=== PATIENT | male | born 1945 | race Caucasian/White ===

== ENCOUNTER 2022-04-06 17:18 | Inpatient (IN) ==
[~2022-04-06 17:18] MED LIST: NOREPINEPHRINE/D5W 4 MG/250 ML IV ONE; RAPID SEQUENCE INDUCTION BAG ONE
[2022-04-06 17:43] LABS: Basophils # (auto) 0.09 K/uL (0-0.2); Basophils % (auto) 0.6 %; Eosinophils # (auto) 0.29 K/uL (0-0.50); Eosinophils % (auto) 2.1 %; Hematocrit (blood only) 46.9 % (40.1-51.0); Hemoglobin 15.2 g/dl (14.0-18.0); Immature Granulocytes # (auto) 0.32 K/uL (0.00-0.02); Immature Granulocytes % (auto) 2.3 %; Lymphocytes # (auto) 4.54 K/uL (1.2-3.4); Lymphocytes % (auto) 32.4 %; Mean Corpuscular Hemoglobin 31.1 pg (25.0-34.0); Mean Corpuscular Hgb Conc 32.4 g/dL (32.0-36.0); Mean Corpuscular Volume 95.9 fL (80.0-100.0); Mean Platelet Volume 10.1 fL (9.4-12.4); Monocytes % (auto) 4.3 %; Neutrophils # (auto) 8.19 K/uL (1.4-6.5); Neutrophils % (auto) 58.3 %; Platelet Count 181 K/uL (130-400); RDW Coefficient of Variation 12.7 % (11.5-14.5); RDW Standard Deviation 44.8 fL (36.4-46.3); Red Blood Count 4.89 M/uL (4.63-6.08); White Blood Count 14.03 K/ul (4.8-10.8)
[2022-04-06] MEDS ORDERED: PIPERACILLIN/TAZOBACTAM 4.5 GM/120 ML BAG IV ONE (17:43)
[2022-04-06] MEDS ORDERED: SODIUM CHLORIDE 0.9% 1000ML 1,000 ML IV SCH (17:45)
[2022-04-06 17:58] LABS: INR 1.1 (0.9-1.1); Prothrombin Time 11.4 Seconds (9.0-12.0)
[2022-04-06] MEDS ORDERED: fentaNYL citrate 100 MCG/2 ML VIAL IV STA (17:58)
[2022-04-06] MEDS ORDERED: niCARdipine HCL INJ 2.5 MG/ML 10 ML AMP ONE (18:00)
[2022-04-06] MEDS ORDERED: MIDAZOLAM HCL 1 MG/ML 2ML VIAL ONE (18:00)
[2022-04-06] MEDS ORDERED: HEPARIN (PORCINE) 1000 UNIT/ML 10 ML (CATH LAB USE ONLY) ONE (18:00)
[2022-04-06 18:01] LABS: iSTAT Arterial Blood Gas HCO3 25 meg/L (19-24); iSTAT Arterial Blood Gas pCO2 70 mmHg (35-46); iSTAT Arterial Blood Gas pH 7.16 (7.35-7.45); iSTAT Arterial Blood Gas pO2 75 mmHg (80-95); iSTAT Carbon Dioxide 27 mmol/L (24-31); iSTAT Hematocrit 45 % (42-52); iSTAT Hemoglobin 15.3 g/dl (14.0-18.0); iSTAT Potassium 3.2 mmol/L (3.3-5.0); iSTAT Sodium 141 mmol/L (135-144)
[2022-04-06] MEDS ORDERED: fentaNYL citrate 100 MCG/2 ML VIAL ONE (18:01)
[2022-04-06] MEDS ORDERED: NITROGLYCERIN/D5W 100MCG/ML 20ML SYR ONE (18:01)
--- NOTE | 2022-04-06 18:02 | XRay Report ---
XR chest 1V portable HISTORY: 77 years-old Male tube placement confirmation acute respiratory failure COMPARISON: None TECHNIQUE: Semierect AP view the chest FINDINGS: A tube overlies the midline, 3.5 cm superior to the arie suggestive of an endotracheal tube. There appears to be an additional tube projecting over the midline upper chest level of the clavicular head s. The cardiac silhouette is enlarged. Pulmonary vascular congestion with ill-defined left basilar an d right upper lung opacities. No pneumothorax or large pleural effusion. Degenerative changes of the shoulders and spine. IMPRESSION: 1. Endotracheal tube terminates 3.5 cm superior to the arie. There may be an additional catheter or tube which is partially imaged projecting over the Upper chest. 2. Cardiomegaly with pulmonary vascular congestion. 3. Ill-defined left basilar and right upper lung opacities may represent a nonspecific infectious or inflammatory pneumonitis. ACT 112: Negative or not required by law. The above report was generated using voice recognition software. It may contain grammatical, syntax o r spelling errors. Electronically signed by: Sam Swan M.D. 04/06/2022 5:59 PM
[2022-04-06 18:08] LABS: Albumin Globulin Ratio 1.6 (0.9-2); Albumin Level 3.7 gm/dl (3.4-5.0); BUN Creatinine Ratio 11.5 (10-20); Bilirubin,Total 0.8 mg/dl (0.2-1.0); Calcium 8.1 mg/dl (8.5-10.1); Creatinine Clr Calc Pharmacy 63.8 ml/min; Est GFR (African American) 61.4 ml/min; Globulin 2.3 gm/dl (2.5-4.0); Magnesium 1.9 mg/dl (1.7-2.4); Potassium 3.3 mmol/L (3.5-5.1)
[2022-04-06 18:11] LABS: Troponin I High Sensitivity 46.3 pg/ml (0-20)
--- NOTE | 2022-04-06 18:27 | Emergency Department Note ---
History of Present Illness General Chief complaint: Cardiac Arrest/CPR Stated complaint: cardiac arrest Time Seen by Provider: 04/06/22 17:22 Source: EMS Mode of arrival: EMS Limitations: altered mental status and physical limitation History of Present Illness Provider complaint: Cardiac arrest This is a 77-year-old male brought in by EMS after cardiac arrest. Per EMS patient was a witnessed cardiac arrest with bystander CPR. Upon police arrival AED was placed and did deliver 3 shocks. Sports Management Intern reported that upon their arrival patient was PEA. He was given a total of 3 epi, 1 bicarb, was intubated in the field without difficulty, and they successfully obtained ROSC. Patient then appeared tachycardic but was holding onto blood pressure at the time they called for medical command. Sports Management Intern was concerned as the tachycardia did appear to be atrial fibrillation. Per their knowledge from bystander on scene which was patient's , patient had no prior cardiac history and had no complaints prior to this event. State patient does have a small head injury from his collapse, no other evidence of trauma. Patient was hypoxic but was improving with continued bagging, and they noted improved overall color and appearance. Upon arrival patient still tachycardic and what appeared to be atrial fibrillation but was holding her blood pressure, being bagged by EMS without difficulty, oxygen saturations in the 90s. Hospitalist Program Director and interventional cardiology both made aware of patient's impending arrival and possible need of additional services. Pt seen during a time of high acuity and national emergency pandemic while wearing PPE. Home Medications Medication Instructions Recorded Confirmed Type finasteride 5 mg tablet 5 mg PO DAILY 04/06/22 04/06/22 History losartan 100 1 tab PO DAILY 04/06/22 04/06/22 History mg-hydrochlorothiazide 25 mg tablet rosuvastatin 20 mg tablet 20 mg PO DAILY 04/06/22 04/06/22 History tadalafil 5 mg tablet 5 mg PO DAILY 04/06/22 04/06/22 History Allergies Allergy/AdvReac Type Severity Reaction Status Date / Time ibuprofen Allergy Severe Anaphylaxis Verified 04/06/22 18:00 Past Med/Surg History Medical History BPH (benign prostatic hyperplasia) Hyperlipidemia Hypertension Lung cancer S/p upper lobectomy Social History Smoking Status: Never smoker Hx Alcohol Use: Yes Alcohol type: wine Hx Substance Use: No Preferred Language: Azeri Communication Ability: Effective Healthcare Administration Intern Required: No Beliefs That Will Affect Care: None Current Living Situation: Spouse Other Information That Helps Us Care for You: No Feels Safe at Home: Yes Safety Concerns: Feels Safe At This Time Assistive Devices: Glasses Review of Systems See HPI for pertinent positives & negatives. Unobtainable due to cognitive status and Unobtainable due to endotracheal tube Physical Exam Vital Signs Vital Signs - 24 hr 04/06/22 17:24 04/06/22 17:24 04/06/22 17:34 Temperature Temperature [Source #1] Temperature [Source #2] Temperature Source Temperature Source [Source #1] Temperature Source [Source #2] Pulse Rate 111 H Pulse Rate [Finger] 110 H Pulse Rhythm Pulse Strength Respiratory Rate 22 20 Respiratory Effort / Characteristics Blood Pressure 115/69 Blood Pressure [Left Arm] Blood Pressure [Right Arm] 139/62 Blood Pressure [Right Radial Artery] Blood Pressure Mean 84 Blood Pressure Mean [Left Arm] Blood Pressure Mean [Right Arm] 87 Blood Pressure Mean [Right Radial Artery] Blood Pressure Position [Left Arm] Blood Pressure Position [Right Radial Artery] Pulse Oximetry 99 96 Oxygen Delivery Method Mechanical Vent Mechanical Vent Mechanical Vent Fraction of Inspired Oxygen SaO2/FiO2 Ratio Sepsis Recent Fever Within 48 Hours No Sepsis New/Unexplained Change in Mental Status No Sepsis Action Taken by Nursing MD Previously Notified End-Tidal CO2 04/06/22 17:53 04/06/22 18:06 04/06/22 17:22 Temperature 36.0 C L Temperature [Source #1] Temperature [Source #2] Temperature Source Mcmillan Cath ( Temp Sensing) Temperature Source [Source #1] Temperature Source [Source #2] Pulse Rate 115 H Pulse Rate [Finger] 107 H 96 H Pulse Rhythm Pulse Strength Respiratory Rate 20 28 H 21 Respiratory Effort / Characteristics Blood Pressure Blood Pressure [Left Arm] Blood Pressure [Right Arm] 127/98 132/79 Blood Pressure [Right Radial Artery] Blood Pressure Mean Blood Pressure Mean [Left Arm] Blood Pressure Mean [Right Arm] 107 96 Blood Pressure Mean [Right Radial Artery] Blood Pressure Position [Left Arm] Blood Pressure Position [Right Radial Artery] Pulse Oximetry 89 L 91 99 Oxygen Delivery Method Mechanical Vent Mechanical Vent Fraction of Inspired Oxygen 2 40 SaO2/FiO2 Ratio 4550 Sepsis Recent Fever Within 48 Hours Sepsis New/Unexplained Change in Mental Status Sepsis Action Taken by Nursing End-Tidal CO2 47 04/06/22 19:43 04/06/22 20:00 04/06/22 20:00 Temperature Temperature [Source #1] 35.7 C L Temperature [Source #2] 35.8 C L Temperature Source Temperature Source [Source #1] Mcmillan Cath ( Temp Sensing) Temperature Source [Source #2] Rectal Pulse Rate 94 H 113 H Pulse Rate [Finger] Pulse Rhythm Irregular Pulse Strength Normal Respiratory Rate 28 H 27 H Respiratory Effort / Characteristics Mechanically Ventilated Blood Pressure Blood Pressure [Left Arm] 113/62 Blood Pressure [Right Arm] Blood Pressure [Right Radial Artery] 188/72 H Blood Pressure Mean Blood Pressure Mean [Left Arm] 79 Blood Pressure Mean [Right Arm] Blood Pressure Mean [Right Radial Artery] 110 Blood Pressure Position [Left Arm] Lying Blood Pressure Position [Right Radial Artery] Lying Pulse Oximetry 100 97 Oxygen Delivery Method Mechanical Vent Fraction of Inspired Oxygen 60 60 SaO2/FiO2 Ratio Sepsis Recent Fever Within 48 Hours Sepsis New/Unexplained Change in Mental Status Sepsis Action Taken by Nursing End-Tidal CO2 31 GENERAL: unwell appearing, well nourished EYE EXAM: Pulls midposition, minimally reactive, 3mm b/l OROPHARYNX: ET tube in place, patient being bagged NECK: supple, no adenopathy LUNGS: Decreased breath sounds in the left, equal chest rise and fall with bagging HEART: Tachycardic and what appeared to be atrial fibrillation on telemetry, positive S1 and S2, no overt murmurs ABDOMEN: abdomen soft, no masses, evidence of trauma BACK: Back is symmetrical on inspection and there is no deformity SKIN: no rashes and no bruising, no petechiae UPPER EXTREMITIES: upper extremities are grossly normal. nml pulses b/l. LOWER EXTREMITIES: No pitting edema. nml pulses b/l. NEURO EXAM: GCS 3 Course Course 1732: Mateo with who is in the bereavement room. She states he takes medication for prostate issues, blood pressure, and cholesterol. No recent changes. No prior heart history. She states they were downtown earlier today after arriving in town from [place]. They ate lunch and walked around. She states he had no complaints. She states when they got that a hotel, he was putting the tong card in the door to open it and collapsed forward striking his head on the door before falling to the ground. She states he had abnormal br eathing at that time and then began to turn blue at which point in time she called 911. She initiated CPR per 911 instruction and waited for police and EMS. She states no recent illness. She states he has had prior lobectomy for a small area of cancer. He never required chemo or radiation. He has not required any additional follow-up since then. History of DVT/PE. Dr. Gonzales arrived and discussed with also. 1745: Patient still maintaining blood pressure, is attempting to breathe over the vent, however no other withdrawal to painful stimuli or purposeful movement. Heart rate still appears to be atrial fibrillation but rate is slowing. 1800: Signs stable. If did give permission for patient to be taken for cardiac catheterization. A code heart alert was called overhead. 181: ABG reviewed. Other labs still pending. Chest x-ray with ET tube in good position. No obvious pneumonia. Patient was given IV antibiotics as a precaution as director technical noted vomitus in the patient's airway upon placing the ET tube. 1816: Patient taken to Guest Services Manager. Administered Medications Propofol (Diprivan) 1,000 mg in 100 mls @ 14.04 mls/hr IV .[id number] [facility]; Protocol Stop: 04/09/22 19:29 Last Titration: 04/06/22 23:18 Dose: 20 mcg/kg/min, 14 mls/hr Documented By: Titration: 04/06/22 23:00 Dose: 25 mcg/kg/min, 17.6 mls/hr Documented By: Titration: 04/06/22 22:55 Dose: 30 mcg/kg/min, 21.1 mls/hr Documented By: Titration: 04/06/22 22:50 Dose: 35 mcg/kg/min, 24.6 mls/hr Documented By: Admin: 04/06/22 22:41 Dose: 40 mcg/kg/min, 28.1 mls/hr Documented By: LG Co-signed By: ALEXIS Titration: 04/06/22 22:41 Dose: 40 mcg/kg/min, 28.1 mls/hr Documented By: LG Co-signed By: ALEXIS Titration: 04/06/22 22:00 Dose: 40 mcg/kg/min, 28.1 mls/hr Documented By: Titration: 04/06/22 21:50 Dose: 35 mcg/kg/min, 24.6 mls/hr Documented By: Titration: 04/06/22 21:45 Dose: 30 mcg/kg/min, 21.1 mls/hr Documented By: Titration: 04/06/22 21:40 Dose: 25 mcg/kg/min, 17.6 mls/hr Documented By: Admin: 04/06/22 21:32 Dose: 20 mcg/kg/min, 14 mls/hr Documented By: CP Co-signed By: BENITA Fentanyl Citrate (Fentanyl Citrate) 2,500 mcg in 250 mls @ 10 mls/hr IV .Q25H YONATHAN; Protocol Stop: 04/20/22 19:29 Last Titration: 04/06/22 23:16 Dose: 100 mcg/hr, 10 mls/hr Documented By: LG Co-signed By: BENITA Titration: 04/06/22 21:30 Dose: 75 mcg/hr, 7.5 mls/hr Documented By: CP Co-signed By: BENITA Titration: 04/06/22 20:30 Dose: 50 mcg/hr, 5 mls/hr Documented By: LG Co-signed By: BENITA Admin: 04/06/22 19:30 Dose: 25 mcg/hr, 2.5 mls/hr Documented By: CP Co-signed By: BENITA Ampicillin Sodium/Sulbactam Sodium 3,000 mg/ Sodium Chloride 108 mls @ 200 mls/hr IV Q6H YONATHAN; Protocol Stop: 04/14/22 00:00 Last Infusion: 04/07/22 00:52 Dose: 0 mls/hr Documented By: Admin: 04/07/22 00:05 Dose: 200 mls/hr Documented By: BENITA Parenteral Electrolytes (Normosol-R) 1,000 mls @ 100 mls/hr IV .Q10H YONATHAN Stop: 05/06/22 21:44 Last Admin: 04/06/22 21:54 Dose: 100 mls/hr Documented By: LG Amiodarone HCl/Dextrose (Nexterone / D5w) 360 mg in 200 mls @ 33.333 mls/hr IV ONE ONE; Protocol Stop: 04/07/22 06:01 Last Admin: 04/07/22 00:07 Dose: 1 mg/min, 33.3 mls/hr Documented By: BENITA Co-signed By: VK Discontinued Medications Amiodarone HCl/Dextrose (Amiodarone 150mg / 100ml D5w) Confirm Administered Dose 150 mg IV .STK-MED ONE Stop: 04/06/22 23:57 Last Admin: 04/07/22 00:06 Dose: Not Given Documented By: BENITA Amiodarone HCl/Dextrose (Amiodarone 360mg / 200ml D5w) Confirm Administered Dose 360 mg IV .STK-MED ONE Stop: 04/06/22 23:58 Last Admin: 04/07/22 00:06 Dose: Not Given Documented By: BENITA Fentanyl Citrate (Fentanyl Citrate 100 Mcg/2 Ml Vial) 50 mcg IV NOW STA Stop: 04/06/22 17:59 Last Admin: 04/06/22 21:24 Dose: Not Given Documented By: BENITA Fentanyl Citrate (Fentanyl Citrate 100 Mcg/2 Ml Vial) Confirm Administered Dose 100 mcg .ROUTE .STK-MED ONE Stop: 04/06/22 18:02 Last Admin: 04/06/22 21:25 Dose: Not Given Documented By: BENITA Fentanyl Citrate (Fentanyl Citrate 2,500 Mcg/250 Ml Bag) Confirm Administered Dose 2,500 mcg IV .STK-MED ONE Stop: 04/06/22 19:50 Last Admin: 04/06/22 21:31 Dose: Not Given Documented By: BENITA Furosemide (Furosemide 40 Mg/4 Ml Vial) 40 mg IV ONE ONE Stop: 04/06/22 20:34 Last Admin: 04/06/22 21:43 Dose: Not Given Documented By: LG Heparin Sodium (Porcine) (Heparin (Porcine) 1000 Unit/Ml 10 Ml (Guest Services Manager Use Only)) Confirm Administered Dose 10,000 units .ROUTE .STK-MED ONE Stop: 04/06/22 18:01 Last Admin: 04/06/22 21:24 Dose: Not Given Documented By: BENITA Heparin Sodium/Dextrose (Heparin 14676 Unit/500 Ml D5w) Confirm Administered Dose 25,000 units IV .STK-MED ONE Stop: 04/06/22 20:34 Last Admin: 04/06/22 21:31 Dose: Not Given Documented By: BENITA Heparin Sodium/Sodium Chloride (Heparin In Nss Infusion 1000 Unit/500 Ml (2 U/Ml) Bag) Confirm Administered Dose 3,000 units IV .STK-MED ONE Stop: 04/06/22 18:02 Last Admin: 04/06/22 21:25 Dose: Not Given Documented By: BENITA Sodium Chloride (Nss 1000ml) 1,000 mls @ 125 mls/hr IV .Q8H YONATHAN Stop: 05/06/22 17:44 Last Admin: 04/06/22 20:53 Dose: Not Given Documented By: LG Piperacillin Sod/Tazobactam Sod (Zosyn) 4.5 gm in 120 mls @ 240 mls/hr IV NOW ONE Stop: 04/06/22 18:12 Last Admin: 04/06/22 21:24 Dose: Not Given Documented By: BENITA Potassium Chloride (K Ky / Wtr) 20 meq in 100 mls @ 50 mls/hr IV ONE ONE Stop: 04/06/22 21:35 Last Infusion: 04/06/22 23:23 Dose: 0 mls/hr Documented By: Admin: 04/06/22 21:27 Dose: 50 mls/hr Documented By: LG Magnesium Sulfate/Dextrose (Magnesium Sulfate / D5w) 1 gm in 100 mls @ 50 mls/hr IV ONE ONE Stop: 04/06/22 21:35 Last Infusion: 04/06/22 23:23 Dose: 0 mls/hr Documented By: Admin: 04/06/22 21:27 Dose: 50 mls/hr Documented By: LG Heparin Sodium/Dextrose (Heparin Sodium/Dextrose) 25,000 units in 500 mls @ 34 mls/hr IV .[id number] [facility]; Protocol Stop: 05/06/22 20:44 Last Titration: 04/06/22 23:23 Dose: 0 units/hr, 0 mls/hr Documented By: LG Co-signed By: BENITA Admin: 04/06/22 21:27 Dose: 1,700 units/hr, 34 mls/hr Documented By: LG Co-signed By: BENITA Calcium Gluconate 2,000 mg/ (Dextrose) 70 mls @ 240 mls/hr IV NOW ONE Stop: 04/06/22 21:17 Last Infusion: 04/06/22 23:32 Dose: 0 mls/hr Documented By: Admin: 04/06/22 23:11 Dose: 240 mls/hr Documented By: BENITA Amiodarone HCl/Dextrose (Nexterone / D5w) 150 mg in 100 mls @ 600 mls/hr IV NOW STA Stop: 04/07/22 00:01 Last Admin: 04/07/22 00:06 Dose: 600 mls/hr Documented By: BENITA Co-signed By: MONALISA Metoprolol Tartrate (Metoprolol Tartrate 1 Mg/Ml Vial) 2.5 mg IV NOW STA Stop: 04/06/22 20:38 Last Admin: 04/06/22 21:43 Dose: Not Given Documented By: LG Midazolam HCl (Midazolam Hcl 1 Mg/Ml 2ml Vial) Confirm Administered Dose 2 mg . ROUTE .STK-MED ONE Stop: 04/06/22 18:01 Last Admin: 04/06/22 21:25 Dose: Not Given Documented By: BENITA Miscellaneous (Rapid Sequence Induction Bag) Confirm Administered Dose 1 each .ROUTE .STK-MED ONE Stop: 04/06/22 17:10 Last Admin: 04/06/22 21:24 Dose: Not Given Documented By: BENITA Nicardipine HCl (Nicardipine Hcl Inj 2.5 Mg/Ml 10 Ml Amp) Confirm Administered Dose 25 mg .ROUTE .STK-MED ONE Stop: 04/06/22 18:01 Last Admin: 04/06/22 21:25 Dose: Not Given Documented By: BENITA Nitroglycerin/Dextrose (Nitroglycerin/D5w 100mcg/Ml 20ml Syr) Confirm Administe red Dose 2,000 mcg .ROUTE .STK-MED ONE Stop: 04/06/22 18:02 Last Admin: 04/06/22 21:27 Dose: Not Given Documented By: BENITA Norepinephrine Bitartrate (Norepinephrine/D5w 4 Mg/250 Ml) Confirm Administered Dose 4 mg IV .STK-MED ONE Stop: 04/06/22 17:10 Last Admin: 04/06/22 21:24 Dose: Not Given Documented By: BENITA Phenylephrine HCl (Phenylephrine Hcl Inj 10 Mg/Ml Vial (Guest Services Manager Use Only)) Confirm Administered Dose 10 mg .ROUTE .STK-MED ONE Stop: 04/06/22 18:46 Last Admin: 04/06/22 21:27 Dose: Not Given Documented By: BENITA Potassium Chloride (Potassium Chloride 20 Meq/15 Ml Udc) 40 meq PO NOW STA Stop: 04/06/22 21:51 Last Admin: 04/06/22 21:57 Dose: 40 meq Documented By: BENITA Propofol (Propofol Iv Emulsion 10 Mg/Ml 100 Ml Vial) Confirm Administered Dose 1,000 mg IV .STK-MED ONE Stop: 04/06/22 19:50 Last Admin: 04/06/22 21:31 Dose: Not Given Documented By: BENITA Sodium Bicarbonate (Sodium Bicarb 8.4% Inj 50 Meq/50 Ml Syr) Confirm Administered Dose 50 meq IV .STK-MED ONE Stop: 04/06/22 23:08 Last Admin: 04/06/22 23:29 Dose: Not Given Documented By: BENITA Sodium Bicarbonate (Sodium Bicarb 8.4% Inj 50 Meq/50 Ml Syr) 50 meq IV NOW STA Stop: 04/06/22 23:24 Last Admin: 04/06/22 23:30 Dose: 50 meq Documented By: BENITA Vecuronium Conway (Vecuronium Conway 10 Mg Vial) Confirm Administered Dose 10 mg IV .STK-MED ONE Stop: 04/06/22 23:36 Last Admin: 04/07/22 00:05 Dose: Not Given Documented By: BENITA Vecuronium Conway (Vecuronium Conway 10 Mg Vial) 10 mg IV NOW STA Stop: 04/06/22 23:36 Last Admin: 04/07/22 00:05 Dose: 10 mg Documented By: BENITA Co-signed By: MONALISA Critical Care Time Critical Care Time: Yes Total Critical Care Time: 58 Critical care of 58 min performed to assess and manage high likelihood of life- threatening cardiac arrest, involving labs and imaging performed with assessment to evaluate cardiac arrest diagnosis with frequent reassessment. This time includes bedside time, treatment discussions with patient/family/consultants, documentation time and excludes procedure time. Medical Decision Making Differential Diagnosis Cardiac ischemia, aortic dissection, pulmonary embolism, electrolyte abnormality, acidosis, tension pneumothorax, hypothermia, hypovolemia, intracranial event, cardiac tamponade, as well as other pathologies. Laboratory Data Result diagrams: 04/06/22 19:23 04/06/22 19:29 Lab Results 04/06/22 04/06/22 04/06/22 Range/Units 17:07 17:07 17:07 WBC 14.03 H (4.8-10.8) K/ul RBC 4.89 (4.63-6.08) M/uL Hgb 15.2 (14.0-18.0) g/dl POC Hgb (14.0-18.0) g/dl Hct 46.9 (40.1-51.0) % POC Hct (42-52) % MCV 95.9 (80.0-100.0) fL MCH 31.1 (25.0-34.0) pg MCHC 32.4 (32.0-36.0) g/dL RDW Std Deviation 44.8 (36.4-46.3) fL RDW Coeff of Tarsha 12.7 (11.5-14.5) % Plt Count 181 (130-400) K/uL MPV 10.1 (9.4-12.4) fL Immature Gran % (Auto) 2.3 % Neut % (Auto) 58.3 % Lymph % (Auto) 32.4 % Hill % (Auto) 4.3 % Eos % (Auto) 2.1 % Baso % (Auto) 0.6 % Neut # (Auto) 8.19 H (1.4-6.5) K/uL Lymph # (Auto) 4.54 H (1.2-3.4) K/uL Hill # (Auto) 0.60 (0.24-0.82) K/uL Eos # (Auto) 0.29 (0-0.50) K/uL Baso # (Auto) 0.09 (0-0.2) K/uL Immature Gran # (Auto) 0.32 H (0.00-0.02) K/uL PT 11.4 (9.0-12.0) Seconds INR 1.1 (0.9-1.1) APTT (21.0-31.0) Seconds PTT Ratio Fibrinogen (184-400) mg/dl POC pH (7.35-7.45) POC pCO2 (35-46) mmHg POC pO2 (80-95) mmHg POC HCO3 (19-24) venu/L POC Total CO2 (24-31) mmol/L POC Base Excess (-9-1.8) venu/L POC ABG O2 Sat (90-95) % POC Sodium (135-144) mmol/L Sodium 144 (136-145) mmol/L POC Potassium (3.3-5.0) mmol/L Potassium 3.3 L (3.5-5.1) mmol/L Chloride 105 (98-107) mmol/L Carbon Dioxide 22 (21-32) mmol/L Anion Gap 17 H (3-11) BUN 15 (6-23) mg/dl Creatinine 1.30 (0.6-1.4) mg/dl Est Cr Clr Drug Dosing 63.8 ml/min Est GFR ( Amer) 61.4 ml/min Est GFR (Non-Af Amer) 53.0 ml/min BUN/Creatinine Ratio 11.5 (10-20) Glucose 225 H (70-99(Fasting)) mg/dl POC Glucose (70-99) mg/dl Lactate (0.4-2.0) mmol/L Calcium 8.1 L (8.5-10.1) mg/dl Ionized Calcium (1.12-1.32) mmol/L Phosphorus (2.5-4.9) mg/dl Magnesium 1.9 (1.7-2.4) mg/dl Total Bilirubin 0.8 (0.2-1.0) mg/dl AST 95 H (13-39) U/L ALT 109 H (7-52) U/L Alkaline Phosphatase 50 (34-104) U/L Total Creatine Kinase Troponin I High Sens 46.3 H (0-20) pg/ml Total Protein 6.0 (6.0-8.3) gm/dl Albumin 3.7 (3.4-5.0) gm/dl Globulin 2.3 L (2.5-4.0) gm/dl Albumin/Globulin Ratio 1.6 (0.9-2) Triglycerides Cholesterol LDL Cholesterol, Calc VLDL Cholesterol, Calc HDL Cholesterol Cholesterol/HDL Ratio Lipase 60 (11-82) U/L TSH (0.300-4.500) uIu/ml Random Cortisol mcg/dl Nasal Screen MRSA (PCR) (Negative) Blood Type Blood Type Recheck Antibody Screen 04/06/22 04/06/22 04/06/22 Range/Units 17:29 17:43 17:45 WBC (4.8-10.8) K/ul RBC (4.63-6.08) M/uL Hgb (14.0-18.0) g/dl POC Hgb 15.3 (14.0-18.0) g/dl Hct (40.1-51.0) % POC Hct 45 (42-52) % MCV (80.0-100.0) fL MCH (25.0-34.0) pg MCHC (32.0-36.0) g/dL RDW Std Deviation (36.4-46.3) fL RDW Coeff of Tarsha (11.5-14.5) % Plt Count (130-400) K/uL MPV (9.4-12.4) fL Immature Gran % (Auto) % Neut % (Auto) % Lymph % (Auto) % Hill % (Auto) % Eos % (Auto) % Baso % (Auto) % Neut # (Auto) (1.4-6.5) K/uL Lymph # (Auto) (1.2-3.4) K/uL Hill # (Auto) (0.24-0.82) K/uL Eos # (Auto) (0-0.50) K/uL Baso # (Auto) (0-0.2) K/uL Immature Gran # (Auto) (0.00-0.02) K/uL PT (9.0-12.0) Seconds INR (0.9-1.1) APTT (21.0-31.0) Seconds PTT Ratio Fibrinogen (184-400) mg/dl POC pH 7.16 L* (7.35-7.45) POC pCO2 70 H (35-46) mmHg POC pO2 75 L (80-95) mmHg POC HCO3 25 H (19-24) venu/L POC Total CO2 27 (24-31) mmol/L POC Base Excess -4.0 (-9-1.8) venu/L POC ABG O2 Sat 90.0 (90-95) % POC Sodium 141 (135-144) mmol/L Sodium (136-145) mmol/L POC Potassium 3.2 L (3.3-5.0) mmol/L Potassium (3.5-5.1) mmol/L Chloride (98-107) mmol/L Carbon Dioxide (21-32) mmol/L Anion Gap (3-11) BUN (6-23) mg/dl Creatinine (0.6-1.4) mg/dl Est Cr Clr Drug Dosing ml/min Est GFR ( Amer) ml/min Est GFR (Non-Af Amer) ml/min BUN/Creatinine Ratio (10-20) Glucose (70-99(Fasting)) mg/dl POC Glucose 206 H (70-99) mg/dl Lactate (0.4-2.0) mmol/L Calcium (8.5-10.1) mg/dl Ionized Calcium (1.12-1.32) mmol/L Phosphorus (2.5-4.9) mg/dl Magnesium (1.7-2.4) mg/dl Total Bilirubin (0.2-1.0) mg/dl AST (13-39) U/L ALT (7-52) U/L Alkaline Phosphatase (34-104) U/L Total Creatine Kinase Troponin I High Sens (0-20) pg/ml Total Protein (6.0-8.3) gm/dl Albumin (3.4-5.0) gm/dl Globulin (2.5-4.0) gm/dl Albumin/Globulin Ratio (0.9-2) Triglycerides Cholesterol LDL Cholesterol, Calc VLDL Cholesterol, Calc HDL Cholesterol Cholesterol/HDL Ratio Lipase (11-82) U/L TSH (0.300-4.500) uIu/ml Random Cortisol mcg/dl Nasal Screen MRSA (PCR) (Negative) Blood Type Blood Type Recheck O Positive Antibody Screen 04/06/22 04/06/22 04/06/22 Range/Units 19:23 19:29 19:29 WBC 18.11 H (4.8-10.8) K/ul RBC 4.74 (4.63-6.08) M/uL Hgb 14.9 (14.0-18.0) g/dl POC Hgb (14.0-18.0) g/dl Hct 44.8 (40.1-51.0) % POC Hct (42-52) % MCV 94.5 (80.0-100.0) fL MCH 31.4 (25.0-34.0) pg MCHC 33.3 (32.0-36.0) g/dL RDW Std Deviation 44.0 (36.4-46.3) fL RDW Coeff of Tarsha 12.7 (11.5-14.5) % Plt Count 216 (130-400) K/uL MPV 10.1 (9.4-12.4) fL Immature Gran % (Auto) 1.5 % Neut % (Auto) 74.7 % Lymph % (Auto) 19.2 % Hill % (Auto) 3.4 % Eos % (Auto) 0.6 % Baso % (Auto) 0.6 % Neut # (Auto) 13.52 H (1.4-6.5) K/uL Lymph # (Auto) 3.48 H (1.2-3.4) K/uL Hill # (Auto) 0.62 (0.24-0.82) K/uL Eos # (Auto) 0.11 (0-0.50) K/uL Baso # (Auto) 0.11 (0-0.2) K/uL Immature Gran # (Auto) 0.27 H (0.00-0.02) K/uL PT (9.0-12.0) Seconds INR (0.9-1.1) APTT (21.0-31.0) Seconds PTT Ratio Fibrinogen (184-400) mg/dl POC pH (7.35-7.45) POC pCO2 (35-46) mmHg POC pO2 (80-95) mmHg POC HCO3 (19-24) venu/L POC Total CO2 (24-31) mmol/L POC Base Excess (-9-1.8) venu/L POC ABG O2 Sat (90-95) % POC Sodium (135-144) mmol/L Sodium (136-145) mmol/L POC Potassium (3.3-5.0) mmol/L Potassium (3.5-5.1) mmol/L Chloride (98-107) mmol/L Carbon Dioxide (21-32) mmol/L Anion Gap (3-11) BUN (6-23) mg/dl Creatinine (0.6-1.4) mg/dl Est Cr Clr Drug Dosing ml/min Est GFR ( Amer) ml/min Est GFR (Non-Af Amer) ml/min BUN/Creatinine Ratio (10-20) Glucose (70-99(Fasting)) mg/dl POC Glucose (70-99) mg/dl Lactate 4.1 H* (0.4-2.0) mmol/L Calcium (8.5-10.1) mg/dl Ionized Calcium (1.12-1.32) mmol/L Phosphorus (2.5-4.9) mg/dl Magnesium (1.7-2.4) mg/dl Total Bilirubin (0.2-1.0) mg/dl AST (13-39) U/L ALT (7-52) U/L Alkaline Phosphatase (34-104) U/L Total Creatine Kinase Troponin I High Sens (0-20) pg/ml Total Protein (6.0-8.3) gm/dl Albumin (3.4-5.0) gm/dl Globulin (2.5-4.0) gm/dl Albumin/Globulin Ratio (0.9-2) Triglycerides Cholesterol LDL Cholesterol, Calc VLDL Cholesterol, Calc HDL Cholesterol Cholesterol/HDL Ratio Lipase (11-82) U/L TSH (0.300-4.500) uIu/ml Random Cortisol mcg/dl Nasal Screen MRSA (PCR) (Negative) Blood Type O Positive Blood Type Recheck Antibody Screen NEGATIVE 04/06/22 04/06/22 04/06/22 Range/Units 19:29 19:29 19:29 WBC (4.8-10.8) K/ul RBC (4.63-6.08) M/uL Hgb (14.0-18.0) g/dl POC Hgb (14.0-18.0) g/dl Hct (40.1-51.0) % POC Hct (42-52) % MCV (80.0-100.0) fL MCH (25.0-34.0) pg MCHC (32.0-36.0) g/dL RDW Std Deviation (36.4-46.3) fL RDW Coeff of Tarsha (11.5-14.5) % Plt Count (130-400) K/uL MPV (9.4-12.4) fL Immature Gran % (Auto) % Neut % (Auto) % Lymph % (Auto) % Hill % (Auto) % Eos % (Auto) % Baso % (Auto) % Neut # (Auto) (1.4-6.5) K/uL Lymph # (Auto) (1.2-3.4) K/uL Hill # (Auto) (0.24-0.82) K/uL Eos # (Auto) (0-0.50) K/uL Baso # (Auto) (0-0.2) K/uL Immature Gran # (Auto) (0.00-0.02) K/uL PT (9.0-12.0) Seconds INR (0.9-1.1) APTT (21.0-31.0) Seconds PTT Ratio Fibrinogen (184-400) mg/dl POC pH (7.35-7.45) POC pCO2 (35-46) mmHg POC pO2 (80-95) mmHg POC HCO3 (19-24) venu/L POC Total CO2 (24-31) mmol/L POC Base Excess (-9-1.8) venu/L POC ABG O2 Sat (90-95) % POC Sodium (135-144) mmol/L Sodium (136-145) mmol/L POC Potassium (3.3-5.0) mmol/L Potassium (3.5-5.1) mmol/L Chloride (98-107) mmol/L Carbon Dioxide (21-32) mmol/L Anion Gap (3-11) BUN (6-23) mg/dl Creatinine (0.6-1.4) mg/dl Est Cr Clr Drug Dosing ml/min Est GFR ( Amer) ml/min Est GFR (Non-Af Amer) ml/min BUN/Creatinine Ratio (10-20) Glucose (70-99(Fasting)) mg/dl POC Glucose (70-99) mg/dl Lactate (0.4-2.0) mmol/L Calcium (8.5-10.1) mg/dl Ionized Calcium 1.06 L (1.12-1.32) mmol/L Phosphorus (2.5-4.9) mg/dl Magnesium (1.7-2.4) mg/dl Total Bilirubin (0.2-1.0) mg/dl AST (13-39) U/L ALT (7-52) U/L Alkaline Phosphatase (34-104) U/L Total Creatine Kinase Cancelled Troponin I High Sens Cancelled (0-20) pg/ml Total Protein (6.0-8.3) gm/dl Albumin (3.4-5.0) gm/dl Globulin (2.5-4.0) gm/dl Albumin/Globulin Ratio (0.9-2) Triglycerides Cancelled Cholesterol Cancelled LDL Cholesterol, Calc Cancelled VLDL Cholesterol, Calc Cancelled HDL Cholesterol Cancelled Cholesterol/HDL Ratio Cancelled Lipase Cancelled (11-82) U/L TSH (0.300-4.500) uIu/ml Random Cortisol 33.52 mcg/dl Nasal Screen MRSA (PCR) (Negative) Blood Type Blood Type Recheck Antibody Screen 04/06/22 04/06/22 04/06/22 Range/Units 19:29 19:29 19:29 WBC (4.8-10.8) K/ul RBC (4.63-6.08) M/uL Hgb (14.0-18.0) g/dl POC Hgb (14.0-18.0) g/dl Hct (40.1-51.0) % POC Hct (42-52) % MCV (80.0-100.0) fL MCH (25.0-34.0) pg MCHC (32.0-36.0) g/dL RDW Std Deviation (36.4-46.3) fL RDW Coeff of Tarsha (11.5-14.5) % Plt Count (130-400) K/uL MPV (9.4-12.4) fL Immature Gran % (Auto) % Neut % (Auto) % Lymph % (Auto) % Hill % (Auto) % Eos % (Auto) % Baso % (Auto) % Neut # (Auto) (1.4-6.5) K/uL Lymph # (Auto) (1.2-3.4) K/uL Hill # (Auto) (0.24-0.82) K/uL Eos # (Auto) (0-0.50) K/uL Baso # (Auto) (0-0.2) K/uL Immature Gran # (Auto) (0.00-0.02) K/uL PT 12.4 H (9.0-12.0) Seconds INR 1.2 H (0.9-1.1) APTT 64.8 H* (21.0-31.0) Seconds PTT Ratio 2.4 Fibrinogen 226 (184-400) mg/dl POC pH (7.35-7.45) POC pCO2 (35-46) mmHg POC pO2 (80-95) mmHg POC HCO3 (19-24) venu/L POC Total CO2 (24-31) mmol/L POC Base Excess (-9-1.8) venu/L POC ABG O2 Sat (90-95) % POC Sodium (135-144) mmol/L Sodium 143 (136-145) mmol/L POC Potassium (3.3-5.0) mmol/L Potassium 3.5 (3.5-5.1) mmol/L Chloride 106 (98-107) mmol/L Carbon Dioxide 27 (21-32) mmol/L Anion Gap 10 (3-11) BUN 17 (6-23) mg/dl Creatinine 1.49 H (0.6-1.4) mg/dl Est Cr Clr Drug Dosing 55.7 ml/min Est GFR ( Amer) 52.1 ml/min Est GFR (Non-Af Amer) 44.9 ml/min BUN/Creatinine Ratio 11.4 (10-20) Glucose 179 H (70-99(Fasting)) mg/dl POC Glucose (70-99) mg/dl Lactate (0.4-2.0) mmol/L Calcium 7.9 L (8.5-10.1) mg/dl Ionized Calcium (1.12-1.32) mmol/L Phosphorus 6.4 H (2.5-4.9) mg/dl Magnesium 1.9 (1.7-2.4) mg/dl Total Bilirubin (0.2-1.0) mg/dl AST (13-39) U/L ALT (7-52) U/L Alkaline Phosphatase (34-104) U/L Total Creatine Kinase 398 H Troponin I High Sens 331.5 H* D (0-20) pg/ml Total Protein (6.0-8.3) gm/dl Albumin (3.4-5.0) gm/dl Globulin (2.5-4.0) gm/dl Albumin/Globulin Ratio (0.9-2) Triglycerides 137 Cholesterol 134 LDL Cholesterol, Calc 66 VLDL Cholesterol, Calc 27 HDL Cholesterol 41 Cholesterol/HDL Ratio 3.3 Lipase 79 (11-82) U/L TSH 1.470 (0.300-4.500) uIu/ml Random Cortisol mcg/dl Nasal Screen MRSA (PCR) (Negative) Blood Type Blood Type Recheck Antibody Screen 04/06/22 Range/Units 19:30 WBC (4.8-10.8) K/ul RBC (4.63-6.08) M/uL Hgb (14.0-18.0) g/dl POC Hgb (14.0-18.0) g/dl Hct (40.1-51.0) % POC Hct (42-52) % MCV (80.0-100.0) fL MCH (25.0-34.0) pg MCHC (32.0-36.0) g/dL RDW Std Deviation (36.4-46.3) fL RDW Coeff of Tarsha (11.5-14.5) % Plt Count (130-400) K/uL MPV (9.4-12.4) fL Immature Gran % (Auto) % Neut % (Auto) % Lymph % (Auto) % Hill % (Auto) % Eos % (Auto) % Baso % (Auto) % Neut # (Auto) (1.4-6.5) K/uL Lymph # (Auto) (1.2-3.4) K/uL Hill # (Auto) (0.24-0.82) K/uL Eos # (Auto) (0-0.50) K/uL Baso # (Auto) (0-0.2) K/uL Immature Gran # (Auto) (0.00-0.02) K/uL PT (9.0-12.0) Seconds INR (0.9-1.1) APTT (21.0-31.0) Seconds PTT Ratio Fibrinogen (184-400) mg/dl POC pH (7.35-7.45) POC pCO2 (35-46) mmHg POC pO2 (80-95) mmHg POC HCO3 (19-24) venu/L POC Total CO2 (24-31) mmol/L POC Base Excess (-9-1.8) venu/L POC ABG O2 Sat (90-95) % POC Sodium (135-144) mmol/L Sodium (136-145) mmol/L POC Potassium (3.3-5.0) mmol/L Potassium (3.5-5.1) mmol/L Chloride (98-107) mmol/L Carbon Dioxide (21-32) mmol/L Anion Gap (3-11) BUN (6-23) mg/dl Creatinine (0.6-1.4) mg/dl Est Cr Clr Drug Dosing ml/min Est GFR ( Amer) ml/min Est GFR (Non-Af Amer) ml/min BUN/Creatinine Ratio (10-20) Glucose (70-99(Fasting)) mg/dl POC Glucose (70-99) mg/dl Lactate (0.4-2.0) mmol/L Calcium (8.5-10.1) mg/dl Ionized Calcium (1.12-1.32) mmol/L Phosphorus (2.5-4.9) mg/dl Magnesium (1.7-2.4) mg/dl Total Bilirubin (0.2-1.0) mg/dl AST (13-39) U/L ALT (7-52) U/L Alkaline Phosphatase (34-104) U/L Total Creatine Kinase Troponin I High Sens (0-20) pg/ml Total Protein (6.0-8.3) gm/dl Albumin (3.4-5.0) gm/dl Globulin (2.5-4.0) gm/dl Albumin/Globulin Ratio (0.9-2) Triglycerides Cholesterol LDL Cholesterol, Calc VLDL Cholesterol, Calc HDL Cholesterol Cholesterol/HDL Ratio Lipase (11-82) U/L TSH (0.300-4.500) uIu/ml Random Cortisol mcg/dl Nasal Screen MRSA (PCR) Negative (Negative) Blood Type Blood Type Recheck Antibody Screen Imaging Data Radiologist's Impression: Chest X-Ray 04/06/22 17:33 XR chest 1V portable HISTORY: 77 years-old Male tube placement confirmation acute respiratory failure COMPARISON: None TECHNIQUE: Semierect AP view the chest FINDINGS: A tube overlies the midline, 3.5 cm superior to the arie suggestive of an endotracheal tube. There appears to be an additional tube projecting over the midline upper chest level of the clavicular heads. The cardiac silhouette is enlarged. Pulmonary vascular congestion with ill-defined left basilar and right upper lung opacities. No pneumothorax or large pleural effusion. Degenerative changes of the shoulders and spine. IMPRESSION: 1. Endotracheal tube terminates 3.5 cm superior to the arie. There may be an additional catheter or tube which is partially imaged projecting over the Upper chest. 2. Cardiomegaly with pulmonary vascular congestion. 3. Ill-defined left basilar and right upper lung opacities may represent a nons pecific infectious or inflammatory pneumonitis. ACT 112: Negative or not required by law. The above report was generated using voice recognition software. It may contain grammatical, syntax or spelling errors. Electronically signed by: Sam Swan M.D. 04/06/2022 5:[address] 04/06/22 18:07 CT head/brain wo con CLINICAL HISTORY: 77 years-old Male with s/p fall, hit head. Acute head injury status post fall TECHNIQUE: Multiple axial CT images of the head were obtained without contrast. A dose lowering technique was utilized adhering to the principles of ALARA. CT DOSE: 1624.35 mGycm COMPARISON: None. FINDINGS: No acute intracranial hemorrhage, midline shift, intracranial mass, hydrocephalus, territorial ischemia or abnormal extra-axial collection. Motion degraded exam. Endotracheal tube. Apparent thickening of the falx cerebri is lik jane secondary to motion artifact. Cerebral vascular calcifications. Mild white matter hypodensities are nonspecific, likely representing chronic microvascular ischemic disease. The calvarium is intact. Mastoid air cells are clear. Moderate mucosal thickening of the ethmoid air cells with polypoid mucosal thickening of the left maxillary sinus. Small right maxillary sinus air-fluid level. IMPRESSION: Motion degraded exam. No acute intracranial abnormality or calvarial fracture identified. ACT 112: Negative or not required by law. The above report was generated using voice recognition software. It may contain grammatical, syntax or spelling errors. Electronically signed by: Sam Swan M.D. 04/06/2022 6:35 PM Chest X-Ray 04/06/22 19:21 XR chest 1V portable HISTORY: 77 years-old Male resp failure acute respiratory failure COMPARISON: Chest radiograph 04/06/2022 5:37 PM TECHNIQUE: AP view the chest FINDINGS: Enteric tube courses below the diaphragm with distal tip outside the [id number]. Endotracheal tube overlies the midline, 3.6 cm superior to the arie. Cardiac silhouette is enlarged. Pulmonary vascular congestion with interstitial coarsening. Degenerative changes of the shoulders and spine. IMPRESSION: 1. Satisfactory positioning of the endotracheal and enteric tubes. 2. No pneumothorax. ACT 112: Negative or not required by law. The above report was generated using voice recognition software. It may contain grammatical, syntax or spelling errors. Electronically signed by: Sam Swan M.D. 04/06/2022 8:32 PM ECG Data Attestation: I personally reviewed and interpreted this ECG as follows: Indication: + other Rate (beats per minute): 118 Rhythm: + other ECG Intervals/blocks: + IVCD and + Prolonged QT ECG [place]: + Left axis deviation ECG ST segments: + Nonspecific ST abnormalities MDM Narrative An order was placed for continuous cardiac monitoring. The monitor shows a rate of _112__ with _atrial fibrillation_ rhythm. Impression & Plan Cardiac arrest, Acute respiratory failure with hypoxia, Atrial fibrillation with rapid ventricular response Discharge Plan Visit Data Chief Complaint: Cardiac Arrest/CPR Stated Complaint: cardiac arrest ED Provider: Luba Taveras Discharge Problem: Cardiac arrest, Acute respiratory failure with hypoxia, Atrial fibrillation with rapid ventricular response Patient Disposition: Admitted As Inpatient Discharge Instructions Interventions: ED Discharge Assessment Last Done: 04/06/22 18:15
--- NOTE | 2022-04-06 18:37 | CT Scan Report ---
CT head/brain wo con CLINICAL HISTORY: 77 years-old Male with s/p fall, hit head. Acute head injury status post fall TECHNIQUE: Multiple axial CT images of the head were obtained without contrast. A dose lowering tech nique was utilized adhering to the principles of ALARA. CT DOSE: 1624.35 mGycm COMPARISON: None. FINDINGS: No acute intracranial hemorrhage, midline shift, intracranial mass, hydrocephalus, territorial ischem ia or abnormal extra-axial collection. Motion degraded exam. Endotracheal tube. Apparent thickening o f the falx cerebri is likely secondary to motion artifact. Cerebral vascular calcifications. Mild whi te matter hypodensities are nonspecific, likely representing chronic microvascular ischemic disease. The calvarium is intact. Mastoid air cells are clear. Moderate mucosal thickening of the ethmoid air cells with polypoid mucosal thickening of the left maxillary sinus. Small right maxillary sinus air- fluid level. IMPRESSION: Motion degraded exam. No acute intracranial abnormality or calvarial fracture identified . ACT 112: Negative or not required by law. The above report was generated using voice recognition software. It may contain grammatical, syntax o r spelling errors. Electronically signed by: Sam Swan M.D. 04/06/2022 6:35 PM
[2022-04-06] MEDS ORDERED: PHENYLEPHRINE HCL INJ 10 MG/ML VIAL (CATH LAB USE ONLY) ONE (18:45)
[2022-04-06] MEDS ORDERED: busPIRone 15 MG TAB NG PRN (19:21)
[2022-04-06] MEDS ORDERED: STAT IV Infusion **Titration per Protocol STA (19:21)
[2022-04-06] MEDS ORDERED: fentaNYL BOLUS from BAG IV PRN (19:21)
[2022-04-06] MEDS ORDERED: TICAGRELOR 90 MG HOME PACK PO STA (19:22)
[2022-04-06] MEDS ORDERED: fentaNYL citrate 2,500 MCG/250 ML BAG IV SCH (19:30)
--- NOTE | 2022-04-06 19:31 | Pre Anesthesia Assessment ---
Date of Service April 06, 2022 Pre Sedation Assessment Vital Signs Temp Pulse Pulse Resp BP BP Pulse Ox 04/06/22 17:22 115 H 21 99 04/06/22 18:06 36.0 C L 96 H 28 H 132/79 91 04/06/22 17:53 107 H 20 127/98 89 L 04/06/22 17:34 110 H 20 139/62 96 04/06/22 17:24 04/06/22 17:24 111 H 22 115/69 99 O2 Del Method FiO2 04/06/22 17:22 40 04/06/22 18:06 Mechanical Vent 2 04/06/22 17:53 Mechanical Vent 04/06/22 17:34 Mechanical Vent 04/06/22 17:24 Mechanical Vent 04/06/22 17:24 Mechanical Vent Cardiovascular + irregularly irregular (afib with frequent PVCs, couplets, triplets.) + S1 normal, + S2 normal and + gallop (S4) Respiratory Additional Comments: intubated Pre-Sedation Airway Assessment Smoking Status: Unknown if ever smoked intubated ASA 4 Notes The planned sedation has been discussed with the patient. Informed Consent was obtained. I have identified the patient, determined the appropriateness of sedation and have assessed the patient immediately prior to the procedure. All medicine(s) and interventions are by my order.
[2022-04-06] MEDS ORDERED: MAGNESIUM SULFATE / D5W 1 GM/100 ML BAG IV ONE (19:36)
[2022-04-06] MEDS ORDERED: POTASSIUM CHLORIDE 20 MEQ/15 ML UDC PO STA ×2 (19:36→21:50)
[2022-04-06] MEDS ORDERED: POTASSIUM CHLORIDE / WTR 20 MEQ/100 ML PLCT IV ONE (19:36)
--- NOTE | 2022-04-06 19:38 | Cardiac Catheterization ---
[facility] Data: Director Of Laboratory Operations Cardiac Status Clinical evaluation leading to the procedure CAD Presenation: No Sxs, No angina (Cardiac arrest) Cardiac Arrest within 24 Hours: Yes Coronary Anatomy Left Main (% Stenosis): Normal (Mild diffuse) LAD (% Stenosis): Normal (Mild diffuse, up to 30% mid) D1 (% Stenosis): Normal D2 (% Stenosis): Normal Circumflex (% Stenosis): Normal (Mild diffuse) OM1 (% Stenosis): Normal OM2 (% Stenosis): Normal RCA (% Stenosis): Normal (Mild diffuse) R PDA (% Stenosis): Normal R PL1 (% Stenosis): Normal R PL2 (% Stenosis): Normal Left Ventricular Angiography EF (%): 65 to 70% Diagnostic Physicians Name: Masoud Gonzales MD, PhD Closure Device Percutaneous Entry Location: Radial for left heart cath/coronary angiography. Femoral for cooling ana Recommendations: Medical Therapy and/or Counseling (Including therapeutic hypothermia) Cardiac Cath Procedure Full Procedure Date April 06, 2022 Pre-Procedure Diagnosis Pre-Procedure Diagnosis: Arrhythmia AUC Score AUC Score: 07 Post-Procedure Diagnosis Post-Procedure Diagnosis: Mild CAD Procedure(s) Performed Procedure(s) Performed: Coronary Angiography, Left Heart Cath, LV Angiography, Ultrasound Guided Vascular Access and Procedure (therapeutic hypothermia catheter insertion) Svp Of Digital Masoud Gonzales MD, PhD Estimated Blood Loss Estimated Blood Loss: 15 ml Medication(s) Medication(s): heparin, versed, fentanyl Summary of Findings Brief description: Patient was brought to the cardiac catheterization suite where he was shaved and prepped in a sterile fashion. He was intubated. Provided 1 mg IV Versed and 25 mcg IV fentanyl for sedation. Soft tissues of the right wrist were anesthetized using 1 mL of 1% Xylocaine. The right radial artery was accessed using a modified Seldinger technique and a 6 Nigerien radial artery glide sheath was placed. Patient was provided anticoagulation with IV heparin. All catheters were advanced and exchanged over a 0.035 J-tip wire. Left coronary angiography in orthogonal views with a 5 Nigerien JL 4 diagnostic catheter. Right coronary angiography in orthogonal views with a 5 Nigerien TIGR diagnostic catheter. Left heart cath and left ventriculogram were performed with a 5 Nigerien pigtail catheter. Diagnostic catheters were removed. We next proceeded with insertion of the cool ing catheter. Under ultrasound guidance, the right femoral vein was accessed and a Quatro cooling catheter was introduced over a long J-tip wire. This was then flushed and sutured in place. The radial artery sheath was also sutured in place to be used as an arterial line for the intensive care unit during therapeutic hypothermia protocol. This ended the case. FINDINGS: Left main trunk: Large caliber and short. Bifurcates into LAD and left circumflex. There is diffuse mild disease. LAD: Large caliber and transapical. Gives a large septal branch and several smaller septal branches. There is a medium caliber first diagonal and a medium caliber second diagonal. The LAD and its branches have diffuse mild disease with up to 30% in the mid segment of the LAD. Left circumflex: Is a medium caliber nondominant vessel. Provides a medium caliber OM1, a large atrial branch, and a small to medium caliber OM 2. It terminates relatively early in the AV groove shortly after the OM 2 branch. The circumflex and its branches have no more than mild disease. RCA: This is very large caliber and dominant. It has diffuse mild disease. Distally it bifurcates into a large caliber PDA and a large caliber multi branching posterolateral which provides much of the lateral and inferolateral myocardium. The RCA and its branches have diffuse mild disease. LVEF: 65 to 70%. There are no segmental wall motion abnormalities There may be apical hypertrophy of the myocardium but this is not optimally visualized on left ventriculogram. No significant mitral regurgitation. Hemodynamics Rest Ao:: 81/62 mmHg, mean 72 mmHg Final Ao: 103/83 mmHg mean 90 mmHg LV: LV: 69/9 mmHg, LVEDP 11 mmHg Recommendations Recommendations: Medical Therapy and/or Counseling (Including therapeutic hypothermia) Radiation Exposure (mGy) 118 3 mg Contrast (mls) 115 Anesthesia 1 mg IV Versed, 25 mcg IV fentanyl, sedation time 25 minutes Procedural Complication(s) None Disposition ICU I attest to the content of the Intraoperative Record and any orders documented therein. Any exceptions are noted below. [facility] [place] Card Cath Procedure Codes Cardiac Catheterization Procedure 1: Cardiovascular Cath Procedures: 57215 Coronaries and LHC (+/-LV) Therapeutic Services & Ancillary Procedure 1: Cardiovascular Tx and Anc Procedures: 17849 Ultrasonic Guidance Vascular Access Procedure 2: Cardiovascular Tx and Anc Procedures: 04742 Insertion Central Venous Catheter (Therapeutic hypothermia cooling catheter) Moderate Sedation Procedure 1: Sedation/Anesthesia: 73944 Mod Sedation by the same physician;Init15 Min Child Age 5 & Up Procedure 2: Sedation/Anesthesia: 05804 Mod Sedation by the same physician; Ea [id number] Minutes PG Care Time/CCT Total # of Minutes Spent Total Time Spent with Patient: Total time spent is greater than 50% in coordination of care (as documented) at patient's floor/unit and/or counseling patient:
[2022-04-06] MEDS ORDERED: fentaNYL citrate 2,500 MCG/250 ML BAG IV ONE (19:49)
[2022-04-06] MEDS ORDERED: PROPOFOL IV EMULSION 10 MG/ML 100 ML VIAL IV ONE (19:49)
[2022-04-06 19:55] LABS: Basophils # (auto) 0.11 K/uL (0-0.2); Basophils % (auto) 0.6 %; Eosinophils # (auto) 0.11 K/uL (0-0.50); Eosinophils % (auto) 0.6 %; Hematocrit (blood only) 44.8 % (40.1-51.0); Hemoglobin 14.9 g/dl (14.0-18.0); Immature Granulocytes # (auto) 0.27 K/uL (0.00-0.02); Immature Granulocytes % (auto) 1.5 %; Lymphocytes # (auto) 3.48 K/uL (1.2-3.4); Lymphocytes % (auto) 19.2 %; Mean Corpuscular Hemoglobin 31.4 pg (25.0-34.0); Mean Corpuscular Hgb Conc 33.3 g/dL (32.0-36.0); Mean Corpuscular Volume 94.5 fL (80.0-100.0); Mean Platelet Volume 10.1 fL (9.4-12.4); Monocytes # (auto) 0.62 K/uL (0.24-0.82); Monocytes % (auto) 3.4 %; Neutrophils # (auto) 13.52 K/uL (1.4-6.5); Neutrophils % (auto) 74.7 %; Platelet Count 216 K/uL (130-400); RDW Coefficient of Variation 12.7 % (11.5-14.5); Red Blood Count 4.74 M/uL (4.63-6.08); White Blood Count 18.11 K/ul (4.8-10.8)
[2022-04-06 20:03] LABS: BUN Creatinine Ratio 11.4 (10-20); Calcium 7.9 mg/dl (8.5-10.1); Chol HDL Ratio 3.3 (0-5); Creatinine Clr Calc Pharmacy 55.7 ml/min; Est GFR (African American) 52.1 ml/min; Est GFR (Non-African American) 44.9 ml/min; Magnesium 1.9 mg/dl (1.7-2.4); Phosphorus 6.4 mg/dl (2.5-4.9); Potassium 3.5 mmol/L (3.5-5.1)
--- NOTE | 2022-04-06 20:07 | History & Physical Report ---
Date of Service April 06, 2022 Assessment & Plan (1) Cardiac arrest: Plan: Out of hospital cardiac arrest status post ROSC Shockable rhythm given AED prompt (probable VF/VT) followed by PEA Rule out pulmonary embolism as precipitant given travel history Hypoxemic, hypercapnic respiratory failure Multifactorial : Acute CHF secondary to cardiac arrest Aspiration pneumonia hypertension, elevated New onset A. fib lung cancer status post surgery ARF secondary to illness, unaware of previous kidney issues. Hyperglycemia rule out DM hx BPH past tobacco abuse. ICU CT angio chest PE study once patient medically stable Management of cardiac issues as per Cardiology Therapeutic hypothermia protocol as per bobbin washer. Vent management Recheck ABG Lasix 1 dose now IV Lopressor for A. fib rate control IV heparin for thromboembolic prophylaxis Unasyn for probable aspiration pneumonia Baseline UA, monitor creatinine response to IVF, renal ultrasound if without improvement Check hemoglobin A1c DVT prophylaxis with IV heparin Full code as per , . Mariza Keene. She requests updates from providers through [id number]. Text document was generated using [employer] voice recognition software. It may contain grammatical or spelling errors. Kindly contact undersigned for clarification of any documentation item in question. History of Present Illness Chief Complaint: Cardiac arrest as per records Primary Care Provider: Dr. Karen Brown from [place], [place] History obtained from patient's family, and records. Unable to obtain history from patient secondary to intubated/sedated state. Medical history significant for hypertension, lung cancer status post surgery, BPH, past tobacco abuse. Patient traveled for 5 hours with his family from their [place], [place] residence to [place] today to spend the weekend in town for the football game. He had lunch at a local restaurant before checking in at the hotel this afternoon with his . witnessed patient passing out as he was swiping his tong card to enter the hotel room. Head trauma following fall. Patient noted to be unresponsive. 911 called. Police arrived as first responders. CPR initiated. AED prompted 3 shocks with subsequent delivery. Upon mender hand arrival, patient noted to be in PEA. Patient noted to be hypoxemic and tachycardic. Epinephrine and bicarb given on the field. Patient subsequently intubated. ROSC subsequently obtained. Patient not very responsive as per . A. fib noted on the monitor as per EMS account. Patient brought to [facility] ER. Zosyn administered at the ER. Patient underwent emergent cardiac catheterization following ER provider communication with nterventional machine accountant. Hypothermia protocol initiated upon arrival at ICU. 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 Allergies Allergy/AdvReac Type Severity Reaction Status Date / Time ibuprofen Allergy Severe Anaphylaxis Verified 04/06/22 18:00 Home Medications Medication Instructions Recorded Confirmed Type finasteride 5 mg tablet 5 mg PO DAILY 04/06/22 04/06/22 History losartan 100 1 tab PO DAILY 04/06/22 04/06/22 History mg-hydrochlorothiazide 25 mg tablet rosuvastatin 20 mg tablet 20 mg PO DAILY 04/06/22 04/06/22 History tadalafil 5 mg tablet 5 mg PO DAILY 04/06/22 04/06/22 History Past Med/Surg History Medical History BPH (benign prostatic hyperplasia) Hyperlipidemia Hypertension Lung cancer S/p upper lobectomy Social History Smoking Status: Never smoker Hx Alcohol Use: Yes Alcohol type: wine Hx Substance Use: No Preferred Language: Hungarian Communication Ability: Effective County Engineer Required: No Beliefs That Will Affect Care: None Current Living Situation: Spouse Other Information That Helps Us Care for You: No Feels Safe at Home: Yes Safety Concerns: Feels Safe At This Time Assistive Devices: Glasses Review of Systems Review of Systems: Could not be reliably obtained secondary to intubated/sedated state Physical Exam Physical Exam: GENERAL: Sedated, obese, minimal respiratory distress SKIN: Normal color, cool HEENT: Abrasions over face, pink palpebral conjunctivae, no ptosis, dry buccal mucosa, ET in place NECK : Supple, no tenderness CHEST : Decreased breath sounds, occasional expiratory wheeze, no tenderness HEART : irregular, no obvious murmurs ABDOMEN: Some distention, nontender EXTREMITIES : No LE swelling, no LE tenderness, no other conspicuous deformities noted NEUROLOGIC : Sedated, no facial asymmetry, gait and stance not assessed Results & Data Results & Data ([facility]) Vital Signs (Past 12 Hours) Vital Signs Temp Pulse Pulse Resp BP BP Pulse Ox 04/06/22 19:43 94 H 28 H 100 04/06/22 17:22 115 H 21 99 04/06/22 18:06 36.0 C L 96 H 28 H 132/79 91 04/06/22 17:53 107 H 20 127/98 89 L 04/06/22 17:34 110 H 20 139/62 96 04/06/22 17:24 04/06/22 17:24 111 H 22 115/69 99 O2 Del Method FiO2 04/06/22 19:43 04/06/22 17:22 40 04/06/22 18:06 Mechanical Vent 2 04/06/22 17:53 Mechanical Vent 04/06/22 17:34 Mechanical Vent 04/06/22 17:24 Mechanical Vent 04/06/22 17:24 Mechanical Vent Laboratory Results Laboratory Results WBC 18.11 K/ul (4.8-10.8) H 04/06/22 19:23 RBC 4.74 M/uL (4.63-6.08) 04/06/22 19:23 Hgb 14.9 g/dl (14.0-18.0) 04/06/22 19:23 POC Hgb 15.3 g/dl (14.0-18.0) 04/06/22 17:45 Hct 44.8 % (40.1-51.0) 04/06/22 19:23 POC Hct 45 % (42-52) 04/06/22 17:45 MCV 94.5 fL (80.0-100.0) 04/06/22 19:23 MCH 31.4 pg (25.0-34.0) 04/06/22 19:23 MCHC 33.3 g/dL (32.0-36.0) 04/06/22 19:23 RDW Std Deviation 44.0 fL (36.4-46.3) 04/06/22 19:23 RDW Coeff of Tarsha 12.7 % (11.5-14.5) 04/06/22 19:23 Plt Count 216 K/uL (130-400) 04/06/22 19:23 MPV 10.1 fL (9.4-12.4) 04/06/22 19:23 Immature Gran % (Auto) 1.5 % 04/06/22 19:23 Neut % (Auto) 74.7 % 04/06/22 19:23 Lymph % (Auto) 19.2 % 04/06/22 19:23 Victoria % (Auto) 3.4 % 04/06/22 19:23 Eos % (Auto) 0.6 % 04/06/22 19:23 Baso % (Auto) 0.6 % 04/06/22 19:23 Neut # (Auto) 13.52 K/uL (1.4-6.5) H 04/06/22 19:23 Lymph # (Auto) 3.48 K/uL (1.2-3.4) H 04/06/22 19:23 Victoria # (Auto) 0.62 K/uL (0.24-0.82) 04/06/22 19:23 Eos # (Auto) 0.11 K/uL (0-0.50) 04/06/22 19: Baso # (Auto) 0.11 K/uL (0-0.2) 04/06/22 19: Immature Gran # (Auto) 0.27 K/uL (0.00-0.02) H 04/06/22 19:23 PT 11.4 Seconds (9.0-12.0) 04/06/22 17:07 INR 1.1 (0.9-1.1) 04/06/22 17:07 POC pH 7.16 (7.35-7.45) L* 04/06/22 17:45 POC pCO2 70 mmHg (35-46) H 04/06/22 17:45 POC pO2 75 mmHg (80-95) L 04/06/22 17:45 POC HCO3 25 venu/L (19-24) H 04/06/22 17:45 POC Total CO2 27 mmol/L (24-31) 04/06/22 17:45 POC Base Excess -4.0 venu/L (-9-1.8) 04/06/22 17:45 POC ABG O2 Sat 90.0 % (90-95) 04/06/22 17:45 POC Sodium 141 mmol/L (135-144) 04/06/22 17:45 Sodium 143 mmol/L (136-145) 04/06/22 19:29 POC Potassium 3.2 mmol/L (3.3-5.0) L 04/06/22 17:45 Potassium 3.5 mmol/L (3.5-5.1) 04/06/22 19:29 Chloride 106 mmol/L (98-107) 04/06/22 19:29 Carbon Dioxide 27 mmol/L (21-32) 04/06/22 19:29 Anion Gap 10 (3-11) 04/06/22 19:29 BUN 17 mg/dl (6-23) 04/06/22 19:29 Creatinine 1.49 mg/dl (0.6-1.4) H 04/06/22 19:29 Est Cr Clr Drug Dosing 55.7 ml/min 04/06/22 19:29 Est GFR ( Amer) 52.1 ml/min 04/06/22 19:29 Est GFR (Non-Af Amer) 44.9 ml/min 04/06/22:29 BUN/Creatinine Ratio 11.4 (10-20) 04/06/22 19:29 Glucose 179 mg/dl (70-99(Fasting)) H 04/06/22 19:29 POC Glucose 206 mg/dl (70-99) H 04/06/22 17:43 Calcium 7.9 mg/dl (8.5-10.1) L 04/06/22 19:29 Ionized Calcium 1.06 mmol/L (1.12-1.32) L 04/06/22 19:29 Phosphorus 6.4 mg/dl (2.5-4.9) H 04/06/22 19:29 Magnesium 1.9 mg/dl (1.7-2.4) 04/06/22 19:29 Total Bilirubin 0.8 mg/dl (0.2-1.0) 04/06/22 17:07 AST 95 U/L (13-39) H 04/06/22 17:07 ALT 109 U/L (7-52) H 04/06/22 17:07 Alkaline Phosphatase 50 U/L (34-104) 04/06/22 17:07 Total Creatine Kinase 398 U/L (30-223) H 04/06/22 19:29 Total Creatine Kinase Cancelled 04/06/22 19:29 Troponin I High Sens Cancelled 04/06/22 19:29 Total Protein 6.0 gm/dl (6.0-8.3) 04/06/22 17:07 Albumin 3.7 gm/dl (3.4-5.0) 04/06/22 17:07 Globulin 2.3 gm/dl (2.5-4.0) L 04/06/22 17:07 Albumin/Globulin Ratio 1.6 (0.9-2) 04/06/22 17:07 Triglycerides 137 mg/dl (0-150) 04/06/22 19:29 Triglycerides Cancelled 04/06/22 19:29 Cholesterol 134 mg/dl (0-200) 04/06/22 19:29 Cholesterol Cancelled 04/06/22 19:29 LDL Cholesterol, Calc 66 mg/dl 04/06/22 19:29 LDL Cholesterol, Calc Cancelled 04/06/22 19:29 VLDL Cholesterol, Calc 27 mg/dl (0-30) 04/06/22 19:29 VLDL Cholesterol, Calc Cancelled 04/06/22 19:29 HDL Cholesterol 41 mg/dl 04/06/22 19:29 HDL Cholesterol Cancelled 04/06/22 19:29 Cholesterol/HDL Ratio 3.3 (0-5) 04/06/22 19:29 Cholesterol/HDL Ratio Cancelled 04/06/22 19:29 Lipase 79 U/L (11-82) 04/06/22 19:29 Lipase Cancelled 04/06/22 19:29 Impressions Chest X-Ray 04/06/22 17:33 XR chest 1V portable HISTORY: 77 years-old Male tube placement confirmation acute respiratory failure COMPARISON: None TECHNIQUE: Semierect AP view the chest FINDINGS: A tube overlies the midline, 3.5 cm superior to the arie suggestive of an endotracheal tube. There appears to be an additional tube projecting over the midline upper chest level of the clavicular heads. The cardiac silhouette is enlarged. Pulmonary vascular congestion with ill-defined left basilar and right upper lung opacities. No pneumothorax or large pleural effusion. Degenerative changes of the shoulders and spine. IMPRESSION: 1. Endotracheal tube terminates 3.5 cm superior to the arie. There may be an additional catheter or tube which is partially imaged projecting over the Upper chest. 2. Cardiomegaly with pulmonary vascular congestion. 3. Ill-defined left basilar and right upper lung opacities may represent a nonspecific infectious or inflammatory pneumonitis. ACT 112: Negative or not required by law. The above report was generated using voice recognition software. It may contain grammatical, syntax or spelling errors. Electronically signed by: Sam Swan M.D. 04/06/2022 5:[address] 04/06/22 18:07 CT head/brain wo con CLINICAL HISTORY: 77 years-old Male with s/p fall, hit head. Acute head injury status post fall TECHNIQUE: Multiple axial CT images of the head were obtained without contrast. A dose lowering technique was utilized adhering to the principles of ALARA. CT DOSE: 1624.35 mGycm COMPARISON: None. FINDINGS: No acute intracranial hemorrhage, midline shift, intracranial mass, hydrocephalus, territorial ischemia or abnormal extra-axial collection. Motion degraded exam. Endotracheal tube. Apparent thickening of the falx cerebri is likely secondary to motion artifact. Cerebral vascular calcifications. Mild white matter hypodensities are nonspecific, likely representing chronic microvascular ischemic disease. The calvarium is intact. Mastoid air cells are clear. Moderate mucosal thickening of the ethmoid air cells with polypoid mucosal thickening of the left maxillary sinus. Small right maxillary sinus air-fluid level. IMPRESSION: Motion degraded exam. No acute intracranial abnormality or calvarial fracture identified. ACT 112: Negative or not required by law. The above report was generated using voice recognition software. It may contain grammatical, syntax or spelling errors. Electronically signed by: Sam Swan M.D. 04/06/2022 6:35 PM Diagnostic Findings EKG as per my interpretation : Rate 115, A. fib, LAD, LAFB, incomplete RBBB, T wave abnormalities lateral leads
[2022-04-06 20:18] LABS: Troponin I High Sensitivity 331.5 pg/ml (0-20)
--- NOTE | 2022-04-06 20:20 | Cardiology Consultation ---
Date of Consultation April 06, 2022 Assessment & Plan (1) Cardiac arrest: Unclear etiology. History suggests VT/V. fib followed by PEA. He has a normal EF and no occlusive coronary disease to suggest myocardial ischemia as the precipitant. 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 He will obviously continue in the intensive care unit to complete therapeutic hypothermia. Given his PEA arrest additional work-up to exclude pulmonary embolism (recent cancer and treatment), acidosis, dehydration, etc. He does not have hypotension, or myocardial ischemia. Additional recommendations pending results of his echocardiogram. Should he develop VT/VF while on monitor then ACLS protocol and start amiodarone. Should probably remain on heparin drip until PE excluded or if he remains in atrial fibrillation. We will follow. Present on Admission?: Yes History of Present Illness Reason for Consultation: Cardiac arrest Attending Physician: Brenton Cummings MD History of Present Illness 77-year-old male without cardiac history presented via EMS to the emergency department after sustaining cardiac arrest. Patient is accompanied by his . She reports that they drove from [place] today and when he opened the door to their hotel room he lost consciousness hitting his head on the door as he fell to the floor. She reports that he was not complaining of any symptoms prior to that. She evidently called 911 and attempted to perform CPR. Emergency services first arrival was the police and they attached him to an AED. Reportedly, they were instructed to shock him 3 separate times. Then, EMS arrived and found him to be in PEA. They started CPR and he had return of spontaneous circulation. They then transported him to the emergency department. I was contacted while he was in route. On my arrival the patient was intubated and not responsive. He had a reasonable blood pressure with systolic over 100 and his heart rate was also in the low 100s. Initial EKG demonstrated significant arrhythmia. He appeared to have atrial fibrillation with multiple PVCs, couplets, and triplets. I then spoke with the who said that he has never had any cardiac issues. 3 years ago he underwent left upper lobectomy for lung cancer. He did not require radiation therapy or chemotherapy. He has "been in remission". After extensive discussion with the regarding the fact that it was not clear why his heart had stopped the most likely scenario would be acute MA or ventricular arrhythmia. We also discussed the possibility of pulmonary embolism given his history of cancer. I suggested definitive evaluation of his coronaries by coronary angiography would help us narrow his etiology and therefore his treatment. While I did not see any ischemic ST changes on the EKG at this time, the fact that AED instructed 3 shocks suggest that he was at one point in VT or V. fib. This was therefore concerning for ACS. She agreed that definitive evaluation plus or minus PCI as indicated would be in his best interest. He was therefore taken to the cardiac catheterization suite and underwent diagnostic cardiac cath. This did not reveal occlusive coronary disease and there was no evidence of ACS. His LVEF was preserved without wall motion abnormalities in the SANDERS view. There was some suggestion of possible apical variant cardiomyopathy. Because he was not very responsive throughout the ED and Solution Strategist evaluation we suspected inadequate initial CPR and therefore decided to initiate therapeutic hypothermia protocol. A Quatro cooling catheter was placed in his right femoral vein. He has subsequently been admitted to the intensive care unit for further work-up and management. Allergies Allergy/AdvReac Type Severity Reaction Status Date / Time ibuprofen Allergy Severe Anaphylaxis Verified 04/06/22 18:00 Home Medications Medication Instructions Recorded Confirmed Type finasteride 5 mg tablet 5 mg PO DAILY 04/06/22 04/06/22 History losartan 100 1 tab PO DAILY 04/06/22 04/06/22 History mg-hydrochlorothiazide 25 mg tablet rosuvastatin 20 mg tablet 20 mg PO DAILY 04/06/22 04/06/22 History tadalafil 5 mg tablet 5 mg PO DAILY 04/06/22 04/06/22 History Most Recent Cardiac Tests: Chest X-Ray 04/06/22 Most Recent Cardiac Tests: Chest X-Ray 04/06/22 Patient History Social History Smoking Status: Unknown if ever smoked Review of Systems Review of Systems: Unable to obtain from the patient. Per his , he was not having any symptoms and had been "feeling great" since his surgery. Physical Exam Constitutional: Patient appears critically ill ENMT: Intubated. Facial abrasion. Neck: Thick. No JVD appreciated. Respiratory: Ventilator sounds. Do not appreciate any rhonchi, rales, or wheezing. Cardiovascular: Irregular rhythm with slight tachycardic rate. Do not appreciate any murmurs. Distal pulses are 2+ and symmetric. No edema. Gastrointestinal (Abdomen): Obese. Ventral hernia. Umbilical hernia. Skin: Mild cyanosis of fingers and toes Neurologic: Intubated. Minimally responsive to painful stimuli. Results & Data ([facility]) Vital Signs (Past 12 Hours) Vital Signs Temp Pulse Pulse Resp BP BP Pulse Ox 04/06/22 19:43 94 H 28 H 100 04/06/22 17:22 115 H 21 99 04/06/22 18:06 36.0 C L 96 H 28 H 132/79 91 04/06/22 17:53 107 H 20 127/98 89 L 04/06/22 17:34 110 H 20 139/62 96 04/06/22 17:24 04/06/22 17:24 111 H 22 115/69 99 O2 Del Method FiO2 04/06/22 19:43 04/06/22 17:22 40 04/06/22 18:06 Mechanical Vent 2 04/06/22 17:53 Mechanical Vent 04/06/22 17:34 Mechanical Vent 04/06/22 17:24 Mechanical Vent 04/06/22 17:24 Mechanical Vent PG Care Time/CCT Total # of Minutes Spent Total Time Spent with Patient: Total time spent is greater than 50% in coordination of care (as documented) at patient's floor/unit and/or counseling patient: Critical Care Time: Yes 45 minutes (this includes time for examination, discussion with the spouse, review of available records, formulation and implementation of a plan of care, and documentation of all of the above. This is exclusive of the time spent for his procedure). Coding Level of Care Code 24195 Inpt Consult Level 5 Diagnoses Cardiac arrest I46.9 Additional Codes Critical Care Time - Critical Care Time: Yes ([id number])
[2022-04-06] MEDS ORDERED: Heparin IV Adult Wt-Based Standard *NO* Bolus Protocol IV SCH (20:22)
[2022-04-06] MEDS ORDERED: ACETAMINOPHEN 1,000 MG/100 ML VIAL IV PRN (20:24)
[2022-04-06] MEDS ORDERED: ICU PROTOCOL FOR HYPERGLYCEMIA PRN ×2 (20:24→20:27)
[2022-04-06] MEDS ORDERED: STAT IV STA (20:26)
[2022-04-06] MEDS ORDERED: FUROSEMIDE 40 MG/4 ML VIAL IV ONE (20:33)
[2022-04-06] MEDS ORDERED: HEPARIN 25000 UNIT/500 ML D5W IV ONE (20:33)
--- NOTE | 2022-04-06 20:34 | XRay Report ---
XR chest 1V portable HISTORY: 77 years-old Male resp failure acute respiratory failure COMPARISON: Chest radiograph 04/06/2022 5:37 PM TECHNIQUE: AP view the chest FINDINGS: Enteric tube courses below the diaphragm with distal tip outside the [id number]. Endotracheal tube overlies the midline, 3.6 cm superior to the arie. Cardiac silhouette is enlarged. Pulmonary vascu lar congestion with interstitial coarsening. Degenerative changes of the shoulders and spine. IMPRESSION: 1. Satisfactory positioning of the endotracheal and enteric tubes. 2. No pneumothorax. ACT 112: Negative or not required by law. The above report was generated using voice recognition software. It may contain grammatical, syntax o r spelling errors. Electronically signed by: Sam Swan M.D. 04/06/2022 8:32 PM
[2022-04-06] MEDS ORDERED: METOPROLOL TARTRATE 1 MG/ML VIAL IV STA (20:37)
[2022-04-06 20:40] LABS: Fibrinogen 226 mg/dl (184-400); INR 1.2 (0.9-1.1); Partial Thromboplastin Ratio 2.4; Prothrombin Time 12.4 Seconds (9.0-12.0)
[2022-04-06] MEDS ORDERED: HEPARIN SODIUM/DEXTROSE 25,000 UNITS/500 ML BAG IV SCH (20:45)
[2022-04-06 20:46] LABS: Partial Thromboplastin Time 64.8 Seconds (21.0-31.0)
--- NOTE | 2022-04-06 20:57 | Critical Care Consultation ---
Date of Consultation April 06, 2022 Assessment & Plan (1) Cardiac arrest: Reason Critically Ill: 77-year-old male presents to the ICU following cardiac arrest from presumed ventricular arrhythmia as he was shocked with AED x3 prior to EMS's arrival. Patient unresponsive following ROSC and cardiac cath did not show occlusion and no intervention. He is now mechanically ventilated and undergoing 24-hour therapeutic hypothermia protocol. Neuro - Anoxic brain injurypatient unresponsive following ROSC. CT head without acute intracranial findings. On exam he appears to have decerebrate posturing and suspect significant anoxic injury. Per report approximate downtime without CPR was 5 minutes and an additional 20 minutes with CPR. Underwent shock x3 with AED. -Undergoing therapeutic hypothermia 24 hours per protocol -We will reevaluate neurological status once rewarmed. Family informed that he may have significant brain injury -Consider EEG and MRI once rewarmed Cardiac - Cardiac arrestno significant cardiac history. Underwent cardiac catheterization but no occlusion found and no intervention required. -Highly suspect ventricular arrhythmia given sudden onset. reports no chest pain or shortness of breath prior to sudden collapse. AED with recommended shock x3. He was PEA when EMS arrived. -Trend troponins for peak. Currently normal sinus rhythm on monitor. EKG every 4 hours. He does have prolonged QTC and QRS. Repleting mag, potassium, and calcium -Given QTC will hold on amiodarone drip for now, but would certainly restart in the event of continued ventricular arrhythmia -Follow-up echo in a.m., he did have normal LV function noted from [facility] -Follow-up cardiology recommendations -No indication for vasopressor support at this time as he is hemodynamically stable currently. -Continuous monitoring on telemetry HTNhold antihypertensives for now Respiratory - Acute hypoxic respiratory failurepatient significantly hypoxic following cardiac arrest. Expect this is mixed etiology secondary to CPR, cardiogenic shock, and possible aspiration. No prior history of pulmonary disease -Chest x-ray consistent with aspiration pneumonitis. No significant pulmonary edema -Mechanically ventilated. Wean ventilator as tolerated. Frequent ABGs while undergoing therapeutic hypothermia -Cannot rule out pulmonary embolism at this time. Will defer CTA due to decreased renal function. Continue with heparin drip empirically for now pending lower extremity Doppler results. -Continuous end-tidal CO2 and pulse ox monitoring GI - NPO. OG tube to intermittent low wall suction RENAL/LYTES - AKIcreatinine 1.5. No baseline to compare suspect this is prerenal/ATN in the setting of cardiogenic shock/arrest in field -Continue with IV fluid resuscitation Normosol at 100 mL/h -Maintain maps greater than 65 -Avoid nephrotoxins and renally adjust medications -Monitor creatinine with frequent BMPs - BPHindwelling Mcmillan catheter inserted. -Strict I's and O's. -Restart finasteride, tadalafil when appropriate ENDO - No history of diabetes or thyroid disease. ICU hyperglycemic protocol HEME - H&H stable, every 6 hours CBCs ID - Empiric ampicillin for possible aspiration. No evidence of active infectious process LINES/IV ACCESS - Central venous catheter DVT PROPHYLAXIS - SCDs I have personally spent 65 minutes of critical care time in the direct management of this patient. This is a life/limb threatening event. This includes time spent evaluating patient, direct bedside care, chart review, placing orders, interpretation of diagnostic studies, discussion with consultants, patient, and family members, as well as other required patient management activities. This time is exclusive of all separately billable procedures, and teaching time and separate from and in addition to any other critical care service time. Thank you for allowing us to participate in the care of this patient. Please refer to my attending physician's documentation for any further recommendations. (2) Anoxic brain injury: (3) BPH (benign prostatic hyperplasia): (4) Hypertension: (5) Hyperlipidemia: (6) Acute respiratory failure with hypoxia: (7) REYNALDO (acute kidney injury): History of Present Illness Attending Physician: Jose Chang MD History of Present Illness Patient is a 77-year-old male with past medical history of HTN, HLD, BPH, and lung cancer s/p partial lobectomy. Patient is from the [facility] and came into town earlier this evening accompanied by his . They had eaten di nner and had arrived back to the hot when he had sudden collapse followed by agonal breathing which was witnessed in the hallway of the hotel. Patient's called 911 who recommended CPR which was started a few minutes after the patient had been down. AED was placed on the patient and he received 3 shocks prior to EMS arrival. When EMS did arrive and patient was placed on monitor he was in PEA arrest. He received additional CPR and epinephrine and ROSC was achieved approximately 25 minutes after initial collapse, per report. I did speak with the patient's and obtained recent history and she denies any reports of chest pain or shortness of breath and states that he was in his usual state of health. She states that he is very active and does not have prior history of cardiac disease. On arrival to the ED the patient was intubated and went emergently to the [facility]. Per cath report no intervention was required. He is now transferred to ICU to undergo 24 hours of therapeutic hypothermia for presumed anoxic injury, as he is unresponsive and posturing following ROSC. Allergies Allergy/AdvReac Type Severity Reaction Status Date / Time ibuprofen Allergy Severe Anaphylaxis Verified 04/06/22 18:00 Home Medications Medication Instructions Recorded Confirmed Type finasteride 5 mg tablet 5 mg PO DAILY 04/06/22 04/06/22 History losartan 100 1 tab PO DAILY 04/06/22 04/06/22 History mg-hydrochlorothiazide 25 mg tablet rosuvastatin 20 mg tablet 20 mg PO DAILY 04/06/22 04/06/22 History tadalafil 5 mg tablet 5 mg PO DAILY 04/06/22 04/06/22 History Patient History Medical History (Updated 04/06/22 @ 21:53 by ANNETTE Smith) BPH (benign prostatic hyperplasia) Hyperlipidemia Hypertension Lung cancer S/p upper lobectomy Social History Smoking Status: Never smoker Hx Alcohol Use: Yes Alcohol type: wine Hx Substance Use: No Preferred Language: Kiswahili Communication Ability: Effective Lpn Cma Required: No Beliefs That Will Affect Care: None Current Living Situation: Spouse Other Information That Helps Us Care for You: No Feels Safe at Home: Yes Safety Concerns: Feels Safe At This Time Assistive Devices: Glasses Review of Systems Review of Systems: Unobtainable due to cognitive status Physical Exam Constitutional: comfortable and + mechanically ventilated; no acute distress Eyes: PERRL, conjunctivae normal, anicteric sclerae ENMT: external ear and nose normal, oropharynx normal Neck: trachea midline, no thyromegaly Respiratory: symmetric chest movement; no respiratory distress Auscultation: lungs clear to auscultation bilaterally; no crackles and no wheezes Cardiovascular: RRR, no murmur, no edema Heart Sounds: normal S1 and normal S2 Extremities: no edema Gastrointestinal (Abdomen): normal bowel sounds, soft, nontender, no hepatosplenomegaly Skin: no rashes, warm and dry Neurologic: Does not follow commands. PERRLA. Cough gag corneal intact. Decerebrate posturing Results & Data Results & Data ([facility]) Vital Signs (Past 12 Hours) Vital Signs Temp Temp Temp Pulse Pulse Resp BP 04/06/22 20:38 35.8 C L 94 H 27 H 04/06/22 20:00 35.7 C L 35.8 C L 113 H 27 H 04/06/22 19:43 94 H 28 H 04/06/22 17:22 115 H 21 04/06/22 18:06 36.0 C L 96 H 28 H 04/06/22 17:53 107 H 20 04/06/22 17:34 110 H 20 04/06/22 17:24 04/06/22 17:24 111 H 22 115/69 BP BP BP Pulse Ox O2 Del Method FiO2 04/06/22 20:38 188/72 H 97 Mechanical Vent 04/06/22 20:00 113/62 188/72 H 97 Mechanical Vent 60 04/06/22 19:43 100 04/06/22 17:22 99 40 04/06/22 18:06 132/79 91 Mechanical Vent 2 04/06/22 17:53 127/98 89 L Mechanical Vent 04/06/22 17:34 139/62 96 Mechanical Vent 04/06/22 17:24 Mechanical Vent 04/06/22 17:24 99 Mechanical Vent Coding Level of Care Code Critical Care 1st 30-74 mins Diagnoses Cardiac arrest I46.9 Anoxic brain injury G93.1 BPH (benign prostatic hyperplasia) N40.0 Hypertension I10 Hyperlipidemia E78.5 Acute respiratory failure with hypoxia J96.01 REYNALDO (acute kidney injury) N17.9
[2022-04-06] MEDS ORDERED: CALCIUM GLUCONATE 10% 2,000 MG in DEXTROSE 5% 50 ML IV ONE (21:00)
[2022-04-06 21:10] LABS: Amphetamines+Metham, Urine Neg (Neg); Barbiturates, Urine Neg (Neg); Benzodiazepine, Urine Neg (Neg); Cocaine, Urine Neg (Neg); MDMA (Ecstacy), Urine Neg (Neg); Methadone, Urine Neg (Neg); Opiate, Urine Neg (Neg); Phencyclidine, Urine Neg (Neg)
[2022-04-06] MEDS: propofoL 1,000 MG/100 ML VIAL IV SCH ×2 (21:32→22:41)
[2022-04-06 21:38] LABS: iSTAT Art Bld Gas pCO2 Correct 75 mmHg (35-46); iSTAT Art Bld Gas pH Corrected 7.182 (7.35-7.45); iSTAT Arterial Blood Gas HCO3 29 meg/L (19-24); iSTAT Arterial Blood Gas pCO2 84 mmHg (35-46); iSTAT Arterial Blood Gas pH 7.15 (7.35-7.45); iSTAT Arterial Blood Gas pO2 101 mmHg (80-95); iSTAT Arterial Blood Gas pO2 C 86; iSTAT Carbon Dioxide 32 mmol/L (24-31); iSTAT FiO2 60 %; iSTAT Hematocrit 45 % (42-52); iSTAT Hemoglobin 15.3 g/dl (14.0-18.0); iSTAT Potassium 3.4 mmol/L (3.3-5.0); iSTAT Site Art Line; iSTAT Sodium 143 mmol/L (135-144)
--- NOTE | 2022-04-06 21:43 | Ultrasound Report ---
BILATERAL LOWER EXTREMITY VENOUS DOPPLER HISTORY: Acute pain and swelling of the right lower extremity DVT? COMPARISON STUDY: None. FINDINGS: There is normal compressibility, flow, and augmentation within the bilateral lower extremit y deep venous systems. Left-sided Whitney's cyst, 3.9 x 2.5 x 1.3 cm. IMPRESSION: No DVT within the right or left lower extremity. ACT 112: Negative or not required by law. Electronically signed by: Sam Swan M.D. 04/06/2022 9:41 PM
[2022-04-06] MEDS: NORMOSOL-R 1,000 ML IV SCH (21:54)
[2022-04-06] MEDS ORDERED: SODIUM BICARB 8.4% INJ 50 MEQ/50 ML SYR IV ONE (23:07)
[2022-04-06 23:14] LABS: iSTAT Art Bld Gas pCO2 Correct 65 mmHg (35-46); iSTAT Art Bld Gas pH Corrected 7.184 (7.35-7.45); iSTAT Arterial Blood Gas HCO3 26 meg/L (19-24); iSTAT Arterial Blood Gas pCO2 77 mmHg (35-46); iSTAT Arterial Blood Gas pH 7.13 (7.35-7.45); iSTAT Arterial Blood Gas pO2 143 mmHg (80-95); iSTAT Arterial Blood Gas pO2 C 121; iSTAT Carbon Dioxide 28 mmol/L (24-31); iSTAT FiO2 60 %; iSTAT Hematocrit 41 % (42-52); iSTAT Hemoglobin 13.9 g/dl (14.0-18.0); iSTAT Potassium 3.3 mmol/L (3.3-5.0); iSTAT Site Art Line; iSTAT Sodium 144 mmol/L (135-144)
[2022-04-06] MEDS ORDERED: SODIUM BICARB 8.4% INJ 50 MEQ/50 ML SYR IV STA (23:23)
[2022-04-06] MEDS ORDERED: VECURONIUM BROMIDE 10 MG VIAL IV ONE (23:35)
[2022-04-06] MEDS ORDERED: VECURONIUM BROMIDE 10 MG VIAL IV STA (23:35)
[2022-04-06 23:46] LABS: Appearance Urine Cloudy (Clear); Bilirubin Urine Negative (Negative); Blood Urine 3+ (Negative); Color Urine Yellow; Glucose Urine UA Trace (Negative); Ketones Urine Negative (Negative); Leukocyte Esterase Urine Negative (Negative); Nitrite Urine Negative (Negative); Protein Urine 4+ (Negative); RBC Urine Automated >30 /hpf (0-4); Specific Gravity Urine 1.026 (1.000-1.030); Urobilinogen Urine Negative (Negative); WBC Urine Automated >30 /hpf (0-5); pH Urine 6.5 (4.5-7.5)
[2022-04-06 23:46] LABS: iSTAT Art Bld Gas pCO2 Correct 65 mmHg (35-46); iSTAT Art Bld Gas pH Corrected 7.211 (7.35-7.45); iSTAT Arterial Blood Gas HCO3 28 meg/L (19-24); iSTAT Arterial Blood Gas pCO2 76 mmHg (35-46); iSTAT Arterial Blood Gas pH 7.16 (7.35-7.45); iSTAT Arterial Blood Gas pO2 86 mmHg (80-95); iSTAT Arterial Blood Gas pO2 C 68; iSTAT Carbon Dioxide 30 mmol/L (24-31); iSTAT Hematocrit 44 % (42-52); iSTAT Potassium 3.9 mmol/L (3.3-5.0); iSTAT Site Art Line; iSTAT Sodium 144 mmol/L (135-144)
[2022-04-06] MEDS ORDERED: AMIODARONE / D5W 150 MG/100 ML BAG IV STA (23:52)
[2022-04-06] MEDS ORDERED: 0.2 MICRON FILTER SET 1 EACH IV ONE (23:52)
[2022-04-06] MEDS ORDERED: AMIODARONE 150MG / 100ML D5W IV ONE (23:56)
[2022-04-06] MEDS ORDERED: AMIODARONE 360MG / 200ML D5W IV ONE (23:57)
[2022-04-07] MEDS ORDERED: AMIODARONE / D5W 360 MG/200 ML BAG IV ONE (00:02)
[2022-04-07] MEDS: AMPICILLIN/SULBACTAM SOD 3,000 MG in 0.9 % SODIUM CHLORIDE 100 ML IV SCH ×4 (00:05→18:09)
[2022-04-07 00:18] LABS: Bacteria Urine Automated 2+ (Negative)
[2022-04-07 00:20] LABS: Mucus Urine Present (None Prsent)
[2022-04-07 00:24] LABS: iSTAT Art Bld Gas pCO2 Correct 44 mmHg (35-46); iSTAT Art Bld Gas pH Corrected 7.318 (7.35-7.45); iSTAT Arterial Blood Gas HCO3 23 meg/L (19-24); iSTAT Arterial Blood Gas pCO2 51 mmHg (35-46); iSTAT Arterial Blood Gas pH 7.27 (7.35-7.45); iSTAT Arterial Blood Gas pO2 85 mmHg (80-95); iSTAT Arterial Blood Gas pO2 C 68; iSTAT Carbon Dioxide 25 mmol/L (24-31); iSTAT Hematocrit 42 % (42-52); iSTAT Hemoglobin 14.3 g/dl (14.0-18.0); iSTAT Potassium 3.1 mmol/L (3.3-5.0); iSTAT Site Art Line; iSTAT Sodium 143 mmol/L (135-144)
[2022-04-07] MEDS ORDERED: STAT IV Infusion **Titration per Protocol STA (01:05)
[2022-04-07] MEDS ORDERED: NOREPINEPHRINE/D5W 4 MG/250 ML IV ONE (01:13)
[2022-04-07] MEDS: FAMOTIDINE 20 MG in SYRINGE 3 ML IV SCH ×3 (01:36→20:12)
[2022-04-07] MEDS: NOREPINEPHRINE/D5W 4 MG/250 ML PLCT IV SCH ×5 (01:43→23:11)
[2022-04-07 02:01] LABS: Basophils # (auto) 0.04 K/uL (0-0.2); Basophils % (auto) 0.4 %; Eosinophils # (auto) 0.01 K/uL (0-0.50); Eosinophils % (auto) 0.1 %; Hematocrit (blood only) 45.4 % (40.1-51.0); Hemoglobin 15.7 g/dl (14.0-18.0); Immature Granulocytes # (auto) 0.03 K/uL (0.00-0.02); Immature Granulocytes % (auto) 0.3 %; Lymphocytes # (auto) 0.73 K/uL (1.2-3.4); Lymphocytes % (auto) 6.5 %; Mean Corpuscular Hemoglobin 31.6 pg (25.0-34.0); Mean Corpuscular Hgb Conc 34.6 g/dL (32.0-36.0); Mean Corpuscular Volume 91.3 fL (80.0-100.0); Mean Platelet Volume 10.3 fL (9.4-12.4); Monocytes # (auto) 0.53 K/uL (0.24-0.82); Monocytes % (auto) 4.7 %; Neutrophils # (auto) 9.84 K/uL (1.4-6.5); Platelet Count 155 K/uL (130-400); RDW Coefficient of Variation 12.9 % (11.5-14.5); RDW Standard Deviation 43.1 fL (36.4-46.3); Red Blood Count 4.97 M/uL (4.63-6.08); White Blood Count 11.18 K/ul (4.8-10.8)
[2022-04-07 02:13] LABS: INR 1.1 (0.9-1.1); Partial Thromboplastin Ratio 1.4; Partial Thromboplastin Time 39.2 Seconds (21.0-31.0); Prothrombin Time 11.7 Seconds (9.0-12.0)
[2022-04-07 02:36] LABS: BUN Creatinine Ratio 12.1 (10-20); Calcium 8.2 mg/dl (8.5-10.1); Creatinine Clr Calc Pharmacy 44.3 ml/min; Est GFR (African American) 43.5 ml/min; Est GFR (Non-African American) 37.5 ml/min; Magnesium 1.9 mg/dl (1.7-2.4); Potassium 3.3 mmol/L (3.5-5.1)
[2022-04-07] MEDS ORDERED: MAGNESIUM SULFATE / D5W 1 GM/100 ML BAG IV ONE (03:15)
[2022-04-07] MEDS: PROPOFOL BOLUS FROM BAG IV PRN ×2 (03:42→12:00)
[2022-04-07 03:45] LABS: Partial Thromboplastin Ratio 1.3; Partial Thromboplastin Time 35.3 Seconds (21.0-31.0)
[2022-04-07] MEDS: POTASSIUM CHLORIDE / WTR 20 MEQ/100 ML PLCT IV SCH ×2 (03:53→05:32)
[2022-04-07 03:55] LABS: Albumin Level 3.8 gm/dl (3.4-5.0); Bilirubin Direct 0.2 mg/dl (0-0.2); Bilirubin,Total 0.8 mg/dl (0.2-1.0); Total Protein 6.2 gm/dl (6.0-8.3)
[2022-04-07 04:54] LABS: iSTAT Art Bld Gas pCO2 Correct 35 mmHg (35-46); iSTAT Art Bld Gas pH Corrected 7.374 (7.35-7.45); iSTAT Arterial Blood Gas HCO3 21 meg/L (19-24); iSTAT Arterial Blood Gas pCO2 39 mmHg (35-46); iSTAT Arterial Blood Gas pH 7.33 (7.35-7.45); iSTAT Arterial Blood Gas pO2 129 mmHg (80-95); iSTAT Arterial Blood Gas pO2 C 113; iSTAT Carbon Dioxide 22 mmol/L (24-31); iSTAT Hematocrit 41 % (42-52); iSTAT Hemoglobin 13.9 g/dl (14.0-18.0); iSTAT Potassium 3.3 mmol/L (3.3-5.0); iSTAT Site Art Line; iSTAT Sodium 140 mmol/L (135-144)
[2022-04-07] MEDS: propofoL 1,000 MG/100 ML VIAL IV SCH ×6 (05:03→21:59)
[2022-04-07] MEDS: AMIODARONE / D5W 360 MG/200 ML BAG IV SCH ×4 (05:32→19:38)
[2022-04-07] MEDS: NORMOSOL-R 1,000 ML IV SCH ×3 (07:01→23:30)
--- NOTE | 2022-04-07 07:08 | CT Scan Report ---
CT OF THE CHEST WITHOUT IV CONTRAST CLINICAL HISTORY: worsening shock COMPARISON STUDY: Chest radiograph April 06, 2022. TECHNIQUE: Axial images of the chest were obtained without IV contrast. Images were reviewed in the axial, sagittal, and coronal planes. IV contrast was not administered for this examination. Automat ed exposure control was utilized for the study. A dose lowering technique was utilized adhering to t he principles of ALARA. FINDINGS: Endotracheal and nasogastric tubes are satisfactorily positioned. Tip of the right femoral venous catheter is within the suprahepatic IVC. Cardiomegaly is noted. There is a small amount of an terior mediastinal hemorrhage. There are numerous acute bilateral rib fractures and an acute nondispl aced transverse mid sternal fracture. Several rib fractures are minimally displaced. There is no pneu mothorax. Postoperative findings within the left hemithorax are noted. There is extensive left infrah ilar consolidation. There are scattered airspace opacities within the remainder of the lungs. Lungs a re suboptimally assessed due to respiratory motion. Underlying emphysema. Cardiomegaly is noted. Ther e is slight dilatation of the ascending aorta, measuring 4 cm. Aorta is suboptimally assessed on this unenhanced exam. There is no pleural effusion. No acute thoracic spine fracture is present. There is no thoracic lymphadenopathy. Abdomen and pelvis CT will be reported separately. IMPRESSION: 1. Satisfactory positioning of the endotracheal and nasogastric tubes. 2. Postoperative findings within the left hemithorax. Extensive left infrahilar and basilar consolida tion suggestive of pneumonia. Additional airspace opacities within the lungs are also likely infectio us. Aspiration pneumonia is also within the differential. 3. Small amount of anterior mediastinal hemorrhage. 4. Multiple acute bilateral rib fractures. No pneumothorax. Acute nondisplaced sternal fracture. 5. Cardiomegaly. ACT 112: Negative or not required by law. Electronically signed by: Constantino Bowman M.D. 04/07/2022 7:07 AM
[2022-04-07] MEDS ORDERED: HEPARIN SOD (PORCINE) 1000 UNIT/ML IV ONE (07:19)
--- NOTE | 2022-04-07 07:19 | CT Scan Report ---
CT OF THE ABDOMEN AND PELVIS WITHOUT CONTRAST CLINICAL HISTORY: elevated LA, worsening shock COMPARISON STUDY: No previous studies for comparison. TECHNIQUE: Axial images of the abdomen and pelvis were obtained without IV contrast. Images were revi ewed in the axial, sagittal, and coronal planes. Automated exposure control was utilized for the nicki dy. A dose lowering technique was utilized adhering to the principles of ALARA. FINDINGS: Please note that the chest CT will be reported separately. Postoperative findings within th e left hemithorax are noted. There is extensive left infrahilar and left basilar consolidation. Small amount of anterior mediastinal hemorrhage is present. There is cardiomegaly. Multiple acute bilatera l rib fractures are noted. No pneumatosis, free air or portal venous gas is present. Evaluation of th e abdomen and pelvis is suboptimal on this unenhanced examination. Tip of right femoral venous cathet er is within the suprahepatic IVC. There is vicarious excretion of contrast by the gallbladder. Enhan cement of the kidneys with contrast excretion is from recent catheterization. There are several indet erminate left renal lesions which measure up to 2.5 cm. Decreased sensitivity for detection of urinar y calculi given excreted contrast. There are possible nonobstructing bilateral renal calculi. There i s no hydronephrosis. The prostate is enlarged. A Mcmillan balloon within the bladder is present. Bladder wall thickening is probably chronic. There is no evidence for a bowel obstruction. Colonic diverticu losis is noted without evidence for acute diverticulitis. The appendix is normal. There is no lymphad enopathy. No hemoperitoneum is present. There is no retroperitoneal hematoma. Rectal probe is in plac e. IMPRESSION: 1. No bowel obstruction. No bowel wall thickening. Colonic diverticulosis without evidence for acute diverticulitis. 2. No pneumatosis, free air or portal venous gas. 3. Multiple findings within the chest, including suspected left lung pneumonia, small amount of anter ior mediastinal hemorrhage and acute bilateral rib fractures. These findings are better depicted on t he chest CT which will be reported separately. 4. Several indeterminate left renal lesions. These could reflect hyperdense cysts or solid renal lesi ons. ACT 112: Negative or not required by law. Electronically signed by: Constantino Bowman M.D. 04/07/2022 7:18 AM
[2022-04-07] MEDS: METOPROLOL TARTRATE 1 MG/ML VIAL IV SCH ×3 (07:24→18:09)
[2022-04-07 07:39] LABS: Estimated Average Glucose 117 mg/dl; Hemoglobin A1C 5.7 % (4.5-5.6)
[2022-04-07 07:46] LABS: Estimated Average Glucose 117 mg/dl; Hemoglobin A1C 5.7 % (4.5-5.6)
[2022-04-07 08:06] LABS: iSTAT Art Bld Gas pCO2 Correct 26 mmHg (35-46); iSTAT Art Bld Gas pH Corrected 7.432 (7.35-7.45); iSTAT Arterial Blood Gas HCO3 18 meg/L (19-24); iSTAT Arterial Blood Gas pCO2 30 mmHg (35-46); iSTAT Arterial Blood Gas pH 7.39 (7.35-7.45); iSTAT Arterial Blood Gas pO2 88 mmHg (80-95); iSTAT Arterial Blood Gas pO2 C 73; iSTAT Carbon Dioxide 19 mmol/L (24-31); iSTAT Hematocrit 40 % (42-52); iSTAT Hemoglobin 13.6 g/dl (14.0-18.0); iSTAT Potassium 3.1 mmol/L (3.3-5.0); iSTAT Site Art Line; iSTAT Sodium 143 mmol/L (135-144)
[2022-04-07] MEDS ORDERED: Heparin IV Adult Wt-Based Standard WITH Bolus Protocol IV SCH (08:09)
[2022-04-07] MEDS: HEPARIN SODIUM/DEXTROSE 25,000 UNITS/500 ML BAG IV SCH (08:26)
[2022-04-07] MEDS: ROSUVASTATIN CALCIUM 20 MG TAB PO SCH (08:29)
[2022-04-07 08:38] LABS: Partial Thromboplastin Time 26.6 Seconds (21.0-31.0)
[2022-04-07 08:50] LABS: BUN Creatinine Ratio 11.5 (10-20); Calcium 8.3 mg/dl (8.5-10.1); Creatinine Clr Calc Pharmacy 40.8 ml/min; Est GFR (African American) 38.3 ml/min; Est GFR (Non-African American) 33.1 ml/min; Magnesium 2.1 mg/dl (1.7-2.4); Phosphorus 2.1 mg/dl (2.5-4.9); Potassium 3.8 mmol/L (3.5-5.1)
[2022-04-07] MEDS ORDERED: cefTRIAXone SODIUM 2,000 MG in DEXTROSE 5% 50 ML IV SCH (09:00)
[2022-04-07 09:07] LABS: Hematocrit (blood only) 46.4 % (40.1-51.0); Hemoglobin 15.9 g/dl (14.0-18.0); Mean Corpuscular Hemoglobin 31.1 pg (25.0-34.0); Mean Corpuscular Hgb Conc 34.3 g/dL (32.0-36.0); Mean Corpuscular Volume 90.6 fL (80.0-100.0); Mean Platelet Volume 9.9 fL (9.4-12.4); Platelet Count 183 K/uL (130-400); RDW Coefficient of Variation 12.9 % (11.5-14.5); RDW Standard Deviation 42.8 fL (36.4-46.3); Red Blood Count 5.12 M/uL (4.63-6.08); White Blood Count 14.07 K/ul (4.8-10.8)
[2022-04-07 09:09] LABS: Echinocytes 2+; Poikilocytosis Present
--- NOTE | 2022-04-07 10:41 | Electrocardiogram Report ---
Test Reason : Blood Pressure : / mmHG Vent. Rate : 118 BPM Atrial Rate : 050 BPM P-R Int : 288 ms QRS Dur : 164 ms QT Int : 422 ms P-R-T Axes : 000 -80 098 degrees QTc Int : 591 ms Poor data quality, interpretation may be adversely affected Undetermined rhythm Possibly Afib with aberrancy with runs of ventricular ectopy Abnormal ECG No previous ECGs available Confirmed by Jaquan Riley ([id number]) on 04/07/2022 10:41:02 AM Referred By: REFERRED SELF Confirmed By:Jaquan Riley
--- NOTE | 2022-04-07 10:45 | Electrocardiogram Report ---
Test Reason : Blood Pressure : / mmHG Vent. Rate : 098 BPM Atrial Rate : 098 BPM P-R Int : 168 ms QRS Dur : 124 ms QT Int : 390 ms P-R-T Axes : 074 036 014 degrees QTc Int : 497 ms Sinus rhythm with PVC's Non-specific intra-ventricular conduction delay When compared with ECG of 06-APR-2022 17:30, (unconfirmed) Significant changes have occurred No evidence of preexcitation in nSR Confirmed by Jaquan Riley ([id number]) on 04/07/2022 10:44:57 AM Referred By: REFERRED SELF Confirmed By:Jaquan Riley
--- NOTE | 2022-04-07 10:51 | Electrocardiogram Report ---
Test Reason : Blood Pressure : / mmHG Vent. Rate : 091 BPM Atrial Rate : 091 BPM P-R Int : 188 ms QRS Dur : 122 ms QT Int : 410 ms P-R-T Axes : 090 021 001 degrees QTc Int : 504 ms Sinus rhythm with occasional Premature ventricular complexes Non-specific intra-ventricular conduction delay Nonspecific ST abnormality Abnormal ECG When compared with ECG of 06-APR-2022 18:04, (unconfirmed) No significant change was found Confirmed by Jaquan Riley ([id number]) on 04/07/2022 10:51:18 AM Referred By: REFERRED SELF Confirmed By:Jaquan Rilye
--- NOTE | 2022-04-07 10:56 | Electrocardiogram Report ---
Test Reason : Blood Pressure : / mmHG Vent. Rate : 061 BPM Atrial Rate : 061 BPM P-R Int : 196 ms QRS Dur : 130 ms QT Int : 442 ms P-R-T Axes : 101 033 -10 degrees QTc Int : 444 ms Normal sinus rhythm Right bundle branch block Nonspecific T wave abnormality Abnormal ECG When compared with ECG of 06-APR-2022 21:03, (unconfirmed) Premature ventricular complexes are no longer Present Vent. rate has decreased BY 30 BPM Nonspecific T wave abnormality now evident in Lateral leads QT has shortened Confirmed by Jaquan Riley ([id number]) on 04/07/2022 10:56:10 AM Referred By: REFERRED SELF Confirmed By:Jaquan Riley
--- NOTE | 2022-04-07 10:58 | Electrocardiogram Report ---
Test Reason : Blood Pressure : / mmHG Vent. Rate : 060 BPM Atrial Rate : 060 BPM P-R Int : 200 ms QRS Dur : 126 ms QT Int : 482 ms P-R-T Axes : 102 018 044 degrees QTc Int : 482 ms Sinus rhythm with occasional Premature ventricular complexes Right bundle branch block Abnormal ECG When compared with ECG of 07-APR-2022 00:27, (unconfirmed) Premature ventricular complexes are now Present T wave inversion no longer evident in Inferior leads Confirmed by Jaquan Riley ([id number]) on 04/07/2022 10:57:48 AM Referred By: REFERRED SELF Confirmed By:Jaquan Riley
--- NOTE | 2022-04-07 11:05 | Cardiology Consultation ---
Date of Consultation April 07, 2022 Assessment & Plan (1) Cardiac arrest: (2) Atrial fibrillation with rapid ventricular response: (3) REYNALDO (acute kidney injury): (4) Anoxic brain injury: 77-year-old male (1) Cardiac arrest: As noted, no coronary culprit on emergent cardiac catheterization performed last evening. Presenting EKG evidence of frequent ventricular ectopy, ventricular tachycardia, possibly atrial fibrillation, however in sinus overnight and again this morning. Profound sinus bradycardia likely explained on the basis of therapeutic hypothermia and amiodarone infusion. As noted by other providers, pulmonary embolism certainly a consideration. Transthoracic echocardiogram was performed this morning and on some views the right ventricle appears to be dilated to a mild to moderate degree, with a least moderate tricuspid regurgitation. Is difficult to ascertain if this is a chronic situation given his underlying lung disease, or acute. He is on empiric heparin. CT angiogram due to kidney injury. (2) Atrial fibrillation with rapid ventricular response: -Continue heparin for now (3) REYNALDO (acute kidney injury): -Creatinine up to 1.92, likely due to hypotension related ATN, contrast exposure. -Continue supportive care (4) Anoxic brain injury: -Concern for underlying anoxic brain injury. We will continue to follow this progress as sedation is decreased. History of Present Illness Attending Physician: Jose Chang MD History of Present Illness Mr Keene is a 77 year old male seen in general cardiology consultation per the request of Dr Chang for evaluation and treatment of cardiac arrest. History obtained by review of chart. Patient resides in [facility] and [place]. He was apparently in his normal state of health until last evening when he was entering his hotel room and had a witnessed sudden collapse. Bystander CPR was initiated, please ultimately arrived patient received 3 shocks administered by an AED. Reportedly upon arrival of paramedics, patient was felt to be in a pulses electrical activity and received epinephrine and sodium bicarb and, intubated in the field, and return of circulation occurred. Upon arrival to the emergency department, EKG revealed wide-complex tachycardia suggestive of possible atrial fibrillation with ventricular tachycardia. He was seen in consultation by Dr. Gonzales of interventional cardiology and underwent emergent cardiac catheterization without coronary artery culprit. Patient without past history of heart disease. Does have a history of lung cancer with left upper lobectomy performed 3 years ago. Did not require chemotherapy or radiation therapy. Had been doing well to this regard as of late. Currently patient is in ICU room room 104. He is receiving therapeutic hypothermia, and is sedated with propofol and fentanyl. He is currently on norepinephrine for blood pressure support, amiodarone infusion, heparin infusion. Allergies Allergy/AdvReac Type Severity Reaction Status Date / Time ibuprofen Allergy Severe Anaphylaxis Verified 04/06/22 18:00 Home Medications Medication Instructions Recorded Confirmed Type finasteride 5 mg tablet 5 mg PO DAILY 04/06/22 04/06/22 History losartan 100 1 tab PO DAILY 04/06/22 04/06/22 History mg-hydrochlorothiazide 25 mg tablet rosuvastatin 20 mg tablet 20 mg PO DAILY 04/06/22 04/06/22 History tadalafil 5 mg tablet 5 mg PO DAILY 04/06/22 04/06/22 History Patient History Medical History BPH (benign prostatic hyperplasia) Hyperlipidemia Hypertension Lung cancer S/p upper lobectomy Social History Smoking Status: Never smoker Hx Alcohol Use: Yes Alcohol type: wine Hx Substance Use: No Preferred Language: Cymraes Communication Ability: Effective Ophthalmic Asst Required: No Beliefs That Will Affect Care: None Current Living Situation: Spouse Other Information That Helps Us Care for You: No Feels Safe at Home: Yes Safety Concerns: Feels Safe At This Time Assistive Devices: Glasses Review of Systems Review of Systems: Unobtainable due to endotracheal tube and Unobtainable due to reduced consciousness Physical Exam Physical Exam: Temp Pulse Resp BP Pulse Ox O2 Del Method FiO2 34.0 C L 52 L 30 H 117/79 98 40 04/07/22 10:00 04/07/22 10:00 04/07/22 10:00 04/07/22 10:00 04/07/22 10:00 04/07/22 10:31 04/07/22 10:31 Constitutional: Stated, therapeutic with hernia, unresponsive Respiratory: Receiving mechanical ventilation, lungs clear Cardiovascular: RRR, no murmur, no edema Gastrointestinal (Abdomen): normal bowel sounds, soft, nontender, no hepatosplenomegaly Neurologic: PERRL, EOMI, accommodation nl, no face palsy, no dysarthria Results & Data ([facility]) Laboratory Results Cardiac Enzymes 04/06/22 04/06/22 04/06/22 Range/Units 17:07 19:29 19:29 AST 95 H (13-39) U/L Troponin I High Sens 46.3 H Cancelled 331.5 H* D (0-20) pg/ml 04/07/22 04/07/22 04/07/22 Range/Units 03:21 05:53 08:11 AST 115 H (13-39) U/L Troponin I High Sens 4153.9 H* D 3968.3 H* (0-20) pg/ml Coagulation 04/06/22 04/06/22 04/07/22 Range/Units 17:07 19:29 01:35 PT 11.4 12.4 H 11.7 (9.0-12.0) Seconds APTT 64.8 H* 39.2 H (21.0-31.0) Seconds 04/07/22 04/07/22 Range/Units 03:21 08:11 PT 11.0 (9.0-12.0) Seconds APTT 35.3 H 26.6 (21.0-31.0) Seconds Lipids 04/06/22 04/06/22 Range/Units 19:29 19:29 Triglycerides Cancelled 137 Cholesterol Cancelled 134 HDL Cholesterol Cancelled 41 Cholesterol/HDL Ratio Cancelled 3.3 CBC 04/06/22 04/06/22 04/07/22 Range/Units 17:07 19:23 01:35 WBC 14.03 H 18.11 H 11.18 H (4.8-10.8) K/ul RBC 4.89 4.74 4.97 (4.63-6.08) M/uL Hgb 15.2 14.9 15.7 (14.0-18.0) g/dl Hct 46.9 44.8 45.4 (40.1-51.0) % Plt Count 181 216 155 (130-400) K/uL Neut # (Auto) 8.19 H 13.52 H 9.84 H (1.4-6.5) K/uL Lymph # (Auto) 4.54 H 3.48 H 0.73 L (1.2-3.4) K/uL [place] # (Auto) 0.60 0.62 0.53 (0.24-0.82) K/uL Eos # (Auto) 0.29 0.11 0.01 (0-0.50) K/uL Baso # (Auto) 0.09 0.11 0.04 (0-0.2) K/uL 04/07/22 Range/Units 08:11 WBC 14.07 H (4.8-10.8) K/ul RBC 5.12 (4.63-6.08) M/uL Hgb 15.9 (14.0-18.0) g/dl Hct 46.4 (40.1-51.0) % Plt Count 183 (130-400) K/uL Neut # (Auto) 9.61 H (1.4-6.5) K/uL Lymph # (Auto) 0.80 L (1.2-3.4) K/uL [place] # (Auto) 0.66 (0.24-0.82) K/uL Eos # (Auto) 2.89 H (0-0.50) K/uL Baso # (Auto) 0.05 (0-0.2) K/uL Comprehensive Metabolic Panel 04/06/22 04/06/22 04/07/22 Range/Units 17:07 19:29 01:35 Sodium 144 143 142 (136-145) mmol/L Potassium 3.3 L 3.5 3.3 L (3.5-5.1) mmol/L Chloride 105 106 106 (98-107) mmol/L Carbon Dioxide 22 27 21 (21-32) mmol/L BUN 15 17 21 (6-23) mg/dl Creatinine 1.30 1.49 H 1.73 H (0.6-1.4) mg/dl Glucose 225 H 179 H 157 H (70-99(Fasting)) mg/dl Calcium 8.1 L 7.9 L 8.2 L (8.5-10.1) mg/dl Direct Bilirubin (0-0.2) mg/dl AST 95 H (13-39) U/L ALT 109 H (7-52) U/L Alkaline Phosphatase 50 (34-104) U/L Total Protein 6.0 (6.0-8.3) gm/dl Albumin 3.7 (3.4-5.0) gm/dl 04/07/22 04/07/22 Range/Units 03:21 08:11 Sodium 141 (136-145) mmol/L Potassium 3.8 (3.5-5.1) mmol/L Chloride 102 (98-107) mmol/L Carbon Dioxide 23 (21-32) mmol/L BUN 22 (6-23) mg/dl Creatinine 1.92 H (0.6-1.4) mg/dl Glucose 176 H (70-99(Fasting)) mg/dl Calcium 8.3 L (8.5-10.1) mg/dl Direct Bilirubin 0.2 (0-0.2) mg/dl AST 115 H (13-39) U/L ALT 114 H (7-52) U/L Alkaline Phosphatase 43 (34-104) U/L Total Protein 6.2 (6.0-8.3) gm/dl Albumin 3.8 (3.4-5.0) gm/dl Diagnostic Findings Summary of noncontrast CT of the chest from this morning 1. Satisfactory positioning of the endotracheal and nasogastric tubes. 2. Postoperative findings within the left hemithorax. Extensive left infrahilar and basilar consolidation suggestive of pneumonia. Additional airspace opacities within the lungs are also likely infectious. Aspiration pneumonia is also within the differential. 3. Small amount of anterior mediastinal hemorrhage. 4. Multiple acute bilateral rib fractures. No pneumothorax. Acute nondisplaced sternal fracture. 5. Cardiomegaly. Most recent EKG 04/07/2022 8:09 AM: Interpreted independently, sinus bradycardia 51 bpm with first-degree AV block, MI interval 226 ms, incomplete right bundle branch block, nonspecific T wave flattening.
[2022-04-07 11:15] LABS: iSTAT Allen Test Pass; iSTAT Art Bld Gas pCO2 Correct 41 mmHg (35-46); iSTAT Art Bld Gas pH Corrected 7.307 (7.35-7.45); iSTAT Arterial Blood Gas HCO3 21 meg/L (19-24); iSTAT Arterial Blood Gas pCO2 47 mmHg (35-46); iSTAT Arterial Blood Gas pH 7.27 (7.35-7.45); iSTAT Arterial Blood Gas pO2 65 mmHg (80-95); iSTAT Arterial Blood Gas pO2 C 54; iSTAT Carbon Dioxide 23 mmol/L (24-31); iSTAT Hematocrit 47 % (42-52); iSTAT Potassium 3.8 mmol/L (3.3-5.0); iSTAT Site L Radial; iSTAT Sodium 140 mmol/L (135-144)
[2022-04-07 13:40] LABS: INR 1.1 (0.9-1.1)
[2022-04-07 13:47] LABS: Hematocrit (blood only) 44.2 % (40.1-51.0); Hemoglobin 15.1 g/dl (14.0-18.0); Mean Corpuscular Hemoglobin 31.8 pg (25.0-34.0); Mean Corpuscular Hgb Conc 34.2 g/dL (32.0-36.0); Mean Corpuscular Volume 93.1 fL (80.0-100.0); Mean Platelet Volume 10.3 fL (9.4-12.4); Platelet Count 174 K/uL (130-400); RDW Coefficient of Variation 13.1 % (11.5-14.5); RDW Standard Deviation 44.5 fL (36.4-46.3); Red Blood Count 4.75 M/uL (4.63-6.08); White Blood Count 15.46 K/ul (4.8-10.8)
[2022-04-07 13:48] LABS: ALC (manual) 0.62 K/uL (1.2-3.4); ANC (manual) 14.22 K/uL (1.4-6.5); Lymphocytes # (manual) 0.62 K/uL (1.2-3.4); Lymphocytes % (manual) 4 %; Monocytes # (manual) 0.62 K/uL (0.24-0.82); Monocytes % (manual) 4 %; Neutrophils # (manual) 14.22 K/uL (1.4-6.5); Neutrophils % (manual) 92 %
[2022-04-07 13:49] LABS: BUN Creatinine Ratio 12.4 (10-20); Calcium 7.8 mg/dl (8.5-10.1); Creatinine Clr Calc Pharmacy 38.9 ml/min; Est GFR (African American) 36.3 ml/min; Est GFR (Non-African American) 31.3 ml/min; Magnesium 2.1 mg/dl (1.7-2.4); Phosphorus 4.3 mg/dl (2.5-4.9); Potassium 3.9 mmol/L (3.5-5.1)
[2022-04-07 13:59] LABS: ALC (manual) 1.13 K/uL (1.2-3.4); ANC (manual) 12.38 K/uL (1.4-6.5); Basophils # (auto) 0.05 K/uL (0-0.2); Basophils % (auto) 0.4 %; Eosinophils # (auto) 2.89 K/uL (0-0.50); Eosinophils % (auto) 20.5 %; Immature Granulocytes # (auto) 0.06 K/uL (0.00-0.02); Immature Granulocytes % (auto) 0.4 %; Lymphocytes # (manual) 1.13 K/uL (1.2-3.4); Lymphocytes % (auto) 5.7 %; Lymphocytes % (manual) 8 %; Monocytes # (auto) 0.66 K/uL (0.24-0.82); Monocytes # (manual) 0.56 K/uL (0.24-0.82); Monocytes % (auto) 4.7 %; Monocytes % (manual) 4 %; Neutrophils # (auto) 9.61 K/uL (1.4-6.5); Neutrophils # (manual) 12.38 K/uL (1.4-6.5); Neutrophils % (auto) 68.3 %; Neutrophils % (manual) 88 %
--- NOTE | 2022-04-07 14:04 | Hospitalist Progress Note ---
Date of Service April 07, 2022 Assessment & Plan (1) Cardiac arrest: Plan: Cardiac Arrest Atrial fibrillation RVR S/P 3 shocks administered by an AED on presentation for ? VT/VF PEA after Shock Cardiogenic Shock Can not rule ot PE Acute Hypoxemic, hypercapnic respiratory failure Elevated troponin likely due to demand Ischemia --ECHO: Sinus bradycardia in the 50s present during the echocardiogram study. The left ventricular wall motion is normal. Left ventricle systolic function is normal. EF 50 to 55%. The right ventricle is dilated to mild to moderate degree on the parasternal short axis views. Mild right ventricular hypokinesis thought to be present limited to the short axis views, and appears normal from the apical imaging perspective. There is moderate tricuspid regurgitation. Doppler findings do not suggest pulmonary hypertension. --S/P Cardiac Cath Reviewed --Venous Doppler:No DVT within the right or left lower extremity. -- On amiodarone, heparin drip Appreciate Ramp Service Agent/Cardiology Input on Hypothermia Protocol Vent management per ICU team Could not obtain CTA for PE due to REYNALDO Acute Metabolic Encephalopathy Possible Anoxic brain injury --CT Head:Motion degraded exam. No acute intracranial abnormality or calvarial fracture identified. EEG pending Consider Neurology evaluation if needed Aspiration pneumonia --CT:Satisfactory positioning of the endotracheal and nasogastric tubes. Postoperative findings within the left hemithorax. Extensive left infrahilar and basilar consolidation suggestive of pneumonia. Additional airspace opacities within the lungs are also likely infectious. Aspiration pneumonia is also within the differential. Small amount of anterior mediastinal hemorrhage. Multiple acute bilateral rib fractures. No pneumothorax. Acute nondisplaced sternal fracture. Cardiomegaly. Aspiration precautions Currently on Unasyn Acute nondisplaced sternal fracture Small Anterior mediastinal hemorrhage Multiple acute bilateral rib fractures Likely traumatic due to Cardiac Arrest CT as above Fall precautions Abnormal Urine analysis Rule out UTI On antibiotics as above Acute Kidney Injury Unknown baseline creatinine Likely multifactorial Creatinine 2.0 today Continue IV fluids Avoid nephrotoxic agents as able H/O lung cancer S/P surgery Prediabetes HbA1C: 5.7 H/O BPH Past tobacco abuse. HTN HLP As per records DVT Px: IV Heparin Code Status Full code Admission and Anticipated Discharge Date Admission Date: April 06, 2022 Subjective Patient is seen and examined at bedside Currently sedated, Intubated and on Hypothermia Protocol Discussed with Cardiology today Also discussed with patient's family at bedside On IV heparin and amiodarone drip on pressor Review of Systems Review of Systems: Unobtainable due to endotracheal tube and Unobtainable due to reduced consciousness Physical Exam Physical Exam: Physical Exam: Vitals signs as noted above General Appearance:Moderately built and nourished, sedated and Intubated Head: normocephalic, Atraumatic Eyes: normal inspection, EOMI Neck: supple, Trachea midline Respiratory/Chest: Normal breath sounds, CTA, No accessory muscle use Cardiovascular: S1, S2, No murmur Abdomen/GI:Soft, Non tender, Bowel sounds present Extremities/Musculoskeletal:normal inspection, no edema Neurologic/Psych:Sedated and Intubated Skin: normal color Results & Data Results & Data ([facility]) Vital Signs (Past 12 Hours) Vital Signs Temp Temp Pulse Resp BP BP BP 04/07/22 12:00 04/07/22 13:00 34.2 C L 34.1 C L 53 L 28 H 101/66 04/07/22 12:00 34.2 C L 34.1 C L 55 L 28 H 93/73 L 04/07/22 12:52 55 L 86/61 L 04/07/22 11:00 34.1 C L 34.1 C L 53 L 28 H 105/67 85/69 L 04/07/22 10:58 61 26 H 04/07/22 07:35 51 L 30 H 04/07/22 10:31 04/07/22 10:00 52 L 04/07/22 10:00 34.0 C L 34.1 C L 52 L 26 H 117/79 91/84 L 04/07/22 09:00 49 L 04/07/22 09:00 34.0 C L 34.1 C L 48 L 26 H 134/79 99/87 L 04/07/22 08:00 04/07/22 08:00 34.0 C L 34.1 C L 51 L 26 H 108/79 84/74 L 04/07/22 08:00 51 L 04/07/22 07:04 51 L 04/07/22 07:24 51 L 04/07/22 07:00 34.2 C L 34.3 C L 52 L 30 H 104/71 86/71 L 04/07/22 06:00 34.1 C L 34.1 C L 54 L 30 H 112/77 97/85 L 04/07/22 05:00 34.1 C L 34.1 C L 56 L 30 H 104/74 78/70 L 04/07/22 04:11 81 30 H 04/07/22 04:00 04/07/22 04:00 34.2 C L 34.2 C L 58 L 30 H 87/62 L 95/64 L 04/07/22 03:00 34.2 C L 34.2 C L 85 30 H 163/95 H 162/96 H 04/07/22 02:00 34 C L 34 C L 66 30 H 123/89 147/95 H Pulse Ox O2 Del Method FiO2 04/07/22 12:00 50 04/07/22 13:00 98 Mechanical Vent 50 04/07/22 12:00 97 Mechanical Vent 50 04/07/22 12:52 04/07/22 11:00 97 Mechanical Vent 50 04/07/22 10:58 91 40 04/07/22 07:35 99 40 04/07/22 10:31 Mechanical Vent 40 04/07/22 10:00 04/07/22 10:00 98 Mechanical Vent 40 04/07/22 09:00 04/07/22 09:00 99 Mechanical Vent 40 04/07/22 08:00 40 04/07/22 08:00 99 Mechanical Vent 40 04/07/22 08:00 04/07/22 07:04 04/07/22 07:24 04/07/22 07:00 98 Mechanical Vent 40 04/07/22 06:00 99 Mechanical Vent 40 04/07/22 05:00 99 Mechanical Vent 40 04/07/22 04:11 95 40 04/07/22 04:00 40 04/07/22 04:00 99 Mechanical Vent 40 04/07/22 03:00 94 Mechanical Vent 40 04/07/22 02:00 99 Mechanical Vent 40 Laboratory Results Short CBC 04/06/22 04/06/22 04/07/22 Range/Units 17:07 19:23 01:35 WBC 14.03 H 18.11 H 11.18 H (4.8-10.8) K/ul Hgb 15.2 14.9 15.7 (14.0-18.0) g/dl Hct 46.9 44.8 45.4 (40.1-51.0) % Plt Count 181 216 155 (130-400) K/uL 04/07/22 04/07/22 Range/Units 08:11 13:10 WBC 14.07 H 15.46 H (4.8-10.8) K/ul Hgb 15.9 15.1 (14.0-18.0) g/dl Hct 46.4 44.2 (40.1-51.0) % Plt Count 183 174 (130-400) K/uL BMP 04/06/22 04/06/22 04/07/22 17:07 19:29 01:35 Sodium 144 143 142 Potassium 3.3 L 3.5 3.3 L Chloride 105 106 106 Carbon Dioxide 22 27 21 BUN 15 17 21 Creatinine 1.30 1.49 H 1.73 H Glucose 225 H 179 H 157 H Calcium 8.1 L 7.9 L 8.2 L 04/07/22 04/07/22 08:11 13:10 Sodium 141 139 Potassium 3.8 3.9 Chloride 102 102 Carbon Dioxide 23 26 BUN 22 25 H Creatinine 1.92 H 2.01 H Glucose 176 H 157 H Calcium 8.3 L 7.8 L Cardiac Enzymes 04/06/22 04/06/22 04/07/22 Range/Units 19:29 19:29 03:21 Total Creatine Kinase Cancelled 398 H 964 H Liver Function 04/06/22 04/07/22 Range/Units 17:07 03:21 Total Bilirubin 0.8 0.8 (0.2-1.0) mg/dl Direct Bilirubin 0.2 (0-0.2) mg/dl AST 95 H 115 H (13-39) U/L ALT 109 H 114 H (7-52) U/L Alkaline Phosphatase 50 43 (34-104) U/L Albumin 3.7 3.8 (3.4-5.0) gm/dl Urine 04/06/22 Range/Units Unknown Urine Color Yellow Urine Appearance Cloudy A (Clear) Urine pH 6.5 (4.5-7.5) Ur Specific [place] 1.026 (1.000-1.030) Urine Protein 4+ H (Negative) Urine Glucose (UA) Trace H (Negative)
--- NOTE | 2022-04-07 14:44 | Electroencephalogram ---
EEG Procedure Note Date of Service April 07, 2022 Start / End Times Start Time: 2:08 PM End Time: 2:[address] Huang History Cardiac arrest Home Medication List Medication Instructions Recorded Confirmed Type finasteride 5 mg tablet 5 mg PO DAILY 04/06/22 04/06/22 History losartan 100 1 tab PO DAILY 04/06/22 04/06/22 History mg-hydrochlorothiazide 25 mg tablet rosuvastatin 20 mg tablet 20 mg PO DAILY 04/06/22 04/06/22 History tadalafil 5 mg tablet 5 mg PO DAILY 04/06/22 04/06/22 History Inpatient Medication List Buspirone HCl (Buspirone 15 Mg Tab) 60 mg NG ONCE PRN PRN Reason: For Shivering x 1 dose Stop: 05/06/22 19:20 Last Admin: 04/07/22 03:03 Dose: 60 mg Documented By: BENITA Fentanyl Citrate (Fentanyl Bolus From Bag) 50 mcg IV Q60M PRN PRN Reason: Pain or Agitation Stop: 04/20/22 19:20 Last Admin: 04/07/22 03:43 Dose: 50 mcg Documented By: BENITA Propofol (Diprivan) 1,000 mg in 100 mls @ 35.1 mls/hr IV .Q2H51M [facility]; Protocol Stop: 04/09/22 19:29 Last Admin: 04/07/22 12:52 Dose: 50 mcg/kg/min, 35.1 mls/hr Documented By: MARIA M Co-signed By: PAULS Titration: 04/07/22 12:46 Dose: 50 mcg/kg/min, 35.1 mls/hr Documented By: MARIA M Co-signed By: PAULS Titration: 04/07/22 11:59 Dose: 50 mcg/kg/min, 35.1 mls/hr Documented By: MARIA M Titration: 04/07/22 11:21 Dose: 40 mcg/kg/min, 28.1 mls/hr Documented By: MARIA M Titration: 04/07/22 10:28 Dose: 30 mcg/kg/min, 21.1 mls/hr Documented By: MARIA M Admin: 04/07/22 09:10 Dose: 40 mcg/kg/min, 28.1 mls/hr Documented By: MARIA M Co-signed By: CAM Titration: 04/07/22 08:37 Dose: 40 mcg/kg/min, 28.1 mls/hr Documented By: SARAHL Co-signed By: CAM Titration: 04/07/22 07:03 Dose: 40 mcg/kg/min, 28.1 mls/hr Documented By: KJL Co-signed By: CP Admin: 04/07/22 05:03 Dose: 40 mcg/kg/min, 28.1 mls/hr Documented By: CP Co-signed By: ELS Titration: 04/07/22 04:16 Dose: 40 mcg/kg/min, 28.1 mls/hr Documented By: CP Co-signed By: ELS Titration: 04/07/22 03:42 Dose: 40 mcg/kg/min, 28.1 mls/hr Documented By: Titration: 04/07/22 03:18 Dose: 35 mcg/kg/min, 24.6 mls/hr Documented By: Titration: 04/07/22 03:12 Dose: 30 mcg/kg/min, 21.1 mls/hr Documented By: Titration: 04/07/22 02:00 Dose: 25 mcg/kg/min, 17.6 mls/hr Documented By: Titration: 04/06/22 23:18 Dose: 20 mcg/kg/min, 14 mls/hr Documented By: Titration: 04/06/22 23:00 Dose: 25 mcg/kg/min, 17.6 mls/hr Documented By: Titration: 04/06/22 22:55 Dose: 30 mcg/kg/min, 21.1 mls/hr Documented By: Titration: 04/06/22 22:50 Dose: 35 mcg/kg/min, 24.6 mls/hr Documented By: Admin: 04/06/22 22:41 Dose: 40 mcg/kg/min, 28.1 mls/hr Documented By: CP Co-signed By: MEJ Titration: 04/06/22 22:41 Dose: 40 mcg/kg/min, 28.1 mls/hr Documented By: CP Co-signed By: MEJ Titration: 04/06/22 22:00 Dose: 40 mcg/kg/min, 28.1 mls/hr Documented By: Titration: 04/06/22 21:50 Dose: 35 mcg/kg/min, 24.6 mls/hr Documented By: Titration: 04/06/22 21:45 Dose: 30 mcg/kg/min, 21.1 mls/hr Documented By: Titration: 04/06/22 21:40 Dose: 25 mcg/kg/min, 17.6 mls/hr Documented By: Admin: 04/06/22 21:32 Dose: 20 mcg/kg/min, 14 mls/hr Documented By: LG Co-signed By: BENITA Fentanyl Citrate (Fentanyl Citrate) 2,500 mcg in 250 mls @ 12.5 mls/hr IV .Q20H [facility]; Protocol Stop: 04/20/22 19:29 Last Titration: 04/07/22 09:34 Dose: 0 mcg/hr, 0 mls/hr Documented By: MARIA M Co-signed By: CAM Titration: 04/07/22 07:03 Dose: 125 mcg/hr, 12.5 mls/hr Documented By: MARIA M Co-signed By: CP Titration: 04/07/22 03:42 Dose: 125 mcg/hr, 12.5 mls/hr Documented By: BENITA Co-signed By: LG Titration: 04/06/22 23:16 Dose: 100 mcg/hr, 10 mls/hr Documented By: LG Co-signed By: BENITA Titration: 04/06/22 21:30 Dose: 75 mcg/hr, 7.5 mls/hr Documented By: LG Co-signed By: BENITA Titration: 04/06/22 20:30 Dose: 50 mcg/hr, 5 mls/hr Documented By: LG Co-signed By: BENITA Admin: 04/06/22 19:30 Dose: 25 mcg/hr, 2.5 mls/hr Documented By: LG Co-signed By: BENITA Famotidine 20 mg/ Syringe 5 mls @ 2.5 mls/min IV BID [facility]ONATHAN Stop: 05/06/22 20:59 Last Admin: 04/07/22 08:33 Dose: 2.5 mls/min Documented By: MARIA M Admin: 04/07/22 01:36 Dose: 2.5 mls/min Documented By: LG Ampicillin Sodium/Sulbactam Sodium 3,000 mg/ Sodium Chloride 108 mls @ 200 mls/hr IV Q6H [facility]; Protocol Stop: 04/14/22 00:00 Last Infusion: 04/07/22 12:39 Dose: 0 mls/hr Documented By: MARIA M Admin: 04/07/22 12:06 Dose: 200 mls/hr Documented By: MARIA M Infusion: 04/07/22 06:02 Dose: 0 mls/hr Documented By: Admin: 04/07/22 05:28 Dose: 200 mls/hr Documented By: Infusion: 04/07/22 00:52 Dose: 0 mls/hr Documented By: Admin: 04/07/22 00:05 Dose: 200 mls/hr Documented By: BENITA Parenteral Electrolytes (Normosol-R) 1,000 mls @ 150 mls/hr IV .Q6H40M [facility] Stop: 05/06/22 21:44 Last Admin: 04/07/22 12:51 Dose: 150 mls/hr Documented By: MARIA M Infusion: 04/07/22 12:51 Dose: 150 mls/hr Documented By: MARIA M Admin: 04/07/22 07:01 Dose: 150 mls/hr Documented By: Infusion: 04/07/22 07:01 Dose: 150 mls/hr Documented By: Infusion: 04/07/22 05:29 Dose: 150 mls/hr Documented By: Admin: 04/06/22 21:54 Dose: 100 mls/hr Documented By: LG Amiodarone HCl/Dextrose (Nexterone / D5w) 360 mg in 200 mls @ 16.667 mls/hr IV .Q12H [facility] Stop: 05/08/22 05:59 Last Admin: 04/07/22 05:32 Dose: 0.5 mg/min, 16.7 mls/hr Documented By: LG Co-signed By: BENITA Norepinephrine Bitartrate (Levophed/D5w) 4 mg in 250 mls @ 19.275 mls/hr IV .[id number] [facility]; Protocol Stop: 05/07/22 01:14 Last Titration: 04/07/22 12:53 Dose: 0.15 mcg/kg/min, 57.8 mls/hr Documented By: MARIA M Admin: 04/07/22 12:05 Dose: 0.13 mcg/kg/min, 50.1 mls/hr Documented By: MARIA M Co-signed By: WRS Titration: 04/07/22 11:36 Dose: 0.13 mcg/kg/min, 50.1 mls/hr Documented By: MARIA M Co-signed By: WRS Titration: 04/07/22 09:34 Dose: 0.13 mcg/kg/min, 50.1 mls/hr Documented By: Titration: 04/07/22 07:03 Dose: 0.15 mcg/kg/min, 57.8 mls/hr Documented By: MARIA M Co-signed By: CP Admin: 04/07/22 07:00 Dose: 0.15 mcg/kg/min, 57.8 mls/hr Documented By: MONALISA Co-signed By: NICOLE Titration: 04/07/22 07:00 Dose: 0.15 mcg/kg/min, 57.8 mls/hr Documented By: MONALISA Co-signed By: ALN Titration: 04/07/22 04:10 Dose: 0.15 mcg/kg/min, 57.8 mls/hr Documented By: Titration: 04/07/22 04:00 Dose: 0.13 mcg/kg/min, 50.1 mls/hr Documented By: Titration: 04/07/22 03:40 Dose: 0.11 mcg/kg/min, 42.4 mls/hr Documented By: Titration: 04/07/22 03:35 Dose: 0.09 mcg/kg/min, 34.7 mls/hr Documented By: Titration: 04/07/22 03:30 Dose: 0.07 mcg/kg/min, 27 mls/hr Documented By: Admin: 04/07/22 01:43 Dose: 0.05 mcg/kg/min, 19.3 mls/hr Documented By: BENITA Co-signed By: LG Heparin Sodium/Dextrose (Heparin Sodium/Dextrose) 25,000 units in 500 mls @ 32 mls/hr IV .[id number] [facility]; Protocol Stop: 05/07/22 07:29 Last Admin: 04/07/22 08:26 Dose: 1,600 units/hr, 32 mls/hr Documented By: MARIA M Co-signed By: DONELL Metoprolol Tartrate (Metoprolol Tartrate 1 Mg/Ml Vial) 2.5 mg IV Q6 [facility] Stop: 05/07/22 05:59 Last Admin: 04/07/22 12:52 Dose: Not Given Documented By: MARIA M Admin: 04/07/22 07:24 Dose: Not Given Documented By: MARIA M Propofol (Propofol Bolus From Bag) 20 mg IV Q5M PRN PRN Reason: Sedation Stop: 04/09/22 19:20 Last Admin: 04/07/22 12:00 Dose: 20 mg Documented By: MARIA M Co-signed By: MICHAEL Admin: 04/07/22 03:42 Dose: 20 mg Documented By: BENITA Co-signed By: LG Rosuvastatin Calcium (Rosuvastatin Calcium 20 Mg Tab) 20 mg PO DAILY YONATHAN Stop: 05/07/22 08:59 Last Admin: 04/07/22 08:29 Dose: 20 mg Documented By: MARIA M Discontinued Medications Amiodarone HCl/Dextrose (Amiodarone 150mg / 100ml D5w) Confirm Administered Dose 150 mg IV .STK-MED ONE Stop: 04/06/22 23:57 Last Admin: 04/07/22 00:06 Dose: Not Given Documented By: BENITA Amiodarone HCl/Dextrose (Amiodarone 360mg / 200ml D5w) Confirm Administered Dose 360 mg IV .STK-MED ONE Stop: 04/06/22 23:58 Last Admin: 04/07/22 00:06 Dose: Not Given Documented By: BENITA Fentanyl Citrate (Fentanyl Citrate 100 Mcg/2 Ml Vial) 50 mcg IV NOW STA Stop: 04/06/22 17:59 Last Admin: 04/06/22 21:24 Dose: Not Given Documented By: BENITA Fentanyl Citrate (Fentanyl Citrate 100 Mcg/2 Ml Vial) Confirm Administered Dose 100 mcg .ROUTE .STK-MED ONE Stop: 04/06/22 18:02 Last Admin: 04/06/22 21:25 Dose: Not Given Documented By: BENITA Fentanyl Citrate (Fentanyl Citrate 2,500 Mcg/250 Ml Bag) Confirm Administered Dose 2,500 mcg IV .STK-MED ONE Stop: 04/06/22 19:50 Last Admin: 04/06/22 21:31 Dose: Not Given Documented By: BENITA Furosemide (Furosemide 40 Mg/4 Ml Vial) 40 mg IV ONE ONE Stop: 04/06/22 20:34 Last Admin: 04/06/22 21:43 Dose: Not Given Documented By: LG Heparin Sodium (Porcine) (Heparin (Porcine) 1000 Unit/Ml 10 Ml ([facility] Use Only)) Confirm Administered Dose 10,000 units .ROUTE .STK-MED ONE Stop: 04/06/22 18:01 Last Admin: 04/06/22 21:24 Dose: Not Given Documented By: BENITA Heparin Sodium (Porcine) (Heparin Sod (Porcine) 1000 Unit/Ml) 7,000 units IV ONE ONE Stop: 04/07/22 07:20 Last Admin: 04/07/22 08:25 Dose: 7,000 units Documented By: MARIA M Co-signed By: DONELL Heparin Sodium/Dextrose (Heparin 83813 Unit/500 Ml D5w) Confirm Administered Dose 25,000 units IV .STK-MED ONE Stop: 04/06/22 20:34 Last Admin: 04/06/22 21:31 Dose: Not Given Documented By: BENITA Heparin Sodium/Sodium Chloride (Heparin In Nss Infusion 1000 Unit/500 Ml (2 U/Ml) Bag) Confirm Administered Dose 3,000 units IV .STK-MED ONE Stop: 04/06/22 18:02 Last Admin: 04/06/22 21:25 Dose: Not Given Documented By: BENITA Sodium Chloride (Nss 1000ml) 1,000 mls @ 125 mls/hr IV .Q8H [facility]ATHAN Stop: 05/06/22 17:44 Last Admin: 04/06/22 20:53 Dose: Not Given Documented By: LG Piperacillin Sod/Tazobactam Sod (Zosyn) 4.5 gm in 120 mls @ 240 mls/hr IV NOW ONE Stop: 04/06/22 18:12 Last Admin: 04/06/22 21:24 Dose: Not Given Documented By: BENITA Potassium Chloride (K [place] / Wtr) 20 meq in 100 mls @ 50 mls/hr IV ONE ONE Stop: 04/06/22 21:35 Last Infusion: 04/06/22 23:23 Dose: 0 mls/hr Documented By: Admin: 04/06/22 21:27 Dose: 50 mls/hr Documented By: LG Magnesium Sulfate/Dextrose (Magnesium Sulfate / D5w) 1 gm in 100 mls @ 50 mls/hr IV ONE ONE Stop: 04/06/22 21:35 Last Infusion: 04/06/22 23:23 Dose: 0 mls/hr Documented By: Admin: 04/06/22 21:27 Dose: 50 mls/hr Documented By: LG Heparin Sodium/Dextrose (Heparin Sodium/Dextrose) 25,000 units in 500 mls @ 34 mls/hr IV .[id number] [facility]ATH[facility]; Protocol Stop: 05/06/22 20:44 Last Titration: 04/06/22 23:23 Dose: 0 units/hr, 0 mls/hr Documented By: LG Co-signed By: BENITA Admin: 04/06/22 21:27 Dose: 1,700 units/hr, 34 mls/hr Documented By: LG Co-signed By: BENITA Calcium Gluconate 2,000 mg/ (Dextrose) 70 mls @ 240 mls/hr IV NOW ONE Stop: 04/06/22 21:17 Last Infusion: 04/06/22 23:32 Dose: 0 mls/hr Documented By: Admin: 04/06/22 23:11 Dose: 240 mls/hr Documented By: BENITA Amiodarone HCl/Dextrose (Nexterone / D5w) 360 mg in 200 mls @ 33.333 mls/hr IV ONE ONE; Protocol Stop: 04/07/22 06:01 Last Infusion: 04/07/22 06:08 Dose: 0 mg/min, 0 mls/hr Documented By: MARIA M Co-signed By: DONELL Admin: 04/07/22 00:07 Dose: 1 mg/min, 33.3 mls/hr Documented By: BENITA Co-signed By: MONALISA Amiodarone HCl/Dextrose (Nexterone / D5w) 150 mg in 100 mls @ 600 mls/hr IV NOW STA Stop: 04/07/22 00:01 Last Infusion: 04/07/22 01:00 Dose: 0 mls/hr Documented By: LG Co-signed By: BENITA Admin: 04/07/22 00:06 Dose: 600 mls/hr Documented By: BENITA Co-signed By: MONALISA Potassium Chloride (K [place] / Wtr) 20 meq in 100 mls @ 50 mls/hr IV Q2H YONATHAN Stop: 04/07/22 07:14 Last Infusion: 04/07/22 07:43 Dose: 0 mls/hr Documented By: MARIA M Admin: 04/07/22 05:32 Dose: 50 mls/hr Documented By: Infusion: 04/07/22 05:32 Dose: 50 mls/hr Documented By: Admin: 04/07/22 03:53 Dose: 50 mls/hr Documented By: LG Magnesium Sulfate/Dextrose (Magnesium Sulfate / D5w) 1 gm in 100 mls @ 50 mls/hr IV ONE ONE Stop: 04/07/22 05:14 Last Infusion: 04/07/22 05:33 Dose: 0 mls/hr Documented By: Admin: 04/07/22 03:33 Dose: 50 mls/hr Documented By: LG Metoprolol Tartrate (Metoprolol Tartrate 1 Mg/Ml Vial) 2.5 mg IV NOW STA Stop: 04/06/22 20:38 Last Admin: 04/06/22 21:43 Dose: Not Given Documented By: LG Midazolam HCl (Midazolam Hcl 1 Mg/Ml 2ml Vial) Confirm Administered Dose 2 mg .ROUTE .STK-MED ONE Stop: 04/06/22 18:01 Last Admin: 04/06/22 21:25 Dose: Not Given Documented By: BENITA Miscellaneous (Rapid Sequence Induction Bag) Confirm Administered Dose 1 each .ROUTE .STK-MED ONE Stop: 04/06/22 17:10 Last Admin: 04/06/22 21:24 Dose: Not Given Documented By: BENITA Nicardipine HCl (Nicardipine Hcl Inj 2.5 Mg/Ml 10 Ml Amp) Confirm Administered Dose 25 mg .ROUTE .STK-MED ONE Stop: 04/06/22 18:01 Last Admin: 04/06/22 21:25 Dose: Not Given Documented By: BENITA Nitroglycerin/Dextrose (Nitroglycerin/D5w 100mcg/Ml 20ml Syr) Confirm Administered Dose 2,000 mcg .ROUTE .STK-MED ONE Stop: 04/06/22 18:02 Last Admin: 04/06/22 21:27 Dose: Not Given Documented By: BNEITA Norepinephrine Bitartrate (Norepinephrine/D5w 4 Mg/250 Ml) Confirm Administered Dose 4 mg IV .STK-MED ONE Stop: 04/06/22 17:10 Last Admin: 04/06/22 21:24 Dose: Not Given Documented By: BENITA Norepinephrine Bitartrate (Norepinephrine/D5w 4 Mg/250 Ml) Confirm Administered Dose 4 mg IV .STK-MED ONE Stop: 04/07/22 01:14 Last Admin: 04/07/22 01:43 Dose: Not Given Documented By: BENITA Phenylephrine HCl (Phenylephrine Hcl Inj 10 Mg/Ml Vial ([facility] Use Only)) Confirm Administered Dose 10 mg .ROUTE .STK-MED ONE Stop: 04/06/22 18:46 Last Admin: 04/06/22 21:27 Dose: Not Given Documented By: BENITA Potassium Chloride (Potassium Chloride 20 Meq/15 Ml Udc) 40 meq PO NOW STA Stop: 04/06/22 21:51 Last Admin: 04/06/22 21:57 Dose: 40 meq Documented By: BENITA Propofol (Propofol Iv Emulsion 10 Mg/Ml 100 Ml Vial) Confirm Administered Dose 1,000 mg IV .STK-MED ONE Stop: 04/06/22 19:50 Last Admin: 04/06/22 21:31 Dose: Not Given Documented By: BENITA Sodium Bicarbonate (Sodium Bicarb 8.4% Inj 50 Meq/50 Ml Syr) Confirm Administered Dose 50 meq IV .STK-MED ONE Stop: 04/06/22 23:08 Last Admin: 04/06/22 23:29 Dose: Not Given Documented By: BENITA Sodium Bicarbonate (Sodium Bicarb 8.4% Inj 50 Meq/50 Ml Syr) 50 meq IV NOW STA Stop: 04/06/22 23:24 Last Admin: 04/06/22 23:30 Dose: 50 meq Documented By: BENITA Vecuronium [place] (Vecuronium [place] 10 Mg Vial) Confirm Administered Dose 10 mg IV .[facility]-MED ONE Stop: 04/06/22 23:36 Last Admin: 04/07/22 00:05 Dose: Not Given Documented By: BENITA Vecuronium [place] (Vecuronium [place] 10 Mg Vial) 10 mg IV NOW STA Stop: 04/06/22 23:36 Last Admin: 04/07/22 00:05 Dose: 10 mg Documented By: BENITA Co-signed By: MONALISA Description This is a 21 electrode EEG with a single channel dedicated to limited EKG. The electrodes were placed in accordance with the International 10-20 system. This EEG is performed in the intensive care unit, patient on life support, on ventilator, code [place]. The background rhythm consists of a mix of low amplitude alpha and beta frequencies. There is an intermittent generalized spike-wave discharge seen throughout the study. There is no focal or lateralized slowing. A normal background alpha rhythm is not observed. Photic stimulation is unremarkable. Interpretation Abnormal awake/drowsy EEG revealing evidence of a burst suppression pattern suggestive of anoxic encephalopathy. [facility] EEG Procedure Codes Indication for Procedure (1) Cardiac arrest: (2) Anoxic brain injury: Neurology Neurology: 55129 EEG include record awake & drowsy
[2022-04-07] MEDS ORDERED: fentaNYL citrate 100 MCG/2 ML VIAL IV PRN (15:06)
--- NOTE | 2022-04-07 15:08 | Critical Care Progress Note ---
Date of Service April 07, 2022 Assessment & Plan (1) Cardiac arrest: Plan: Reason Critically Ill: 77-year-old male presents to the ICU following cardiac arrest from presumed ventricular arrhythmia as he was shocked with AED x3 prior to EMS's arrival. Patient unresponsive following ROSC and cardiac cath did not show occlusion and no intervention. He is now mechanically ventilated and undergoing 24-hour therapeutic hypothermia protocol. Neuro - Anoxic brain injurypatient unresponsive following ROSC. CT head without acute intracranial findings. On exam he appears to have decerebrate posturing and suspect significant anoxic injury. Per report approximate downtime without CPR was 5 minutes and an additional 20 minutes with CPR. Underwent shock x3 with AED. -Undergoing therapeutic hypothermia 24 hours per protocol -Routine neurology consult -EEG pending today Cardiac - Cardiac arrestno significant cardiac history. Underwent cardiac catheterization but no occlusion found and no intervention required. -Highly suspect ventricular arrhythmia given sudden onset. -Continuous monitoring on telemetry -Amiodarone 4 atrial fibrillation with rapid ventricular response HTNhold antihypertensives for now Respiratory - Acute hypoxic respiratory failurepatient significantly hypoxic following cardiac arrest. Expect this is mixed etiology secondary to CPR, cardiogenic shock, and possible aspiration. No prior history of pulmonary disease -Chest x-ray consistent with aspiration pneumonitis. No significant pulmonary edema -Mechanically ventilated. -No PE noted on CT chest -Continuous end-tidal CO2 and pulse ox monitoring GI - NPO. OG tube to intermittent low wall suction RENAL/LYTES - AKIcreatinine worsening. No baseline to compare suspect this is prerenal/ATN in the setting of cardiogenic shock/arrest in field -decrease IV fluid resuscitation Normosol 75 mL/h -Maintain maps greater than 65 -Avoid nephrotoxins and renally adjust medications - BPHindwelling Mcmillan catheter inserted. -Strict I's and O's. -Restart finasteride, tadalafil when appropriate ENDO - No history of diabetes or thyroid disease. ICU hyperglycemic protocol HEME - H&H stable, every 6 hours CBCs ID - Empiric ampicillin for possible aspiration. No evidence of active infectious process LINES/IV ACCESS - Central venous catheter DVT PROPHYLAXIS - SCDs I have personally spent 55 minutes of critical care time in the direct management of this patient. This is a life/limb threatening event. This includes time spent evaluating patient, direct bedside care, chart review, placing orders, interpretation of diagnostic studies, discussion with consultants, patient, and family members, as well as other required patient management activities. This time is exclusive of all separately billable procedures, and teaching time and separate from and in addition to any other critical care service time. (2) Anoxic brain injury: (3) BPH (benign prostatic hyperplasia): (4) Hypertension: (5) Hyperlipidemia: (6) Acute respiratory failure with hypoxia: (7) REYNALDO (acute kidney injury): Admission and Anticipated Discharge Date Admission Date: April 06, 2022 Subjective Dense encephalopathy, decreasing sedatives at this time. Discussed CODE STATUS at bedside with family. Family reports patient was very independent and would not want position where he needs extended intensive care. Previously filled living well. Physical Exam Physical Exam: General: Sedated. Not breathing over ventilator. Skin: Warm, dry, Head: Abrasion to bridge of nose Ears, nose, mouth and throat: airway obscured by endotracheal tube Cardiovascular: Normal peripheral perfusion Respiratory: Ventilator settings reviewed Gastrointestinal: Non distended Musculoskeletal: No deformity Results & Data Results & Data ([facility]) Vital Signs (Past 12 Hours) Vital Signs Temp Temp Pulse Resp BP BP BP 04/07/22 12:00 04/07/22 13:00 34.2 C L 34.1 C L 53 L 28 H 101/66 04/07/22 12:00 34.2 C L 34.1 C L 55 L 28 H 93/73 L 04/07/22 12:52 55 L 86/61 L 04/07/22 11:00 34.1 C L 34.1 C L 53 L 28 H 105/67 85/69 L 04/07/22 10:58 61 26 H 04/07/22 07:35 51 L 30 H 04/07/22 10:31 04/07/22 10:00 52 L 04/07/22 10:00 34.0 C L 34.1 C L 52 L 26 H 117/79 91/84 L 04/07/22 09:00 49 L 04/07/22 09:00 34.0 C L 34.1 C L 48 L 26 H 134/79 99/87 L 04/07/22 08:00 04/07/22 08:00 34.0 C L 34.1 C L 51 L 26 H 108/79 84/74 L 04/07/22 08:00 51 L 04/07/22 07:04 51 L 04/07/22 07:24 51 L 04/07/22 07:00 34.2 C L 34.3 C L 52 L 30 H 104/71 86/71 L 04/07/22 06:00 34.1 C L 34.1 C L 54 L 30 H 112/77 97/85 L 04/07/22 05:00 34.1 C L 34.1 C L 56 L 30 H 104/74 78/70 L 04/07/22 04:11 81 30 H 04/07/22 04:00 04/07/22 04:00 34.2 C L 34.2 C L 58 L 30 H 87/62 L 95/64 L 04/07/22 03:00 34.2 C L 34.2 C L 85 30 H 163/95 H 162/96 H Pulse Ox O2 Del Method FiO2 04/07/22 12:00 50 04/07/22 13:00 98 Mechanical Vent 50 04/07/22 12:00 97 Mechanical Vent 50 04/07/22 12:52 04/07/22 11:00 97 Mechanical Vent 50 04/07/22 10:58 91 40 04/07/22 07:35 99 40 04/07/22 10:31 Mechanical Vent 40 04/07/22 10:00 04/07/22 10:00 98 Mechanical Vent 40 04/07/22 09:00 04/07/22 09:00 99 Mechanical Vent 40 04/07/22 08:00 40 04/07/22 08:00 99 Mechanical Vent 40 04/07/22 08:00 04/07/22 07:04 04/07/22 07:24 04/07/22 07:00 98 Mechanical Vent 40 04/07/22 06:00 99 Mechanical Vent 40 04/07/22 05:00 99 Mechanical Vent 40 04/07/22 04:11 95 40 04/07/22 04:00 40 04/07/22 04:00 99 Mechanical Vent 40 04/07/22 03:00 94 Mechanical Vent 40 Critical Care Results & Data Vital Signs (Past 12 Hours) Vital Signs Temp Temp Pulse Resp BP BP BP 04/07/22 12:00 04/07/22 13:00 34.2 C L 34.1 C L 53 L 28 H 101/66 04/07/22 12:00 34.2 C L 34.1 C L 55 L 28 H 93/73 L 04/07/22 12:52 55 L 86/61 L 04/07/22 11:00 34.1 C L 34.1 C L 53 L 28 H 105/67 85/69 L 04/07/22 10:58 61 26 H 04/07/22 07:35 51 L 30 H 04/07/22 10:31 04/07/22 10:00 52 L 04/07/22 10:00 34.0 C L 34.1 C L 52 L 26 H 117/79 91/84 L 04/07/22 09:00 49 L 04/07/22 09:00 34.0 C L 34.1 C L 48 L 26 H 134/79 99/87 L 04/07/22 08:00 04/07/22 08:00 34.0 C L 34.1 C L 51 L 26 H 108/79 84/74 L 04/07/22 08:00 51 L 04/07/22 07:04 51 L 04/07/22 07:24 51 L 04/07/22 07:00 34.2 C L 34.3 C L 52 L 30 H 104/71 86/71 L 04/07/22 06:00 34.1 C L 34.1 C L 54 L 30 H 112/77 97/85 L 04/07/22 05:00 34.1 C L 34.1 C L 56 L 30 H 104/74 78/70 L 04/07/22 04:11 81 30 H 04/07/22 04:00 04/07/22 04:00 34.2 C L 34.2 C L 58 L 30 H 87/62 L 95/64 L Pulse Ox O2 Del Method FiO2 04/07/22 12:00 50 04/07/22 13:00 98 Mechanical Vent 50 04/07/22 12:00 97 Mechanical Vent 50 04/07/22 12:52 04/07/22 11:00 97 Mechanical Vent 50 04/07/22 10:58 91 40 04/07/22 07:35 99 40 04/07/22 10:31 Mechanical Vent 40 04/07/22 10:00 04/07/22 10:00 98 Mechanical Vent 40 04/07/22 09:00 04/07/22 09:00 99 Mechanical Vent 40 04/07/22 08:00 40 04/07/22 08:00 99 Mechanical Vent 40 04/07/22 08:00 04/07/22 07:04 04/07/22 07:24 04/07/22 07:00 98 Mechanical Vent 40 04/07/22 06:00 99 Mechanical Vent 40 04/07/22 05:00 99 Mechanical Vent 40 04/07/22 04:11 95 40 04/07/22 04:00 40 04/07/22 04:00 99 Mechanical Vent 40 Lab & Micro Results (Past 24 Hours) RBC 4.75 M/uL (4.63-6.08) 04/07/22 WBC 15.46 K/ul (4.8-10.8) H 04/07/22 Hgb 15.1 g/dl (14.0-18.0) 04/07/22 Hct 44.2 % (40.1-51.0) 04/07/22 MCV 93.1 fL (80.0-100.0) 04/07/22 MCH 31.8 pg (25.0-34.0) 04/07/22 MCHC 34.2 g/dL (32.0-36.0) 04/07/22 RDW Standard Deviation 44.5 fL (36.4-46.3) 04/07/22 RDW Coefficient of Variation 13.1 % (11.5-14.5) 04/07/22 Plt Count 174 K/uL (130-400) 04/07/22 MPV 10.3 fL (9.4-12.4) 04/07/22 Neutrophils (%) (Auto) 68.3 % 04/07/22 Lymphocytes (%) (Auto) 5.7 % 04/07/22 Monocytes # (Auto) 0.66 K/uL (0.24-0.82) 04/07/22 Eosinophils # (Auto) 2.89 K/uL (0-0.50) H 04/07/22 Immature Granulocyte % (Auto) 0.4 % 04/07/22 Neutrophils # (Auto) 9.61 K/uL (1.4-6.5) H 04/07/22 Lymphocytes # (Auto) 0.80 K/uL (1.2-3.4) L 04/07/22 Monocytes # (Auto) 0.66 K/uL (0.24-0.82) 04/07/22 Eosinophils # (Auto) 2.89 K/uL (0-0.50) H 04/07/22 Basophils # (Auto) 0.05 K/uL (0-0.2) 04/07/22 Immature Granulocyte # (Auto) 0.06 K/uL (0.00-0.02) H 04/07 ANC 14.22 K/uL (1.4-6.5) H 04/07/22 ALC 0.62 K/uL (1.2-3.4) L 04/07/22 Neutrophils % (Manual) 92 % 04/07/22 Lymphocytes % (Manual) 4 % 04/07/22 Monocytes % (Manual) 4 % 04/07/22 Neutrophils # (Manual) 14.22 K/uL (1.4-6.5) H 04/07/22 Lymphocytes # (Manual) 0.62 K/uL (1.2-3.4) L 04/07/22 Monocytes # (Manual) 0.62 K/uL (0.24-0.82) 04/07/22 Poikilocytosis Present 04/07/22 Echinocytes 2+ 04/07/22 Na 139 mmol/L (136-145) 04/07/22 K 3.9 mmol/L (3.5-5.1) 04/07/22 Cl 102 mmol/L (98-107) 04/07/22 CO2 26 mmol/L (21-32) 04/07/22 Anion Gap 11 (3-11) 04/07/22 BUN 25 mg/dl (6-23) H 04/07/22 Creatinine 2.01 mg/dl (0.6-1.4) H 04/07/22 Estimated GFR ( Amer) 36.3 ml/min 04/07/22 Estimated GFR (Non-Af Amer) 31.3 ml/min 04/07/22 BUN/Creatinine Ratio 12.4 (10-20) 04/07/22 Glu 157 mg/dl (70-99(Fasting)) H 04/07/22 Ca 7.8 mg/dl (8.5-10.1) L 04/07/22 Phosphorus Level 4.3 mg/dl (2.5-4.9) 04/07/22 Total Bilirubin 0.8 mg/dl (0.2-1.0) 04/07/22 Direct Bilirubin 0.2 mg/dl (0-0.2) 04/07/22 AST 115 U/L (13-39) H 04/07/22 ALT 114 U/L (7-52) H 04/07/22 Alkaline Phosphatase 43 U/L (34-104) 04/07/22 TP 6.2 gm/dl (6.0-8.3) 04/07/22 Albumin 3.8 gm/dl (3.4-5.0) 04/07/22 Globulin 2.3 gm/dl (2.5-4.0) L 04/06/22 Albumin/Globulin Ratio 1.6 (0.9-2) 04/06/22 Mg 2.1 mg/dl (1.7-2.4) 04/07/22 13:10 Calcium Level 7.8 mg/dl (8.5-10.1) L 04/07/22 13:10 Ionized Calcium 1.06 mmol/L (1.12-1.32) L 04/06/22 19:29 Prothromb Time International Ratio 1.1 (0.9-1.1) 04/07/22 13:1 0 Edd Test Pass 04/07/22 10:52 Diagnostic Findings (Past 24 Hours) Chest X-Ray 04/06/22 17:33 XR chest 1V portable HISTORY: 77 years-old Male tube placement confirmation acute respiratory failure COMPARISON: None TECHNIQUE: Semierect AP view the chest FINDINGS: A tube overlies the midline, 3.5 cm superior to the arie suggestive of an endotracheal tube. There appears to be an additional tube projecting over the midline upper chest level of the clavicular heads. The cardiac silhouette is enlarged. Pulmonary vascular congestion with ill-defined left basilar and right upper lung opacities. No pneumothorax or large pleural effusion. Degenerative changes of the shoulders and spine. IMPRESSION: 1. Endotracheal tube terminates 3.5 cm superior to the arie. There may be an additional catheter or tube which is partially imaged projecting over the Upper chest. 2. Cardiomegaly with pulmonary vascular congestion. 3. Ill-defined left basilar and right upper lung opacities may represent a nonspecific infectious or inflammatory pneumonitis. ACT 112: Negative or not required by law. The above report was generated using voice recognition software. It may contain grammatical, syntax or spelling errors. Electronically signed by: Sam Swan M.D. 04/06/2022 5:[address] 04/06/22 18:07 CT head/brain wo con CLINICAL HISTORY: 77 years-old Male with s/p fall, hit head. Acute head injury status post fall TECHNIQUE: Multiple axial CT images of the head were obtained without contrast. A dose lowering technique was utilized adhering to the principles of ALARA. CT DOSE: 1624.35 mGycm COMPARISON: None. FINDINGS: No acute intracranial hemorrhage, midline shift, intracranial mass, hydrocephalus, territorial ischemia or abnormal extra-axial collection. Motion degraded exam. Endotracheal tube. Apparent thickening of the falx cerebri is likely secondary to motion artifact. Cerebral vascular calcifications. Mild white matter hypodensities are nonspecific, likely representing chronic microvascular ischemic disease. The calvarium is intact. Mastoid air cells are clear. Moderate mucosal thickening of the ethmoid air cells with polypoid mucosal thickening of the left maxillary sinus. Small right maxillary sinus air-fluid level. IMPRESSION: Motion degraded exam. No acute intracranial abnormality or calvarial fracture identified. ACT 112: Negative or not required by law. The above report was generated using voice recognition software. It may contain grammatical, syntax or spelling errors. Electronically signed by: Sam Swan M.D. 04/06/2022 6:35 PM Chest X-Ray 04/06/22 19:21 XR chest 1V portable HISTORY: 77 years-old Male resp failure acute respiratory failure COMPARISON: Chest radiograph 04/06/2022 5:37 PM TECHNIQUE: AP view the chest FINDINGS: Enteric tube courses below the diaphragm with distal tip outside the [id number]. Endotracheal tube overlies the midline, 3.6 cm superior to the arie. Cardiac silhouette is enlarged. Pulmonary vascular congestion with interstitial coarsening. Degenerative changes of the shoulders and spine. IMPRESSION: 1. Satisfactory positioning of the endotracheal and enteric tubes. 2. No pneumothorax. ACT 112: Negative or not required by law. The above report was generated using voice recognition software. It may contain grammatical, syntax or spelling errors. Electronically signed by: Sam Swan M.D. 04/06/2022 8:32 PM Venous Doppler Study 04/06/22 20:22 BILATERAL LOWER EXTREMITY VENOUS DOPPLER HISTORY: Acute pain and swelling of the right lower extremity DVT? COMPARISON STUDY: None. FINDINGS: There is normal compressibility, flow, and augmentation within the bilateral lower extremity deep venous systems. Left-sided Whitney's cyst, 3.9 x 2.5 x 1.3 cm. IMPRESSION: No DVT within the right or left lower extremity. ACT 112: Negative or not required by law. Electronically signed by: Sam Swan M.D. 04/06/2022 9:41 PM Abdomen/Pelvis CT 04/07/22 05:40 CT OF THE ABDOMEN AND PELVIS WITHOUT CONTRAST CLINICAL HISTORY: elevated LA, worsening shock COMPARISON STUDY: No previous studies for comparison. TECHNIQUE: Axial images of the abdomen and pelvis were obtained without IV contrast. Images were reviewed in the axial, sagittal, and coronal planes. Automated exposure control was utilized for the study. A dose lowering technique was utilized adhering to the principles of ALARA. FINDINGS: Please note that the chest CT will be reported separately. Postoperative findings within the left hemithorax are noted. There is extensive left infrahilar and left basilar consolidation. Small amount of anterior mediastinal hemorrhage is present. There is cardiomegaly. Multiple acute bilateral rib fractures are noted. No pneumatosis, free air or portal venous gas is present. Evaluation of the abdomen and pelvis is suboptimal on this unenhanced examination. Tip of right femoral venous catheter is within the suprahepatic IVC. There is vicarious excretion of contrast by the gallbladder. Enhancement of the kidneys with contrast excretion is from recent catheterization. There are several indeterminate left renal lesions which measure up to 2.5 cm. Decreased sensitivity for detection of urinary calculi given excreted contrast. There are possible nonobstructing bilateral renal calculi. There is no hydronephrosis. The prostate is enlarged. A Mcmillan balloon within the bladder is present. Bladder wall thickening is probably chronic. There is no evidence for a bowel obstruction. Colonic diverticulosis is noted without evidence for acute diverticulitis. The appendix is normal. There is no lymphadenopathy. No hemoperitoneum is present. There is no retroperitoneal hematoma. Rectal probe is in place. IMPRESSION: 1. No bowel obstruction. No bowel wall thickening. Colonic diverticulosis without evidence for acute diverticulitis. 2. No pneumatosis, free air or portal venous gas. 3. Multiple findings within the chest, including suspected left lung pneumonia, small amount of anterior mediastinal hemorrhage and acute bilateral rib fractures. These findings are better depicted on the chest CT which will be reported separately. 4. Several indeterminate left renal lesions. These could reflect hyperdense cysts or solid renal lesions. ACT 112: Negative or not required by law. Electronically signed by: Constantino Bowman M.D. 04/07/2022 7:[address] 04/07/22 05:41 CT OF THE CHEST WITHOUT IV CONTRAST CLINICAL HISTORY: worsening shock COMPARISON STUDY: Chest radiograph April 06, 2022. TECHNIQUE: Axial images of the chest were obtained without IV contrast. Images were reviewed in the axial, sagittal, and coronal planes. IV contrast was not administered for this examination. Automated exposure control was utilized for the study. A dose lowering technique was utilized adhering to the principles of ALARA. FINDINGS: Endotracheal and nasogastric tubes are satisfactorily positioned. Tip of the right femoral venous catheter is within the suprahepatic IVC. Cardiomegaly is noted. There is a small amount of anterior mediastinal hemorrhage. There are numerous acute bilateral rib fractures and an acute nondisplaced transverse mid sternal fracture. Several rib fractures are minimally displaced. There is no pneumothorax. Postoperative findings within the left hemithorax are noted. There is extensive left infrahilar consolidation. There are scattered airspace opacities within the remainder of the lungs. Lungs are suboptimally assessed due to respiratory motion. Underlying emphysema. Cardiomegaly is noted. There is slight dilatation of the ascending aorta, measuring 4 cm. Aorta is suboptimally assessed on this unenhanced exam. There is no pleural effusion. No acute thoracic spine fracture is present. There is no thoracic lymphadenopathy. Abdomen and pelvis CT will be reported separately. IMPRESSION: 1. Satisfactory positioning of the endotracheal and nasogastric tubes. 2. Postoperative findings within the left hemithorax. Extensive left infrahilar and basilar consolidation suggestive of pneumonia. Additional airspace opacities within the lungs are also likely infectious. Aspiration pneumonia is also within the differential. 3. Small amount of anterior mediastinal hemorrhage. 4. Multiple acute bilateral rib fractures. No pneumothorax. Acute nondisplaced sternal fracture. 5. Cardiomegaly. ACT 112: Negative or not required by law. Electronically signed by: Constantino Bowman M.D. 04/07/2022 7:07 AM I & O Totals 24 Hours 04/06/22 04/07/22 04/08/22 06:59 06:59 06:59 Intake Total 2482.353 / 2646.120 2040.180 / 2040.180 Output Total 600 / 600 185 / 185 Balance 1882.353 / 2046.120 1855.180 / 1855.180 Cumulative 04/06/22 17:00 thru 04/07/22 13:00 Intake Total 4522.533 Output Total 785 Balance 3737.533 RT Ventilator Mngmt (Last Documented) Ventilator Ordered Settings Ventilator Support Mode SIMV 04/07/22 12:00 Respiratory Rate 28 04/07/22 13:00 Ventilator Tidal Volume 580 04/07/22 12 :00 Setting Minute Ventilation 15 04/07/22 10:58 Ventilator Positive Pressure 10 04/07/22 12:00 Support Setting Positive End Expiratory 5 04/07/22 12:00 Pressure Fraction of Inspired Oxygen 50 04/07/22 13:00 Inspiratory Pressure 12 04/06/22 19:43 Machine Comment Increased Fio2 to 50%, Increased 04/07/22 10:58 RR to 28 PER ABG result Ventilator - PT Measurements Respiratory Rate 28 Exhaled Tidal Volume 584 Minute Ventilation 15 Peak Inspiratory Airway 39 Pressure Plateau Pressure 25.6 Respiratory Cycle Inspiratory: 1:2.3 Expiratory Ratio Inspiratory Phase Time 0.7 End-Tidal CO2 30 Static Lung Compliance 28.06 Dynamic Lung Compliance 17.18 Normal Static Lung Compliance 45.00 Patient Measurements Comment SUBHA BRYANT made aware of all changes Coding Level of Care Code Critical Care 1st 30-74 mins Diagnoses Cardiac arrest I46.9 Anoxic brain injury G93.1 BPH (benign prostatic hyperplasia) N40.0 Hypertension I10 Hyperlipidemia E78.5 Acute respiratory failure with hypoxia J96.01 REYNALDO (acute kidney injury) N17.9
[2022-04-07 16:03] LABS: iSTAT Allen Test Pass; iSTAT Art Bld Gas pCO2 Correct 30 mmHg (35-46); iSTAT Art Bld Gas pH Corrected 7.431 (7.35-7.45); iSTAT Arterial Blood Gas HCO3 21 meg/L (19-24); iSTAT Arterial Blood Gas pCO2 34 mmHg (35-46); iSTAT Arterial Blood Gas pH 7.39 (7.35-7.45); iSTAT Arterial Blood Gas pO2 114 mmHg (80-95); iSTAT Arterial Blood Gas pO2 C 97; iSTAT Carbon Dioxide 22 mmol/L (24-31); iSTAT Hematocrit 44 % (42-52); iSTAT Potassium 3.6 mmol/L (3.3-5.0); iSTAT Site L Radial; iSTAT Sodium 137 mmol/L (135-144)
[2022-04-07 16:37] LABS: Partial Thromboplastin Ratio > 5.1
[2022-04-07 16:45] LABS: Partial Thromboplastin Time > 139.0 Seconds (21.0-31.0)
[2022-04-07] MEDS ORDERED: GLUCOSE 40% GEL 15 GM TUBE PO PRN (19:05)
[2022-04-07] MEDS ORDERED: GLUCOSE 10 TAB/TUBE PO PRN (19:05)
[2022-04-07] MEDS ORDERED: GLUCAGON FOR INJ 1 MG VIAL SQ PRN (19:05)
[2022-04-07] MEDS ORDERED: DEXTROSE 50% 50 ML SYRINGE IV PRN (19:05)
[2022-04-07] MEDS ORDERED: CARBOHYDRATES FOR HYPOGLYCEMIA PO PRN (19:05)
[2022-04-07 20:07] LABS: Basophils # (auto) 0.06 K/uL (0-0.2); Basophils % (auto) 0.4 %; Hematocrit (blood only) 43.4 % (40.1-51.0); Immature Granulocytes # (auto) 0.06 K/uL (0.00-0.02); Immature Granulocytes % (auto) 0.4 %; Lymphocytes # (auto) 1.26 K/uL (1.2-3.4); Lymphocytes % (auto) 7.6 %; Mean Corpuscular Hemoglobin 31.1 pg (25.0-34.0); Mean Corpuscular Hgb Conc 34.6 g/dL (32.0-36.0); Mean Platelet Volume 10.3 fL (9.4-12.4); Monocytes # (auto) 0.47 K/uL (0.24-0.82); Monocytes % (auto) 2.8 %; Neutrophils # (auto) 14.66 K/uL (1.4-6.5); Neutrophils % (auto) 88.8 %; Platelet Count 155 K/uL (130-400); RDW Standard Deviation 42.7 fL (36.4-46.3); Red Blood Count 4.82 M/uL (4.63-6.08); White Blood Count 16.51 K/ul (4.8-10.8)
[2022-04-07 20:12] LABS: iSTAT Art Bld Gas pCO2 Correct 36 mmHg (35-46); iSTAT Art Bld Gas pH Corrected 7.387 (7.35-7.45); iSTAT Arterial Blood Gas HCO3 22 meg/L (19-24); iSTAT Arterial Blood Gas pCO2 41 mmHg (35-46); iSTAT Arterial Blood Gas pH 7.35 (7.35-7.45); iSTAT Arterial Blood Gas pO2 91 mmHg (80-95); iSTAT Arterial Blood Gas pO2 C 76; iSTAT Carbon Dioxide 23 mmol/L (24-31); iSTAT Hematocrit 42 % (42-52); iSTAT Hemoglobin 14.3 g/dl (14.0-18.0); iSTAT Potassium 3.8 mmol/L (3.3-5.0); iSTAT Site L Brachial; iSTAT Sodium 137 mmol/L (135-144)
[2022-04-07 20:17] LABS: INR 1.2 (0.9-1.1); Prothrombin Time 12.4 Seconds (9.0-12.0)
[2022-04-07] MEDS ORDERED: MEPERIDINE HCL 25 MG/ML CARP/VIAL IV ONE (20:32)
[2022-04-07 20:52] LABS: Calcium 7.8 mg/dl (8.5-10.1); Creatinine Clr Calc Pharmacy 37.6 ml/min; Est GFR (African American) 34.8 ml/min; Potassium 3.8 mmol/L (3.5-5.1)
[2022-04-07] MEDS: MEPERIDINE HCL 25 MG/ML CARP/VIAL IV PRN (20:52)
[2022-04-07] MEDS ORDERED: INSULIN ASPART PER UNIT SC SCH (21:00)
--- NOTE | 2022-04-07 23:13 | Communication Note ---
Date of Service: April 07, 2022 I spoke with the patient's family members including the , daughter, and son. Patient's family are aware of his guarded prognosis and at this time would like to change his CODE STATUS to DNR in the event of further cardiac arrest. Patient is currently being rewarmed and plan to reassess neurological status and EEG in the morning once at normal temperature. Coding Level of Care Code None
[2022-04-07 23:21] LABS: iSTAT Art Bld Gas pCO2 Correct 61 mmHg (35-46); iSTAT Art Bld Gas pH Corrected 7.263 (7.35-7.45); iSTAT Arterial Blood Gas HCO3 28 meg/L (19-24); iSTAT Arterial Blood Gas pCO2 69 mmHg (35-46); iSTAT Arterial Blood Gas pH 7.23 (7.35-7.45); iSTAT Arterial Blood Gas pO2 < 32 mmHg (80-95); iSTAT Arterial Blood Gas pO2 C 17; iSTAT Carbon Dioxide 30 mmol/L (24-31); iSTAT Hematocrit 42 % (42-52); iSTAT Hemoglobin 14.3 g/dl (14.0-18.0); iSTAT Potassium 4.1 mmol/L (3.3-5.0); iSTAT Site L Brachial; iSTAT Sodium 138 mmol/L (135-144)
[2022-04-08] MEDS: AMPICILLIN/SULBACTAM SOD 3,000 MG in 0.9 % SODIUM CHLORIDE 100 ML IV SCH ×5 (00:02→23:23)
[2022-04-08] MEDS: INSULIN ASPART PER UNIT SC SCH ×4 (00:17→18:18)
[2022-04-08] MEDS: propofoL 1,000 MG/100 ML VIAL IV SCH ×8 (00:55→22:47)
[2022-04-08 02:09] LABS: Hematocrit (blood only) 42.2 % (40.1-51.0); Hemoglobin 14.3 g/dl (14.0-18.0); Mean Corpuscular Hemoglobin 31.4 pg (25.0-34.0); Mean Corpuscular Hgb Conc 33.9 g/dL (32.0-36.0); Mean Corpuscular Volume 92.7 fL (80.0-100.0); Mean Platelet Volume 10.2 fL (9.4-12.4); Platelet Count 143 K/uL (130-400); RDW Coefficient of Variation 13.3 % (11.5-14.5); RDW Standard Deviation 44.9 fL (36.4-46.3); Red Blood Count 4.55 M/uL (4.63-6.08); White Blood Count 18.04 K/ul (4.8-10.8)
[2022-04-08 02:28] LABS: Basophils # (auto) 0.06 K/uL (0-0.2); Basophils % (auto) 0.3 %; Echinocytes 1+; Eosinophils # (auto) 0.01 K/uL (0-0.50); Eosinophils % (auto) 0.1 %; Immature Granulocytes # (auto) 0.06 K/uL (0.00-0.02); Immature Granulocytes % (auto) 0.3 %; Lymphocytes # (auto) 1.28 K/uL (1.2-3.4); Lymphocytes % (auto) 7.1 %; Monocytes # (auto) 0.78 K/uL (0.24-0.82); Monocytes % (auto) 4.3 %; Neutrophils # (auto) 15.85 K/uL (1.4-6.5); Neutrophils % (auto) 87.9 %
[2022-04-08 02:35] LABS: INR 1.1 (0.9-1.1); Partial Thromboplastin Ratio > 5.1
[2022-04-08] MEDS: MEPERIDINE HCL 25 MG/ML CARP/VIAL IV PRN (02:37)
[2022-04-08 02:40] LABS: Partial Thromboplastin Time > 139.0 Seconds (21.0-31.0)
[2022-04-08 03:07] LABS: BUN Creatinine Ratio 13.2 (10-20); Calcium 7.8 mg/dl (8.5-10.1); Creatinine Clr Calc Pharmacy 34.3 ml/min; Est GFR (African American) 31.1 ml/min; Est GFR (Non-African American) 26.9 ml/min; Phosphorus 4.3 mg/dl (2.5-4.9); Potassium 4.5 mmol/L (3.5-5.1)
[2022-04-08] MEDS: AMIODARONE / D5W 360 MG/200 ML BAG IV SCH ×2 (04:59→17:33)
[2022-04-08] MEDS: NOREPINEPHRINE/D5W 4 MG/250 ML PLCT IV SCH ×3 (05:00→17:07)
[2022-04-08 05:04] LABS: iSTAT Art Bld Gas pCO2 Correct 50 mmHg (35-46); iSTAT Art Bld Gas pH Corrected 7.307 (7.35-7.45); iSTAT Arterial Blood Gas HCO3 25 meg/L (19-24); iSTAT Arterial Blood Gas pCO2 53 mmHg (35-46); iSTAT Arterial Blood Gas pH 7.29 (7.35-7.45); iSTAT Arterial Blood Gas pO2 98 mmHg (80-95); iSTAT Arterial Blood Gas pO2 C 91; iSTAT Carbon Dioxide 27 mmol/L (24-31); iSTAT Hematocrit 41 % (42-52); iSTAT Hemoglobin 13.9 g/dl (14.0-18.0); iSTAT Potassium 4.1 mmol/L (3.3-5.0); iSTAT Site L Brachial; iSTAT Sodium 136 mmol/L (135-144)
[2022-04-08] MEDS: PROPOFOL BOLUS FROM BAG IV PRN (05:13)
--- NOTE | 2022-04-08 06:58 | Critical Care Progress Note ---
Date of Service April 08, 2022 Assessment & Plan (1) Cardiac arrest: Plan: Reason Critically Ill: 77-year-old male presents to the ICU following cardiac arrest from presumed ventricular arrhythmia as he was shocked with AED x3 prior to EMS's arrival. Patient unresponsive following ROSC and cardiac cath did not show occlusion and no intervention. He is now mechanically ventilated and underwent 24-hour therapeutic hypothermia, currently rewarming. Neuro - Anoxic brain injurypatient unresponsive following ROSC. CT head without acute intracranial findings. On exam he appears to have decerebrate posturing and suspect significant anoxic injury. Per report approximate downtime without CPR was 5 minutes and an additional 20 minutes with CPR. Underwent shock x3 with AED. -24-hour therapeutic hypothermia completed,, really good undergoing rewarming -Routine neurology consult -EEG 04/07 with evidence of burst suppression pattern suggestive of anoxic encephalopathy -Patient should be rewarmed midday and plan to repeat EEG with sedation paused Cardiac - Cardiac arrestno significant cardiac history. Underwent cardiac catheterization but no occlusion found and no intervention required. -Highly suspect ventricular arrhythmia given sudden onset. -Continuous monitoring on telemetry -Amiodarone 4 atrial fibrillation with rapid ventricular response HTNhold antihypertensives for now Respiratory - Acute hypoxic respiratory failurepatient significantly hypoxic following cardiac arrest. Expect this is mixed etiology secondary to CPR, cardiogenic shock, and possible aspiration. No prior history of pulmonary disease -Chest x-ray consistent with aspiration pneumonitis. No significant pulmonary edema -Mechanically ventilated. -No PE noted on CT chest -Continuous end-tidal CO2 and pulse ox monitoring GI - NPO. OG tube to intermittent low wall suction RENAL/LYTES - AKIcreatinine worsening. No baseline to compare suspect this is prerenal/ATN in the setting of cardiogenic shock/arrest in field - IV fluid resuscitation Normosol 75 mL/h -Maintain maps greater than 65 -Avoid nephrotoxins and renally adjust medications - BPHindwelling Mcmillan catheter inserted. -Strict I's and O's. -Restart finasteride, tadalafil when appropriate ENDO - No history of diabetes or thyroid disease. ICU hyperglycemic protocol HEME - H&H stable, every 6 hours CBCs ID - Empiric ampicillin for possible aspiration. No evidence of active infectious process LINES/IV ACCESS - Central venous catheter DVT PROPHYLAXIS - SCDs I have personally spent 45 minutes of critical care time in the direct management of this patient. This is a life/limb threatening event. This includes time spent evaluating patient, direct bedside care, chart review, placing orders, interpretation of diagnostic studies, discussion with consultants, patient, and family members, as well as other required patient management activities. This time is exclusive of all separately billable procedures, and teaching time and separate from and in addition to any other critical care service time. (2) Anoxic brain injury: (3) BPH (benign prostatic hyperplasia): (4) Hypertension: (5) Hyperlipidemia: (6) Acute respiratory failure with hypoxia: (7) REYNALDO (acute kidney injury): Admission and Anticipated Discharge Date Admission Date: April 06, 2022 Supervising Physician Co-Signing Physician Notes I have personally evaluated and examined this patient. I agree with assessment and plan of Pati BRYANT. Rewarming complete. Poor neurologic exam. Will need further discussion with family regarding goals of care. Patient remains critically ill Subjective Patient currently in the process of rewarming post 24-hour therapeutic hypothermia. He should be rewarmed around 11 AM, and plan to pull sedation at that point and obtain EEG to further evaluate neurological status. CODE STATUS further discussed last evening with family and he is now DNR in the event of cardiac arrest. No acute events overnight. Review of Systems Review of Systems: Unobtainable due to endotracheal tube and Unobtainable due to reduced consciousness Physical Exam Constitutional: + mechanically ventilated; no acute distress Eyes: PERRL ENMT: external ear and nose normal, oropharynx normal Neck: trachea midline, no thyromegaly Respiratory: symmetric chest movement; no labored breathing Auscultation: lungs clear to auscultation bilaterally Cardiovascular: RRR, no murmur, no edema Heart Sounds: normal S1 and normal S2 Vessels: no JVD Gastrointestinal (Abdomen): normal bowel sounds, soft, nontender, no hepato splenomegaly Musculoskeletal: no cyanosis or clubbing, extremities motor strength 5/5 Skin: no rashes, warm and dry Neurologic: Unable to obtain due to sedation Psychiatric: Unable to obtain due to sedation Genitourinary: Indwelling Mcmillan catheter present Results & Data Results & Data ([facility]) Vital Signs (Past 12 Hours) Vital Signs Temp Temp Pulse Resp BP Pulse Ox O2 Del Method 04/08/22 06:00 36.2 C L 36.1 C L 85 31 H 89/57 L 96 Mechanical Vent 04/08/22 04:30 61 30 H 99 04/08/22 05:00 35.9 C L 35.9 C L 61 28 H 98/65 L 99 Mechanical Vent 04/08/22 04:00 35.5 C L 35.5 C L 61 28 H 98/65 L 99 Mechanical Vent 04/08/22 04:00 04/08/22 03:00 35.3 C L 35.3 C L 61 28 H 108/70 100 Mechanical Vent 04/08/22 02:00 35 C L 34.9 C L 61 28 H 100/67 99 Mechanical Vent 04/08/22 01:00 34.7 C L 34.7 C L 60 28 H 97/61 L 99 Mechanical Vent 04/08/22 00:00 04/08/22 00:00 56 L 04/08/22 00:00 34.6 C L 34.7 C L 64 28 H 96/66 L 98 Mechanical Vent 04/07/22 23:38 62 30 H 99 04/07/22 23:00 34.3 C L 34.2 C L 68 28 H 110/59 L 100 Mechanical Vent 04/07/22 21:00 Mechanical Vent 04/07/22 22:00 34.3 C L 34.3 C L 64 28 H 107/69 97 Mechanical Vent 04/07/22 21:00 34.3 C L 34.2 C L 54 L 28 H 139/71 99 Mechanical Vent 04/07/22 20:00 34.2 C L 34.1 C L 56 L 28 H 95/66 L 98 Mechanical Vent 04/07/22 20:00 04/07/22 20:00 60 28 H 98 04/07/22 19:00 34 C L 34 C L 52 L 28 H 91/68 L 98 Mechanical Vent FiO2 04/08/22 06:00 50 04/08/22 04:30 50 04/08/22 05:00 50 04/08/22 04:00 50 04/08/22 04:00 50 04/08/22 03:00 50 04/08/22 02:00 50 04/08/22 01:00 50 04/08/22 00:00 50 04/08/22 00:00 04/08/22 00:00 50 04/07/22 23:38 50 09/10/22 23:00 50 04/07/22 21:00 50 04/07/22 22:00 50 04/07/22 21:00 50 04/07/22 20:00 50 04/07/22 20:00 50 04/07/22 20:00 50 04/07/22 19:00 50 Coding Level of Care Code Critical Care 1st 30-74 mins Diagnoses Cardiac arrest I46.9 Anoxic brain injury G93.1 BPH (benign prostatic hyperplasia) N40.0 Hypertension I10 Hyperlipidemia E78.5 Acute respiratory failure with hypoxia J96.01 REYNALDO (acute kidney injury) N17.9
[2022-04-08 07:14] LABS: Partial Thromboplastin Ratio > 5.1
--- NOTE | 2022-04-08 07:14 | XRay Report ---
XR chest 1V portable CLINICAL HISTORY: Respiratory failure. COMPARISON STUDY: Chest radiograph April 06, 2022 at 8:[address] April 07, 2022. FINDINGS: Tip of endotracheal tube is approximately 4 cm above the arie. Tip of nasogastric tube is at least within the body of the stomach. There is no pneumothorax. Blunting of the left costophrenic angle may reflect a small left pleural effusion. Left basilar consolidation persists with volume los s. There is mild interstitial thickening. Acute rib fractures shown on CT are not well-visualized by radiography. IMPRESSION: 1. Satisfactory positioning of the endotracheal and nasogastric tubes. 2. Persistent dense left basilar opacity with volume loss. This favors pneumonia. Possible small left pleural effusion. 3. No pneumothorax. 4. Interstitial thickening. When correlating with prior CT, this probably reflects an infectious proc ess. Moderate pulmonary edema would be difficult to exclude. ACT 112: Negative or not required by law. Electronically signed by: Constantino Bowman M.D. 04/08/2022 7:12 AM
[2022-04-08 07:15] LABS: Partial Thromboplastin Time > 139.0 Seconds (21.0-31.0)
[2022-04-08] MEDS ORDERED: ALBUT/IPRATROP 3MG/0.5MG NEB 3 ML VIAL NEB PRN (07:24)
[2022-04-08] MEDS: LEVALBUTEROL HCL 1.25 MG/3 ML NEB NEB PRN ×2 (07:36→10:45)
[2022-04-08 08:19] LABS: INR 1.1 (0.9-1.1); Prothrombin Time 11.3 Seconds (9.0-12.0)
[2022-04-08 08:22] LABS: Hemoglobin 14.3 g/dl (14.0-18.0); Mean Corpuscular Hemoglobin 31.8 pg (25.0-34.0); Mean Corpuscular Hgb Conc 34.9 g/dL (32.0-36.0); Mean Corpuscular Volume 91.3 fL (80.0-100.0); Mean Platelet Volume 10.4 fL (9.4-12.4); Platelet Count 143 K/uL (130-400); RDW Coefficient of Variation 13.6 % (11.5-14.5); RDW Standard Deviation 45.2 fL (36.4-46.3); Red Blood Count 4.49 M/uL (4.63-6.08); White Blood Count 18.37 K/ul (4.8-10.8)
[2022-04-08 08:32] LABS: Basophils # (auto) 0.06 K/uL (0-0.2); Basophils % (auto) 0.3 %; Eosinophils # (auto) 0.01 K/uL (0-0.50); Eosinophils % (auto) 0.1 %; Immature Granulocytes # (auto) 0.17 K/uL (0.00-0.02); Immature Granulocytes % (auto) 0.9 %; Lymphocytes # (auto) 1.06 K/uL (1.2-3.4); Lymphocytes % (auto) 5.8 %; Monocytes # (auto) 0.86 K/uL (0.24-0.82); Monocytes % (auto) 4.7 %; Neutrophils # (auto) 16.21 K/uL (1.4-6.5); Neutrophils % (auto) 88.2 %
[2022-04-08 08:40] LABS: BUN Creatinine Ratio 14.1 (10-20); Calcium 7.5 mg/dl (8.5-10.1); Creatinine Clr Calc Pharmacy 35.5 ml/min; Est GFR (African American) 31.3 ml/min; Magnesium 1.9 mg/dl (1.7-2.4); Phosphorus 5.6 mg/dl (2.5-4.9); Potassium 4.1 mmol/L (3.5-5.1)
[2022-04-08] MEDS: FAMOTIDINE 20 MG in SYRINGE 3 ML IV SCH ×2 (09:30→21:18)
[2022-04-08] MEDS: ROSUVASTATIN CALCIUM 20 MG TAB PO SCH (09:30)
[2022-04-08 10:01] LABS: Partial Thromboplastin Ratio 1.3; Partial Thromboplastin Time 35.1 Seconds (21.0-31.0)
[2022-04-08] MEDS: NORMOSOL-R 1,000 ML IV SCH (11:49)
--- NOTE | 2022-04-08 12:00 | Electroencephalogram ---
EEG Procedure Note Date of Service April 08, 2022 Start / End Times Start Time: 1057 End Time: 1117 Referring Physician ANNETTE Moyer History 77-year-old with cardiac arrest April 06. Home Medication List Medication Instructions Recorded Confirmed Type finasteride 5 mg tablet 5 mg PO DAILY 04/06/22 04/06/22 History losartan 100 1 tab PO DAILY 04/06/22 04/06/22 History mg-hydrochlorothiazide 25 mg tablet rosuvastatin 20 mg tablet 20 mg PO DAILY 04/06/22 04/06/22 History tadalafil 5 mg tablet 5 mg PO DAILY 04/06/22 04/06/22 History Inpatient Medication List Propofol (Diprivan) 1,000 mg in 100 mls @ 35.1 mls/hr IV .[id number] [facility]; Protocol Stop: 04/09/22 19:29 Last Admin: 04/08/22 10:29 Dose: 50 mcg/kg/min, 35.1 mls/hr Documented By: MARIA M Co-signed By: MICHAEL Titration: 04/08/22 10:29 Dose: 50 mcg/kg/min, 35.1 mls/hr Documented By: MARIA M Co-signed By: PAULS Admin: 04/08/22 07:43 Dose: 50 mcg/kg/min, 35.1 mls/hr Documented By: MARIA M Co-signed By: PAULS Titration: 04/08/22 06:52 Dose: 50 mcg/kg/min, 35.1 mls/hr Documented By: CP Co-signed By: MARIA M Admin: 04/08/22 03:51 Dose: 50 mcg/kg/min, 35.1 mls/hr Documented By: CP Co-signed By: BENITA Titration: 04/08/22 03:46 Dose: 50 mcg/kg/min, 35.1 mls/hr Documented By: CP Co-signed By: BENITA Admin: 04/08/22 00:55 Dose: 50 mcg/kg/min, 35.1 mls/hr Documented By: CP Co-signed By: BENITA Titration: 04/08/22 00:50 Dose: 50 mcg/kg/min, 35.1 mls/hr Documented By: CP Co-signed By: ELS Admin: 04/07/22 21:59 Dose: 50 mcg/kg/min, 35.1 mls/hr Documented By: CP Co-signed By: ELS Titration: 04/07/22 21:59 Dose: 50 mcg/kg/min, 35.1 mls/hr Documented By: CP Co-signed By: ELS Admin: 04/07/22 19:35 Dose: 50 mcg/kg/min, 35.1 mls/hr Documented By: ELS Co-signed By: CP Titration: 04/07/22 19:35 Dose: 50 mcg/kg/min, 35.1 mls/hr Documented By: ELS Co-signed By: CP Titration: 04/07/22 18:44 Dose: 50 mcg/kg/min, 35.1 mls/hr Documented By: KJL Co-signed By: CP Admin: 04/07/22 16:46 Dose: 50 mcg/kg/min, 35.1 mls/hr Documented By: KJL Co-signed By: CAM Titration: 04/07/22 15:43 Dose: 50 mcg/kg/min, 35.1 mls/hr Documented By: KJL Co-signed By: CAM Admin: 04/07/22 12:52 Dose: 50 mcg/kg/min, 35.1 mls/hr Documented By: KJL Co-signed By: WRS Titration: 04/07/22 12:46 Dose: 50 mcg/kg/min, 35.1 mls/hr Documented By: KJL Co-signed By: WRS Titration: 04/07/22 11:59 Dose: 50 mcg/kg/min, 35.1 mls/hr Documented By: Titration: 04/07/22 11:21 Dose: 40 mcg/kg/min, 28.1 mls/hr Documented By: Titration: 04/07/22 10:28 Dose: 30 mcg/kg/min, 21.1 mls/hr Documented By: Admin: 04/07/22 09:10 Dose: 40 mcg/kg/min, 28.1 mls/hr Documented By: SARAHL Co-signed By: CAM Titration: 04/07/22 08:37 Dose: 40 mcg/kg/min, 28.1 mls/hr Documented By: SARAHL Co-signed By: CAM Titration: 04/07/22 07:03 Dose: 40 mcg/kg/min, 28.1 mls/hr Documented By: KJL Co-signed By: CP Admin: 04/07/22 05:03 Dose: 40 mcg/kg/min, 28.1 mls/hr Documented By: CP Co-signed By: ELS Titration: 04/07/22 04:16 Dose: 40 mcg/kg/min, 28.1 mls/hr Documented By: CP Co-signed By: ELS Titration: 04/07/22 03:42 Dose: 40 mcg/kg/min, 28.1 mls/hr Documented By: Titration: 04/07/22 03:18 Dose: 35 mcg/kg/min, 24.6 mls/hr Documented By: Titration: 04/07/22 03:12 Dose: 30 mcg/kg/min, 21.1 mls/hr Documented By: Titration: 04/07/22 02:00 Dose: 25 mcg/kg/min, 17.6 mls/hr Documented By: Titration: 04/06/22 23:18 Dose: 20 mcg/kg/min, 14 mls/hr Documented By: Titration: 04/06/22 23:00 Dose: 25 mcg/kg/min, 17.6 mls/hr Documented By: Titration: 04/06/22 22:55 Dose: 30 mcg/kg/min, 21.1 mls/hr Documented By: Titration: 04/06/22 22:50 Dose: 35 mcg/kg/min, 24.6 mls/hr Documented By: Admin: 04/06/22 22:41 Dose: 40 mcg/kg/min, 28.1 mls/hr Documented By: CP Co-signed By: MEJ Titration: 04/06/22 22:41 Dose: 40 mcg/kg/min, 28.1 mls/hr Documented By: CP Co-signed By: MEJ Titration: 04/06/22 22:00 Dose: 40 mcg/kg/min, 28.1 mls/hr Documented By: Titration: 04/06/22 21:50 Dose: 35 mcg/kg/min, 24.6 mls/hr Documented By: Titration: 04/06/22 21:45 Dose: 30 mcg/kg/min, 21.1 mls/hr Documented By: Titration: 04/06/22 21:40 Dose: 25 mcg/kg/min, 17.6 mls/hr Documented By: Admin: 04/06/22 21:32 Dose: 20 mcg/kg/min, 14 mls/hr Documented By: LG Co-signed By: BENITA Famotidine 20 mg/ Syringe 5 mls @ 2.5 mls/min IV BID YONATHAN Stop: 05/06/22 20:59 Last Admin: 04/08/22 09:30 Dose: 2.5 mls/min Documented By: MARIA M Admin: 04/07/22 20:12 Dose: 2.5 mls/min Documented By: Admin: 04/07/22 08:33 Dose: 2.5 mls/min Documented By: MARIA M Admin: 04/07/22 01:36 Dose: 2.5 mls/min Documented By: LG Ampicillin Sodium/Sulbactam Sodium 3,000 mg/ Sodium Chloride 108 mls @ 200 mls/hr IV Q6H [facility]; Protocol Stop: 04/14/22 00:00 Last Infusion: 04/08/22 05:35 Dose: 0 mls/hr Documented By: Admin: 04/08/22 04:59 Dose: 200 mls/hr Documented By: Infusion: 04/08/22 00:47 Dose: 0 mls/hr Documented By: Admin: 04/08/22 00:02 Dose: 200 mls/hr Documented By: Infusion: 04/07/22 18:42 Dose: 0 mls/hr Documented By: MARIA M Admin: 04/07/22 18:09 Dose: 200 mls/hr Documented By: MARIA M Infusion: 04/07/22 12:39 Dose: 0 mls/hr Documented By: MARIA M Admin: 04/07/22 12:06 Dose: 200 mls/hr Documented By: MARIA M Infusion: 04/07/22 06:02 Dose: 0 mls/hr Documented By: Admin: 04/07/22 05:28 Dose: 200 mls/hr Documented By: Infusion: 04/07/22 00:52 Dose: 0 mls/hr Documented By: Admin: 04/07/22 00:05 Dose: 200 mls/hr Documented By: BENITA Parenteral Electrolytes (Normosol-R) 1,000 mls @ 75 mls/hr IV .[id number] [facility]ONATHAN Stop: 05/06/22 21:44 Last Admin: 04/07/22 23:30 Dose: 75 mls/hr Documented By: Infusion: 04/07/22 23:28 Dose: 75 mls/hr Documented By: Infusion: 04/07/22 15:34 Dose: 75 mls/hr Documented By: MARIA M Admin: 04/07/22 12:51 Dose: 150 mls/hr Documented By: Infusion: 04/07/22 12:51 Dose: 150 mls/hr Documented By: Admin: 04/07/22 07:01 Dose: 150 mls/hr Documented By: Infusion: 04/07/22 07:01 Dose: 150 mls/hr Documented By: Infusion: 04/07/22 05:29 Dose: 150 mls/hr Documented By: Admin: 04/06/22 21:54 Dose: 100 mls/hr Documented By: LG Norepinephrine Bitartrate (Levophed/D5w) 4 mg in 250 mls @ 19.275 mls/hr IV .[id number] [facility]; Protocol Stop: 05/07/22 01:14 Last Titration: 04/08/22 09:09 Dose: 0.09 mcg/kg/min, 34.7 mls/hr Documented By: MARIA M Titration: 04/08/22 06:53 Dose: 0.11 mcg/kg/min, 42.4 mls/hr Documented By: CP Co-signed By: MARIA M Admin: 04/08/22 05:00 Dose: 0.11 mcg/kg/min, 42.4 mls/hr Documented By: CP Co-signed By: BENITA Titration: 04/08/22 05:00 Dose: 0.11 mcg/kg/min, 42.4 mls/hr Documented By: CP Co-signed By: ELS Admin: 04/07/22 23:11 Dose: 0.11 mcg/kg/min, 42.4 mls/hr Documented By: ELS Co-signed By: CP Titration: 04/07/22 23:11 Dose: 0.11 mcg/kg/min, 42.4 mls/hr Documented By: ELS Co-signed By: CP Titration: 04/07/22 22:30 Dose: 0.11 mcg/kg/min, 42.4 mls/hr Documented By: Titration: 04/07/22 21:15 Dose: 0.09 mcg/kg/min, 34.7 mls/hr Documented By: Titration: 04/07/22 18:43 Dose: 0.07 mcg/kg/min, 27 mls/hr Documented By: KJL Co-signed By: CP Titration: 04/07/22 18:26 Dose: 0.07 mcg/kg/min, 27 mls/hr Documented By: Admin: 04/07/22 18:03 Dose: 0.09 mcg/kg/min, 34.7 mls/hr Documented By: KJL Co-signed By: TMG Titration: 04/07/22 17:10 Dose: 0.09 mcg/kg/min, 34.7 mls/hr Documented By: KJL Co-signed By: TMG Titration: 04/07/22 16:11 Dose: 0.09 mcg/kg/min, 34.7 mls/hr Documented By: Titration: 04/07/22 15:30 Dose: 0.11 mcg/kg/min, 42.4 mls/hr Documented By: Titration: 04/07/22 15:00 Dose: 0.13 mcg/kg/min, 50.1 mls/hr Documented By: Titration: 04/07/22 12:53 Dose: 0.15 mcg/kg/min, 57.8 mls/hr Documented By: Admin: 04/07/22 12:05 Dose: 0.13 mcg/kg/min, 50.1 mls/hr Documented By: KJL Co-signed By: WRS Titration: 04/07/22 11:36 Dose: 0.13 mcg/kg/min, 50.1 mls/hr Documented By: KJL Co-signed By: WRS Titration: 04/07/22 09:34 Dose: 0.13 mcg/kg/min, 50.1 mls/hr Documented By: Titration: 04/07/22 07:03 Dose: 0.15 mcg/kg/min, 57.8 mls/hr Documented By: KJL Co-signed By: CP Admin: 04/07/22 07:00 Dose: 0.15 mcg/kg/min, 57.8 mls/hr Documented By: VK Co-signed By: ALN Titration: 04/07/22 07:00 Dose: 0.15 mcg/kg/min, 57.8 mls/hr Documented By: MONALISA Co-signed By: ALN Titration: 04/07/22 04:10 Dose: 0.15 mcg/kg/min, 57.8 mls/hr Documented By: Titration: 04/07/22 04:00 Dose: 0.13 mcg/kg/min, 50.1 mls/hr Documented By: Titration: 04/07/22 03:40 Dose: 0.11 mcg/kg/min, 42.4 mls/hr Documented By: Titration: 04/07/22 03:35 Dose: 0.09 mcg/kg/min, 34.7 mls/hr Documented By: Titration: 04/07/22 03:30 Dose: 0.07 mcg/kg/min, 27 mls/hr Documented By: Admin: 04/07/22 01:43 Dose: 0.05 mcg/kg/min, 19.3 mls/hr Documented By: BENITA Co-signed By: LG Heparin Sodium/Dextrose (Heparin Sodium/Dextrose) 25,000 units in 500 mls @ 16 mls/hr IV .Q24H [facility]; Protocol Stop: 05/07/22 07:29 Last Titration: 04/08/22 10:29 Dose: 800 units/hr, 16 mls/hr Documented By: MARIA M Co-signed By: WRS Titration: 04/08/22 00:45 Dose: 0 units/hr, 0 mls/hr Documented By: LG Co-signed By: ELS Titration: 04/07/22 18:43 Dose: 1,250 units/hr, 25 mls/hr Documented By: MARIA M Co-signed By: CP Titration: 04/07/22 16:46 Dose: 0 units/hr, 0 mls/hr Documented By: MARIA M Co-signed By: DONELL Admin: 04/07/22 08:26 Dose: 1,600 units/hr, 32 mls/hr Documented By: MARIA M Co-signed By: DONELL Amiodarone HCl/Dextrose (Nexterone / D5w) 360 mg in 200 mls @ 16.667 mls/hr IV .Q12H [facility]ATH[facility] Stop: 05/07/22 18:14 Last Admin: 04/08/22 04:59 Dose: 0.5 mg/min, 16.7 mls/hr Documented By: LG Co-signed By: BENITA Infusion: 04/08/22 04:59 Dose: 0.5 mg/min, 16.7 mls/hr Documented By: LG Co-signed By: BENITA Admin: 04/07/22 19:38 Dose: 0.5 mg/min, 16.7 mls/hr Documented By: LG Co-signed By: BENITA Admin: 04/07/22 18:43 Dose: Not Given Documented By: MARIA M Insulin Aspart (Insulin Aspart Per Unit) 0 units SC Q6 YONATHAN Stop: 05/08/22 00:00 Last Admin: 04/08/22 06:01 Dose: Not Given Documented By: Admin: 04/08/22 00:17 Dose: Not Given Documented By: LG Co-signed By: BENITA Levalbuterol HCl (Levalbuterol Hcl 1.25 Mg/3 Ml Neb) 1.25 mg NEB Q4 PRN; Protocol PRN Reason: Shortness Of Breath Or Wheezing Stop: 05/08/22 07:25 Last Admin: 04/08/22 10:45 Dose: 1.25 mg Documented By: Admin: 04/08/22 07:36 Dose: 1.25 mg Documented By: MELO Propofol (Propofol Bolus From Bag) 20 mg IV Q5M PRN PRN Reason: Sedation Stop: 04/09/22 19:20 Last Admin: 04/08/22 05:13 Dose: 20 mg Documented By: BENITA Co-signed By: LG Admin: 04/07/22 12:00 Dose: 20 mg Documented By: MARIA M Co-signed By: MICHAEL Admin: 04/07/22 03:42 Dose: 20 mg Documented By: BENITA Co-signed By: LG Rosuvastatin Calcium (Rosuvastatin Calcium 20 Mg Tab) 20 mg PO DAILY [facility] Stop: 05/07/22 08:59 Last Admin: 04/08/22 09:30 Dose: 20 mg Documented By: MARIA M Admin: 04/07/22 08:29 Dose: 20 mg Documented By: MARIA M Discontinued Medications Amiodarone HCl/Dextrose (Amiodarone 150mg / 100ml D5w) Confirm Administered Dose 150 mg IV .STK-MED ONE Stop: 04/06/22 23:57 Last Admin: 04/07/22 00:06 Dose: Not Given Documented By: BENITA Amiodarone HCl/Dextrose (Amiodarone 360mg / 200ml D5w) Confirm Administered Dose 360 mg IV .STK-MED ONE Stop: 04/06/22 23:58 Last Admin: 04/07/22 00:06 Dose: Not Given Documented By: BENITA Buspirone HCl (Buspirone 15 Mg Tab) 60 mg NG ONCE PRN PRN Reason: For Shivering x 1 dose Stop: 05/06/22 19:20 Last Admin: 04/07/22 03:03 Dose: 60 mg Documented By: BENITA Fentanyl Citrate (Fentanyl Citrate 100 Mcg/2 Ml Vial) 50 mcg IV NOW STA Stop: 04/06/22 17:59 Last Admin: 04/06/22 21:24 Dose: Not Given Documented By: BENITA Fentanyl Citrate (Fentanyl Citrate 100 Mcg/2 Ml Vial) Confirm Administered Dose 100 mcg .ROUTE .STK-MED ONE Stop: 04/06/22 18:02 Last Admin: 04/06/22 21:25 Dose: Not Given Documented By: BENITA Fentanyl Citrate (Fentanyl Bolus From Bag) 50 mcg IV Q60M PRN PRN Reason: Pain or Agitation Stop: 04/20/22 19:20 Last Admin: 04/07/22 03:43 Dose: 50 mcg Documented By: BENITA Fentanyl Citrate (Fentanyl Citrate 2,500 Mcg/250 Ml Bag) Confirm Administered Dose 2,500 mcg IV .STK-MED ONE Stop: 04/06/22 19:50 Last Admin: 04/06/22 21:31 Dose: Not Given Documented By: BENITA Furosemide (Furosemide 40 Mg/4 Ml Vial) 40 mg IV ONE ONE Stop: 04/06/22 20:34 Last Admin: 04/06/22 21:43 Dose: Not Given Documented By: LG Heparin Sodium (Porcine) (Heparin (Porcine) 1000 Unit/Ml 10 Ml (Supervisor Welding Equipment Repairer Use Only)) Confirm Administered Dose 10,000 units .ROUTE .STK-MED ONE Stop: 04/06/22 18:01 Last Admin: 04/06/22 21:24 Dose: Not Given Documented By: BENITA Heparin Sodium (Porcine) (Heparin Sod (Porcine) 1000 Unit/Ml) 7,000 units IV ONE ONE Stop: 04/07/22 07:20 Last Admin: 04/07/22 08:25 Dose: 7,000 units Documented By: MARIA M Co-signed By: DONELL Heparin Sodium/Dextrose (Heparin 07785 Unit/500 Ml D5w) Confirm Administered Dose 25,000 units IV .STK-MED ONE Stop: 04/06/22 20:34 Last Admin: 04/06/22 21:31 Dose: Not Given Documented By: BENITA Heparin Sodium/Sodium Chloride (Heparin In Nss Infusion 1000 Unit/500 Ml (2 U/Ml) Bag) Confirm Administered Dose 3,000 units IV .STK-MED ONE Stop: 04/06/22 18:02 Last Admin: 04/06/22 21:25 Dose: Not Given Documented By: BENITA Sodium Chloride (Nss 1000ml) 1,000 mls @ 125 mls/hr IV .Q8H [facility] Stop: 05/06/22 17:44 Last Admin: 04/06/22 20:53 Dose: Not Given Documented By: LG Piperacillin Sod/Tazobactam Sod (Zosyn) 4.5 gm in 120 mls @ 240 mls/hr IV NOW ONE Stop: 04/06/22 18:12 Last Admin: 04/06/22 21:24 Dose: Not Given Documented By: BENITA Fentanyl Citrate (Fentanyl Citrate) 2,500 mcg in 250 mls @ 12.5 mls/hr IV .Q20H [facility]; Protocol Stop: 04/20/22 19:29 Last Titration: 04/07/22 09:34 Dose: 0 mcg/hr, 0 mls/hr Documented By: MARIA M Co-signed By: DONELL Titration: 04/07/22 07:03 Dose: 125 mcg/hr, 12.5 mls/hr Documented By: MARIA M Co-signed By: LG Titration: 04/07/22 03:42 Dose: 125 mcg/hr, 12.5 mls/hr Documented By: BENITA Co-signed By: LG Titration: 04/06/22 23:16 Dose: 100 mcg/hr, 10 mls/hr Documented By: LG Co-signed By: BENITA Titration: 04/06/22 21:30 Dose: 75 mcg/hr, 7.5 mls/hr Documented By: LG Co-signed By: BENITA Titration: 04/06/22 20:30 Dose: 50 mcg/hr, 5 mls/hr Documented By: LG Co-signed By: BENITA Admin: 04/06/22 19:30 Dose: 25 mcg/hr, 2.5 mls/hr Documented By: LG Co-signed By: BENITA Potassium Chloride (K Ky / Wtr) 20 meq in 100 mls @ 50 mls/hr IV ONE ONE Stop: 04/06/22 21:35 Last Infusion: 04/06/22 23:23 Dose: 0 mls/hr Documented By: Admin: 04/06/22 21:27 Dose: 50 mls/hr Documented By: LG Magnesium Sulfate/Dextrose (Magnesium Sulfate / D5w) 1 gm in 100 mls @ 50 mls/hr IV ONE ONE Stop: 04/06/22 21:35 Last Infusion: 04/06/22 23:23 Dose: 0 mls/hr Documented By: Admin: 04/06/22 21:27 Dose: 50 mls/hr Documented By: LG Heparin Sodium/Dextrose (Heparin Sodium/Dextrose) 25,000 units in 500 mls @ 34 mls/hr IV .[id number] [facility]; Protocol Stop: 05/06/22 20:44 Last Titration: 04/06/22 23:23 Dose: 0 units/hr, 0 mls/hr Documented By: LG Co-signed By: BENITA Admin: 04/06/22 21:27 Dose: 1,700 units/hr, 34 mls/hr Documented By: LG Co-signed By: BENITA Calcium Gluconate 2,000 mg/ (Dextrose) 70 mls @ 240 mls/hr IV NOW ONE Stop: 04/06/22 21:17 Last Infusion: 04/06/22 23:32 Dose: 0 mls/hr Documented By: Admin: 04/06/22 23:11 Dose: 240 mls/hr Documented By: BENITA Amiodarone HCl/Dextrose (Nexterone / D5w) 360 mg in 200 mls @ 33.333 mls/hr IV ONE ONE; Protocol Stop: 04/07/22 06:01 Last Infusion: 04/07/22 06:08 Dose: 0 mg/min, 0 mls/hr Documented By: MARIA M Co-signed By: DONELL Admin: 04/07/22 00:07 Dose: 1 mg/min, 33.3 mls/hr Documented By: BENITA Co-signed By: MONALISA Amiodarone HCl/Dextrose (Nexterone / D5w) 150 mg in 100 mls @ 600 mls/hr IV NOW STA Stop: 04/07/22 00:01 Last Infusion: 04/07/22 01:00 Dose: 0 mls/hr Documented By: LG Co-signed By: BENITA Admin: 04/07/22 00:06 Dose: 600 mls/hr Documented By: BENITA Co-signed By: MONALISA Amiodarone HCl/Dextrose (Nexterone / D5w) 360 mg in 200 mls @ 16.667 mls/hr IV .Q12H [facility] Stop: 05/08/22 05:59 Last Infusion: 04/07/22 19:37 Dose: 0 mg/min, 0 mls/hr Documented By: LG Co-signed By: BENITA Admin: 04/07/22 18:07 Dose: 0.5 mg/min, 16.7 mls/hr Documented By: MARIA M Co-signed By: TMG Infusion: 04/07/22 17:31 Dose: 0.5 mg/min, 16.7 mls/hr Documented By: MARIA M Co-signed By: TMG Admin: 04/07/22 05:32 Dose: 0.5 mg/min, 16.7 mls/hr Documented By: LG Co-signed By: BENITA Potassium Chloride (K Ky / Wtr) 20 meq in 100 mls @ 50 mls/hr IV Q2H [facility] Stop: 04/07/22 07:14 Last Infusion: 04/07/22 07:43 Dose: 0 mls/hr Documented By: MARIA M Admin: 04/07/22 05:32 Dose: 50 mls/hr Documented By: Infusion: 04/07/22 05:32 Dose: 50 mls/hr Documented By: Admin: 04/07/22 03:53 Dose: 50 mls/hr Documented By: LG Magnesium Sulfate/Dextrose (Magnesium Sulfate / D5w) 1 gm in 100 mls @ 50 mls/hr IV ONE ONE Stop: 04/07/22 05:14 Last Infusion: 04/07/22 05:33 Dose: 0 mls/hr Documented By: Admin: 04/07/22 03:33 Dose: 50 mls/hr Documented By: LG Insulin Aspart (Insulin Aspart Per Unit) 0 units SC ACHS YONATHAN Stop: 04/07/22 21:15 Last Admin: 04/07/22 20:12 Dose: Not Given Documented By: LG Meperidine HCl (Meperidine Hcl 25 Mg/Ml Carp/Vial) 25 mg IV ONCE ONE Stop: 04/07/22 20:33 Last Admin: 04/07/22 21:19 Dose: Not Given Documented By: LG Meperidine HCl (Meperidine Hcl 25 Mg/Ml Carp/Vial) 25 mg IV Q2H PRN PRN Reason: Shivering Stop: 04/21/22 20:33 Last Admin: 04/08/22 02:37 Dose: 25 mg Documented By: Admin: 04/07/22 20:52 Dose: 25 mg Documented By: LG Metoprolol Tartrate (Metoprolol Tartrate 1 Mg/Ml Vial) 2.5 mg IV Q6 [facility] Stop: 05/07/22 05:59 Last Admin: 04/07/22 18:09 Dose: Not Given Documented By: MARIA M Admin: 04/07/22 12:52 Dose: Not Given Documented By: MARIA M Admin: 04/07/22 07:24 Dose: Not Given Documented By: MARIA M Metoprolol Tartrate (Metoprolol Tartrate 1 Mg/Ml Vial) 2.5 mg IV NOW STA Stop: 04/06/22 20:38 Last Admin: 04/06/22 21:43 Dose: Not Given Documented By: LG Midazolam HCl (Midazolam Hcl 1 Mg/Ml 2ml Vial) Confirm Administered Dose 2 mg .ROUTE .STK-MED ONE Stop: 04/06/22 18:01 Last Admin: 04/06/22 21:25 Dose: Not Given Documented By: BENITA Miscellaneous (Rapid Sequence Induction Bag) Confirm Administered Dose 1 each .ROUTE .STK-MED ONE Stop: 04/06/22 17:10 Last Admin: 04/06/22 21:24 Dose: Not Given Documented By: BENITA Nicardipine HCl (Nicardipine Hcl Inj 2.5 Mg/Ml 10 Ml Amp) Confirm Administered Dose 25 mg .ROUTE .STK-MED ONE Stop: 04/06/22 18:01 Last Admin: 04/06/22 21:25 Dose: Not Given Documented By: BENITA Nitroglycerin/Dextrose (Nitroglycerin/D5w 100mcg/Ml 20ml Syr) Confirm Administered Dose 2,000 mcg .ROUTE .STK-MED ONE Stop: 04/06/22 18:02 Last Admin: 04/06/22 21:27 Dose: Not Given Documented By: BENITA Norepinephrine Bitartrate (Norepinephrine/D5w 4 Mg/250 Ml) Confirm Administered Dose 4 mg IV .STK-MED ONE Stop: 04/06/22 17:10 Last Admin: 04/06/22 21:24 Dose: Not Given Documented By: BENITA Norepinephrine Bitartrate (Norepinephrine/D5w 4 Mg/250 Ml) Confirm Administered Dose 4 mg IV .STK-MED ONE Stop: 04/07/22 01:14 Last Admin: 04/07/22 01:43 Dose: Not Given Documented By: BENITA Phenylephrine HCl (Phenylephrine Hcl Inj 10 Mg/Ml Vial (Supervisor Welding Equipment Repairer Use Only)) Confirm Administered Dose 10 mg .ROUTE .STK-MED ONE Stop: 04/06/22 18:46 Last Admin: 04/06/22 21:27 Dose: Not Given Documented By: BENITA Potassium Chloride (Potassium Chloride 20 Meq/15 Ml Udc) 40 meq PO NOW STA Stop: 04/06/22 21:51 Last Admin: 04/06/22 21:57 Dose: 40 meq Documented By: BENITA Propofol (Propofol Iv Emulsion 10 Mg/Ml 100 Ml Vial) Confirm Administered Dose 1,000 mg IV .[email or web address] ONE Stop: 04/06/22 19:50 Last Admin: 04/06/22 21:31 Dose: Not Given Documented By: BENITA Sodium Bicarbonate (Sodium Bicarb 8.4% Inj 50 Meq/50 Ml Syr) Confirm Administered Dose 50 meq IV .STK-MED ONE Stop: 04/06/22 23:08 Last Admin: 04/06/22 23:29 Dose: Not Given Documented By: BENITA Sodium Bicarbonate (Sodium Bicarb 8.4% Inj 50 Meq/50 Ml Syr) 50 meq IV NOW STA Stop: 04/06/22 23:24 Last Admin: 04/06/22 23:30 Dose: 50 meq Documented By: BENITA Vecuronium Pimento (Vecuronium Pimento 10 Mg Vial) Confirm Administered Dose 10 mg IV .STK-MED ONE Stop: 04/06/22 23:36 Last Admin: 04/07/22 00:05 Dose: Not Given Documented By: BENITA Vecuronium Pimento (Vecuronium Pimento 10 Mg Vial) 10 mg IV NOW STA Stop: 04/06/22 23:36 Last Admin: 04/07/22 00:05 Dose: 10 mg Documented By: BENITA Co-signed By: MONALISA Description This is a 21 electrode EEG with a single channel dedicated to limited EKG. The electrodes were placed in accordance with the International 10-20 system. Interpretation The predominant background activity consists of In irregular 3-4 hertz activity of up to 20 microvolts in amplitude seen over all head regions. Superimposed were sharp waves seen in all head regions occurring irregularly at 1-3 second intervals throughout the entire recording. When all IV pumps were turned off the sharp waves had no change. When the ventilator was turned off and the patient was breathing on his own the sharp waves dampened. They seem to correlate with his respirations and he tended to rock his head and move his chest with each respiration. there was, however, almost a "burst -suppression" nature to these generalized higher amplitude sharp waves followed by the lower amplitude irregular activity. Photic stimulation was performed and elicited no change in the background activity and no abnormal responses were seen. Hyperventilation was not pe rformed. Loud clap /shout did not change the background activity. Deep pain stimulation of each limb produce some increased bifrontal fast activity consistent with muscle tension, but there was no other change in the background activity. At no time, did I see any focal abnormalities. I was not convinced of any potentially epileptogenic activity. In summary, this EEG was Abnormal and showed generalized cerebral dysfunction as noted by severe slowing of the background activity of relatively low amplitude and a burst suppression type phenomenon throughout. There were no focal abnormalities or potentially epileptogenic discharges otherwise. Clinical Correlation I suspect a significant generalized hypoxic ischemic event creating this EEG. [facility] EEG Procedure Codes Indication for Procedure (1) Anoxic brain injury: (2) Unresponsive state: Neurology Neurology: 13399 EEG Cerebral Eval only
--- NOTE | 2022-04-08 12:11 | Cardiology Progress Note ---
Date of Service April 08, 2022 Assessment & Plan (1) Cardiac arrest: (2) Atrial fibrillation with rapid ventricular response: (3) REYNALDO (acute kidney injury): (4) Anoxic brain injury: Plan: 77-year-old male (1) Cardiac arrest: As noted, no coronary culprit on emergent cardiac catheterization performed on presentation 04/06/2022. Presenting EKG with evidence of frequent ventricular ectopy, ventricular tachycardia, possibly atrial fibrillation, however remains in sinus on amiodarone infusion. As noted by other providers, pulmonary embolism certainly a consideration. Transthoracic echocardiogram 04/07/2022 and on some views the right ventricle appears to be dilated to a mild to moderate degree, with a least moderate tricuspid regurgitation. Is difficult to ascertain if this is a chronic situation given his underlying lung disease, or acute. He is on empiric heparin. CT angiogram not performed due to acute kidney injury. (2) Atrial fibrillation with rapid ventricular response: -Continue heparin for now, no recurrence. (3) REYNALDO (acute kidney injury): -Creatinine up to 2.27, likely due to hypotension related ATN, contrast exposure. -Continue supportive care (4) Anoxic brain injury: -Concern for underlying anoxic brain injury. Neurology consulted Will continue to follow this progress as sedation is decreased. Code status changed to DNR overnight. Case discussed with Dr Huang of critical care medicine. Updates provided to available family. Admission and Anticipated Discharge Date Admission Date: April 06, 2022 Subjective Patient seen in cardiology follow up. Son at bedside. Patient remains on ventilator support. He has been rewarmed, with temperature this morning 37.3 degrees. Per review of telemetry, as the rewarming process took place, his heart rate slowly drifted up from 50 bpm to its current level of sinus rhythm in the 90s as which would be expected. Is no longer on fentanyl. Remains on low-dose propofol which is being titrated down. Remains on low-dose norepinephrine. Amiodarone infusion ongoing. Heparin infusion has been paused due to a high PTT this morning, but now resumed. Review of Systems Review of Systems: Unobtainable due to reduced consciousness Physical Exam Physical Exam: Temp Pulse Resp BP Pulse Ox O2 Del Method FiO2 37.2 C 93 H 30 H 134/78 96 50 04/08/22 10:00 04/08/22 10:47 04/08/22 10:47 04/08/22 10:00 04/08/22 10:47 04/08/22 06:00 04/08/22 10:47 Constitutional: Unresponsive Respiratory: Clear to auscultation bilaterally Cardiovascular: RRR, no murmur, no edema Gastrointestinal (Abdomen): normal bowel sounds, soft, nontender, no hepatosplenomegaly Neurologic: PERRL, EOMI, accommodation nl, no face palsy, no dysarthria Genitourinary: Mcmillan catheter in place draining clear yellow urine
--- NOTE | 2022-04-08 12:18 | Neurology Consultation ---
Date of Consultation April 08, 2022 Assessment & Plan (1) Unresponsive state: (2) Anoxic brain injury: (3) Cardiac arrest: Plan The patient is in an unresponsive state post cardiac arrest with generalized anoxic brain injury. He has evidence on EEG of generalized cerebral dysfunction of a significant nature although his background activity is a little better than it was yesterday. The higher amplitude sharp wave seen generalized are likely part of a burst suppression pattern although they seem to correlate with respiratory artifact. I do not believe they are potentially epileptogenic. Overall, his prognosis is poor neurologically Recommendations: 1. A CT scan of the head and MRI of the brain are being obtained today. 2. I would like to repeat an examination tomorrow morning off of propofol. I will make additional recommendations after this. Overall, I spent a total of 90 minutes with this case including review of records, direct evaluation the patient at bedside, and discussion of the case with the patient's and children at bedside. I have also discussed this case with Dr. Glez, including differential diagnosis and treatment options.. History of Present Illness Reason for Consultation: patient is a 77-year-old, who I was asked to see at the request of Dr. Chang and Sal, for neurologic consultation regarding unresponsive state following cardiac arrest. Requesting Physician: Dr. Chang Attending Physician: Jose Chang MD History of Present Illness The patient can give no history but is gathered from the chart and the patient's family who is present at bedside this morning. The patient and his came up to come to the game April 06. As there were going into their hotel witnessed that the patient slumped into the doorway and then slumped down to the ground. His face turned blue. Police arrived and gave 3 shocks via an AED. EMS arrived and found the patient in PEA and he was given 3 epi and 1 bicarb and was intubated in the field. Heart was started and he was tachycardic. He arrived to the emergency room and his blood pressure was 115/69. He was a glass cocoa most Devika 3 with minimal reactive 3 mm pupils. Initial laboratory studies were largely unremarkable and his glucose was 225. chest x-ray was remarkable for some cardiomegaly. CT scan of the head showed no obvious intracranial abnormality. Patient has been Re warmed per protocol but is still on propofol. EEG yesterday showed very slow and low background activity , with some intermittent generalized spikes. I reviewed this and feel that there was no potentially epileptogenic activity. This morning a repeat EEG showed some sharply contoured waveforms at an irregular nature consistent with respiratory pattern artifact although there was a burst suppression nature and irregular slow amplitude background activity showing a generalized brain injury. The activity was a little higher amplitude than yesterday. Allergies Allergy/AdvReac Type Severity Reaction Status Date / Time ibuprofen Allergy Severe Anaphylaxis Verified 04/06/22 18:00 Home Medications Medication Instructions Recorded Confirmed Type finasteride 5 mg tablet 5 mg PO DAILY 04/06/22 04/06/22 History losartan 100 1 tab PO DAILY 04/06/22 04/06/22 History mg-hydrochlorothiazide 25 mg tablet rosuvastatin 20 mg tablet 20 mg PO DAILY 04/06/22 04/06/22 History tadalafil 5 mg tablet 5 mg PO DAILY 04/06/22 04/06/22 History Patient History Medical History BPH (benign prostatic hyperplasia) Hyperlipidemia Hypertension Lung cancer S/p upper lobectomy Social History Smoking Status: Never smoker Hx Alcohol Use: Yes Alcohol type: wine Hx Substance Use: No Preferred Language: Montserratian Communication Ability: Effective Acid Cutter Required: No Beliefs That Will Affect Care: None Current Living Situation: Spouse Other Information That Helps Us Care for You: No Feels Safe at Home: Yes Safety Concerns: Feels Safe At This Time Assistive Devices: Glasses Review of Systems Review of Systems: Unobtainable due to endotracheal tube and Unobtainable due to reduced consciousness Exam (Neuro) Physical Exam: Patient is on a significant dose of propofol The patient has no response to shout or clap. Eyes open passively in pupils are 3 mm bilaterally and sluggishly reactive to light. Eyes are fixed when head is moved in any direction. He breathes over the ventilator and respiratory rate in the high 20s. The blood pressure is 134/78 pulse is 93. He is afebrile at 37.3 and O2 saturation is 96% on the mechanical ventilation. He has no withdrawal to deep pain in all 4 limbs and the limbs have decreased tone. He did have some muscle artifact on the forehead with deep pain seen on EEG. He does rock his head and shoulders with each respiration. Results & Data ([facility]) Vital Signs (Past 12 Hours) Vital Signs Temp Temp Pulse Resp BP Pulse Ox O2 Del Method 04/08/22 10:47 93 H 30 H 96 04/08/22 10:00 37.2 C 37.3 C 94 H 30 H 134/78 95 04/08/22 09:21 90 04/08/22 09:00 36.8 C 37 C 90 30 H 130/56 L 95 04/08/22 07:00 84 04/08/22 08:00 89 04/08/22 08:00 04/08/22 08:00 36.7 C 36.5 C 89 30 H 101/67 96 04/08/22 07:00 36.5 C 36.5 C 84 30 H 139/78 97 04/08/22 07:39 80 31 H 97 04/08/22 06:00 36.2 C L 36.1 C L 85 31 H 89/57 L 96 Mechanical Vent 04/08/22 04:30 61 30 H 99 04/08/22 05:00 35.9 C L 35.9 C L 61 28 H 98/65 L 99 Mechanical Vent 04/08/22 04:00 35.5 C L 35.5 C L 61 28 H 98/65 L 99 Mechanical Vent 04/08/22 04:00 04/08/22 03:00 35.3 C L 35.3 C L 61 28 H 108/70 100 Mechanical Vent 04/08/22 02:00 35 C L 34.9 C L 61 28 H 100/67 99 Mechanical Vent 04/08/22 01:00 34.7 C L 34.7 C L 60 28 H 97/61 L 99 Mechanical Vent FiO2 04/08/22 10:47 50 04/08/22 10:00 50 04/08/22 09:21 04/08/22 09:00 50 04/08/22 07:00 04/08/22 08:00 04/08/22 08:00 50 04/08/22 08:00 50 04/08/22 07:00 50 04/08/22 07:39 50 04/08/22 06:00 50 04/08/22 04:30 50 04/08/22 05:00 50 04/08/22 04:00 50 04/08/22 04:00 50 04/08/22 03:00 50 04/08/22 02:00 50 04/08/22 01:00 50 PG Care Time/CCT Total # of Minutes Spent Total Time Spent with Patient: Total time spent is greater than 50% in coordination of care (as documented) at patient's floor/unit and/or counseling patient: Coding Level of Care Code 98305 Initial Inpt Care Lvl 3 Diagnoses Unresponsive state R41.89 Anoxic brain injury G93.1 Cardiac arrest I46.9 Time Spent (min) 90
[2022-04-08] MEDS ORDERED: MIDAZOLAM HCL 1 MG/ML 2ML VIAL IV PRN (12:19)
--- NOTE | 2022-04-08 13:24 | Hospitalist Progress Note ---
Date of Service April 08, 2022 Assessment & Plan (1) Cardiac arrest: Plan: Cardiac Arrest Atrial fibrillation RVR S/P 3 shocks administered by an AED on presentation for ? VT/VF PEA after Shock Cardiogenic Shock Can not rule ot PE Acute Hypoxemic, hypercapnic respiratory failure Elevated troponin likely due to demand Ischemia --ECHO: Sinus bradycardia in the 50s present during the echocardiogram study. The left ventricular wall motion is normal. Left ventricle systolic function is normal. EF 50 to 55%. The right ventricle is dilated to mild to moderate degree on the parasternal short axis views. Mild right ventricular hypokinesis thought to be present limited to the short axis views, and appears normal from the apical imaging perspective. There is moderate tricuspid regurgitation. Doppler findings do not suggest pulmonary hypertension. --S/P Cardiac Cath Reviewed --Venous Doppler:No DVT within the right or left lower extremity. 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 No acute intracranial abnormality or calvarial fracture identified. EEG: EEG was Abnormal and showed generalized cerebral dysfunction as noted by severe slowing of the background activity of relatively low amplitude and a burst suppression type phenomenon throughout. There were no focal abnormalities or potentially epileptogenic discharges otherwise. --Appreciate Neurology Input --Repeat CT/MRI Brain pending Aspiration pneumonia --CT:Satisfactory positioning of the endotracheal and nasogastric tubes. Postoperative findings within the left hemithorax. Extensive left infrahilar and basilar consolidation suggestive of pneumonia. Additional airspace opacities within the lungs are also likely infectious. Aspiration pneumonia is also within the differential. Small amount of anterior mediastinal hemorrhage. Multiple acute bilateral rib fractures. No pneumothorax. Acute nondisplaced sternal fracture. Cardiomegaly. Aspiration precautions Currently on Unasyn Acute nondisplaced sternal fracture Small Anterior mediastinal hemorrhage Multiple acute bilateral rib fractures Likely traumatic due to Cardiac Arrest CT as above Fall precautions Abnormal Urine analysis Rule out UTI On antibiotics as above Acute Kidney Injury Unknown baseline creatinine Likely multifactorial Creatinine 2.2 today Continue IV fluids Avoid nephrotoxic agents as able H/O lung cancer S/P surgery Prediabetes HbA1C: 5.7 H/O BPH Past tobacco abuse. HTN HLP As per records DVT Px: IV Heparin Code Status Full code Admission and Anticipated Discharge Date Admission Date: April 06, 2022 Subjective Patient is seen and examined at bedside Hypothermia protocol completed Had EEG earlier today In sinus rhythm On IV amiodarone, heparin drip Remains on pressors Family at bedside Poor prognosis Mechanically ventilated Review of Systems Review of Systems: Unobtainable due to endotracheal tube and Unobtainable due to reduced consciousness Physical Exam Physical Exam: Physical Exam: Vitals signs as noted above General Appearance:Moderately built and nourished, Intubated Head: normocephalic, Atraumatic Eyes: normal inspection, EOMI Neck: supple, Trachea midline Respiratory/Chest: Normal breath sounds, CTA, No accessory muscle use Cardiovascular: S1, S2, No murmur Abdomen/GI:Soft, Non tender, Bowel sounds present Extremities/Musculoskeletal:normal inspection, no edema Neurologic/Psych:Intubated,Sedated Skin: normal color Results & Data Results & Data ([facility]) Vital Signs (Past 12 Hours) Vital Signs Temp Temp Pulse Resp BP Pulse Ox O2 Del Method 04/08/22 12:37 93 H 04/08/22 12:00 04/08/22 10:47 93 H 30 H 96 04/08/22 10:00 37.2 C 37.3 C 94 H 30 H 134/78 95 04/08/22 09:21 90 04/08/22 09:00 36.8 C 37 C 90 30 H 130/56 L 95 04/08/22 07:00 84 04/08/22 08:00 89 04/08/22 08:00 04/08/22 08:00 36.7 C 36.5 C 89 30 H 101/67 96 04/08/22 07:00 36.5 C 36.5 C 84 30 H 139/78 97 04/08/22 07:39 80 31 H 97 04/08/22 06:00 36.2 C L 36.1 C L 85 31 H 89/57 L 96 Mechanical Vent 04/08/22 04:30 61 30 H 99 04/08/22 05:00 35.9 C L 35.9 C L 61 28 H 98/65 L 99 Mechanical Vent 04/08/22 04:00 35.5 C L 35.5 C L 61 28 H 98/65 L 99 Mechanical Vent 04/08/22 04:00 04/08/22 03:00 35.3 C L 35.3 C L 61 28 H 108/70 100 Mechanical Vent 04/08/22 02:00 35 C L 34.9 C L 61 28 H 100/67 99 Mechanical Vent FiO2 04/08/22 12:37 04/08/22 12:00 50 04/08/22 10:47 50 04/08/22 10:00 50 04/08/22 09:21 04/08/22 09:00 50 04/08/22 07:00 04/08/22 08:00 04/08/22 08:00 50 04/08/22 08:00 50 04/08/22 07:00 50 04/08/22 07:39 50 04/08/22 06:00 50 04/08/22 04:30 50 04/08/22 05:00 50 04/08/22 04:00 50 04/08/22 04:00 50 04/08/22 03:00 50 04/08/22 02:00 50 Laboratory Results Short CBC 04/07/22 04/07/22 04/08/22 Range/Units 13:10 19:45 01:54 WBC 15.46 H 16.51 H 18.04 H (4.8-10.8) K/ul Hgb 15.1 15.0 14.3 (14.0-18.0) g/dl Hct 44.2 43.4 42.2 (40.1-51.0) % Plt Count 174 155 143 (130-400) K/uL 04/08/22 Range/Units 07:49 WBC 18.37 H (4.8-10.8) K/ul Hgb 14.3 (14.0-18.0) g/dl Hct 41.0 (40.1-51.0) % Plt Count 143 (130-400) K/uL BMP 04/07/22 04/07/22 04/08/22 13:10 19:45 01:54 Sodium 139 138 138 Potassium 3.9 3.8 4.5 Chloride 102 102 99 Carbon Dioxide 26 23 27 BUN 25 H 27 H 30 H Creatinine 2.01 H 2.08 H 2.28 H Glucose 157 H 171 H 114 H Calcium 7.8 L 7.8 L 7.8 L 04/08/22 07:49 Sodium 137 Potassium 4.1 Chloride 99 Carbon Dioxide 26 BUN 32 H Creatinine 2.27 H Glucose 92 Calcium 7.5 L
[2022-04-08] MEDS ORDERED: ROCURONIUM BROMIDE 10 MG/ML 5 ML VIAL IV ONE (13:30)
[2022-04-08 13:50] LABS: Hematocrit (blood only) 36.2 % (40.1-51.0); Hemoglobin 12.6 g/dl (14.0-18.0); Mean Corpuscular Hemoglobin 31.9 pg (25.0-34.0); Mean Corpuscular Hgb Conc 34.8 g/dL (32.0-36.0); Mean Corpuscular Volume 91.6 fL (80.0-100.0); Mean Platelet Volume 10.6 fL (9.4-12.4); Platelet Count 128 K/uL (130-400); RDW Coefficient of Variation 13.5 % (11.5-14.5); RDW Standard Deviation 45.8 fL (36.4-46.3); Red Blood Count 3.95 M/uL (4.63-6.08); White Blood Count 16.27 K/ul (4.8-10.8)
[2022-04-08 13:56] LABS: Basophils # (auto) 0.04 K/uL (0-0.2); Basophils % (auto) 0.2 %; Immature Granulocytes % (auto) 1.2 %; Lymphocytes # (auto) 0.72 K/uL (1.2-3.4); Lymphocytes % (auto) 4.4 %; Monocytes % (auto) 4.3 %; Neutrophils # (auto) 14.61 K/uL (1.4-6.5); Neutrophils % (auto) 89.9 %; Polychromasia 1+; Target Cells 1+
[2022-04-08 14:08] LABS: INR 1.1 (0.9-1.1); Prothrombin Time 11.4 Seconds (9.0-12.0)
[2022-04-08 14:13] LABS: Creatinine Clr Calc Pharmacy 30.5 ml/min; Est GFR (African American) 26.1 ml/min; Est GFR (Non-African American) 22.5 ml/min; Phosphorus 3.8 mg/dl (2.5-4.9); Potassium 3.4 mmol/L (3.5-5.1)
--- NOTE | 2022-04-08 14:40 | Electrocardiogram Report ---
Test Reason : Blood Pressure : / mmHG Vent. Rate : 054 BPM Atrial Rate : 054 BPM P-R Int : 212 ms QRS Dur : 118 ms QT Int : 510 ms P-R-T Axes : 000 016 045 degrees QTc Int : 483 ms Sinus bradycardia with 1st degree A-V block Right bundle branch block Nonspecific ST and T wave abnormality Prolonged QT Abnormal ECG When compared with ECG of 07-APR-2022 04:06, Premature ventricular complexes are no longer Present Confirmed by Jaquan Riley ([id number]) on 04/08/2022 2:39:49 PM Referred By: REFERRED SELF Confirmed By:Jaquan Riley
--- NOTE | 2022-04-08 14:41 | Electrocardiogram Report ---
Test Reason : Blood Pressure : / mmHG Vent. Rate : 051 BPM Atrial Rate : 051 BPM P-R Int : 226 ms QRS Dur : 118 ms QT Int : 504 ms P-R-T Axes : -24 005 144 degrees QTc Int : 464 ms Sinus bradycardia with 1st degree A-V block with Premature ventricular complexes Low voltage QRS Incomplete right bundle branch block Nonspecific ST and T wave abnormality Prolonged QT Abnormal ECG When compared with ECG of 07-APR-2022 06:53, (unconfirmed) Premature ventricular complexes are now Present Confirmed by Jaquan Riley ([id number]) on 04/08/2022 2:41:03 PM Referred By: REFERRED SELF Confirmed By:Jaquan Riley
[2022-04-08 14:49] LABS: Magnesium 1.8 mg/dl (1.7-2.4)
--- NOTE | 2022-04-08 14:54 | Electrocardiogram Report ---
Test Reason : Blood Pressure : / mmHG Vent. Rate : 063 BPM Atrial Rate : 063 BPM P-R Int : 190 ms QRS Dur : 112 ms QT Int : 504 ms P-R-T Axes : 106 038 038 degrees QTc Int : 515 ms Sinus rhythm with occasional Premature ventricular complexes Nonspecific ST abnormality Prolonged QT Abnormal ECG When compared with ECG of 07-APR-2022 08:09, (unconfirmed) LA interval has decreased Nonspecific T wave abnormality, improved in Anterolateral leads QT has lengthened Confirmed by Jaquan Riley ([id number]) on 04/08/2022 2:54:52 PM Referred By: REFERRED SELF Confirmed By:Jaquan Riley
--- NOTE | 2022-04-08 15:02 | Electrocardiogram Report ---
Test Reason : Blood Pressure : / mmHG Vent. Rate : 052 BPM Atrial Rate : 052 BPM P-R Int : 220 ms QRS Dur : 118 ms QT Int : 500 ms P-R-T Axes : 000 024 067 degrees QTc Int : 465 ms Sinus bradycardia with 1st degree A-V block Incomplete right bundle branch block Nonspecific ST and T wave abnormality Prolonged QTc Abnormal ECG When compared with ECG of 07-APR-2022 12:41, (unconfirmed) Premature ventricular complexes are no longer Present MI interval has increased Nonspecific T wave abnormality now evident in Lateral leads Confirmed by Jaquan Riley ([id number]) on 04/08/2022 3:01:23 PM Referred By: REFERRED SELF Confirmed By:Jaquan Riley
--- NOTE | 2022-04-08 15:06 | Electrocardiogram Report ---
Test Reason : Blood Pressure : / mmHG Vent. Rate : 061 BPM Atrial Rate : 061 BPM P-R Int : 198 ms QRS Dur : 110 ms QT Int : 408 ms P-R-T Axes : 000 031 063 degrees QTc Int : 410 ms Normal sinus rhythm Nonspecific ST and T wave abnormality Abnormal ECG When compared with ECG of 07-APR-2022 16:03, (unconfirmed) Nonspecific T wave abnormality, worse in Lateral leads Confirmed by Jaquan Riley ([id number]) on 04/08/2022 3:05:39 PM Referred By: REFERRED SELF Confirmed By:Jaquan Riley
--- NOTE | 2022-04-08 15:11 | Electrocardiogram Report ---
Test Reason : Blood Pressure : / mmHG Vent. Rate : 062 BPM Atrial Rate : 062 BPM P-R Int : 198 ms QRS Dur : 112 ms QT Int : 516 ms P-R-T Axes : 052 058 043 degrees QTc Int : 523 ms Normal sinus rhythm Nonspecific ST abnormality Prolonged QT Abnormal ECG When compared with ECG of 07-APR-2022 20:07, (unconfirmed) Nonspecific T wave abnormality no longer evident in Inferior leads Nonspecific T wave abnormality, improved in Anterolateral leads QT has lengthened Confirmed by Jaquan Riley ([id number]) on 04/08/2022 3:11:32 PM Referred By: REFERRED SELF Confirmed By:Jaquan Riley
--- NOTE | 2022-04-08 15:14 | Electrocardiogram Report ---
Test Reason : Blood Pressure : / mmHG Vent. Rate : 073 BPM Atrial Rate : 073 BPM P-R Int : 166 ms QRS Dur : 108 ms QT Int : 458 ms P-R-T Axes : 000 055 035 degrees QTc Int : 504 ms Poor data quality, interpretation may be adversely affected Normal sinus rhythm Non-specific intra-ventricular conduction delay Nonspecific ST abnormality Prolonged QTc Abnormal ECG When compared with ECG of 08-APR-2022 00:04, (unconfirmed) No significant change was found Confirmed by Jaquan Riley ([id number]) on 04/08/2022 3:13:43 PM Referred By: REFERRED SELF Confirmed By:Jaquan Riley
--- NOTE | 2022-04-08 15:16 | Electrocardiogram Report ---
Test Reason : Blood Pressure : / mmHG Vent. Rate : 090 BPM Atrial Rate : 090 BPM P-R Int : 170 ms QRS Dur : 108 ms QT Int : 372 ms P-R-T Axes : 056 067 014 degrees QTc Int : 455 ms Poor data quality, interpretation may be adversely affected Normal sinus rhythm Non-specific intra-ventricular conduction delay Borderline ECG When compared with ECG of 08-APR-2022 04:03, (unconfirmed) QT has shortened Confirmed by Jaquan Riley ([id number]) on 04/08/2022 3:16:30 PM Referred By: REFERRED SELF Confirmed By:Jaquan Riley
--- NOTE | 2022-04-08 15:42 | CT Scan Report ---
CT head/brain wo con CLINICAL HISTORY: 77 years-old Male with s/p arrest. Acutely altered mental status with recent cardi ac arrest TECHNIQUE: Multiple axial CT images of the head were obtained without contrast. A dose lowering tech nique was utilized adhering to the principles of ALARA. CT DOSE: 884.08 mGy.cm COMPARISON: Brain MRI of same day, head CT 04/06/2022 FINDINGS: No acute intracranial hemorrhage, midline shift, intracranial mass, hydrocephalus, territorial ischem ia or abnormal extra-axial collection. Mild white matter hypodensities suggestive of chronic microvas cular ischemic disease. The calvarium is intact. Mastoid air cells are clear. Mucosal thickening of the paranasal sinuses is moderate to severe within the ethmoid and sphenoid sinuses. IMPRESSION: No acute intracranial abnormality. ACT 112: Negative or not required by law. The above report was generated using voice recognition software. It may contain grammatical, syntax o r spelling errors. Electronically signed by: Sam Swan M.D. 04/08/2022 3:41 PM
--- NOTE | 2022-04-08 16:01 | Magnetic Resonance Report ---
MR brain wo con HISTORY: 77 years-old Male s/p arrest acute cardiac arrest COMPARISON: Head CT of same day TECHNIQUE: Multiplanar multisequence MRI of the brain was obtained without the use of IV contrast FINDINGS: No restricted diffusion to suggest acute or subacute infarct. Midline structures appear unremarkable with partially empty sella. Degenerative changes of the imaged cervical spine. No acute intracranial hemorrhage, midline shift, abnormal extra-axial collection, hydrocephalus or intracranial mass. Mild to moderate scattered T2/FLAIR hyperintense foci noted throughout the white matter. Mild involutional changes. Cerebral venous sinuses and major arterial flow voids appear patent. Moderate to severe mucosal thick ening of the paranasal sinuses with secretions in the nasopharyngeal airway. Partially imaged endotra cheal tube. Small mastoid effusions. Skull, orbits and soft tissues are unremarkable. IMPRESSION: 1. No acute intracranial abnormality. No acute or subacute infarct. 2. Mild to moderate chronic microvascular ischemic disease. ACT 112: Negative or not required by law. The above report was generated using voice recognition software. It may contain grammatical, syntax o r spelling errors. Electronically signed by: Sam Swan M.D. 04/08/2022 3:59 PM
[2022-04-08] MEDS ORDERED: POTASSIUM CHLORIDE / WTR 20 MEQ/100 ML PLCT IV STA (16:38)
[2022-04-08] MEDS: POTASSIUM CHLORIDE / WTR 20 MEQ/100 ML PLCT IV SCH ×3 (17:04→21:13)
[2022-04-08 17:06] LABS: Partial Thromboplastin Ratio 1.3; Partial Thromboplastin Time 35.3 Seconds (21.0-31.0)
[2022-04-08] MEDS: HEPARIN SODIUM/DEXTROSE 25,000 UNITS/500 ML BAG IV SCH (17:07)
[2022-04-08] MEDS ORDERED: HEPARIN SOD (PORCINE) 1000 UNIT/ML IV ONE (18:46)
[2022-04-08 19:37] LABS: Hematocrit (blood only) 35.2 % (40.1-51.0); Hemoglobin 12.4 g/dl (14.0-18.0); Mean Corpuscular Hemoglobin 32.1 pg (25.0-34.0); Mean Corpuscular Hgb Conc 35.2 g/dL (32.0-36.0); Mean Corpuscular Volume 91.2 fL (80.0-100.0); Mean Platelet Volume 10.1 fL (9.4-12.4); Platelet Count 119 K/uL (130-400); RDW Coefficient of Variation 13.6 % (11.5-14.5); RDW Standard Deviation 45.5 fL (36.4-46.3); Red Blood Count 3.86 M/uL (4.63-6.08); White Blood Count 16.91 K/ul (4.8-10.8)
[2022-04-08 19:57] LABS: Basophils # (auto) 0.05 K/uL (0-0.2); Basophils % (auto) 0.3 %; Eosinophils # (auto) 0.01 K/uL (0-0.50); Eosinophils % (auto) 0.1 %; Immature Granulocytes # (auto) 0.13 K/uL (0.00-0.02); Immature Granulocytes % (auto) 0.8 %; Lymphocytes # (auto) 0.73 K/uL (1.2-3.4); Lymphocytes % (auto) 4.3 %; Monocytes # (auto) 0.76 K/uL (0.24-0.82); Monocytes % (auto) 4.5 %; Neutrophils # (auto) 15.23 K/uL (1.4-6.5)
[2022-04-08 20:03] LABS: INR 1.1 (0.9-1.1); Prothrombin Time 11.4 Seconds (9.0-12.0)
[2022-04-08 20:07] LABS: BUN Creatinine Ratio 13.8 (10-20); Calcium 7.2 mg/dl (8.5-10.1); Est GFR (African American) 22.5 ml/min; Est GFR (Non-African American) 19.4 ml/min; Magnesium 1.8 mg/dl (1.7-2.4); Phosphorus 2.8 mg/dl (2.5-4.9); Potassium 3.9 mmol/L (3.5-5.1)
[2022-04-08] MEDS ORDERED: POLYETHYLENE (MIRALAX) 17 GM PACK PO PRN (23:40)
[2022-04-09] MEDS: HEPARIN SODIUM/DEXTROSE 25,000 UNITS/500 ML BAG IV SCH ×2 (00:13→06:10)
[2022-04-09] MEDS: propofoL 1,000 MG/100 ML VIAL IV SCH ×8 (00:14→23:42)
[2022-04-09] MEDS: INSULIN ASPART PER UNIT SC SCH ×5 (00:14→23:50)
[2022-04-09 02:57] LABS: Anion Gap 11 (3-11); BUN Creatinine Ratio 13.9 (10-20); Blood Urea Nitrogen 44 mg/dl (6-23); Calcium 6.9 mg/dl (8.5-10.1); Carbon Dioxide 26 mmol/L (21-32); Chloride 97 mmol/L (98-107); Creatinine Clr Calc Pharmacy 25.4 ml/min; Est GFR (African American) 20.9 ml/min; Glucose 74 mg/dl (70-99(Fasting)); Magnesium 1.9 mg/dl (1.7-2.4); Phosphorus 5.6 mg/dl (2.5-4.9); Sodium 134 mmol/L (136-145)
[2022-04-09] MEDS: PROPOFOL BOLUS FROM BAG IV PRN ×4 (03:01→22:32)
[2022-04-09 03:10] LABS: Basophils # (auto) 0.05 K/uL (0-0.2); Basophils % (auto) 0.3 %; Echinocytes 2+; Eosinophils # (auto) 0.04 K/uL (0-0.50); Eosinophils % (auto) 0.3 %; Hematocrit (blood only) 35.1 % (40.1-51.0); Immature Granulocytes # (auto) 0.24 K/uL (0.00-0.02); Immature Granulocytes % (auto) 1.6 %; Lymphocytes # (auto) 0.95 K/uL (1.2-3.4); Lymphocytes % (auto) 6.3 %; Mean Corpuscular Hemoglobin 31.4 pg (25.0-34.0); Mean Corpuscular Hgb Conc 34.2 g/dL (32.0-36.0); Mean Corpuscular Volume 91.9 fL (80.0-100.0); Mean Platelet Volume 10.8 fL (9.4-12.4); Monocytes # (auto) 0.72 K/uL (0.24-0.82); Monocytes % (auto) 4.8 %; Neutrophils # (auto) 13.08 K/uL (1.4-6.5); Neutrophils % (auto) 86.7 %; Platelet Count 103 K/uL (130-400); Platelet Estimate Normal (Normal); RDW Coefficient of Variation 13.9 % (11.5-14.5); RDW Standard Deviation 47.2 fL (36.4-46.3); Red Blood Count 3.82 M/uL (4.63-6.08); White Blood Count 15.08 K/ul (4.8-10.8)
[2022-04-09 03:17] LABS: INR 1.1 (0.9-1.1); Partial Thromboplastin Ratio 4.5; Prothrombin Time 11.7 Seconds (9.0-12.0)
[2022-04-09 03:30] LABS: Partial Thromboplastin Time 123.8 Seconds (21.0-31.0)
[2022-04-09 04:21] LABS: iSTAT Allen Test Pass; iSTAT Art Bld Gas pCO2 Correct 39 mmHg (35-46); iSTAT Art Bld Gas pH Corrected 7.411 (7.35-7.45); iSTAT Arterial Blood Gas HCO3 25 meg/L (19-24); iSTAT Arterial Blood Gas pCO2 40 mmHg (35-46); iSTAT Arterial Blood Gas pH 7.41 (7.35-7.45); iSTAT Arterial Blood Gas pO2 113 mmHg (80-95); iSTAT Arterial Blood Gas pO2 C 112; iSTAT Carbon Dioxide 26 mmol/L (24-31); iSTAT Hematocrit 32 % (42-52); iSTAT Hemoglobin 10.9 g/dl (14.0-18.0); iSTAT Potassium 3.9 mmol/L (3.3-5.0); iSTAT Site L Radial; iSTAT Sodium 132 mmol/L (135-144)
[2022-04-09] MEDS: NORMOSOL-R 1,000 ML IV SCH ×2 (04:30→17:32)
[2022-04-09] MEDS: AMIODARONE / D5W 360 MG/200 ML BAG IV SCH ×2 (05:35→18:16)
[2022-04-09] MEDS: AMPICILLIN/SULBACTAM SOD 3,000 MG in 0.9 % SODIUM CHLORIDE 100 ML IV SCH ×2 (06:13→17:32)
[2022-04-09] MEDS: ROSUVASTATIN CALCIUM 20 MG TAB PO SCH (07:56)
[2022-04-09] MEDS: FAMOTIDINE 20 MG in SYRINGE 3 ML IV SCH (07:57)
[2022-04-09] MEDS: DOCUSATE SODIUM SYRUP 100 MG/10 ML UDC PO SCH ×2 (07:59→20:25)
[2022-04-09 08:07] LABS: BUN Creatinine Ratio 14.7 (10-20); Creatinine Clr Calc Pharmacy 23.7 ml/min; Est GFR (African American) 19.7 ml/min; Potassium 3.9 mmol/L (3.5-5.1)
[2022-04-09] MEDS ORDERED: STAT IV STA (08:57)
[2022-04-09] MEDS ORDERED: MAGNESIUM SULFATE / D5W 1 GM/100 ML BAG IV ONE (08:57)
--- NOTE | 2022-04-09 08:57 | Critical Care Progress Note ---
Date of Service April 09, 2022 Assessment & Plan (1) Cardiac arrest: Plan: Reason Critically Ill: 77-year-old male with a past medical history of lung cancer status post resection (left upper lobe resection 3 years ago) presents to the ICU following cardiac arrest from presumed ventricular arrhythmia as he was shocked with AED x3 prior to EMS's arrival. Patient unresponsive following ROSC and cardiac cath did not show occlusion and no intervention. He is now mechanically ventilated and underwent 24-hour therapeutic hypothermia, currently rewarming. Neuro - Anoxic brain injurypatient unresponsive following ROSC. CT head without acute intracranial findings. On exam he appears to have decerebrate posturing and suspect significant anoxic injury. Per report approximate downtime without CPR was 5 minutes and an additional 20 minutes with CPR. Underwent shock x3 with AED. - Repeat EEG ordered for today. -Neurology following. -Holding all sedation at this time. Cardiac - Cardiac arrestno significant cardiac history. Underwent cardiac cathete rization but no occlusion found and no intervention required. -Highly suspect ventricular arrhythmia given sudden onset. -Continuous monitoring on telemetry -Patient currently on amiodarone and heparin infusion for atrial fibrillation. HTNhold antihypertensives for now Respiratory - -CT chest with nodular infiltrates consistent with possible aspiration pneumonitis/pneumonia. Continue empiric Unasyn. Anterior mediastinal hemorrhage noted. History of lung cancer. GI - We will likely start tube feeds. Low-dose famotidine renally. RENAL/LYTES - AKIworsening renal function likely due to ischemic ATN. Possible contrast nephropathy given cardiac catheterization earlier in the hospital stay. We will consult nephrology given his worsening REYNALDO. Urine output decreased, but remains adequate. Replacing electrolytes as indicated. We will obtain lactic acid to make sure it is clearing. We will check a CK as well as he was going up on the test. Possible rhabdomyolysis. Continue gentle hydration with Normosol at 75 cc/h. - BPHindwelling Mcmillan catheter inserted. -Strict I's and O's ENDO - No history of diabetes or thyroid disease. ICU hyperglycemic protocol HEME - H&H stable ID - Empiric ampicillin for possible aspiration. No evidence of active infectious process LINES/IV ACCESS - Central venous catheter DVT PROPHYLAXIS - SCDs I have personally spent 48 minutes of critical care time in the direct management of this patient. This is a life/limb threatening event. This includes time spent evaluating patient, direct bedside care, chart review, placing orders, interpretation of diagnostic studies, discussion with consultants, patient, and family members, as well as other required patient management activities. This time is exclusive of all separately billable procedures, and teaching time and separate from and in addition to any other critical care service time. (2) Anoxic brain injury: (3) BPH (benign prostatic hyperplasia): (4) Hypertension: (5) Hyperlipidemia: (6) Acute respiratory failure with hypoxia: (7) REYNALDO (acute kidney injury): Admission and Anticipated Discharge Date Admission Date: April 06, 2022 Subjective Patient seen and examined. Family is at bedside. Propofol was discontinued. Patient has a gag response upon suctioning. Patient was transitioned from SIMV off of propofol to his spontaneous breathing trial with pressure support at 10/5. He maintained respirations in the mid 20s and tidal volumes of 450 or so. He is nonresponsive to commands or painful stimuli. Review of Systems Review of Systems: Unobtainable due to cognitive status and Unobtainable due to endotracheal tube Physical Exam Physical Exam: Constitutional: Patient is intubated and unresponsive to commands. Eyes: Pupils are equal round and reactive to light. Conjunctivae are normal. Anicteric sclera. Ears nose, mouth and throat: Endotracheal tube in place. Neck: Trachea is midline. Visual inspection is normal. Respiratory: Clear to auscultation bilaterally. No use of accessory muscles. No significant clubbing noted. Cardiovascular: Regular rate and rhythm. No murmurs. No edema. Gastrointestinal: Normal bowel sounds, soft, nontender and nondistended. No hepatosplenomegaly noted. Musculoskeletal: Extremities intact. Skin: No rashes, warm dry and intact. Neurologic: Decerebrate posturing. No response to painful stimuli. Gag intact. Breathing over the ventilator. Downward going Babinski signs. Psychiatric: Unable to assess. Results & Data Results & Data ([facility]) Vital Signs (Past 12 Hours) Vital Signs Temp Pulse Resp BP Pulse Ox O2 Del Method FiO2 04/09/22 08:00 Mechanical Vent 0.5 04/09/22 08:00 50 04/09/22 08:02 82 23 94 50 04/09/22 07:36 105 H 30 H 94 50 04/09/22 06:01 91/59 L 04/09/22 06:01 36.5 C 83 30 H 98 04/09/22 06:00 36.6 C 83 30 H 99 04/09/22 05:01 98/76 L 04/09/22 05:01 37.0 C 84 30 H 98 04/09/22 05:00 37.0 C 84 30 H 98 04/09/22 04:00 36.8 C 84 30 H 97 04/09/22 04:00 87/53 L 04/09/22 03:00 36.9 C 92 H 27 H 96 04/09/22 03:00 100/60 04/09/22 02:00 37.0 C 97 H 25 H 94 04/09/22 02:00 96/74 L 04/09/22 01:01 106/85 04/09/22 01:01 37.1 C 90 23 94 04/09/22 01:00 37.1 C 90 24 94 04/09/22 04:00 50 04/09/22 04:15 84 30 H 97 50 04/09/22 00:02 37.1 C 94 H 24 93 04/09/22 00:02 115/68 04/09/22 00:00 37.1 C 95 H 24 92 04/08/22 23:01 116/90 04/08/22 23:01 37.1 C 98 H 26 H 93 04/08/22 23:00 37.1 C 99 H 25 H 93 04/09/22 00:00 Mechanical Vent 50 04/09/22 00:00 50 04/09/22 00:00 97 H 04/08/22 22:01 37.1 C 100 H 28 H 129/93 93 04/08/22 21:00 37.4 C 102 H 26 H 132/60 94 04/08/22 22:30 97 H 31 H 95 50 Coding Level of Care Code Critical Care 1st 30-74 mins Diagnoses Cardiac arrest I46.9 Anoxic brain injury G93.1 BPH (benign prostatic hyperplasia) N40.0 Hypertension I10 Hyperlipidemia E78.5 Acute respiratory failure with hypoxia J96.01 REYNALDO (acute kidney injury) N17.9 Time Spent (min) 49
--- NOTE | 2022-04-09 09:12 | Electroencephalogram ---
EEG Procedure Note Date of Service April 09, 2022 Start / End Times Start Time: 825 End Time: [address] Huang History 77-year-old with cardiac arrest and prolonged generalized cerebral anoxia with unresponsive state Home Medication List Medication Instructions Recorded Confirmed Type finasteride 5 mg tablet 5 mg PO DAILY 04/06/22 04/06/22 History losartan 100 1 tab PO DAILY 04/06/22 04/06/22 History mg-hydrochlorothiazide 25 mg tablet rosuvastatin 20 mg tablet 20 mg PO DAILY 04/06/22 04/06/22 History tadalafil 5 mg tablet 5 mg PO DAILY 04/06/22 04/06/22 History Inpatient Medication List Docusate Sodium (Docusate Sodium Syrup 100 Mg/10 Ml Udc) 100 mg PO BID [facility] Stop: 05/09/22 08:59 Last Admin: 04/09/22 07:59 Dose: 100 mg Documented By: DONELL Propofol (Diprivan) 1,000 mg in 100 mls @ 35.1 mls/hr IV .[id number] [facility]ATH[facility]; Protocol Stop: 04/09/22 19:29 Last Admin: 04/09/22 07:50 Dose: 50 mcg/kg/min, 35.1 mls/hr Documented By: DONELL Co-signed By: MICHAEL Titration: 04/09/22 07:21 Dose: 50 mcg/kg/min, 35.1 mls/hr Documented By: DONELL Co-signed By: MICHAEL Admin: 04/09/22 04:30 Dose: 50 mcg/kg/min, 35.1 mls/hr Documented By: BENITA Co-signed By: MONALISA Titration: 04/09/22 04:00 Dose: 50 mcg/kg/min, 35.1 mls/hr Documented By: BENITA Co-signed By: MONALISA Admin: 04/09/22 01:09 Dose: 50 mcg/kg/min, 35.1 mls/hr Documented By: BENITA Co-signed By: MONALISA Titration: 04/09/22 01:09 Dose: 50 mcg/kg/min, 35.1 mls/hr Documented By: BENITA Co-signed By: MONALISA Admin: 04/09/22 00:16 Dose: Not Given Documented By: Admin: 04/09/22 00:16 Dose: Not Given Documented By: Admin: 04/09/22 00:14 Dose: Not Given Documented By: Titration: 04/08/22 23:11 Dose: 50 mcg/kg/min, 35.1 mls/hr Documented By: MARIA M Co-signed By: BENITA Admin: 04/08/22 22:47 Dose: 50 mcg/kg/min, 35.1 mls/hr Documented By: MARIA M Co-signed By: VK Titration: 04/08/22 22:36 Dose: 50 mcg/kg/min, 35.1 mls/hr Documented By: MARIA M Co-signed By: VK Admin: 04/08/22 19:45 Dose: 50 mcg/kg/min, 35.1 mls/hr Documented By: MARIA M Co-signed By: ELS Titration: 04/08/22 19:45 Dose: 50 mcg/kg/min, 35.1 mls/hr Documented By: MARIA M Co-signed By: BENITA Admin: 04/08/22 17:08 Dose: 50 mcg/kg/min, 35.1 mls/hr Documented By: MARIA M Co-signed By: DAA Titration: 04/08/22 14:40 Dose: 50 mcg/kg/min, 35.1 mls/hr Documented By: MARIA M Co-signed By: DAA Admin: 04/08/22 11:49 Dose: 50 mcg/kg/min, 35.1 mls/hr Documented By: MARIA M Co-signed By: WRS Titration: 04/08/22 11:49 Dose: 50 mcg/kg/min, 35.1 mls/hr Documented By: MARIA M Co-signed By: WRS Admin: 04/08/22 10:29 Dose: 50 mcg/kg/min, 35.1 mls/hr Documented By: MARIA M Co-signed By: WRS Titration: 04/08/22 10:29 Dose: 50 mcg/kg/min, 35.1 mls/hr Documented By: MARIA M Co-signed By: WRS Admin: 04/08/22 07:43 Dose: 50 mcg/kg/min, 35.1 mls/hr Documented By: MARIA M Co-signed By: WRS Titration: 04/08/22 06:52 Dose: 50 mcg/kg/min, 35.1 mls/hr Documented By: CP Co-signed By: MARIA M Admin: 04/08/22 03:51 Dose: 50 mcg/kg/min, 35.1 mls/hr Documented By: CP Co-signed By: ELS Titration: 04/08/22 03:46 Dose: 50 mcg/kg/min, 35.1 mls/hr Documented By: CP Co-signed By: ELS Admin: 04/08/22 00:55 Dose: 50 mcg/kg/min, 35.1 mls/hr Documented By: CP Co-signed By: ELS Titration: 04/08/22 00:50 Dose: 50 mcg/kg/min, 35.1 mls/hr Documented By: CP Co-signed By: ELS Admin: 04/07/22 21:59 Dose: 50 mcg/kg/min, 35.1 mls/hr Documented By: CP Co-signed By: ELS Titration: 04/07/22 21:59 Dose: 50 mcg/kg/min, 35.1 mls/hr Documented By: CP Co-signed By: ELS Admin: 04/07/22 19:35 Dose: 50 mcg/kg/min, 35.1 mls/hr Documented By: ELS Co-signed By: CP Titration: 04/07/22 19:35 Dose: 50 mcg/kg/min, 35.1 mls/hr Documented By: ELS Co-signed By: CP Titration: 04/07/22 18:44 Dose: 50 mcg/kg/min, 35.1 mls/hr Documented By: MARIA M Co-signed By: CP Admin: 04/07/22 16:46 Dose: 50 mcg/kg/min, 35.1 mls/hr Documented By: MARIA M Co-signed By: CAM Titration: 04/07/22 15:43 Dose: 50 mcg/kg/min, 35.1 mls/hr Documented By: SARAHL Co-signed By: CAM Admin: 04/07/22 12:52 Dose: 50 mcg/kg/min, 35.1 mls/hr Documented By: MARIA M Co-signed By: WRS Titration: 04/07/22 12:46 Dose: 50 mcg/kg/min, 35.1 mls/hr Documented By: MARIA M Co-signed By: WRS Titration: 04/07/22 11:59 Dose: 50 mcg/kg/min, 35.1 mls/hr Documented By: MARIA M Titration: 04/07/22 11:21 Dose: 40 mcg/kg/min, 28.1 mls/hr Documented By: Titration: 04/07/22 10:28 Dose: 30 mcg/kg/min, 21.1 mls/hr Documented By: Admin: 04/07/22 09:10 Dose: 40 mcg/kg/min, 28.1 mls/hr Documented By: KJL Co-signed By: CAM Titration: 04/07/22 08:37 Dose: 40 mcg/kg/min, 28.1 mls/hr Documented By: KJL Co-signed By: CAM Titration: 04/07/22 07:03 Dose: 40 mcg/kg/min, 28.1 mls/hr Documented By: MARIA M Co-signed By: CP Admin: 04/07/22 05:03 Dose: 40 mcg/kg/min, 28.1 mls/hr Documented By: CP Co-signed By: ELS Titration: 04/07/22 04:16 Dose: 40 mcg/kg/min, 28.1 mls/hr Documented By: CP Co-signed By: ELS Titration: 04/07/22 03:42 Dose: 40 mcg/kg/min, 28.1 mls/hr Documented By: Titration: 04/07/22 03:18 Dose: 35 mcg/kg/min, 24.6 mls/hr Documented By: Titration: 04/07/22 03:12 Dose: 30 mcg/kg/min, 21.1 mls/hr Documented By: Titration: 04/07/22 02:00 Dose: 25 mcg/kg/min, 17.6 mls/hr Documented By: Titration: 04/06/22 23:18 Dose: 20 mcg/kg/min, 14 mls/hr Documented By: Titration: 04/06/22 23:00 Dose: 25 mcg/kg/min, 17.6 mls/hr Documented By: Titration: 04/06/22 22:55 Dose: 30 mcg/kg/min, 21.1 mls/hr Documented By: Titration: 04/06/22 22:50 Dose: 35 mcg/kg/min, 24.6 mls/hr Documented By: Admin: 04/06/22 22:41 Dose: 40 mcg/kg/min, 28.1 mls/hr Documented By: CP Co-signed By: ALEXIS Titration: 04/06/22 22:41 Dose: 40 mcg/kg/min, 28.1 mls/hr Documented By: CP Co-signed By: ALEXIS Titration: 04/06/22 22:00 Dose: 40 mcg/kg/min, 28.1 mls/hr Documented By: Titration: 04/06/22 21:50 Dose: 35 mcg/kg/min, 24.6 mls/hr Documented By: Titration: 04/06/22 21:45 Dose: 30 mcg/kg/min, 21.1 mls/hr Documented By: Titration: 04/06/22 21:40 Dose: 25 mcg/kg/min, 17.6 mls/hr Documented By: Admin: 04/06/22 21:32 Dose: 20 mcg/kg/min, 14 mls/hr Documented By: CP Co-signed By: BENITA Famotidine 20 mg/ Syringe 5 mls @ 2.5 mls/min IV BID [facility] Stop: 05/06/22 20:59 Last Admin: 04/09/22 07:57 Dose: 2.5 mls/min Documented By: Admin: 04/08/22 21:18 Dose: 2.5 mls/min Documented By: MARIA M Admin: 04/08/22 09:30 Dose: 2.5 mls/min Documented By: MARIA M Admin: 04/07/22 20:12 Dose: 2.5 mls/min Documented By: Admin: 04/07/22 08:33 Dose: 2.5 mls/min Documented By: MARIA M Admin: 04/07/22 01:36 Dose: 2.5 mls/min Documented By: LG Parenteral Electrolytes (Normosol-R) 1,000 mls @ 75 mls/hr IV .[id number] [facility] Stop: 05/06/22 21:44 Last Admin: 04/09/22 04:30 Dose: 75 mls/hr Documented By: Infusion: 04/09/22 01:09 Dose: 75 mls/hr Documented By: Admin: 04/08/22 11:49 Dose: 75 mls/hr Documented By: MARIA M Infusion: 04/08/22 11:49 Dose: 75 mls/hr Documented By: Admin: 04/07/22 23:30 Dose: 75 mls/hr Documented By: Infusion: 04/07/22 23:28 Dose: 75 mls/hr Documented By: Infusion: 04/07/22 15:34 Dose: 75 mls/hr Documented By: Admin: 04/07/22 12:51 Dose: 150 mls/hr Documented By: Infusion: 04/07/22 12:51 Dose: 150 mls/hr Documented By: Admin: 04/07/22 07:01 Dose: 150 mls/hr Documented By: Infusion: 04/07/22 07:01 Dose: 150 mls/hr Documented By: Infusion: 04/07/22 05:29 Dose: 150 mls/hr Documented By: Admin: 04/06/22 21:54 Dose: 100 mls/hr Documented By: LG Norepinephrine Bitartrate (Levophed/D5w) 4 mg in 250 mls @ 19.275 mls/hr IV .[id number] [facility]; Protocol Stop: 05/07/22 01:14 Last Titration: 04/08/22 23:11 Dose: 0 mcg/kg/min, 0 mls/hr Documented By: MARIA M Co-signed By: ELS Titration: 04/08/22 22:40 Dose: 0 mcg/kg/min, 0 mls/hr Documented By: Titration: 04/08/22 22:00 Dose: 0.03 mcg/kg/min, 11.6 mls/hr Documented By: Titration: 04/08/22 21:00 Dose: 0.05 mcg/kg/min, 19.3 mls/hr Documented By: Titration: 04/08/22 20:50 Dose: 0.07 mcg/kg/min, 27 mls/hr Documented By: Titration: 04/08/22 20:34 Dose: 0.09 mcg/kg/min, 34.7 mls/hr Documented By: Admin: 04/08/22 17:07 Dose: 0.11 mcg/kg/min, 42.4 mls/hr Documented By: MARIA M Co-signed By: DAA Titration: 04/08/22 17:07 Dose: 0.11 mcg/kg/min, 42.4 mls/hr Documented By: MARIA M Co-signed By: DAA Titration: 04/08/22 12:47 Dose: 0.11 mcg/kg/min, 42.4 mls/hr Documented By: Titration: 04/08/22 12:34 Dose: 0.09 mcg/kg/min, 34.7 mls/hr Documented By: Titration: 04/08/22 11:52 Dose: 0.07 mcg/kg/min, 27 mls/hr Documented By: Admin: 04/08/22 11:48 Dose: 0.09 mcg/kg/min, 34.7 mls/hr Documented By: MARIA M Co-signed By: WRS Titration: 04/08/22 11:18 Dose: 0.09 mcg/kg/min, 34.7 mls/hr Documented By: MARIA M Co-signed By: WRS Titration: 04/08/22 09:09 Dose: 0.09 mcg/kg/min, 34.7 mls/hr Documented By: Titration: 04/08/22 06:53 Dose: 0.11 mcg/kg/min, 42.4 mls/hr Documented By: CP Co-signed By: MARIA M Admin: 04/08/22 05:00 Dose: 0.11 mcg/kg/min, 42.4 mls/hr Documented By: CP Co-signed By: BENITA Titration: 04/08/22 05:00 Dose: 0.11 mcg/kg/min, 42.4 mls/hr Documented By: CP Co-signed By: ELS Admin: 04/07/22 23:11 Dose: 0.11 mcg/kg/min, 42.4 mls/hr Documented By: ELS Co-signed By: CP Titration: 04/07/22 23:11 Dose: 0.11 mcg/kg/min, 42.4 mls/hr Documented By: ELS Co-signed By: CP Titration: 04/07/22 22:30 Dose: 0.11 mcg/kg/min, 42.4 mls/hr Documented By: Titration: 04/07/22 21:15 Dose: 0.09 mcg/kg/min, 34.7 mls/hr Documented By: Titration: 04/07/22 18:43 Dose: 0.07 mcg/kg/min, 27 mls/hr Documented By: MARIA M Co-signed By: CP Titration: 04/07/22 18:26 Dose: 0.07 mcg/kg/min, 27 mls/hr Documented By: Admin: 04/07/22 18:03 Dose: 0.09 mcg/kg/min, 34.7 mls/hr Documented By: KJL Co-signed By: TMG Titration: 04/07/22 17:10 Dose: 0.09 mcg/kg/min, 34.7 mls/hr Documented By: SARAHL Co-signed By: TMG Titration: 04/07/22 16:11 Dose: 0.09 mcg/kg/min, 34.7 mls/hr Documented By: Titration: 04/07/22 15:30 Dose: 0.11 mcg/kg/min, 42.4 mls/hr Documented By: Titration: 04/07/22 15:00 Dose: 0.13 mcg/kg/min, 50.1 mls/hr Documented By: Titration: 04/07/22 12:53 Dose: 0.15 mcg/kg/min, 57.8 mls/hr Documented By: Admin: 04/07/22 12:05 Dose: 0.13 mcg/kg/min, 50.1 mls/hr Documented By: MARIA M Co-signed By: WRS Titration: 04/07/22 11:36 Dose: 0.13 mcg/kg/min, 50.1 mls/hr Documented By: MARIA M Co-signed By: WRS Titration: 04/07/22 09:34 Dose: 0.13 mcg/kg/min, 50.1 mls/hr Documented By: Titration: 04/07/22 07:03 Dose: 0.15 mcg/kg/min, 57.8 mls/hr Documented By: MARIA M Co-signed By: CP Admin: 04/07/22 07:00 Dose: 0.15 mcg/kg/min, 57.8 mls/hr Documented By: VK Co-signed By: ALN Titration: 04/07/22 07:00 Dose: 0.15 mcg/kg/min, 57.8 mls/hr Documented By: VK Co-signed By: ALN Titration: 04/07/22 04:10 Dose: 0.15 mcg/kg/min, 57.8 mls/hr Documented By: Titration: 04/07/22 04:00 Dose: 0.13 mcg/kg/min, 50.1 mls/hr Documented By: Titration: 04/07/22 03:40 Dose: 0.11 mcg/kg/min, 42.4 mls/hr Documented By: Titration: 04/07/22 03:35 Dose: 0.09 mcg/kg/min, 34.7 mls/hr Documented By: Titration: 04/07/22 03:30 Dose: 0.07 mcg/kg/min, 27 mls/hr Documented By: Admin: 04/07/22 01:43 Dose: 0.05 mcg/kg/min, 19.3 mls/hr Documented By: ELS Co-signed By: LG Heparin Sodium/Dextrose (Heparin Sodium/Dextrose) 25,000 units in 500 mls @ 13 mls/hr IV .Q24H [facility]; Protocol Stop: 05/07/22 07:29 Last Admin: 04/09/22 06:10 Dose: Not Given Documented By: Titration: 04/09/22 05:31 Dose: 650 units/hr, 13 mls/hr Documented By: BENITA Co-signed By: MONALISA Titration: 04/09/22 03:30 Dose: 0 units/hr, 0 mls/hr Documented By: BENITA Co-signed By: SG Admin: 04/09/22 00:13 Dose: Not Given Documented By: Titration: 04/08/22 23:11 Dose: 1,000 units/hr, 20 mls/hr Documented By: MARIA M Co-signed By: ELS Titration: 04/08/22 18:45 Dose: 1,000 units/hr, 20 mls/hr Documented By: MARIA M Co-signed By: DASabrina Admin: 04/08/22 17:07 Dose: 800 units/hr, 16 mls/hr Documented By: MARIA M Co-signed By: DAA Titration: 04/08/22 15:39 Dose: 800 units/hr, 16 mls/hr Documented By: MARIA M Co-signed By: DAA Titration: 04/08/22 10:29 Dose: 800 units/hr, 16 mls/hr Documented By: MARIA M Co-signed By: WRS Titration: 04/08/22 00:45 Dose: 0 units/hr, 0 mls/hr Documented By: LG Co-signed By: BENITA Titration: 04/07/22 18:43 Dose: 1,250 units/hr, 25 mls/hr Documented By: MARIA M Co-signed By: CP Titration: 04/07/22 16:46 Dose: 0 units/hr, 0 mls/hr Documented By: MARIA M Co-signed By: CAM Admin: 04/07/22 08:26 Dose: 1,600 units/hr, 32 mls/hr Documented By: MARIA M Co-signed By: CAM Amiodarone HCl/Dextrose (Nexterone / D5w) 360 mg in 200 mls @ 16.667 mls/hr IV .Q12H [facility] Stop: 05/07/22 18:14 Last Admin: 04/09/22 05:35 Dose: 0.5 mg/min, 16.7 mls/hr Documented By: BENITA Co-signed By: VK Infusion: 04/09/22 05:32 Dose: 0.5 mg/min, 16.7 mls/hr Documented By: BENITA Co-signed By: VK Admin: 04/08/22 17:33 Dose: 0.5 mg/min, 16.7 mls/hr Documented By: MARIA M Co-signed By: DAA Infusion: 04/08/22 16:58 Dose: 0.5 mg/min, 16.7 mls/hr Documented By: MARIA M Co-signed By: DAA Admin: 04/08/22 04:59 Dose: 0.5 mg/min, 16.7 mls/hr Documented By: LG Co-signed By: BENITA Infusion: 04/08/22 04:59 Dose: 0.5 mg/min, 16.7 mls/hr Documented By: LG Co-signed By: BENITA Admin: 04/07/22 19:38 Dose: 0.5 mg/min, 16.7 mls/hr Documented By: LG Co-signed By: BENITA Admin: 04/07/22 18:43 Dose: Not Given Documented By: MARIA M Insulin Aspart (Insulin Aspart Per Unit) 0 units SC Q6 [facility]ONATH[facility] Stop: 05/08/22 00:00 Last Admin: 04/09/22 06:45 Dose: Not Given Documented By: Admin: 04/09/22 00:14 Dose: Not Given Documented By: Admin: 04/08/22 18:18 Dose: Not Given Documented By: MARIA M Admin: 04/08/22 12:46 Dose: Not Given Documented By: MARIA M Admin: 04/08/22 06:01 Dose: Not Given Documented By: Admin: 04/08/22 00:17 Dose: Not Given Documented By: LG Co-signed By: BENITA Levalbuterol HCl (Levalbuterol Hcl 1.25 Mg/3 Ml Neb) 1.25 mg NEB Q4 PRN; Protocol PRN Reason: Shortness Of Breath Or Wheezing Stop: 05/08/22 07:25 Last Admin: 04/08/22 10:45 Dose: 1.25 mg Documented By: Admin: 04/08/22 07:36 Dose: 1.25 mg Documented By: MELO Polyethylene Glycol (Polyethylene (Miralax) 17 Gm Pack) 17 gm PO DAILY PRN PRN Reason: Constipation Stop: 05/08/22 23:39 Last Admin: 04/09/22 01:35 Dose: 17 gm Documented By: BENITA Propofol (Propofol Bolus From Bag) 20 mg IV Q5M PRN PRN Reason: Sedation Stop: 04/09/22 19:20 Last Admin: 04/09/22 03:01 Dose: 20 mg Documented By: BENITA Co-signed By: JOSE D Admin: 04/08/22 05:13 Dose: 20 mg Documented By: BENITA Co-signed By: LG Admin: 04/07/22 12:00 Dose: 20 mg Documented By: MARIA M Co-signed By: MICHAEL Admin: 04/07/22 03:42 Dose: 20 mg Documented By: BENITA Co-signed By: LG Rosuvastatin Calcium (Rosuvastatin Calcium 20 Mg Tab) 20 mg PO DAILY [facility] Stop: 05/07/22 08:59 Last Admin: 04/09/22 07:56 Dose: 20 mg Documented By: Admin: 04/08/22 09:30 Dose: 20 mg Documented By: MARIA M Admin: 04/07/22 08:29 Dose: 20 mg Documented By: MARIA M Discontinued Medications Amiodarone HCl/Dextrose (Amiodarone 150mg / 100ml D5w) Confirm Administered Dose 150 mg IV .STK-MED ONE Stop: 04/06/22 23:57 Last Admin: 04/07/22 00:06 Dose: Not Given Documented By: BENITA Amiodarone HCl/Dextrose (Amiodarone 360mg / 200ml D5w) Confirm Administered Dose 360 mg IV .STK-MED ONE Stop: 04/06/22 23:58 Last Admin: 04/07/22 00:06 Dose: Not Given Documented By: BENITA Buspirone HCl (Buspirone 15 Mg Tab) 60 mg NG ONCE PRN PRN Reason: For Shivering x 1 dose Stop: 05/06/22 19:20 Last Admin: 04/07/22 03:03 Dose: 60 mg Documented By: BENITA Fentanyl Citrate (Fentanyl Citrate 100 Mcg/2 Ml Vial) 50 mcg IV NOW STA Stop: 04/06/22 17:59 Last Admin: 04/06/22 21:24 Dose: Not Given Documented By: BENITA Fentanyl Citrate (Fentanyl Citrate 100 Mcg/2 Ml Vial) Confirm Administered Dose 100 mcg .ROUTE .STK-MED ONE Stop: 04/06/22 18:02 Last Admin: 04/06/22 21:25 Dose: Not Given Documented By: BENITA Fentanyl Citrate (Fentanyl Bolus From Bag) 50 mcg IV Q60M PRN PRN Reason: Pain or Agitation Stop: 04/20/22 19:20 Last Admin: 04/07/22 03:43 Dose: 50 mcg Documented By: BENITA Fentanyl Citrate (Fentanyl Citrate 2,500 Mcg/250 Ml Bag) Confirm Administered Dose 2,500 mcg IV .STK-MED ONE Stop: 04/06/22 19:50 Last Admin: 04/06/22 21:31 Dose: Not Given Documented By: BENITA Furosemide (Furosemide 40 Mg/4 Ml Vial) 40 mg IV ONE ONE Stop: 04/06/22 20:34 Last Admin: 04/06/22 21:43 Dose: Not Given Documented By: LG Heparin Sodium (Porcine) (Heparin (Porcine) 1000 Unit/Ml 10 Ml ([employer] Use Only)) Confirm Administered Dose 10,000 units .ROUTE .STK-MED ONE Stop: 04/06/22 18:01 Last Admin: 04/06/22 21:24 Dose: Not Given Documented By: BENITA Heparin Sodium (Porcine) (Heparin Sod (Porcine) 1000 Unit/Ml) 7,000 units IV ONE ONE Stop: 04/07/22 07:20 Last Admin: 04/07/22 08:25 Dose: 7,000 units Documented By: MARIA M Co-signed By: DONELL Heparin Sodium (Porcine) (Heparin Sod (Porcine) 1000 Unit/Ml) 4,000 units IV NOW ONE Stop: 04/08/22 18:47 Last Admin: 04/08/22 19:47 Dose: 4,000 units Documented By: MARIA M Co-signed By: BENITA Heparin Sodium/Dextrose (Heparin 11808 Unit/500 Ml D5w) Confirm Administered Dose 25,000 units IV .STK-MED ONE Stop: 04/06/22 20:34 Last Admin: 04/06/22 21:31 Dose: Not Given Documented By: BENITA Heparin Sodium/Sodium Chloride (Heparin In Nss Infusion 1000 Unit/500 Ml (2 U/Ml) Bag) Confirm Administered Dose 3,000 units IV .STK-MED ONE Stop: 04/06/22 18:02 Last Admin: 04/06/22 21:25 Dose: Not Given Documented By: BENITA Sodium Chloride (Nss 1000ml) 1,000 mls @ 125 mls/hr IV .Q8H [facility] Stop: 05/06/22 17:44 Last Admin: 04/06/22 20:53 Dose: Not Given Documented By: LG Piperacillin Sod/Tazobactam Sod (Zosyn) 4.5 gm in 120 mls @ 240 mls/hr IV NOW ONE Stop: 04/06/22 18:12 Last Admin: 04/06/22 21:24 Dose: Not Given Documented By: BENITA Fentanyl Citrate (Fentanyl Citrate) 2,500 mcg in 250 mls @ 12.5 mls/hr IV .Q20H [facility]; Protocol Stop: 04/20/22 19:29 Last Titration: 04/07/22 09:34 Dose: 0 mcg/hr, 0 mls/hr Documented By: MARIA M Co-signed By: DONELL Titration: 04/07/22 07:03 Dose: 125 mcg/hr, 12.5 mls/hr Documented By: MARIA M Co-signed By: LG Titration: 04/07/22 03:42 Dose: 125 mcg/hr, 12.5 mls/hr Documented By: BENITA Co-signed By: LG Titration: 04/06/22 23:16 Dose: 100 mcg/hr, 10 mls/hr Documented By: LG Co-signed By: BENITA Titration: 04/06/22 21:30 Dose: 75 mcg/hr, 7.5 mls/hr Documented By: LG Co-signed By: BENITA Titration: 04/06/22 20:30 Dose: 50 mcg/hr, 5 mls/hr Documented By: LG Co-signed By: BENITA Admin: 04/06/22 19:30 Dose: 25 mcg/hr, 2.5 mls/hr Documented By: LG Co-signed By: BENITA Potassium Chloride (K Ky / Wtr) 20 meq in 100 mls @ 50 mls/hr IV ONE ONE Stop: 04/06/22 21:35 Last Infusion: 04/06/22 23:23 Dose: 0 mls/hr Documented By: Admin: 04/06/22 21:27 Dose: 50 mls/hr Documented By: LG Magnesium Sulfate/Dextrose (Magnesium Sulfate / D5w) 1 gm in 100 mls @ 50 mls/hr IV ONE ONE Stop: 04/06/22 21:35 Last Infusion: 04/06/22 23:23 Dose: 0 mls/hr Documented By: Admin: 04/06/22 21:27 Dose: 50 mls/hr Documented By: LG Ampicillin Sodium/Sulbactam Sodium 3,000 mg/ Sodium Chloride 108 mls @ 200 mls/hr IV Q6H [facility]; Protocol Stop: 04/14/22 00:00 Last Infusion: 04/09/22 06:54 Dose: 0 mls/hr Documented By: Admin: 04/09/22 06:13 Dose: 200 mls/hr Documented By: Infusion: 04/09/22 00:14 Dose: 0 mls/hr Documented By: Admin: 04/08/22 23:23 Dose: 200 mls/hr Documented By: Infusion: 04/08/22 17:38 Dose: 0 mls/hr Documented By: MARIA M Admin: 04/08/22 17:05 Dose: 200 mls/hr Documented By: MARIA M Infusion: 04/08/22 12:31 Dose: 0 mls/hr Documented By: MARIA M Admin: 04/08/22 11:58 Dose: 200 mls/hr Documented By: MARIA M Infusion: 04/08/22 05:35 Dose: 0 mls/hr Documented By: Admin: 04/08/22 04:59 Dose: 200 mls/hr Documented By: Infusion: 04/08/22 00:47 Dose: 0 mls/hr Documented By: Admin: 04/08/22 00:02 Dose: 200 mls/hr Documented By: Infusion: 04/07/22 18:42 Dose: 0 mls/hr Documented By: MARIA M Admin: 04/07/22 18:09 Dose: 200 mls/hr Documented By: MARIA M Infusion: 04/07/22 12:39 Dose: 0 mls/hr Documented By: MARIA M Admin: 04/07/22 12:06 Dose: 200 mls/hr Documented By: MARIA M Infusion: 04/07/22 06:02 Dose: 0 mls/hr Documented By: Admin: 04/07/22 05:28 Dose: 200 mls/hr Documented By: Infusion: 04/07/22 00:52 Dose: 0 mls/hr Documented By: Admin: 04/07/22 00:05 Dose: 200 mls/hr Documented By: BENITA Heparin Sodium/Dextrose (Heparin Sodium/Dextrose) 25,000 units in 500 mls @ 34 mls/hr IV .[id number] YONATHAN; Protocol Stop: 05/06/22 20:44 Last Titration: 04/06/22 23:23 Dose: 0 units/hr, 0 mls/hr Documented By: LG Co-signed By: BENITA Admin: 04/06/22 21:27 Dose: 1,700 units/hr, 34 mls/hr Documented By: LG Co-signed By: BENITA Calcium Gluconate 2,000 mg/ (Dextrose) 70 mls @ 240 mls/hr IV NOW ONE Stop: 04/06/22 21:17 Last Infusion: 04/06/22 23:32 Dose: 0 mls/hr Documented By: Admin: 04/06/22 23:11 Dose: 240 mls/hr Documented By: BENITA Amiodarone HCl/Dextrose (Nexterone / D5w) 360 mg in 200 mls @ 33.333 mls/hr IV ONE ONE; Protocol Stop: 04/07/22 06:01 Last Infusion: 04/07/22 06:08 Dose: 0 mg/min, 0 mls/hr Documented By: MARIA M Co-signed By: DONELL Admin: 04/07/22 00:07 Dose: 1 mg/min, 33.3 mls/hr Documented By: BENITA Co-signed By: MONALISA Amiodarone HCl/Dextrose (Nexterone / D5w) 150 mg in 100 mls @ 600 mls/hr IV NOW STA Stop: 04/07/22 00:01 Last Infusion: 04/07/22 01:00 Dose: 0 mls/hr Documented By: LG Co-signed By: BENITA Admin: 04/07/22 00:06 Dose: 600 mls/hr Documented By: BENITA Co-signed By: MONALISA Amiodarone HCl/Dextrose (Nexterone / D5w) 360 mg in 200 mls @ 16.667 mls/hr IV .Q12H YONATHAN Stop: 05/08/22 05:59 Last Infusion: 04/07/22 19:37 Dose: 0 mg/min, 0 mls/hr Documented By: LG Co-signed By: BENITA Admin: 04/07/22 18:07 Dose: 0.5 mg/min, 16.7 mls/hr Documented By: MARIA M Co-signed By: TERESA Infusion: 04/07/22 17:31 Dose: 0.5 mg/min, 16.7 mls/hr Documented By: MARIA M Co-signed By: TERESA Admin: 04/07/22 05:32 Dose: 0.5 mg/min, 16.7 mls/hr Documented By: LG Co-signed By: BENITA Potassium Chloride (K Ky / Wtr) 20 meq in 100 mls @ 50 mls/hr IV Q2H YONATHAN Stop: 04/07/22 07:14 Last Infusion: 04/07/22 07:43 Dose: 0 mls/hr Documented By: MARIA M Admin: 04/07/22 05:32 Dose: 50 mls/hr Documented By: Infusion: 04/07/22 05:32 Dose: 50 mls/hr Documented By: Admin: 04/07/22 03:53 Dose: 50 mls/hr Documented By: LG Magnesium Sulfate/Dextrose (Magnesium Sulfate / D5w) 1 gm in 100 mls @ 50 mls/hr IV ONE ONE Stop: 04/07/22 05:14 Last Infusion: 04/07/22 05:33 Dose: 0 mls/hr Documented By: Admin: 04/07/22 03:33 Dose: 50 mls/hr Documented By: LG Potassium Chloride (K [place] / Wtr) 20 meq in 100 mls @ 50 mls/hr IV Q2H YONATHAN Stop: 04/08/22 22:59 Last Infusion: 04/09/22 00:16 Dose: 0 mls/hr Documented By: Admin: 04/08/22 21:13 Dose: 50 mls/hr Documented By: MARIA M Infusion: 04/08/22 21:13 Dose: 50 mls/hr Documented By: MARIA M Admin: 04/08/22 19:25 Dose: 50 mls/hr Documented By: MARIA M Infusion: 04/08/22 19:04 Dose: 50 mls/hr Documented By: MARIA M Admin: 04/08/22 17:04 Dose: 50 mls/hr Documented By: MARIA M Insulin Aspart (Insulin Aspart Per Unit) 0 units SC ACHS YONATHAN Stop: 04/07/22 21:15 Last Admin: 04/07/22 20:12 Dose: Not Given Documented By: LG Meperidine HCl (Meperidine Hcl 25 Mg/Ml Carp/Vial) 25 mg IV ONCE ONE Stop: 04/07/22 20:33 Last Admin: 04/07/22 21:19 Dose: Not Given Documented By: LG Meperidine HCl (Meperidine Hcl 25 Mg/Ml Carp/Vial) 25 mg IV Q2H PRN PRN Reason: Shivering Stop: 04/21/22 20:33 Last Admin: 04/08/22 02:37 Dose: 25 mg Documented By: Admin: 04/07/22 20:52 Dose: 25 mg Documented By: LG Metoprolol Tartrate (Metoprolol Tartrate 1 Mg/Ml Vial) 2.5 mg IV Q6 YONATHAN Stop: 05/07/22 05:59 Last Admin: 04/07/22 18:09 Dose: Not Given Documented By: MARIA M Admin: 04/07/22 12:52 Dose: Not Given Documented By: MARIA M Admin: 04/07/22 07:24 Dose: Not Given Documented By: MARIA M Metoprolol Tartrate (Metoprolol Tartrate 1 Mg/Ml Vial) 2.5 mg IV NOW STA Stop: 04/06/22 20:38 Last Admin: 04/06/22 21:43 Dose: Not Given Documented By: LG Midazolam HCl (Midazolam Hcl 1 Mg/Ml 2ml Vial) Confirm Administered Dose 2 mg .ROUTE .STK-MED ONE Stop: 04/06/22 18:01 Last Admin: 04/06/22 21:25 Dose: Not Given Documented By: BENITA Miscellaneous (Rapid Sequence Induction Bag) Confirm Administered Dose 1 each .ROUTE .STK-MED ONE Stop: 04/06/22 17:10 Last Admin: 04/06/22 21:24 Dose: Not Given Documented By: BENITA Nicardipine HCl (Nicardipine Hcl Inj 2.5 Mg/Ml 10 Ml Amp) Confirm Administered Dose 25 mg .ROUTE .STK-MED ONE Stop: 04/06/22 18:01 Last Admin: 04/06/22 21:25 Dose: Not Given Documented By: BENITA Nitroglycerin/Dextrose (Nitroglycerin/D5w 100mcg/Ml 20ml Syr) Confirm Administered Dose 2,000 mcg .ROUTE .STK-MED ONE Stop: 04/06/22 18:02 Last Admin: 04/06/22 21:27 Dose: Not Given Documented By: BENITA Norepinephrine Bitartrate (Norepinephrine/D5w 4 Mg/250 Ml) Confirm Administered Dose 4 mg IV .STK-MED ONE Stop: 04/06/22 17:10 Last Admin: 04/06/22 21:24 Dose: Not Given Documented By: BENITA Norepinephrine Bitartrate (Norepinephrine/D5w 4 Mg/250 Ml) Confirm Administered Dose 4 mg IV .STK-MED ONE Stop: 04/07/22 01:14 Last Admin: 04/07/22 01:43 Dose: Not Given Documented By: BENITA Phenylephrine HCl (Phenylephrine Hcl Inj 10 Mg/Ml Vial (Life Science Technical Officer Use Only)) Confirm Administered Dose 10 mg .ROUTE .STK-MED ONE Stop: 04/06/22 18:46 Last Admin: 04/06/22 21:27 Dose: Not Given Documented By: BENITA Potassium Chloride (Potassium Chloride 20 Meq/15 Ml Udc) 40 meq PO NOW STA Stop: 04/06/22 21:51 Last Admin: 04/06/22 21:57 Dose: 40 meq Documented By: BENITA Propofol (Propofol Iv Emulsion 10 Mg/Ml 100 Ml Vial) Confirm Administered Dose 1,000 mg IV .STK-MED ONE Stop: 04/06/22 19:50 Last Admin: 04/06/22 21:31 Dose: Not Given Documented By: BENITA Rocuronium Marshall (Rocuronium Marshall 10 Mg/Ml 5 Ml Vial) 10 mg IV ONE ONE Stop: 04/08/22 13:31 Last Admin: 04/08/22 17:04 Dose: 10 mg Documented By: MARIA M Co-signed By: MICHAEL Sodium Bicarbonate (Sodium Bicarb 8.4% Inj 50 Meq/50 Ml Syr) Confirm Administered Dose 50 meq IV .STK-MED ONE Stop: 04/06/22 23:08 Last Admin: 04/06/22 23:29 Dose: Not Given Documented By: BENITA Sodium Bicarbonate (Sodium Bicarb 8.4% Inj 50 Meq/50 Ml Syr) 50 meq IV NOW STA Stop: 04/06/22 23:24 Last Admin: 04/06/22 23:30 Dose: 50 meq Documented By: BENITA Vecuronium Marshall (Vecuronium Marshall 10 Mg Vial) Confirm Administered Dose 10 mg IV .STK-MED ONE Stop: 04/06/22 23:36 Last Admin: 04/07/22 00:05 Dose: Not Given Documented By: BENITA Vecuronium Marshall (Vecuronium Marshall 10 Mg Vial) 10 mg IV NOW STA Stop: 04/06/22 23:36 Last Admin: 04/07/22 00:05 Dose: 10 mg Documented By: BENITA Co-signed By: VK Description This is a 21 electrode EEG with a single channel dedicated to limited EKG. The electrodes were placed in accordance with the International 10-20 system. Interpretation The predominant background activity consists of an irregular 5 hertz activity of up to 40 microvolts in amplitude, seen in all head regions both proximally distally bilaterally symmetrically. There were occasional higher amplitude waveforms but not to any consistent degree. There were no sharp waves or potentially epileptogenic discharges. Unlike the EEG of April 08, there was no burst suppression activity noted. Photic stimulation was performed and elicited no change in the background activity and no abnormal responses were seen. Hyperventilation was not performed. A moderate amount of muscle and mild amount movement artifact activity contaminated the recording, hindering interpretation from time to time the frontal temporal head regions. The sensor technician stimulated each limb separately with the pain and then gave a loud clapping / shouting and there was no change in the background activity with any of these alerting procedures. No focal abnormalities or potentially epileptogenic discharges were seen throughout this recording. In summary, this EEG was abnormal and showed a moderate generalized neuro Osiel dysfunction of a nonspecific nature. No focal abnormalities or potentially epileptogenic discharges were seen. Clinical Correlation The abscence of potentially epileptogenic activity does not exclude a seizure disorder, since interictally, EEGs can be normal. The moderate slowing is consistent with a moderate encephalopathy which could be due to wide variety of causes including hypoxic and ischemic. [facility] EEG Procedure Codes Indication for Procedure (1) Unresponsive state: (2) Cardiac arrest: (3) Anoxic brain injury: Neurology Neurology: 27350 EEG Cerebral Eval only
[2022-04-09] MEDS ORDERED: CALCIUM GLUCONATE 10% 1,000 MG in DEXTROSE 5% 50 ML IV ONE (09:15)
--- NOTE | 2022-04-09 09:44 | Nephrology Consultation ---
Date of Consultation April 09, 2022 Assessment & Plan (1) REYNALDO (acute kidney injury): * Clinical course and POC discussed w/ Neurology and ICU team this morning * REYNALDO likely ATN due to multiple factors including ARB therapy, prolonged CPR, IV contrast administration, hypotension, low grade rhabdomyolysis. Urine sediment does reveal 5 - 10 granular casts/hpf * Patient is 9.7 L volume + but remains nonoliguric. SaO2 is 94% on 50% FiO2 * Continue gentle hydration w/ Normosol at 75 cc/hr * Keep MAP > 65 * Monitor PRP * No acute indication for DIRECTOR RETIREMENT at this time. Will monitor (2) Cardiac arrest: * 04/06/22 cardiac catheterization - no ASCVD (3) Anoxic brain injury: * Neurology reports mild improvement in EEG this am. Will reassess over next 72 hours (4) Atrial fibrillation with rapid ventricular response: * On amiodarone gtt (5) Aspiration pneumonia: * On IV Unasyn History of Present Illness Reason for Consultation: REYNALDO/CKD Attending Physician: Jose Chang MD History of Present Illness Mr. Keene is a 77 year old white male who is seen at the request of Dr. Sim for evaluation of REYNALDO. Medical records in the EMR were reviewed today and are summarized as follows: Mr. Keene has a known h/o HTN, prior tobacco use, lung CA s/p pneumonectomy, and BPH. He had been on losartan-HCTZ for BP management and has no prior h/o ASCVD. Mr. Keene resides in [facility] and traveled to [place] to attend the football game. Following the game he suffered a witnessed arrest. EMR shows that 5 min elapsed w/ no CPR. 20 min CPR were then provided. AED was applied and 3 shocks performed. EMS provided bicarbonate and epinephrine. ROSC was obtained and Mr. Keene was transported to [facility] for ongoing medical management. Baseline Cr 04/06/22 was 1.3 w/ EGFR 53 cc/min. Cardiac catheterization revealed patent coronary arteries. LE doppler was negative for DVT. Head CT and MRI were negative for acute ischemic CVA. EEG however has been concerning for significant ischemic injury. Initially Mr. Keene was admitted to the ICU and placed on sedation and hypothermia protocol. SBP has been 90 - 100 mm Hg. Cr has risen to 3.33 but patient remains nonoliguric. Sedation has been withdrawn and hypothermia reversed. Repeat EEG w/ mild improvement but patient remains unresponsive. ICU team has requested Nephrology consultation to assist w/ volume management, electrolyte management and initiation of HD if needed. Allergies Allergy/AdvReac Type Severity Reaction Status Date / Time ibuprofen Allergy Severe Anaphylaxis Verified 04/06/22 18:00 Home Medications Medication Instructions Recorded Confirmed Type finasteride 5 mg tablet 5 mg PO DAILY 04/06/22 04/06/22 History losartan 100 1 tab PO DAILY 04/06/22 04/06/22 History mg-hydrochlorothiazide 25 mg tablet rosuvastatin 20 mg tablet 20 mg PO DAILY 04/06/22 04/06/22 History tadalafil 5 mg tablet 5 mg PO DAILY 04/06/22 04/06/22 History Patient History Medical History BPH (benign prostatic hyperplasia) Hyperlipidemia Hypertension Lung cancer S/p upper lobectomy Social History Smoking Status: Never smoker Hx Alcohol Use: Yes Alcohol type: wine Hx Substance Use: No Preferred Language: Maltese Communication Ability: Effective Solutions Architect Consultant Required: No Beliefs That Will Affect Care: None Current Living Situation: Spouse Other Information That Helps Us Care for You: No Feels Safe at Home: Yes Safety Concerns: Feels Safe At This Time Assistive Devices: Glasses Review of Systems Review of Systems: Unobtainable due to cognitive status Physical Exam Constitutional: + ill appearing (on mechanical ventilation) ENMT: orotracheal intubation Neck: trachea midline, no thyromegaly Respiratory: coarse BS bilaterally Cardiovascular: Rate/Rhythm: regular rate and regular rhythm Extremities: no edema Gastrointestinal (Abdomen): Inspection/Auscultation: abdomen normal to inspection and + hypoactive bowel sounds Results & Data ([facility]) Vital Signs (Past 12 Hours) Vital Signs Temp Pulse Resp BP Pulse Ox O2 Del Method FiO2 04/09/22 08:00 Mechanical Vent 0.5 04/09/22 08:00 50 04/09/22 08:02 82 23 94 50 04/09/22 07:36 105 H 30 H 94 50 04/09/22 06:01 91/59 L 04/09/22 06:01 36.5 C 83 30 H 98 04/09/22 06:00 36.6 C 83 30 H 99 04/09/22 05:01 98/76 L 04/09/22 05:01 37.0 C 84 30 H 98 04/09/22 05:00 37.0 C 84 30 H 98 04/09/22 04:00 36.8 C 84 30 H 97 04/09/22 04:00 87/53 L 04/09/22 03:00 36.9 C 92 H 27 H 96 04/09/22 03:00 100/60 04/09/22 02:00 37.0 C 97 H 25 H 94 04/09/22 02:00 96/74 L 04/09/22 01:01 106/85 04/09/22 01:01 37.1 C 90 23 94 04/09/22 01:00 37.1 C 90 24 94 04/09/22 04:00 50 04/09/22 04:15 84 30 H 97 50 04/09/22 00:02 37.1 C 94 H 24 93 04/09/22 00:02 115/68 04/09/22 00:00 37.1 C 95 H 24 92 04/08/22 23:01 116/90 04/08/22 23:01 37.1 C 98 H 26 H 93 04/08/22 23:00 37.1 C 99 H 25 H 93 04/09/22 00:00 Mechanical Vent 50 04/09/22 00:00 50 04/09/22 00:00 97 H 04/08/22 22:01 37.1 C 100 H 28 H 129/93 93 04/08/22 22:30 97 H 31 H 95 50 Laboratory Results Laboratory Tests 04/06/22 04/06/22 04/09/22 17:07 Unknown 01:57 WBC 15.08 H Hgb 12.0 L Hct 35.1 L Plt Count 103 L Sodium Potassium Chloride Carbon Dioxide BUN Creatinine 1.30 Glucose Urine Color Yellow Urine Appearance Cloudy A Urine pH 6.5 Ur Specific Brady 1.026 Urine Protein 4+ H Urine Blood 3+ H Urine WBC (Auto) >30 H Urine RBC (Auto) >30 H U Hyaline Cast (Auto) 5-10 H Urine Bacteria (Auto) 2+ H Granular Casts 5-10 H Urine Yeast Present A 04/09/22 06:49 WBC Hgb Hct Plt Count Sodium 135 L Potassium 3.9 Chloride 97 L Carbon Dioxide 26 BUN 49 H Creatinine 3.33 H Glucose 70 Urine Color Urine Appearance Urine pH Ur Specific Brady Urine Protein Urine Blood Urine WBC (Auto) Urine RBC (Auto) U Hyaline Cast (Auto) Urine Bacteria (Auto) Granular Casts Urine Yeast Laboratory Tests 04/09/22 09:39 Total Creatine Kinase 2173 H Diagnostic Findings Chest CT: Postoperative findings within the left hemithorax. Extensive left infrahilar and basilar consolidation suggestive of pneumonia. Additional airspace opacities within the lungs are also likely infectious. Aspiration pneumonia is also within the differential. 04/07/[address]: 1. No bowel obstruction. No bowel wall thickening. Colonic diverticulosis without evidence for acute diverticulitis. 2. No pneumatosis, free air or portal venous gas. 3. Multiple findings within the chest, including suspected left lung pneumonia, small amount of anterior mediastinal hemorrhage and acute bilateral rib fractures. These findings are better depicted on the chest CT which will be reported separately. 4. Several indeterminate left renal lesions. These could reflect hyperdense cysts or solid renal lesions. 04/08/22 Brain MRI: 1. No acute intracranial abnormality. No acute or subacute infarct. 2. Mild to moderate chronic microvascular ischemic disease. PG Care Time/CCT Total # of Minutes Spent Total Time Spent with Patient: Total time spent is greater than 50% in coordination of care (as documented) at patient's floor/unit and/or counseling patient: Coding Level of Care Code 73276 Inpt Consult Level 5 Diagnoses REYNALDO (acute kidney injury) N17.9 Cardiac arrest I46.9 Anoxic brain injury G93.1 Atrial fibrillation with rapid ventricular response I48.91 Aspiration pneumonia J69.0
[2022-04-09 10:14] LABS: iSTAT Allen Test Pass; iSTAT Art Bld Gas pCO2 Correct 42 mmHg (35-46); iSTAT Art Bld Gas pH Corrected 7.367 (7.35-7.45); iSTAT Arterial Blood Gas HCO3 24 meg/L (19-24); iSTAT Arterial Blood Gas pCO2 42 mmHg (35-46); iSTAT Arterial Blood Gas pH 7.36 (7.35-7.45); iSTAT Arterial Blood Gas pO2 78 mmHg (80-95); iSTAT Arterial Blood Gas pO2 C 77; iSTAT Carbon Dioxide 25 mmol/L (24-31); iSTAT FiO2 50 %; iSTAT Hematocrit 33 % (42-52); iSTAT Hemoglobin 11.2 g/dl (14.0-18.0); iSTAT Potassium 3.8 mmol/L (3.3-5.0); iSTAT Site L Radial; iSTAT Sodium 134 mmol/L (135-144)
[2022-04-09 10:30] LABS: Partial Thromboplastin Ratio 1.9
[2022-04-09 10:39] LABS: Albumin Level 3.2 gm/dl (3.4-5.0); Bilirubin Direct 0.5 mg/dl (0-0.2); Bilirubin,Total 1.2 mg/dl (0.2-1.0); Total Protein 5.6 gm/dl (6.0-8.3)
--- NOTE | 2022-04-09 10:46 | Neurology Progress Note ---
Date of Service April 09, 2022 Assessment & Plan (1) Unresponsive state: (2) Cardiac arrest: (3) Anoxic brain injury: Plan The patient is in an unresponsive state post cardiac arrest with generalized anoxic brain injury on April 07. Clinically, he has some evidence of some brainstem and spinal cord reflexes and reactivity but no obvious higher cortical function at this time. His EEG today showed better cortical rhythms then yesterday but he still has moderate en cephalopathy of a generalized nature. There were no focal abnormalities or potentially Epileptogenic discharges seen. Overall, his prognosis is poor neurologically, but he is slightly improved from yesterday. MRI of the brain did not show any obvious cortical damage. He does have [id number] old small vessel ischemic disease (history of hypertension former cigarette smoker). Recommendations: 1. I will follow and do another examination neurologically tomorrow. 2.I do not believe he needs another EEG at this time Overall, I spent a total of 60 minutes with this case including review of records, review of MRI films, direct evaluation the patient at bedside, and discussion of the case with the patient's and children at bedside. I have also discussed this case with the RN at bedside, and Dr. Sim, including differential diagnosis and treatment options. Admission and Anticipated Discharge Date Admission Date: April 06, 2022 Subjective Patient had an MRI of the brain April 08 which showed some mild generalized atrophy and [id number] old small vessel ischemic disease. There was no cortical or generalized changes consistent with hypoxia or stroke. EEG today showed an irregular 5 hertz activity of higher amplitude and better rhythm than yesterday. He is off pressors his blood pressure is 91/50. He is off propofol. He is afebrile with a normal pulse. He is breathing over the ventilator. Nursing reports no seizure activity or New events. he has renal failure, likely from hypoxic kidneys. He has elevated liver enzymes and low calcium. Phosphorus is. CK is elevated 2170 Results & Data ([facility]) Vital Signs (Past 12 Hours) Vital Signs Temp Pulse Resp BP Pulse Ox O2 Del Method FiO2 04/09/22 08:00 Mechanical Vent 0.5 04/09/22 08:00 50 04/09/22 08:02 82 23 94 50 04/09/22 07:36 105 H 30 H 94 50 04/09/22 06:01 91/59 L 04/09/22 06:01 36.5 C 83 30 H 98 04/09/22 06:00 36.6 C 83 30 H 99 04/09/22 05:01 98/76 L 04/09/22 05:01 37.0 C 84 30 H 98 04/09/22 05:00 37.0 C 84 30 H 98 04/09/22 04:00 36.8 C 84 30 H 97 04/09/22 04:00 87/53 L 04/09/22 03:00 36.9 C 92 H 27 H 96 04/09/22 03:00 100/60 04/09/22 02:00 37.0 C 97 H 25 H 94 04/09/22 02:00 96/74 L 04/09/22 01:01 106/85 04/09/22 01:01 37.1 C 90 23 94 04/09/22 01:00 37.1 C 90 24 94 04/09/22 04:00 50 04/09/22 04:15 84 30 H 97 50 04/09/22 00:02 37.1 C 94 H 24 93 04/09/22 00:02 115/68 04/09/22 00:00 37.1 C 95 H 24 92 04/08/22 23:01 116/90 04/08/22 23:01 37.1 C 98 H 26 H 93 04/08/22 23:00 37.1 C 99 H 25 H 93 04/09/22 00:00 Mechanical Vent 50 04/09/22 00:00 50 04/09/22 00:00 97 H Exam (Neuro) Physical Exam: he is lying still with no spontaneous movement. Eyes are closed. He has no response to shout or clap. He is breathing on his own at a rate of approximately 25. He has deep regular breaths. Cardiac rhythm is regular. Eyes opened passively. Eyes are from. With passive head movement ( neck is supple in all directions ) he has some slight movement of his eyes bilaterally (partial oculocephalics). Pupils are 2-3 mm bilaterally and reactive to light. He has positive corneal reflex on the left but not the right. He has a positive gag on the left but not the right and he has no cough with deep suctioning. He has decreased tone in the left arm and leg to a moderate degree. He has mild decreased tone on the right arm and leg. He has some very mild decerebration posturing of the right upper extremity with deep pain. He has no significant response with deep pain in the left upper extremity. There is some mild withdrawal with deep pain in both legs. Reflexes are 1/4 in the biceps, triceps, and quadriceps tendons bilaterally. Brachioradialis and Achilles tendon reflexes are absent bilaterally. He has downgoing toes with plantar stimulation on the left and neutral with plantar stimulation on the right. PG Care Time/CCT Total # of Minutes Spent Total Time Spent with Patient: Total time spent is greater than 50% in coordination of care (as documented) at patient's floor/unit and/or counseling patient: Coding Level of Care Code 76393 Subseq Hosp Care Lvl 3 Diagnoses Unresponsive state R41.89 Cardiac arrest I46.9 Anoxic brain injury G93.1 Time Spent (min) 60
[2022-04-09] MEDS ORDERED: NOVASOURCE RENAL 2.0 CAL 1000ML BAG OG SCH (11:00)
--- NOTE | 2022-04-09 14:18 | Palliative Care Consultation ---
Date of Consultation April 09, 2022 Assessment & Plan (1) Anoxic brain injury: No seizure activity (2) Palliative care encounter: I met with Mrs. Keene, her son and daughter to discuss goals of care. They tell me that Donny retired from a career in [employer] and has been very active since [facility]. "He's always doing something" He has an advance directive. 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 They feel that he would not want to live in a alf or be a burden to his family. It would be very difficulty for him to be dependent for care and not active as he had been before. They are weighing options for artificial feeding, dialysis and withdrawing care. They have been talking with Dr. Santacruz and understand that prognosis is not good but are hopeful that he may show some improvement in the next day or two. At their request, we talked about what withdrawing care would look like and what to expect. They would prefer watchful waiting for the next day or two to see if there is some improvement. Palliative care will follow. History of Present Illness Reason for Consultation: goals of care Requesting Physician: Dr. Sim Attending Physician: Jose Chang MD History of Present Illness 77 yo gentleman who had sudden cardiac arrest related to ventricular arrhythmia on Saturday. He received CPR and was transferred to hospital. He was estimated to be down for approximately 5 minutes. On admission he had 24 hour hypothermia protocol and has been rewarmed for two days. He is being followed by Dr. Santacruz and had an initial EEG which indicated generalized brain injury but was still on propofol at the time. He is now off propofol and repeat EEG shows some improvement but still indicates moderate encephalopathy. He does have gag and corneal reflexes and pupils are reactive but he remains unresponsive. He is on ventilator support but has spontaneous respirations. He unfortunately also has progressive REYNALDO with creatinine trending up to 3.3 today. Allergies Allergy/AdvReac Type Severity Reaction Status Date / Time ibuprofen Allergy Severe Anaphylaxis Verified 04/06/22 18:00 Home Medications Medication Instructions Recorded Confirmed Type finasteride 5 mg tablet 5 mg PO DAILY 04/06/22 04/06/22 History losartan 100 1 tab PO DAILY 04/06/22 04/06/22 History mg-hydrochlorothiazide 25 mg tablet rosuvastatin 20 mg tablet 20 mg PO DAILY 04/06/22 04/06/22 History tadalafil 5 mg tablet 5 mg PO DAILY 04/06/22 04/06/22 History Patient History Medical History BPH (benign prostatic hyperplasia) Hyperlipidemia Hypertension Lung cancer S/p upper lobectomy Social History Smoking Status: Never smoker Hx Alcohol Use: Yes Alcohol type: wine Hx Substance Use: No Preferred Language: Yakut Communication Ability: Unable Motor Coach Driver Required: No Beliefs That Will Affect Care: None marital status: Current Living Situation: Spouse Other Information That Helps Us Care for You: No Feels Safe at Home: Yes Safety Concerns: Feels Safe At This Time Assistive Devices: Glasses Review of Systems Review of Systems: Unobtainable due to endotracheal tube and Unobtainable due to reduced consciousness ESAS Physical Exam Constitutional: + mechanically ventilated Cardiovascular: Rate/Rhythm: + irregularly irregular Musculoskeletal: Extremities: extremities normal to inspection Results & Data ([facility]) Vital Signs (Past 12 Hours) Vital Signs Temp Pulse Resp BP Pulse Ox O2 Del Method FiO2 04/09/22 13:00 98.6 F 90 29 H 90 04/09/22 13:00 166/105 H 04/09/22 12:00 98.8 F 82 24 92 Mechanical Vent 0.5 04/09/22 12:00 130/75 04/09/22 11:08 166/81 H 04/09/22 11:08 98.8 F 84 16 90 04/09/22 11:00 98.6 F 90 28 H 92 04/09/22 10:00 82 24 94 04/09/22 09:02 153/69 H 04/09/22 09:02 98.8 F 86 26 H 94 04/09/22 09:00 98.8 F 85 25 H 94 04/09/22 08:01 98.6 F 83 30 H 91 Mechanical Vent 0.5 04/09/22 08:01 106/70 04/09/22 08:00 98.6 F 75 29 H 90 04/09/22 07:00 98.1 F 84 30 H 97 04/09/22 07:00 101/55 L 04/09/22 12:00 50 09/12/22 11:24 90 30 H 95 50 09/12/22 08:00 Mechanical Vent 0.5 04/09/22 08:00 50 04/09/22 08:02 82 23 94 50 04/09/22 07:36 105 H 30 H 94 50 04/09/22 06:01 91/59 L 04/09/22 06:01 97.7 F 83 30 H 98 04/09/22 06:00 97.9 F 83 30 H 99 04/09/22 05:01 98/76 L 04/09/22 05:01 98.6 F 84 30 H 98 04/09/22 05:00 98.6 F 84 30 H 98 04/09/22 04:00 98.2 F 84 30 H 97 04/09/22 04:00 87/53 L 04/09/22 03:00 98.4 F 92 H 27 H 96 04/09/22 03:00 100/60 04/09/22 04:00 50 04/09/22 04:15 84 30 H 97 50 PG Care Time/CCT Total # of Minutes Spent Total Time Spent: 63 Total Time Spent with Patient: Total time spent is greater than 50% in coordination of care (as documented) at patient's floor/unit and/or counseling patient:goals of care, family education and support Coding Level of Care Code 35230 Initial Inpt Care Lvl 2 Diagnoses Anoxic brain injury G93.1 Palliative care encounter Z51.5
--- NOTE | 2022-04-09 15:05 | Cardiology Progress Note ---
Date of Service April 09, 2022 Assessment & Plan (1) Cardiac arrest: (2) Atrial fibrillation with rapid ventricular response: (3) REYNALDO (acute kidney injury): (4) Anoxic brain injury: Plan: 77-year-old male (1) Cardiac arrest: As noted, no coronary culprit on emergent cardiac catheterization performed on presentation 04/06/2022. Presenting EKG with evidence of frequent ventricular ectopy, ventricular tachycardia, possibly atrial fibrillation, however remains in sinus on amiodarone infusion. As noted by other providers, pulmonary embolism certainly a consideration. Transthoracic echocardiogram 04/07/2022 and on some views the right ventricle appears to be dilated to a mild to moderate degree, with a least moderate tricuspid regurgitation. Is difficult to ascertain if this is a chronic situation given his underlying lung disease, or acute. He is on empiric heparin. CT angiogram not performed due to acute kidney injury. (2) Atrial fibrillation with rapid ventricular response: -Whether not he had atrial fibrillation is difficult to determine due to the frequent ventricular ectopy noted at the time of presentation -Continue heparin and amiodarone for now, no recurrence. (3) REYNALDO (acute kidney injury): -creatinine up to 3.33, likely due to hypotension related ATN, contrast exposure. -Continue supportive care (4) Anoxic brain injury: -Concern for underlying anoxic brain injury. -Continue supportive care. Code Status : DNR. Admission and Anticipated Discharge Date Admission Date: April 06, 2022 Subjective Patient seen in cardiology follow-up. He remains on pressure support on the ventilator. Gag reflex maintained. IV infusions have been discontinued with the exception of ongoing unfractionated heparin and amiodarone infusion. He is no longer on norepinephrine. Blood pressure at the time of my assessment was 145/65. Telemetry reveals sinus rhythm in the 90s without arrhythmia. Review of Systems Review of Systems: Unobtainable due to reduced consciousness Physical Exam Physical Exam: Temp Pulse Resp BP Pulse Ox O2 Del Method FiO2 37.0 C 90 29 H 166/105 H 90 0.5 04/09/22 13:00 04/09/22 13:00 04/09/22 13:00 04/09/22 13:00 04/09/22 13:00 04/09/22 12:00 04/09/22 12:00 Constitutional: Unresponsive Respiratory: Lungs clear, remains on the ventilator Cardiovascular: RRR, no murmur, no edema Gastrointestinal (Abdomen): normal bowel sounds, soft, nontender, no hepatosplenomegaly Neurologic: Decerebrate posturing observed. Gag reflex intact. Does not respond to voice or pain stimuli. Genitourinary: Mcmillan catheter in place draining clear yellow urine
[2022-04-09 15:08] LABS: Partial Thromboplastin Ratio 1.5; Partial Thromboplastin Time 41.7 Seconds (21.0-31.0)
[2022-04-09] MEDS ORDERED: STAT IV Infusion **Titration per Protocol STA (16:10)
--- NOTE | 2022-04-09 17:26 | Hospitalist Progress Note ---
Date of Service April 09, 2022 Assessment & Plan (1) Cardiac arrest: Plan: Cardiac Arrest Atrial fibrillation RVR S/P 3 shocks administered by an AED on presentation for ? VT/VF PEA after Shock Cardiogenic Shock Can not rule ot PE Acute Hypoxemic, hypercapnic respiratory failure Elevated troponin likely due to demand Ischemia --ECHO: Sinus bradycardia in the 50s present during the echocardiogram study. The left ventricular wall motion is normal. Left ventricle systolic function is normal. EF 50 to 55%. The right ventricle is dilated to mild to moderate degree on the parasternal short axis views. Mild right ventricular hypokinesis thought to be present limited to the short axis views, and appears normal from the apical imaging perspective. There is moderate tricuspid regurgitation. Doppler findings do not suggest pulmonary hypertension. --S/P Cardiac Cath Reviewed --Venous Doppler:No DVT within the right or left lower extremity. 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 No acute intracranial abnormality or calvarial fracture identified. EEG: EEG was Abnormal and showed generalized cerebral dysfunction as noted by severe slowing of the background activity of relatively low amplitude and a burst suppression type phenomenon throughout. There were no focal abnormalities or potentially epileptogenic discharges otherwise. --MRI Brain:No acute intracranial abnormality. No acute or subacute infarct. Mild to moderate chronic microvascular ischemic disease. --Appreciate Neurology Input Aspiration pneumonia --CT:Satisfactory positioning of the endotracheal and nasogastric tubes. Postoperative findings within the left hemithorax. Extensive left infrahilar and basilar consolidation suggestive of pneumonia. Additional airspace opacities within the lungs are also likely infectious. Aspiration pneumonia is also within the differential. Small amount of anterior mediastinal hemorrhage. Multiple acute bilateral rib fractures. No pneumothorax. Acute nondisplaced sternal fracture. Cardiomegaly. 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 HTN HLP As per records DVT Px: IV Heparin Code Status Full code Admission and Anticipated Discharge Date Admission Date: April 06, 2022 Subjective Patient is seen and examined at bedside Remains Intubated Off Pressors On IV amiodarone, heparin drip Started on Tube feeds Review of Systems Review of Systems: Unobtainable due to endotracheal tube and Unobtainable due to reduced consciousness Physical Exam Physical Exam: Physical Exam: Vitals signs as noted above General Appearance:Moderately built and nourished, Intubated Head: normocephalic, Atraumatic Eyes: normal inspection, EOMI Neck: supple, Trachea midline Respiratory/Chest: Normal breath sounds, CTA, No accessory muscle use Cardiovascular: S1, S2, No murmur, Tachycardia Abdomen/GI:Soft, Non tender, Bowel sounds present Extremities/Musculoskeletal:normal inspection, no edema Neurologic/Psych:Intubated,Sedated Skin: normal color Results & Data Results & Data ([facility]) Vital Signs (Past 12 Hours) Vital Signs Temp Pulse Resp BP Pulse Ox O2 Del Method FiO2 04/09/22 15:41 93 H 31 H 91 50 04/09/22 13:00 37.0 C 90 29 H 90 04/09/22 13:00 166/105 H 04/09/22 12:00 37.1 C 82 24 92 Mechanical Vent 0.5 04/09/22 12:00 130/75 04/09/22 11:08 166/81 H 04/09/22 11:08 37.1 C 84 16 90 04/09/22 11:00 37.0 C 90 28 H 92 04/09/22 10:00 82 24 94 04/09/22 09:02 153/69 H 04/09/22 09:02 37.1 C 86 26 H 94 04/09/22 09:00 37.1 C 85 25 H 94 04/09/22 08:01 37.0 C 83 30 H 91 Mechanical Vent 0.5 04/09/22 08:01 106/70 04/09/22 08:00 37.0 C 75 29 H 90 04/09/22 07:00 36.7 C 84 30 H 97 04/09/22 07:00 101/55 L 04/09/22 12:00 50 04/09/22 11:24 90 30 H 95 50 04/09/22 08:00 Mechanical Vent 0.5 04/09/22 08:00 50 04/09/22 08:02 82 23 94 50 04/09/22 07:36 105 H 30 H 94 50 04/09/22 06:01 91/59 L 04/09/22 06:01 36.5 C 83 30 H 98 04/09/22 06:00 36.6 C 83 30 H 99 Laboratory Results Short CBC 04/08/22 04/09/22 Range/Units 19:28 01:57 WBC 16.91 H 15.08 H (4.8-10.8) K/ul Hgb 12.4 L 12.0 L (14.0-18.0) g/dl Hct 35.2 L 35.1 L (40.1-51.0) % Plt Count 119 L 103 L (130-400) K/uL BMP 04/08/22 04/09/22 04/09/22 19:28 01:57 04:57 Sodium 134 L 134 L Potassium 3.9 TNP 4.2 Chloride 97 L 97 L Carbon Dioxide 23 26 BUN 41 H 44 H Creatinine 2.98 H D 3.17 H Glucose 139 H 74 Calcium 7.2 L 6.9 L 04/09/22 06:49 Sodium 135 L Potassium 3.9 Chloride 97 L Carbon Dioxide 26 BUN 49 H Creatinine 3.33 H Glucose 70 Calcium 7.0 L Cardiac Enzymes 04/09/22 04/09/22 Range/Units 09:39 09:39 Total Creatine Kinase Cancelled 2173 H Liver Function 04/09/22 Range/Units 09:39 Total Bilirubin 1.2 H (0.2-1.0) mg/dl Direct Bilirubin 0.5 H (0-0.2) mg/dl AST 90 H (13-39) U/L ALT 56 H (7-52) U/L Alkaline Phosphatase 39 (34-104) U/L Albumin 3.2 L (3.4-5.0) gm/dl
[2022-04-09 21:09] LABS: Gastric Occult Blood Positive (Negative); pH Gastric Fluid 2
[2022-04-09 22:09] LABS: Partial Thromboplastin Ratio 1.4; Partial Thromboplastin Time 38.9 Seconds (21.0-31.0)
[2022-04-10] MEDS: PROPOFOL BOLUS FROM BAG IV PRN (01:38)
[2022-04-10] MEDS: propofoL 1,000 MG/100 ML VIAL IV SCH ×2 (03:40→23:42)
[2022-04-10 05:27] LABS: iSTAT Allen Test Pass; iSTAT Art Bld Gas pCO2 Correct 41 mmHg (35-46); iSTAT Art Bld Gas pH Corrected 7.354 (7.35-7.45); iSTAT Arterial Blood Gas HCO3 23 meg/L (19-24); iSTAT Arterial Blood Gas pCO2 40 mmHg (35-46); iSTAT Arterial Blood Gas pH 7.36 (7.35-7.45); iSTAT Arterial Blood Gas pO2 78 mmHg (80-95); iSTAT Arterial Blood Gas pO2 C 79; iSTAT Carbon Dioxide 24 mmol/L (24-31); iSTAT FiO2 50 %; iSTAT Hematocrit 32 % (42-52); iSTAT Hemoglobin 10.9 g/dl (14.0-18.0); iSTAT Potassium 3.3 mmol/L (3.3-5.0); iSTAT Site L Radial; iSTAT Sodium 136 mmol/L (135-144)
[2022-04-10] MEDS: AMPICILLIN/SULBACTAM SOD 3,000 MG in 0.9 % SODIUM CHLORIDE 100 ML IV SCH (05:30)
[2022-04-10] MEDS: AMIODARONE / D5W 360 MG/200 ML BAG IV SCH (05:30)
[2022-04-10 06:08] LABS: BUN Creatinine Ratio 18.4 (10-20); Calcium 7.3 mg/dl (8.5-10.1); Creatinine Clr Calc Pharmacy 23.1 ml/min; Est GFR (African American) 18.7 ml/min; Est GFR (Non-African American) 16.2 ml/min; Magnesium 2.5 mg/dl (1.7-2.4); Phosphorus 7.2 mg/dl (2.5-4.9); Potassium 3.6 mmol/L (3.5-5.1)
[2022-04-10 06:10] LABS: Partial Thromboplastin Time 28.3 Seconds (21.0-31.0)
[2022-04-10 06:23] LABS: Hematocrit (blood only) 35.4 % (40.1-51.0); Mean Corpuscular Hemoglobin 31.5 pg (25.0-34.0); Mean Corpuscular Hgb Conc 33.9 g/dL (32.0-36.0); Mean Corpuscular Volume 92.9 fL (80.0-100.0); Mean Platelet Volume 10.3 fL (9.4-12.4); Platelet Count 100 K/uL (130-400); RDW Coefficient of Variation 14.1 % (11.5-14.5); Red Blood Count 3.81 M/uL (4.63-6.08); White Blood Count 15.99 K/ul (4.8-10.8)
[2022-04-10 06:24] LABS: Basophils # (auto) 0.06 K/uL (0-0.2); Basophils % (auto) 0.4 %; Eosinophils # (auto) 0.01 K/uL (0-0.50); Eosinophils % (auto) 0.1 %; Immature Granulocytes # (auto) 0.09 K/uL (0.00-0.02); Immature Granulocytes % (auto) 0.6 %; Lymphocytes # (auto) 0.53 K/uL (1.2-3.4); Lymphocytes % (auto) 3.3 %; Monocytes # (auto) 0.77 K/uL (0.24-0.82); Monocytes % (auto) 4.8 %; Neutrophils # (auto) 14.53 K/uL (1.4-6.5); Neutrophils % (auto) 90.8 %; RBC Morphology Unremarkable
[2022-04-10] MEDS: INSULIN ASPART PER UNIT SC SCH ×2 (06:25→12:25)
[2022-04-10] MEDS ORDERED: POTASSIUM CHLORIDE 20 MEQ/15 ML UDC PO STA (06:28)
--- NOTE | 2022-04-10 07:51 | Critical Care Progress Note ---
Date of Service April 10, 2022 Assessment & Plan (1) Cardiac arrest: Plan: Reason Critically Ill: 77-year-old male with a past medical history of lung cancer status post resection (left upper lobe resection 3 years ago) presents to the ICU following cardiac arrest from presumed ventricular arrhythmia as he was shocked with AED x3 prior to EMS's arrival. Patient unresponsive following ROSC and cardiac cath did not show occlusion and no intervention. He is now mechanically ventilated and underwent 24-hour therapeutic hypothermia, currently rewarming. Neuro - Anoxic brain injurypatient unresponsive following ROSC. CT head without acute intracranial findings. On exam he appears to have decerebrate posturing and suspect significant anoxic injury. Per report approximate downtime without CPR was 5 minutes and an additional 20 minutes with CPR. Underwent shock x3 with AED. -Repeat EEG with signs of global encephalopathy. -Neurology following. -Holding all sedation at this time. -Prognosis very poor overall. -Appreciate palliative care input Cardiac - Cardiac arrestno significant cardiac history. Underwent cardiac catheterization but no occlusion found and no intervention required. -Highly suspect ventricular arrhythmia given sudden onset. -Continuous monitoring on telemetry -Patient currently on amiodarone -Heparin infusion discontinued as fecal occult blood was positive. HTNhold antihypertensives for now Respiratory - -CT chest with nodular infiltrates consistent with possible aspiration pneumonitis/pneumonia. Continue empiric Unasyn. Anterior mediastinal hemorrhage noted. History of lung cancer. GI - -Tube feeds on hold per family request at this time. Pantoprazole for possible occult bleed. RENAL/LYTES - AKIworsening. Continue IV hydration. - BPHindwelling Mcmillan catheter inserted. -Strict I's and O's ENDO - No history of diabetes or thyroid disease. ICU hyperglycemic protocol HEME - H&H stable ID - Empiric ampicillin for possible aspiration. LINES/IV ACCESS - Central venous catheter DVT PROPHYLAXIS - SCDs I have personally spent 39 minutes of critical care time in the direct management of this patient. This is a life/limb threatening event. This includes time spent evaluating patient, direct bedside care, chart review, placing orders, interpretation of diagnostic studies, discussion with consultants, patient, and family members, as well as other required patient management activities. This time is exclusive of all separately billable procedures, and teaching time and separate from and in addition to any other critical care service time. (2) Anoxic brain injury: (3) BPH (benign prostatic hyperplasia): (4) Hypertension: (5) Hyperlipidemia: (6) Acute respiratory failure with hypoxia: (7) REYNALDO (acute kidney injury): Admission and Anticipated Discharge Date Admission Date: April 06, 2022 Subjective Patient's clinical exam essentially unchanged compared to yesterday. He was on low-dose sedation when I came in the room. This was discontinued in favor of a sedation vacation. He continues to breathe over the ventilator. Minimally responsive. He does have a gag reflex. No withdrawal from painful stimuli. Hemodynamic stable. Review of Systems Review of Systems: All systems reviewed & are unremarkable except as noted in HPI & below Physical Exam Physical Exam: Constitutional: Patient is intubated and unresponsive to commands. Eyes: Pupils are equal round and reactive to light. Conjunctivae are normal. Anicteric sclera. Ears nose, mouth and throat: Endotracheal tube in place. Neck: Trachea is midline. Visual inspection is normal. Respiratory: Clear to auscultation bilaterally. No use of accessory muscles. No significant clubbing noted. Cardiovascular: Regular rate and rhythm. No murmurs. No edema. Gastrointestinal: Normal bowel sounds, soft, nontender and nondistended. No hepatosplenomegaly noted. Musculoskeletal: Extremities intact. Skin: No rashes, warm dry and intact. Neurologic: Decerebrate posturing. No response to painful stimuli. Gag intact. Breathing over the ventilator. Downward going Babinski signs. Psychiatric: Unable to assess. Results & Data Results & Data ([facility]) Vital Signs (Past 12 Hours) Vital Signs Temp Pulse Resp BP Pulse Ox O2 Del Method FiO2 04/10/22 07:20 87 28 H 96 50 04/10/22 06:30 130/62 04/10/22 06:30 37.0 C 94 H 31 H 92 04/10/22 06:15 36.8 C 105 H 31 H 91 04/10/22 06:15 146/72 H 04/10/22 06:00 37.1 C 106 H 28 H 93 04/10/22 06:00 160/98 H 04/10/22 05:45 164/79 H 04/10/22 05:45 37.0 C 95 H 31 H 91 04/10/22 05:31 36.8 C 93 H 31 H 92 04/10/22 05:31 138/70 04/10/22 05:16 37.0 C 91 H 29 H 96 04/10/22 05:16 166/76 H 04/10/22 05:00 37.1 C 76 27 H 96 04/10/22 05:00 103/52 L 04/10/22 04:45 108/63 04/10/22 04:45 37.0 C 102 H 27 H 95 04/10/22 05:51 88 29 H 94 50 04/10/22 04:30 36.8 C 103 H 28 H 95 04/10/22 04:30 146/72 H 04/10/22 04:20 36.9 C 105 H 29 H 92 04/10/22 04:17 37.0 C 90 30 H 92 04/10/22 04:17 158/77 H 04/10/22 04:10 37.1 C 78 25 H 96 04/10/22 04:00 37.1 C 84 28 H 95 04/10/22 04:00 94/57 L 04/10/22 03:50 36.9 C 104 H 30 H 95 04/10/22 03:45 36.9 C 105 H 27 H 94 04/10/22 03:45 134/65 04/10/22 03:40 36.9 C 105 H 28 H 94 04/10/22 03:30 36.9 C 107 H 30 H 92 04/10/22 03:30 133/93 04/10/22 03:20 37.0 C 108 H 34 H 92 04/10/22 03:15 123/67 04/10/22 03:15 37.1 C 85 26 H 96 04/10/22 03:10 37.1 C 89 29 H 95 04/10/22 03:00 37.0 C 92 H 30 H 93 04/10/22 03:00 142/68 H 04/10/22 02:50 36.9 C 94 H 32 H 93 04/10/22 02:46 147/76 H 04/10/22 02:46 36.9 C 96 H 30 H 92 04/10/22 02:40 36.9 C 96 H 30 H 92 04/10/22 02:31 153/89 H 04/10/22 02:31 37.0 C 95 H 30 H 92 04/10/22 02:30 37.0 C 94 H 30 H 92 04/10/22 02:20 37.1 C 89 32 H 96 04/10/22 02:15 123/70 04/10/22 02:15 37.0 C 89 28 H 96 04/10/22 02:10 37.0 C 90 29 H 95 04/10/22 02:00 36.9 C 93 H 29 H 93 04/10/22 02:00 142/72 H 04/10/22 01:50 36.9 C 95 H 25 H 93 04/10/22 01:47 36.9 C 95 H 25 H 93 04/10/22 01:47 139/77 04/10/22 01:40 37.0 C 94 H 29 H 92 04/10/22 01:30 37.1 C 89 28 H 96 04/10/22 01:30 111/53 L 04/10/22 01:20 37.0 C 89 25 H 95 04/10/22 01:15 118/58 L 04/10/22 01:15 37.0 C 91 H 29 H 95 04/10/22 01:10 36.9 C 94 H 30 H 94 04/10/22 01:00 36.9 C 98 H 31 H 91 04/10/22 01:00 161/104 H 04/10/22 00:50 37.0 C 109 H 27 H 92 04/10/22 00:45 166/100 H 04/10/22 00:45 37.1 C 111 H 32 H 92 04/10/22 00:40 37.1 C 90 29 H 94 04/10/22 00:30 37.0 C 96 H 32 H 92 04/10/22 04:00 50 04/10/22 00:00 96 H 04/10/22 00:00 50 04/09/22 23:09 101 H 32 H 95 50 04/09/22 22:31 37.1 C 101 H 32 H 96 04/09/22 22:31 184/81 H 04/09/22 22:30 37.1 C 103 H 32 H 96 04/09/22 22:20 37.1 C 101 H 28 H 91 04/09/22 22:15 171/82 H 04/09/22 22:15 37.1 C 115 H 33 H 89 L 04/09/22 22:10 37.1 C 100 H 29 H 89 L 04/09/22 22:01 37.0 C 115 H 33 H 90 04/09/22 22:01 144/84 H 04/09/22 22:00 37.0 C 116 H 34 H 90 04/09/22 21:50 36.9 C 115 H 29 H 89 L 04/09/22 21:45 129/90 04/09/22 21:45 37.0 C 114 H 32 H 89 L 04/09/22 21:40 36.9 C 111 H 32 H 90 04/09/22 21:31 37.1 C 113 H 31 H 90 04/09/22 21:31 161/115 H 04/09/22 21:30 37.1 C 113 H 32 H 90 04/09/22 21:20 37.1 C 112 H 28 H 91 04/09/22 21:15 122/77 04/09/22 21:15 37.1 C 113 H 29 H 90 04/09/22 21:10 37.0 C 113 H 31 H 91 04/09/22 21:00 36.9 C 101 H 31 H 90 04/09/22 21:00 166/83 H 04/09/22 20:50 37.0 C 99 H 26 H 90 04/09/22 20:46 37.0 C 111 H 30 H 90 04/09/22 20:46 180/83 H 04/09/22 20:40 37.1 C 110 H 31 H 90 04/09/22 20:30 37.1 C 110 H 31 H 92 04/09/22 20:30 132/76 04/09/22 20:20 36.9 C 111 H 26 H 91 04/09/22 20:16 122/84 04/09/22 20:16 36.9 C 110 H 30 H 91 04/09/22 20:10 36.9 C 107 H 29 H 91 04/09/22 20:00 37.0 C 108 H 29 H 91 04/09/22 20:00 166/82 H 04/09/22 19:50 37.1 C 108 H 24 92 04/09/22 20:00 50 04/09/22 20:16 Mechanical Vent 50 04/09/22 20:00 95 H 29 H 91 50 Coding Level of Care Code Critical Care 1st 30-74 mins Diagnoses Cardiac arrest I46.9 Anoxic brain injury G93.1 BPH (benign prostatic hyperplasia) N40.0 Hypertension I10 Hyperlipidemia E78.5 Acute respiratory failure with hypoxia J96.01 REYNALDO (acute kidney injury) N17.9 Time Spent (min) 39
[2022-04-10] MEDS: DOCUSATE SODIUM SYRUP 100 MG/10 ML UDC PO SCH (07:53)
[2022-04-10] MEDS: NORMOSOL-R 1,000 ML IV SCH (07:53)
[2022-04-10] MEDS: SUCRALFATE 1 GM/10 ML UDC PO SCH ×2 (07:53→12:25)
[2022-04-10] MEDS: ROSUVASTATIN CALCIUM 20 MG TAB PO SCH (07:54)
[2022-04-10] MEDS ORDERED: PROSOURCE NO CARB 30 ML/PKT OG SCH (08:00)
--- NOTE | 2022-04-10 08:29 | Nephrology Progress Note ---
Date of Service April 10, 2022 Assessment & Plan (1) REYNALDO (acute kidney injury): Plan: * Clinical course discussed w/ family this morning * REYNALDO likely ATN due to multiple factors including ARB therapy, prolonged CPR, IV contrast administration, hypotension, low grade rhabdomyolysis. Urine sediment does reveal 5 - 10 granular casts/hpf * Kidney function has been stable overnight. 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 Will monitor (2) Cardiac arrest: Plan: * 04/06/22 cardiac catheterization - no ASCVD (3) Anoxic brain injury: Plan: * Await further Neurology input (4) Atrial fibrillation with rapid ventricular response: Plan: * On amiodarone gtt (5) Aspiration pneumonia: Plan: * On IV Unasyn Admission and Anticipated Discharge Date Admission Date: April 06, 2022 Subjective Mr. Keene was evaluated in the ICU this morning. His family was present at bedside. Patient remains unresponsive, mechanically ventilated. Review of Systems Review of Systems: Unobtainable due to cognitive status Physical Exam Constitutional: + ill appearing (on mechanical ventilation) Neck: trachea midline, no thyromegaly Cardiovascular: Rate/Rhythm: regular rate and regular rhythm Extremities: no edema Gastrointestinal (Abdomen): Inspection/Auscultation: abdomen normal to inspection and + hypoactive bowel sounds Results & Data ([facility]) Vital Signs (Past 12 Hours) Vital Signs Temp Pulse Resp BP Pulse Ox FiO2 04/10/22 07:20 87 28 H 96 50 04/10/22 06:30 130/62 04/10/22 06:30 37.0 C 94 H 31 H 92 04/10/22 06:15 36.8 C 105 H 31 H 91 04/10/22 06:15 146/72 H 04/10/22 06:00 37.1 C 106 H 28 H 93 04/10/22 06:00 160/98 H 04/10/22 05:45 164/79 H 04/10/22 05:45 37.0 C 95 H 31 H 91 04/10/22 05:31 36.8 C 93 H 31 H 92 04/10/22 05:31 138/70 04/10/22 05:16 37.0 C 91 H 29 H 96 04/10/22 05:16 166/76 H 04/10/22 05:00 37.1 C 76 27 H 96 04/10/22 05:00 103/52 L 04/10/22 04:45 108/63 04/10/22 04:45 37.0 C 102 H 27 H 95 04/10/22 05:51 88 29 H 94 50 04/10/22 04:30 36.8 C 103 H 28 H 95 04/10/22 04:30 146/72 H 04/10/22 04:20 36.9 C 105 H 29 H 92 04/10/22 04:17 37.0 C 90 30 H 92 04/10/22 04:17 158/77 H 04/10/22 04:10 37.1 C 78 25 H 96 04/10/22 04:00 37.1 C 84 28 H 95 04/10/22 04:00 94/57 L 04/10/22 03:50 36.9 C 104 H 30 H 95 04/10/22 03:45 36.9 C 105 H 27 H 94 04/10/22 03:45 134/65 04/10/22 03:40 36.9 C 105 H 28 H 94 04/10/22 03:30 36.9 C 107 H 30 H 92 04/10/22 03:30 133/93 04/10/22 03:20 37.0 C 108 H 34 H 92 04/10/22 03:15 123/67 04/10/22 03:15 37.1 C 85 26 H 96 04/10/22 03:10 37.1 C 89 29 H 95 04/10/22 03:00 37.0 C 92 H 30 H 93 04/10/22 03:00 142/68 H 04/10/22 02:50 36.9 C 94 H 32 H 93 04/10/22 02:46 147/76 H 04/10/22 02:46 36.9 C 96 H 30 H 92 04/10/22 02:40 36.9 C 96 H 30 H 92 04/10/22 02:31 153/89 H 04/10/22 02:31 37.0 C 95 H 30 H 92 04/10/22 02:30 37.0 C 94 H 30 H 92 04/10/22 02:20 37.1 C 89 32 H 96 04/10/22 02:15 123/70 04/10/22 02:15 37.0 C 89 28 H 96 04/10/22 02:10 37.0 C 90 29 H 95 04/10/22 02:00 36.9 C 93 H 29 H 93 04/10/22 02:00 142/72 H 04/10/22 01:50 36.9 C 95 H 25 H 93 04/10/22 01:47 36.9 C 95 H 25 H 93 04/10/22 01:47 139/77 04/10/22 01:40 37.0 C 94 H 29 H 92 04/10/22 01:30 37.1 C 89 28 H 96 04/10/22 01:30 111/53 L 04/10/22 01:20 37.0 C 89 25 H 95 04/10/22 01:15 118/58 L 04/10/22 01:15 37.0 C 91 H 29 H 95 04/10/22 01:10 36.9 C 94 H 30 H 94 04/10/22 01:00 36.9 C 98 H 31 H 91 04/10/22 01:00 161/104 H 04/10/22 00:50 37.0 C 109 H 27 H 92 04/10/22 00:45 166/100 H 04/10/22 00:45 37.1 C 111 H 32 H 92 04/10/22 00:40 37.1 C 90 29 H 94 04/10/22 00:30 37.0 C 96 H 32 H 92 04/10/22 04:00 50 04/10/22 00:00 96 H 04/10/22 00:00 50 04/09/22 23:09 101 H 32 H 95 50 04/09/22 22:31 37.1 C 101 H 32 H 96 04/09/22 22:31 184/81 H 04/09/22 22:30 37.1 C 103 H 32 H 96 04/09/22 22:20 37.1 C 101 H 28 H 91 04/09/22 22:15 171/82 H 04/09/22 22:15 37.1 C 115 H 33 H 89 L 04/09/22 22:10 37.1 C 100 H 29 H 89 L 04/09/22 22:01 37.0 C 115 H 33 H 90 04/09/22 22:01 144/84 H 04/09/22 22:00 37.0 C 116 H 34 H 90 04/09/22 21:50 36.9 C 115 H 29 H 89 L 04/09/22 21:45 129/90 04/09/22 21:45 37.0 C 114 H 32 H 89 L 04/09/22 21:40 36.9 C 111 H 32 H 90 04/09/22 21:31 37.1 C 113 H 31 H 90 04/09/22 21:31 161/115 H 04/09/22 21:30 37.1 C 113 H 32 H 90 04/09/22 21:20 37.1 C 112 H 28 H 91 04/09/22 21:15 122/77 04/09/22 21:15 37.1 C 113 H 29 H 90 04/09/22 21:10 37.0 C 113 H 31 H 91 04/09/22 21:00 36.9 C 101 H 31 H 90 04/09/22 21:00 166/83 H 04/09/22 20:50 37.0 C 99 H 26 H 90 04/09/22 20:46 37.0 C 111 H 30 H 90 04/09/22 20:46 180/83 H 04/09/22 20:40 37.1 C 110 H 31 H 90 04/09/22 20:30 37.1 C 110 H 31 H 92 04/09/22 20:30 132/76 Laboratory Results Laboratory Tests 04/10/22 04/10/22 05:36 05:36 WBC 15.99 H Hgb 12.0 L Hct 35.4 L Plt Count 100 L Sodium 138 Potassium 3.6 Chloride 99 Carbon Dioxide 24 BUN 64 H Creatinine 3.47 H Glucose 74 PG Care Time/CCT Total # of Minutes Spent Total Time Spent with Patient: Total time spent is greater than 50% in coordination of care (as documented) at patient's floor/unit and/or counseling patient: Coding Level of Care Code 33540 Subseq Hosp Care Lvl 3 Diagnoses REYNALDO (acute kidney injury) N17.9 Cardiac arrest I46.9 Anoxic brain injury G93.1 Atrial fibrillation with rapid ventricular response I48.91 Aspiration pneumonia J69.0
[2022-04-10] MEDS ORDERED: FAMOTIDINE 20 MG in SYRINGE 3 ML IV SCH (09:00)
[2022-04-10] MEDS ORDERED: METOPROLOL TARTRATE 25 MG TAB PO SCH (10:00)
--- NOTE | 2022-04-10 11:42 | Cardiology Progress Note ---
Date of Service April 10, 2022 Assessment & Plan (1) Cardiac arrest: (2) Atrial fibrillation with rapid ventricular response: (3) REYNALDO (acute kidney injury): (4) Anoxic brain injury: Plan: 77-year-old male (1) Cardiac arrest: As noted, no coronary culprit on emergent cardiac catheterization performed on presentation 04/06/2022. Presenting EKG with evidence of frequent ventricular ectopy, ventricular tachycardia, possibly atrial fibrillation, however remains in sinus on amiodarone infusion. And metoprolol for further heart rate control, metoprolol tartrate 25 mg 3 times daily via orogastric tube. Neurology and palliative care input noted and appreciated. Had discussion with family personally. Patient considering timing of withdrawal of care, and how long to wait to see if he responds better from a neurologic standpoint. (2) Atrial fibrillation with rapid ventricular response: -Whether not he had atrial fibrillation is difficult to determine due to the frequent ventricular ectopy noted at the time of presentation -Continue heparin and amiodarone for now, no recurrence. -As noted Heparin on hold due to concerns of gastrointestinal bleeding. (3) REYNALDO (acute kidney injury): -creatinine up to 3.47, likely due to hypotension related ATN, contrast exposure. -Continue supportive care (4) Anoxic brain injury: -Concern for underlying anoxic brain injury. -Continue supportive care. Code Status : DNR. -Heparin on hold, if we decide not to continue, may need to transition to subcutaneous heparin for DVT prophylaxis. Admission and Anticipated Discharge Date Admission Date: April 06, 2022 Subjective Patient seen in cardiology follow-up. Patient's spouse and daughter at at the bedside. Telemetry reveals interval increase in heart rate, sinus tachycardia at 110 bpm noted this morning. No other arrhythmias. His only IV infusion at present is amiodarone. Patient with findings concerning for occult GI bleeding, heparin infusion therefore discontinued. Review of Systems Review of Systems: Unobtainable due to reduced consciousness Physical Exam Physical Exam: Temp Pulse Resp BP Pulse Ox O2 Del Method FiO2 37.0 C 87 28 H 130/62 96 0.5 04/10/22 06:30 04/10/22 07:20 04/10/22 07:20 04/10/22 06:30 04/10/22 07:20 04/09/22 20:16 04/10/22 08:00 Constitutional: Unresponsive, remains on mechanical ventilation Respiratory: Auscultation: lungs clear to auscultation bilaterally Cardiovascular: RRR, no murmur, no edema Gastrointestinal (Abdomen): normal bowel sounds, soft, nontender, no hepatosplenomegaly Neurologic: PERRL, EOMI, accommodation nl, no face palsy, no dysarthria Results & Data ([facility]) Laboratory Results Coagulation 04/09/22 04/09/22 04/10/22 Range/Units 14:37 21:38 05:36 APTT 41.7 H 38.9 H 28.3 (21.0-31.0) Seconds CBC 04/10/22 Range/Units 05:36 WBC 15.99 H (4.8-10.8) K/ul RBC 3.81 L (4.63-6.08) M/uL Hgb 12.0 L (14.0-18.0) g/dl Hct 35.4 L (40.1-51.0) % Plt Count 100 L (130-400) K/uL Neut # (Auto) 14.53 H (1.4-6.5) K/uL Lymph # (Auto) 0.53 L (1.2-3.4) K/uL Meigs # (Auto) 0.77 (0.24-0.82) K/uL Eos # (Auto) 0.01 (0-0.50) K/uL Baso # (Auto) 0.06 (0-0.2) K/uL Comprehensive Metabolic Panel 04/10/22 Range/Units 05:36 Sodium 138 (136-145) mmol/L Potassium 3.6 (3.5-5.1) mmol/L Chloride 99 (98-107) mmol/L Carbon Dioxide 24 (21-32) mmol/L BUN 64 H (6-23) mg/dl Creatinine 3.47 H (0.6-1.4) mg/dl Glucose 74 (70-99(Fasting)) mg/dl Calcium 7.3 L (8.5-10.1) mg/dl
--- NOTE | 2022-04-10 13:15 | Hospitalist Progress Note ---
Date of Service April 10, 2022 Assessment & Plan (1) Cardiac arrest: Plan: Cardiac Arrest Atrial fibrillation RVR S/P 3 shocks administered by an AED on presentation for ? VT/VF PEA after Shock Cardiogenic Shock Can not rule ot PE Acute Hypoxemic, hypercapnic respiratory failure Elevated troponin likely due to demand Ischemia --ECHO: Sinus bradycardia in the 50s present during the echocardiogram study. The left ventricular wall motion is normal. Left ventricle systolic function is normal. EF 50 to 55%. The right ventricle is dilated to mild to moderate degree on the parasternal short axis views. Mild right ventricular hypokinesis thought to be present limited to the short axis views, and appears normal from the apical imaging perspective. There is moderate tricuspid regurgitation. Doppler findings do not suggest pulmonary hypertension. --S/P Cardiac Cath Reviewed --Venous Doppler:No DVT within the right or left lower extremity. 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 No acute intracranial abnormality or calvarial fracture identified. EEG: EEG was Abnormal and showed generalized cerebral dysfunction as noted by severe slowing of the background activity of relatively low amplitude and a burst suppression type phenomenon throughout. There were no focal abnormalities or potentially epileptogenic discharges otherwise. --MRI Brain:No acute intracranial abnormality. No acute or subacute infarct. Mild to moderate chronic microvascular ischemic disease. --Appreciate Neurology Input Aspiration pneumonia --CT:Satisfactory positioning of the endotracheal and nasogastric tubes. Postoperative findings within the left hemithorax. Extensive left infrahilar and basilar consolidation suggestive of pneumonia. Additional airspace opacities within the lungs are also likely infectious. Aspiration pneumonia is also within the differential. Small amount of anterior mediastinal hemorrhage. Multiple acute bilateral rib fractures. No pneumothorax. Acute nondisplaced sternal fracture. Cardiomegaly. 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 HTN HLP As per records DVT Px: SCDs for now IV heparin held due to +FOBT Code Status DNI/DNR Admission and Anticipated Discharge Date Admission Date: April 06, 2022 Subjective Patient is seen and examined at bedside Remains Intubated Family at bedside Low grade fever today Sedatives discontinued On IV amiodarone IV heparin drip held for positive FOBT Review of Systems Review of Systems: Unobtainable due to endotracheal tube and Unobtainable due to reduced consciousness Physical Exam Physical Exam: Physical Exam: Vitals signs as noted above General Appearance:Moderately built and nourished, Intubated Head: normocephalic, Atraumatic Eyes: normal inspection, EOMI Neck: supple, Trachea midline Respiratory/Chest: Normal breath sounds, CTA, No accessory muscle use Cardiovascular: S1, S2, No murmur Abdomen/GI:Soft, Non tender, Bowel sounds present Extremities/Musculoskeletal:normal inspection, no edema Neurologic/Psych:Intubated Skin: normal color Results & Data Results & Data ([facility]) Vital Signs (Past 12 Hours) Vital Signs Temp Pulse Resp BP Pulse Ox FiO2 04/10/22 12:30 158/82 H 04/10/22 12:30 37.8 C H 81 27 H 93 04/10/22 12:15 143/73 H 04/10/22 12:15 37.8 C H 76 33 H 94 04/10/22 12:00 37.7 C H 77 30 H 94 04/10/22 12:00 138/75 04/10/22 11:45 143/73 H 04/10/22 11:45 37.6 C H 77 31 H 94 04/10/22 11:30 140/76 04/10/22 11:30 37.5 C 77 33 H 93 04/10/22 11:15 140/73 04/10/22 11:15 37.4 C 77 30 H 94 04/10/22 11:00 37.2 C 85 31 H 93 04/10/22 11:00 140/65 04/10/22 10:45 165/86 H 04/10/22 10:45 37.1 C 108 H 33 H 94 04/10/22 10:30 174/86 H 04/10/22 10:30 36.8 C 110 H 35 H 93 04/10/22 10:15 167/94 H 04/10/22 10:15 37.0 C 107 H 31 H 94 04/10/22 10:00 36.9 C 108 H 33 H 94 04/10/22 10:00 172/101 H 04/10/22 09:45 159/96 H 04/10/22 09:45 36.7 C 108 H 32 H 94 04/10/22 09:30 37.1 C 107 H 33 H 94 04/10/22 09:30 160/83 H 04/10/22 09:15 162/83 H 04/10/22 09:15 36.8 C 110 H 34 H 93 04/10/22 09:00 37.0 C 89 34 H 93 04/10/22 09:00 165/76 H 04/10/22 08:46 161/89 H 04/10/22 08:46 37.0 C 109 H 37 H 92 04/10/22 08:30 36.9 C 93 H 34 H 93 04/10/22 08:30 138/90 04/10/22 08:15 37.1 C 89 33 H 93 04/10/22 08:15 138/88 04/10/22 08:01 36.9 C 88 30 H 95 04/10/22 08:01 165/78 H 04/10/22 08:00 36.9 C 87 30 H 94 04/10/22 07:45 131/85 04/10/22 07:45 37.1 C 77 29 H 98 04/10/22 07:30 37.0 C 80 28 H 95 04/10/22 07:30 112/58 L 04/10/22 07:15 127/58 L 04/10/22 07:15 36.9 C 83 27 H 95 04/10/22 07:01 134/102 H 04/10/22 07:01 37.0 C 89 31 H 92 04/10/22 07:00 37.0 C 90 30 H 92 04/10/22 11:45 50 04/10/22 11:39 77 32 H 93 50 04/10/22 08:00 0.5 04/10/22 08:00 50 04/10/22 07:20 87 28 H 96 50 04/10/22 06:30 130/62 04/10/22 06:30 37.0 C 94 H 31 H 92 04/10/22 06:15 36.8 C 105 H 31 H 91 04/10/22 06:15 146/72 H 04/10/22 06:00 37.1 C 106 H 28 H 93 04/10/22 06:00 160/98 H 04/10/22 05:45 164/79 H 04/10/22 05:45 37.0 C 95 H 31 H 91 04/10/22 05:31 36.8 C 93 H 31 H 92 04/10/22 05:31 138/70 04/10/22 05:16 37.0 C 91 H 29 H 96 04/10/22 05:16 166/76 H 04/10/22 05:00 37.1 C 76 27 H 96 04/10/22 05:00 103/52 L 04/10/22 04:45 108/63 04/10/22 04:45 37.0 C 102 H 27 H 95 04/10/22 05:51 88 29 H 94 50 04/10/22 04:30 36.8 C 103 H 28 H 95 04/10/22 04:30 146/72 H 04/10/22 04:20 36.9 C 105 H 29 H 92 04/10/22 04:17 37.0 C 90 30 H 92 04/10/22 04:17 158/77 H 04/10/22 04:10 37.1 C 78 25 H 96 04/10/22 04:00 37.1 C 84 28 H 95 04/10/22 04:00 94/57 L 04/10/22 03:50 36.9 C 104 H 30 H 95 04/10/22 03:45 36.9 C 105 H 27 H 94 04/10/22 03:45 134/65 04/10/22 03:40 36.9 C 105 H 28 H 94 04/10/22 03:30 36.9 C 107 H 30 H 92 04/10/22 03:30 133/93 04/10/22 03:20 37.0 C 108 H 34 H 92 04/10/22 03:15 123/67 04/10/22 03:15 37.1 C 85 26 H 96 04/10/22 03:10 37.1 C 89 29 H 95 04/10/22 03:00 37.0 C 92 H 30 H 93 04/10/22 03:00 142/68 H 04/10/22 02:50 36.9 C 94 H 32 H 93 04/10/22 02:46 147/76 H 04/10/22 02:46 36.9 C 96 H 30 H 92 04/10/22 02:40 36.9 C 96 H 30 H 92 04/10/22 02:31 153/89 H 04/10/22 02:31 37.0 C 95 H 30 H 92 04/10/22 02:30 37.0 C 94 H 30 H 92 04/10/22 02:20 37.1 C 89 32 H 96 04/10/22 02:15 123/70 04/10/22 02:15 37.0 C 89 28 H 96 04/10/22 02:10 37.0 C 90 29 H 95 04/10/22 02:00 36.9 C 93 H 29 H 93 04/10/22 02:00 142/72 H 04/10/22 01:50 36.9 C 95 H 25 H 93 04/10/22 01:47 36.9 C 95 H 25 H 93 04/10/22 01:47 139/77 04/10/22 01:40 37.0 C 94 H 29 H 92 04/10/22 01:30 37.1 C 89 28 H 96 04/10/22 01:30 111/53 L 04/10/22 01:20 37.0 C 89 25 H 95 04/10/22 01:15 118/58 L 04/10/22 01:15 37.0 C 91 H 29 H 95 04/10/22 01:10 36.9 C 94 H 30 H 94 04/10/22 04:00 50 Laboratory Results Short CBC 04/10/22 Range/Units 05:36 WBC 15.99 H (4.8-10.8) K/ul Hgb 12.0 L (14.0-18.0) g/dl Hct 35.4 L (40.1-51.0) % Plt Count 100 L (130-400) K/uL BMP 04/10/22 05:36 Sodium 138 Potassium 3.6 Chloride 99 Carbon Dioxide 24 BUN 64 H Creatinine 3.47 H Glucose 74 Calcium 7.3 L
--- NOTE | 2022-04-10 13:56 | Neurology Progress Note ---
Date of Service April 10, 2022 Assessment & Plan (1) Unresponsive state: (2) Cardiac arrest: (3) Anoxic brain injury: Plan The patient is in an unresponsive state post cardiac arrest with generalized anoxic brain injury on April 07. Clinically, he has some evidence of some brainstem and spinal cord reflex reactivity, but no obvious higher cortical function at this time. overall exam is about the same as yesterday although he has less response to deep pain limbs. His EEG April 09 showed better cortical rhythms then April 08, but he still has moderate encephalopathy of a generalized nature. There were no focal abnormalities or potentially Epileptogenic discharges seen. Overall, his prognosis is poor neurologically, but he is slightly improved from yesterday. MRI of the brain did not show any obvious cortical damage. He does have mild -to-moderate old small vessel ischemic disease (history of hypertension former cigarette smoker). I had an extensive conversation with the patient's and 2 children. Overall, his prognosis is poor and he has made no significant improvement neurologically over the last few days. Recommendations: 1. the family may decide to discontinue the ventilator today. I told them that this is a reasonable decision given his clinical picture. If they do disconnect the ventilator he will likely not survive long. 2. I do not believe he needs another EEG at this time Overall, I spent a total of 40 minutes with this case including review of records, direct evaluation the patient at bedside, and discussion of the case with the patient's and children at bedside. I have also discussed this case with the RN at bedside, and Dr. Sim, including differential diagnosis and treatment options. Admission and Anticipated Discharge Date Admission Date: April 06, 2022 Subjective nursing reports no new issues and no seizures. Apparently he had a apneic test which he failed after certain period of time, suggesting still with ventilator dependence. Results & Data ([facility]) Vital Signs (Past 12 Hours) Vital Signs Temp Pulse Resp BP Pulse Ox FiO2 04/10/22 12:30 158/82 H 04/10/22 12:30 37.8 C H 81 27 H 93 04/10/22 12:15 143/73 H 04/10/22 12:15 37.8 C H 76 33 H 94 04/10/22 12:00 37.7 C H 77 30 H 94 04/10/22 12:00 138/75 04/10/22 11:45 143/73 H 04/10/22 11:45 37.6 C H 77 31 H 94 04/10/22 11:30 140/76 04/10/22 11:30 37.5 C 77 33 H 93 04/10/22 11:15 140/73 04/10/22 11:15 37.4 C 77 30 H 94 04/10/22 11:00 37.2 C 85 31 H 93 04/10/22 11:00 140/65 04/10/22 10:45 165/86 H 04/10/22 10:45 37.1 C 108 H 33 H 94 04/10/22 10:30 174/86 H 04/10/22 10:30 36.8 C 110 H 35 H 93 04/10/22 10:15 167/94 H 04/10/22 10:15 37.0 C 107 H 31 H 94 04/10/22 10:00 36.9 C 108 H 33 H 94 04/10/22 10:00 172/101 H 04/10/22 09:45 159/96 H 04/10/22 09:45 36.7 C 108 H 32 H 94 04/10/22 09:30 37.1 C 107 H 33 H 94 04/10/22 09:30 160/83 H 04/10/22 09:15 162/83 H 04/10/22 09:15 36.8 C 110 H 34 H 93 04/10/22 09:00 37.0 C 89 34 H 93 04/10/22 09:00 165/76 H 04/10/22 08:46 161/89 H 04/10/22 08:46 37.0 C 109 H 37 H 92 04/10/22 08:30 36.9 C 93 H 34 H 93 04/10/22 08:30 138/90 04/10/22 08:15 37.1 C 89 33 H 93 04/10/22 08:15 138/88 04/10/22 08:01 36.9 C 88 30 H 95 04/10/22 08:01 165/78 H 04/10/22 08:00 36.9 C 87 30 H 94 04/10/22 07:45 131/85 04/10/22 07:45 37.1 C 77 29 H 98 04/10/22 07:30 37.0 C 80 28 H 95 04/10/22 07:30 112/58 L 04/10/22 07:15 127/58 L 04/10/22 07:15 36.9 C 83 27 H 95 04/10/22 07:01 134/102 H 04/10/22 07:01 37.0 C 89 31 H 92 04/10/22 07:00 37.0 C 90 30 H 92 04/10/22 11:45 50 04/10/22 11:39 77 32 H 93 50 04/10/22 08:00 0.5 04/10/22 08:00 50 04/10/22 07:20 87 28 H 96 50 04/10/22 06:30 130/62 04/10/22 06:30 37.0 C 94 H 31 H 92 04/10/22 06:15 36.8 C 105 H 31 H 91 04/10/22 06:15 146/72 H 04/10/22 06:00 37.1 C 106 H 28 H 93 04/10/22 06:00 160/98 H 04/10/22 05:45 164/79 H 04/10/22 05:45 37.0 C 95 H 31 H 91 04/10/22 05:31 36.8 C 93 H 31 H 92 04/10/22 05:31 138/70 04/10/22 05:16 37.0 C 91 H 29 H 96 04/10/22 05:16 166/76 H 04/10/22 05:00 37.1 C 76 27 H 96 04/10/22 05:00 103/52 L 04/10/22 04:45 108/63 04/10/22 04:45 37.0 C 102 H 27 H 95 04/10/22 05:51 88 29 H 94 50 04/10/22 04:30 36.8 C 103 H 28 H 95 04/10/22 04:30 146/72 H 04/10/22 04:20 36.9 C 105 H 29 H 92 04/10/22 04:17 37.0 C 90 30 H 92 04/10/22 04:17 158/77 H 04/10/22 04:10 37.1 C 78 25 H 96 04/10/22 04:00 37.1 C 84 28 H 95 04/10/22 04:00 94/57 L 04/10/22 03:50 36.9 C 104 H 30 H 95 04/10/22 03:45 36.9 C 105 H 27 H 94 04/10/22 03:45 134/65 04/10/22 03:40 36.9 C 105 H 28 H 94 04/10/22 03:30 36.9 C 107 H 30 H 92 04/10/22 03:30 133/93 04/10/22 03:20 37.0 C 108 H 34 H 92 04/10/22 03:15 123/67 04/10/22 03:15 37.1 C 85 26 H 96 04/10/22 03:10 37.1 C 89 29 H 95 04/10/22 03:00 37.0 C 92 H 30 H 93 04/10/22 03:00 142/68 H 04/10/22 02:50 36.9 C 94 H 32 H 93 04/10/22 02:46 147/76 H 04/10/22 02:46 36.9 C 96 H 30 H 92 04/10/22 02:40 36.9 C 96 H 30 H 92 04/10/22 02:31 153/89 H 04/10/22 02:31 37.0 C 95 H 30 H 92 04/10/22 02:30 37.0 C 94 H 30 H 92 04/10/22 02:20 37.1 C 89 32 H 96 04/10/22 02:15 123/70 04/10/22 02:15 37.0 C 89 28 H 96 04/10/22 02:10 37.0 C 90 29 H 95 04/10/22 02:00 36.9 C 93 H 29 H 93 04/10/22 02:00 142/72 H 04/10/22 01:50 36.9 C 95 H 25 H 93 04/10/22 04:00 50 Exam (Neuro) Physical Exam: Patient was still with no spontaneous movement. He breathes over the ventilator at a rate of about 29 but his breaths are more shallow than they were yesterday. He has no response to show or clap. Eyes open passively and he has 4 mm and bilaterally reactive pupils. Otherwise other front and he has some mild horizontal oculocephalic movements with head turning. Neck is supple. He has a positive gag. He has no withdrawal to deep pain in the Legs bilaterally. He has some very mild withdrawal to deep pain in the left upper extremity. There is decreased tone in the limbs. There is some this servant and withdrawal posturing with deep pain in the right upper extremity. with the pain in the limbs he does get a little bit of furrowing of his eyebrows but no other response. Reflexes are decreased and toes are neutral to plantar stimulation PG Care Time/CCT Total # of Minutes Spent Total Time Spent with Patient: Total time spent is greater than 50% in coordination of care (as documented) at patient's floor/unit and/or counseling patient: Coding Level of Care Code 69620 Subseq Hosp Care Lvl 3 Diagnoses Unresponsive state R41.89 Cardiac arrest I46.9 Anoxic brain injury G93.1 Time Spent (min) 40
[2022-04-10] MEDS ORDERED: STAT IV Infusion **Titration per Protocol STA (14:15)
[2022-04-10] MEDS ORDERED: HYDROmorphone/NSS 100 MG/100 ML BAG IV SCH (14:15)
[2022-04-10] MEDS ORDERED: ONDANSETRON INJ 2 MG/ML 2 ML VIAL IV PRN (14:15)
[2022-04-10] MEDS ORDERED: HYDROmorphone INJ 0.5 MG/0.5 ML SYR IV ONE (14:17)
--- NOTE | 2022-04-10 14:33 | Palliative Care Progress Note ---
Date of Service April 10, 2022 Assessment & Plan (1) Anoxic brain injury: (2) Cardiac arrest: (3) Palliative care encounter: Plan: Talked with Mrs. Keene, her son and daughter at bedside. They have not seen any significant change from yesterday and are aware that each day that goes by his potential for recovery diminishes. They are certain that he would not want to live in a alf or have intermediate card tender vent support. We talked about what a meaningful life would look like to him. They feel that meaningful life would be eating independently, ambulating and even driving. They understand that is very unlikely. We reviewed statistical survival of CPR and less than 5% chance of recovery of prior function. They note that Donny's living will indicated no life support. They are comfortable with having made the decision for full care initially to see if he had a chance for recovery. They had the opportunity to talk with Dr. Santacruz after he examined Donny. Following that conversation, they feel that Donny would not want continued aggressive care and have requested that we withdraw ventilator support and shift focus of care to comfort and symptom management. We talked about what to expect. They are contacting family to see damian salamanca on the phone prior to extubation. Offered pastoral care support. They have been in touch with Fr. Avalos, who did give Donny last rites. They feel that they have the support that they need right now. Notified Dr. Chang and Dr. Sim. Discussed with RN. Admission and Anticipated Discharge Date Admission Date: April 06, 2022 Subjective No purposeful movements. Family notes no change from yesterday. Review of Systems Review of Systems: Unobtainable due to endotracheal tube and Unobtainable due to reduced consciousness Physical Exam Constitutional: + mechanically ventilated; no acute distress ENMT: ET tube, OG tube Respiratory: tachypnea Cardiovascular: Rate/Rhythm: + irregularly irregular Neurologic: withdraws from pain Results & Data ([facility]) Vital Signs (Past 12 Hours) Vital Signs Temp Pulse Resp BP Pulse Ox FiO2 04/10/22 12:30 158/82 H 04/10/22 12:30 100.0 F H 81 27 H 93 04/10/22 12:15 143/73 H 04/10/22 12:15 100.0 F H 76 33 H 94 04/10/22 12:00 99.9 F H 77 30 H 94 04/10/22 12:00 138/75 04/10/22 11:45 143/73 H 04/10/22 11:45 99.7 F H 77 31 H 94 04/10/22 11:30 140/76 04/10/22 11:30 99.5 F 77 33 H 93 04/10/22 11:15 140/73 04/10/22 11:15 99.3 F 77 30 H 94 04/10/22 11:00 99.0 F 85 31 H 93 04/10/22 11:00 140/65 04/10/22 10:45 165/86 H 04/10/22 10:45 98.8 F 108 H 33 H 94 04/10/22 10:30 174/86 H 04/10/22 10:30 98.2 F 110 H 35 H 93 04/10/22 10:15 167/94 H 04/10/22 10:15 98.6 F 107 H 31 H 94 04/10/22 10:00 98.4 F 108 H 33 H 94 04/10/22 10:00 172/101 H 04/10/22 09:45 159/96 H 04/10/22 09:45 98.1 F 108 H 32 H 94 04/10/22 09:30 98.8 F 107 H 33 H 94 04/10/22 09:30 160/83 H 04/10/22 09:15 162/83 H 04/10/22 09:15 98.2 F 110 H 34 H 93 04/10/22 09:00 98.6 F 89 34 H 93 04/10/22 09:00 165/76 H 04/10/22 08:46 161/89 H 04/10/22 08:46 98.6 F 109 H 37 H 92 04/10/22 08:30 98.4 F 93 H 34 H 93 04/10/22 08:30 138/90 04/10/22 08:15 98.8 F 89 33 H 93 04/10/22 08:15 138/88 04/10/22 08:01 98.4 F 88 30 H 95 04/10/22 08:01 165/78 H 04/10/22 08:00 98.4 F 87 30 H 94 04/10/22 07:45 131/85 04/10/22 07:45 98.8 F 77 29 H 98 04/10/22 07:30 98.6 F 80 28 H 95 04/10/22 07:30 112/58 L 04/10/22 07:15 127/58 L 04/10/22 07:15 98.4 F 83 27 H 95 04/10/22 07:01 134/102 H 04/10/22 07:01 98.6 F 89 31 H 92 04/10/22 07:00 98.6 F 90 30 H 92 04/10/22 11:45 50 04/10/22 11:39 77 32 H 93 50 04/10/22 08:00 0.5 04/10/22 08:00 50 04/10/22 07:20 87 28 H 96 50 04/10/22 06:30 130/62 04/10/22 06:30 98.6 F 94 H 31 H 92 04/10/22 06:15 98.2 F 105 H 31 H 91 04/10/22 06:15 146/72 H 04/10/22 06:00 98.8 F 106 H 28 H 93 04/10/22 06:00 160/98 H 04/10/22 05:45 164/79 H 04/10/22 05:45 98.6 F 95 H 31 H 91 04/10/22 05:31 98.2 F 93 H 31 H 92 04/10/22 05:31 138/70 04/10/22 05:16 98.6 F 91 H 29 H 96 04/10/22 05:16 166/76 H 04/10/22 05:00 98.8 F 76 27 H 96 04/10/22 05:00 103/52 L 04/10/22 04:45 108/63 04/10/22 04:45 98.6 F 102 H 27 H 95 04/10/22 05:51 88 29 H 94 50 04/10/22 04:30 98.2 F 103 H 28 H 95 04/10/22 04:30 146/72 H 04/10/22 04:20 98.4 F 105 H 29 H 92 04/10/22 04:17 98.6 F 90 30 H 92 04/10/22 04:17 158/77 H 04/10/22 04:10 98.8 F 78 25 H 96 04/10/22 04:00 98.8 F 84 28 H 95 04/10/22 04:00 94/57 L 04/10/22 03:50 98.4 F 104 H 30 H 95 04/10/22 03:45 98.4 F 105 H 27 H 94 04/10/22 03:45 134/65 04/10/22 03:40 98.4 F 105 H 28 H 94 04/10/22 03:30 98.4 F 107 H 30 H 92 04/10/22 03:30 133/93 04/10/22 03:20 98.6 F 108 H 34 H 92 04/10/22 03:15 123/67 04/10/22 03:15 98.8 F 85 26 H 96 04/10/22 03:10 98.8 F 89 29 H 95 04/10/22 03:00 98.6 F 92 H 30 H 93 04/10/22 03:00 142/68 H 04/10/22 02:50 98.4 F 94 H 32 H 93 04/10/22 02:46 147/76 H 04/10/22 02:46 98.4 F 96 H 30 H 92 04/10/22 02:40 98.4 F 96 H 30 H 92 04/10/22 02:31 153/89 H 04/10/22 02:31 98.6 F 95 H 30 H 92 04/10/22 02:30 98.6 F 94 H 30 H 92 04/10/22 04:00 50 PG Care Time/CCT Total # of Minutes Spent Total Time Spent: 95 Total Time Spent with Patient: Total time spent is greater than 50% in coordination of care (as documented) at patient's floor/unit and/or counseling patient: goals of care, symptom management, family education and support, coordination of car.e Coding Level of Care Code 76053 Prolonged Care (int'l) Diagnoses Anoxic brain injury G93.1 Cardiac arrest I46.9 Palliative care encounter Z51.5
[2022-04-10] MEDS: GLYCOPYRROLATE 0.2 MG/ML VIAL IV PRN (16:02)
[2022-04-10] MEDS: LORazepam 0.5 MG in SYRINGE 0.25 ML IV PRN ×2 (16:14→22:27)
[2022-04-10] MEDS ORDERED: ATROPINE SULFATE 1% OP SOLN 5 ML BTL OP PRN (19:12)
[2022-04-10] MEDS: HYDROmorphone INJ 0.5 MG/0.5 ML SYR IV PRN (19:16)
[2022-04-11] MEDS: HYDROmorphone INJ 0.5 MG/0.5 ML SYR IV PRN (01:54)
[2022-04-11] MEDS: GLYCOPYRROLATE 0.2 MG/ML VIAL IV PRN (01:54)
--- NOTE | 2022-04-11 05:24 | Death Pronouncement Note ---
Date of Service April 11, 2022 Pronouncement Note Admission Date Admission Date: April 06, 2022 PRONOUNCEMENT NOTE - Date: 04/11/2022 Time: 05 I was contacted by nursing staff regarding the patients declining status and concerns for imminent demise. In short, patient was admitted to the ICU following cardiac arrest and underwent therapeutic hypothermia. Patient suffered extensive anoxic injury during cardiac arrest and following completion of therapeutic hypothermia, decision was made to transition patient to comfort care. I was notified by primary nurse that the patient was in asystolic rhythm on the monitor. Assessment: I presented to the patients room for evaluation. Upon assessment, the patient was found to be in a terminal state. No palpable pulses appreciated. No spontaneous breaths noted. Heart sounds were absent. Time of : 515 as pronounced by myself. Family present at bedside. Appropriate response to grief appreciated. Condolences provided. Questions were addressed and emotional support was provided. Patients primary service was contacted and made aware of patient demise. Pronouncement section of the Certificate was filled out and signed by myself. Cause of : Primary -anoxic brain injury Secondary -cardiac arrest Please feel free to contact me with any questions regarding the above-mentioned course. Contributing Factors (1) Anoxic brain injury: (2) Cardiac arrest: (3) Palliative care encounter: Additional Data Attending physician: Jose Chang MD Coding Level of Care Code None Diagnoses Anoxic brain injury G93.1 Cardiac arrest I46.9 Palliative care encounter Z51.5
--- NOTE | 2022-04-11 09:10 | Discharge Summary ---
Date of Service April 11, 2022 Admission HPI Per Admitting Provider History obtained from patient's family, and records. Unable to obtain history from patient secondary to intubated/sedated state. Medical history significant for hypertension, lung cancer status post surgery, BPH, past tobacco abuse. Patient traveled for 5 hours with his family from their [place], [place] residence to [place] today to spend the weekend in town for the football game. He had lunch at a local restaurant before checking in at the hotel this afternoon with his . witnessed patient passing out as he was swiping his tong card to enter the hotel room. Head trauma following fall. Patient noted to be unresponsive. 911 called. Police arrived as first responders. CPR initiated. AED prompted 3 shocks with subsequent delivery. Upon medical facilities section director arrival, patient noted to be in PEA. Patient noted to be hypoxemic and tachycardic. Epinephrine and bicarb given on the field. Patient subsequently intubated. ROSC subsequently obtained. Patient not very responsive as per . A. fib noted on the monitor as per EMS account. Patient brought to [facility] ER. Zosyn administered at the ER. Patient underwent emergent cardiac catheterization following ER provider communication with nterventional submarine worker. Hypothermia protocol initiated upon arrival at ICU. 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 Admission Exam Per Admitting Provider Physical Exam Physical Exam: GENERAL: Sedated, obese, minimal respiratory distress SKIN: Normal color, cool HEENT: Abrasions over face, pink palpebral conjunctivae, no ptosis, dry buccal mucosa, ET in place NECK : Supple, no tenderness CHEST : Decreased breath sounds, occasional expiratory wheeze, no tenderness HEART : irregular, no obvious murmurs ABDOMEN: Some distention, nontender EXTREMITIES : No LE swelling, no LE tenderness, no other conspicuous deformities noted NEUROLOGIC : Sedated, no facial asymmetry, gait and stance not assessed Principal Diagnosis Anoxic brain injury Cardiac arrest Acute Kidney Injury Atrial fibrillation RVR Ventricular Tachycardia Aspiration pneumonia Acute nondisplaced sternal fracture Discharge Data Allergies Allergy/AdvReac Type Severity Reaction Status Date / Time ibuprofen Allergy Severe Anaphylaxis Verified 04/06/22 18:00 Consultations 04/06/22 20:24 Consult Banquet Steward Routine 04/07/22 09:07 Consult Cardiology Routine 04/08/22 12:04 Consult Neurology Routine 04/08/22 12:18 Consult Neurology Routine 04/09/22 08:53 Consult Palliative Care Routine 04/09/22 08:56 Consult Nephrology Routine 04/10/22 14:15 Consult Palliative Care Routine Procedures Performed Operation Date: 04/06/22 18:00 Actual Procedures s Cineradiography w/Routine Exam - Masoud Gonzales MD, PhD p Cath, Left with Cors and Vent - Masoud Gonzales MD, PhD s Ultrasound Vascular Access - Masoud Gonzales MD, PhD s Central Venous Cath Placement - Masoud Gonzales MD, PhD Laboratory Results WBC 15.99 K/ul (4.8-10.8) H 04/10/22 05:36 RBC 3.81 M/uL (4.63-6.08) L 04/10/22 05:36 Hgb 12.0 g/dl (14.0-18.0) L 04/10/22 05:36 POC Hgb 10.9 g/dl (14.0-18.0) L 04/10/22 05:01 Hct 35.4 % (40.1-51.0) L 04/10/22 05:36 POC Hct 32 % (42-52) L 04/10/22 05:01 MCV 92.9 fL (80.0-100.0) 04/10/22 05:36 MCH 31.5 pg (25.0-34.0) 04/10/22 05:36 MCHC 33.9 g/dL (32.0-36.0) 04/10/22 05:36 RDW Std Deviation 48.0 fL (36.4-46.3) H 04/10/22 05:36 RDW Coeff of Tarsha 14.1 % (11.5-14.5) 04/10/22 05:36 Plt Count 100 K/uL (130-400) L 04/10/22 05:36 MPV 10.3 fL (9.4-12.4) 04/10/22 05:36 Immature Gran % (Auto) 0.6 % 04/10/22 05:36 Neut % (Auto) 90.8 % 04/10/22 05:36 Lymph % (Auto) 3.3 % 04/10/22 05:36 [place] % (Auto) 4.8 % 04/10/22 05:36 Eos % (Auto) 0.1 % 04/10/22 05:36 Baso % (Auto) 0.4 % 04/10/22 05:36 Neut # (Auto) 14.53 K/uL (1.4-6.5) H 04/10/22 05:36 Lymph # (Auto) 0.53 K/uL (1.2-3.4) L 04/10/22 05:36 [facility] # (Auto) 0.77 K/uL (0.24-0.82) 04/10/22 05:36 Eos # (Auto) 0.01 K/uL (0-0.50) 04/10/22 05:36 Baso # (Auto) 0.06 K/uL (0-0.2) 04/10/22 05:36 Immature Gran # (Auto) 0.09 K/uL (0.00-0.02) H 04/10/22 05:36 Neutrophils % (Manual) 92 % 04/07/22 13:10 Lymphocytes % (Manual) 4 % 04/07/22 13:10 Monocytes % (Manual) 4 % 04/07/22 13:10 Neutrophils # (Manual) 14.22 K/uL (1.4-6.5) H 04/07/22 13:10 Total Absolute Neuts 14.22 K/uL (1.4-6.5) H 04/07/22 13:10 Lymphocytes # (Manual) 0.62 K/uL (1.2-3.4) L 04/07/22 13:10 Total Abs Lymphocytes 0.62 K/uL (1.2-3.4) L 04/07/22 13:10 Monocytes # (Manual) 0.62 K/uL (0.24-0.82) 04/07/22 13:10 Platelet Estimate Normal (Normal) 04/09/22 01:57 RBC Morphology Unremarkable 04/10/22 05:36 Polychromasia 1+ 04/08/22 13:23 Poikilocytosis Present 04/07/22 08:11 Target Cells 1+ 04/08/22 13:23 Echinocytes 2+ 04/09/22 01:57 PT 11.7 Seconds (9.0-12.0) 04/09/22 01:57 INR 1.1 (0.9-1.1) 04/09/22 01:57 APTT 28.3 Seconds (21.0-31.0) 04/10/22 05:36 PTT Ratio 1.0 04/10/22 05:36 Fibrinogen 226 mg/dl (184-400) 04/06/22 19:29 Sample Site L Radial 04/10/22 05:01 POC pH 7.36 (7.35-7.45) 04/10/22 05:01 POC pCO2 40 mmHg (35-46) 04/10/22 05:01 POC pO2 78 mmHg (80-95) L 04/10/22 05:01 POC HCO3 23 venu/L (19-24) 04/10/22 05:01 POC Total CO2 24 mmol/L (24-31) 04/10/22 05:01 POC Base Excess -3.0 venu/L (-9-1.8) 04/10/22 05:01 ABG pH (Temp Correct) 7.354 (7.35-7.45) 04/10/22 05:01 ABG pCO2 (Temp Corrct 41 mmHg (35-46) 04/10/22 05:01 POC ABG pO2 at Pt Temp 79 04/10/22 05:01 POC ABG O2 Sat 95.0 % (90-95) 04/10/22 05:01 Edd Test Pass 04/10/22 05:01 O2 Delivery Device Ventilator 04/10/22 05:01 POC O2 Rate 24 04/10/22 05:01 Minute Ventilation 580 04/08/22 04:52 POC FiO2 50 % 04/10/22 05:01 Tidal Volume 470 04/10/22 05:01 PEEP 5 04/10/22 05:01 POC Sodium 136 mmol/L (135-144) 04/10/22 05:01 Sodium 138 mmol/L (136-145) 04/10/22 05:36 POC Potassium 3.3 mmol/L (3.3-5.0) 04/10/22 05:01 Potassium 3.6 mmol/L (3.5-5.1) 04/10/22 05:36 Chloride 99 mmol/L (98-107) 04/10/22 05:36 Carbon Dioxide 24 mmol/L (21-32) 04/10/22 05:36 Anion Gap 15 (3-11) H 04/10/22 05:36 BUN 64 mg/dl (6-23) H 04/10/22 05:36 Creatinine 3.47 mg/dl (0.6-1.4) H 04/10/22 05:36 Est Cr Clr Drug Dosing 23.1 ml/min 04/10/22 05:36 Est GFR ( Amer) 18.7 ml/min 04/10/22 05:36 Est GFR (Non-Af Amer) 16.2 ml/min 04/10/22 05:36 BUN/Creatinine Ratio 18.4 (10-20) 04/10/22 05:36 Glucose 74 mg/dl (70-99(Fasting)) 04/10/22 05:36 POC Glucose 84 mg/dl (70-99) 04/10/22 12:17 POC Glucose (other) 138 mg/dl (70-99) H 04/08/22 18:02 Estimat Average Glucose 117 mg/dl 04/07/22 03:21 Hemoglobin A1c 5.7 % (4.5-5.6) H 04/07/22 03:21 Lactate 1.2 mmol/L (0.4-2.0) 04/09/22 09:39 Calcium 7.3 mg/dl (8.5-10.1) L 04/10/22 05:36 Ionized Calcium 1.06 mmol/L (1.12-1.32) L 04/06/22 19:29 Phosphorus 7.2 mg/dl (2.5-4.9) H 04/10/22 05:36 Magnesium 2.5 mg/dl (1.7-2.4) H 04/10/22 05:36 Total Bilirubin 1.2 mg/dl (0.2-1.0) H 04/09/22 09:39 Direct Bilirubin 0.5 mg/dl (0-0.2) H 04/09/22 09:39 AST 90 U/L (13-39) H 04/09/22 09:39 ALT 56 U/L (7-52) H 04/09/22 09:39 Alkaline Phosphatase 39 U/L (34-104) 04/09/22 09:39 Total Creatine Kinase 2173 U/L (30-223) H 04/09/22 09:39 Total Creatine Kinase Cancelled 04/09/22 09:39 Troponin I High Sens 3968.3 pg/ml (0-20) H* 04/07/22 08:11 Total Protein 5.6 gm/dl (6.0-8.3) L 04/09/22 09:39 Albumin 3.2 gm/dl (3.4-5.0) L 04/09/22 09:39 Globulin 2.3 gm/dl (2.5-4.0) L 04/06/22 17:07 Albumin/Globulin Ratio 1.6 (0.9-2) 04/06/22 17:07 Triglycerides 137 mg/dl (0-150) 04/06/22 19:29 Triglycerides Cancelled 04/06/22 19:29 Cholesterol 134 mg/dl (0-200) 04/06/22 19:29 Cholesterol Cancelled 04/06/22 19:29 LDL Cholesterol, Calc 66 mg/dl 04/06/22 19:29 LDL Cholesterol, Calc Cancelled 04/06/22 19:29 VLDL Cholesterol, Calc 27 mg/dl (0-30) 04/06/22 19:29 VLDL Cholesterol, Calc Cancelled 04/06/22 19:29 HDL Cholesterol 41 mg/dl 04/06/22 19:29 HDL Cholesterol Cancelled 04/06/22 19:29 Cholesterol/HDL Ratio 3.3 (0-5) 04/06/22 19:29 Cholesterol/HDL Ratio Cancelled 04/06/22 19:29 Lipase 79 U/L (11-82) 04/06/22 19:29 Lipase Cancelled 04/06/22 19:29 Procalcitonin 7.25 ng/ml (0-0.5) H 04/10/22 05:36 TSH 1.470 uIu/ml (0.300-4.500) 04/06/22 19:29 Random Cortisol 33.52 mcg/dl 04/06/22 19:29 Urine Color Yellow 04/06/22 Unknown Urine Appearance Cloudy (Clear) A 04/06/22 Unknown Urine pH 6.5 (4.5-7.5) 04/06/22 Unknown Ur Specific Clark 1.026 (1.000-1.030) 04/06/22 Unknown Urine Protein 4+ (Negative) H 04/06/22 Unknown Urine Glucose (UA) Trace (Negative) H 04/06/22 Unknown Urine Ketones Negative (Negative) 04/06/22 Unknown Urine Blood 3+ (Negative) H 04/06/22 Unknown Urine Nitrite Negative (Negative) 04/06/22 Unknown Urine Bilirubin Negative (Negative) 04/06/22 Unknown Urine Urobilinogen Negative (Negative) 04/06/22 Unknown Ur Leukocyte Esterase Negative (Negative) 04/06/22 Unknown Urine WBC (Auto) >30 /hpf (0-5) H 04/06/22 Unknown Urine RBC (Auto) >30 /hpf (0-4) H 04/06/22 Unknown U Hyaline Cast (Auto) 5-10 /lpf (0-5) H 04/06/22 Unknown U Epithel Cells (Auto) 10-20 /lpf (0-5) H 04/06/22 Unknown Urine Bacteria (Auto) 2+ (Negative) H 04/06/22 Unknown Granular Casts 5-10 /lpf (0) H 04/06/22 Unknown Urine Mucus Present (None Prsent) A 04/06/22 Unknown Urine Yeast Present (None Prsent) A 04/06/22 Unknown Nasal Screen MRSA (PCR) Negative (Negative) 04/06/22 19:30 Gastric Fluid pH 2 04/09/22 Unknown Gastric Occult Blood Positive (Negative) A 04/09/22 Unknown Urine Opiates Screen Neg (Neg) 04/06/22 20:27 Ur Methadone, Qual Neg (Neg) 04/06/22 20:27 Urine Barbiturates Neg (Neg) 04/06/22 20:27 Ur Phencyclidine (PCP) Neg (Neg) 04/06/22 20:27 U Amphetamin/Meth Scrn Neg (Neg) 04/06/22 20:27 MDMA (Ecstasy) Screen Neg (Neg) 04/06/22 20:27 U Benzodiazepines Scrn Neg (Neg) 04/06/22 20:27 Ur Cocaine Metabolite Neg (Neg) 04/06/22 20:27 U Marijuana (THC) Screen Neg (Neg) 04/06/22 20:27 Blood Type O Positive 04/06/22 19:29 Blood Type Recheck O Positive 04/06/22 17:29 Antibody Screen NEGATIVE 04/06/22 19:29 Impressions Venous Doppler Study 04/06/22 20:22 BILATERAL LOWER EXTREMITY VENOUS DOPPLER HISTORY: Acute pain and swelling of the right lower extremity DVT? COMPARISON STUDY: None. FINDINGS: There is normal compressibility, flow, and augmentation within the bilateral lower extremity deep venous systems. Left-sided Whitney's cyst, 3.9 x 2.5 x 1.3 cm. IMPRESSION: No DVT within the right or left lower extremity. ACT 112: Negative or not required by law. Electronically signed by: Sam Swan M.D. 04/06/2022 9:41 PM Abdomen/Pelvis CT 04/07/22 05:40 CT OF THE ABDOMEN AND PELVIS WITHOUT CONTRAST CLINICAL HISTORY: elevated LA, worsening shock COMPARISON STUDY: No previous studies for comparison. TECHNIQUE: Axial images of the abdomen and pelvis were obtained without IV contrast. Images were reviewed in the axial, sagittal, and coronal planes. Automated exposure control was utilized for the study. A dose lowering technique was utilized adhering to the principles of ALARA. FINDINGS: Please note that the chest CT will be reported separately. Postoperative findings within the left hemithorax are noted. There is extensive left infrahilar and left basilar consolidation. Small amount of anterior mediastinal hemorrhage is present. There is cardiomegaly. Multiple acute bilateral rib fractures are noted. No pneumatosis, free air or portal venous gas is present. Evaluation of the abdomen and pelvis is suboptimal on this unenhanced examination. Tip of right femoral venous catheter is within the suprahepatic IVC. There is vicarious excretion of contrast by the gallbladder. Enhancement of the kidneys with contrast excretion is from recent catheterization. There are several indeterminate left renal lesions which measure up to 2.5 cm. Decreased sensitivity for detection of urinary calculi given excreted contrast. There are possible nonobstructing bilateral renal calculi. There is no hydronephrosis. The prostate is enlarged. A Mcmillan balloon within the bladder is present. Bladder wall thickening is probably chronic. There is no evidence for a bowel obstruction. Colonic diverticulosis is noted without evidence for acute diverticulitis. The appendix is normal. There is no lymphadenopathy. No hemoperitoneum is present. There is no retroperitoneal hematoma. Rectal probe is in place. IMPRESSION: 1. No bowel obstruction. No bowel wall thickening. Colonic diverticulosis without evidence for acute diverticulitis. 2. No pneumatosis, free air or portal venous gas. 3. Multiple findings within the chest, including suspected left lung pneumonia, small amount of anterior mediastinal hemorrhage and acute bilateral rib fractures. These findings are better depicted on the chest CT which will be reported separately. 4. Several indeterminate left renal lesions. These could reflect hyperdense cysts or solid renal lesions. ACT 112: Negative or not required by law. Electronically signed by: Constantino oBwman M.D. 04/07/2022 7:[address] 04/07/22 05:41 CT OF THE CHEST WITHOUT IV CONTRAST CLINICAL HISTORY: worsening shock COMPARISON STUDY: Chest radiograph April 06, 2022. TECHNIQUE: Axial images of the chest were obtained without IV contrast. Images were reviewed in the axial, sagittal, and coronal planes. IV contrast was not administered for this examination. Automated exposure control was utilized for the study. A dose lowering technique was utilized adhering to the principles of ALARA. FINDINGS: Endotracheal and nasogastric tubes are satisfactorily positioned. Tip of the right femoral venous catheter is within the suprahepatic IVC. Cardiomegaly is noted. There is a small amount of anterior mediastinal hemorrhage. There are numerous acute bilateral rib fractures and an acute nondisplaced transverse mid sternal fracture. Several rib fractures are minimally displaced. There is no pneumothorax. Postoperative findings within the left hemithorax are noted. There is extensive left infrahilar consolidation. There are scattered airspace opacities within the remainder of the lungs. Lungs are suboptimally assessed due to respiratory motion. Underlying emphysema. Cardiomegaly is noted. There is slight dilatation of the ascending aorta, measuring 4 cm. Aorta is suboptimally assessed on this unenhanced exam. There is no pleural effusion. No acute thoracic spine fracture is present. There is no thoracic lymphadenopathy. Abdomen and pelvis CT will be reported separately. IMPRESSION: 1. Satisfactory positioning of the endotracheal and nasogastric tubes. 2. Postoperative findings within the left hemithorax. Extensive left infrahilar and basilar consolidation suggestive of pneumonia. Additional airspace opacities within the lungs are also likely infectious. Aspiration pneumonia is also within the differential. 3. Small amount of anterior mediastinal hemorrhage. 4. Multiple acute bilateral rib fractures. No pneumothorax. Acute nondisplaced sternal fracture. 5. Cardiomegaly. ACT 112: Negative or not required by law. Electronically signed by: Constantino Bowman M.D. 04/07/2022 7:07 AM Chest X-Ray 04/08/22 04:56 XR chest 1V portable CLINICAL HISTORY: Respiratory failure. COMPARISON STUDY: Chest radiograph April 06, 2022 at 8:[address] April 07, 2022. FINDINGS: Tip of endotracheal tube is approximately 4 cm above the arie. Tip of nasogastric tube is at least within the body of the stomach. There is no pneumothorax. Blunting of the left costophrenic angle may reflect a small left pleural effusion. Left basilar consolidation persists with volume loss. There is mild interstitial thickening. Acute rib fractures shown on CT are not well- visualized by radiography. IMPRESSION: 1. Satisfactory positioning of the endotracheal and nasogastric tubes. 2. Persistent dense left basilar opacity with volume loss. This favors pneumonia. Possible small left pleural effusion. 3. No pneumothorax. 4. Interstitial thickening. When correlating with prior CT, this probably reflects an infectious process. Moderate pulmonary edema would be difficult to exclude. ACT 112: Negative or not required by law. Electronically signed by: Constantino Bowman M.D. 04/08/2022 7:[address] 04/08/22 10:20 CT head/brain wo con CLINICAL HISTORY: 77 years-old Male with s/p arrest. Acutely altered mental status with recent cardiac arrest TECHNIQUE: Multiple axial CT images of the head were obtained without contrast. A dose lowering technique was utilized adhering to the principles of ALARA. CT DOSE: 884.08 mGy.cm COMPARISON: Brain MRI of same day, head CT 04/06/2022 FINDINGS: No acute intracranial hemorrhage, midline shift, intracranial mass, hydrocephalus, territorial ischemia or abnormal extra-axial collection. Mild white matter hypodensities suggestive of chronic microvascular ischemic disease. The calvarium is intact. Mastoid air cells are clear. Mucosal thickening of the paranasal sinuses is moderate to severe within the ethmoid and sphenoid sinuses. IMPRESSION: No acute intracranial abnormality. ACT 112: Negative or not required by law. The above report was generated using voice recognition software. It may contain grammatical, syntax or spelling errors. Electronically signed by: Sam Swan M.D. 04/08/2022 3:41 PM Brain MRI 04/08/22 10:21 MR brain wo con HISTORY: 77 years-old Male s/p arrest acute cardiac arrest COMPARISON: Head CT of same day TECHNIQUE: Multiplanar multisequence MRI of the brain was obtained without the use of IV contrast FINDINGS: No restricted diffusion to suggest acute or subacute infarct. Midline structures appear unremarkable with partially empty sella. Degenerative changes of the imaged cervical spine. No acute intracranial hemorrhage, midline shift, abnormal extra-axial collection, hydrocephalus or intracranial mass. Mild to moderate scattered T2/FLAIR hyperintense foci noted throughout the white matter. Mild involutional changes. Cerebral venous sinuses and major arterial flow voids appear patent. Moderate to severe mucosal thickening of the paranasal sinuses with secretions in the nasopharyngeal airway. Partially imaged endotracheal tube. Small mastoid effusions. Skull, orbits and soft tissues are unremarkable. IMPRESSION: 1. No acute intracranial abnormality. No acute or subacute infarct. 2. Mild to moderate chronic microvascular ischemic disease. ACT 112: Negative or not required by law. The above report was generated using voice recognition software. It may contain grammatical, syntax or spelling errors. Electronically signed by: Sam Swan M.D. 04/08/2022 3:59 PM Ordered Studies 04/06/22 18:07 CT head/brain wo con Stat 04/06/22 18:10 CL Cath Imgs for PACS use only Stat 04/06/22 20:22 US venous doppler LE BI Stat 04/07/22 05:40 CT Abd and Pelvis [CT abd pelvis wo con] Stat 04/07/22 05:41 CT chest diagnostic wo con Stat 04/08/22 10:20 CT head/brain wo con Routine 04/08/22 10:21 MRI Brain [MR brain wo con] Routine Hospital Course (1) Cardiac arrest: Cardiac Arrest Atrial fibrillation RVR S/P 3 shocks administered by an AED on presentation for ? VT/VF PEA after Shock Cardiogenic Shock Can not rule ot PE Acute Hypoxemic, hypercapnic respiratory failure Elevated troponin likely due to demand Ischemia --ECHO: Sinus bradycardia in the 50s present during the echocardiogram study. The left ventricular wall motion is normal. Left ventricle systolic function is normal. EF 50 to 55%. The right ventricle is dilated to mild to moderate degree on the parasternal short axis views. Mild right ventricular hypokinesis thought to be present limited to the short axis views, and appears normal from the apical imaging perspective. There is moderate tricuspid regurgitation. Doppler findings do not suggest pulmonary hypertension. --S/P Cardiac Cath Reviewed --Venous Doppler:No DVT within the right or left lower extremity. -- On amiodarone ggt Appreciate Banquet Steward/Cardiology Input Completed Hypothermia Protocol Vent management per ICU team Could not obtain CTA for PE due to REYNALDO Poor prognosis Weaned off of pressors Palliative care following Remains Intubated, Off Sedation IV heparin held due to positive FOBT Acute Metabolic Encephalopathy Anoxic brain injury --CT Head:Motion degraded exam. No acute intracranial abnormality or calvarial fracture identified. EEG: EEG was Abnormal and showed generalized cerebral dysfunction as noted by severe slowing of the background activity of relatively low amplitude and a burst suppression type phenomenon throughout. There were no focal abnormalities or potentially epileptogenic discharges otherwise. --MRI Brain:No acute intracranial abnormality. No acute or subacute infarct. Mild to moderate chronic microvascular ischemic disease. --Appreciate Neurology Input Aspiration pneumonia --CT:Satisfactory positioning of the endotracheal and nasogastric tubes. Postoperative findings within the left hemithorax. Extensive left infrahilar and basilar consolidation suggestive of pneumonia. Additional airspace opacities within the lungs are also likely infectious. Aspiration pneumonia is also within the differential. Small amount of anterior mediastinal hemorrhage. Multiple acute bilateral rib fractures. No pneumothorax. Acute nondisplaced sternal fracture. Cardiomegaly. Aspiration precautions Currently on Unasyn Acute nondisplaced sternal fracture Small Anterior mediastinal hemorrhage Multiple acute bilateral rib fractures Likely traumatic due to Cardiac Arrest CT as above Fall precautions Abnormal Urine analysis Rule out UTI On antibiotics as above Acute Kidney Injury Unknown baseline creatinine Likely multifactorial Creatinine 3.47 today Continue IV fluids Avoid nephrotoxic agents as able No Indication for DOG BATHER at this time as per nephrology H/O lung cancer S/P surgery Prediabetes HbA1C: 5.7 H/O BPH Past tobacco abuse. HTN HLP As per records DVT Px: SCDs for now IV heparin held due to +FOBT Code Status DNI/DNR Given no significant improvement and very poor prognosis, and patient's family discussed care with palliative care and believe that they would not want him to live in a shelter or have long-term vent support. Also confirmed patient's living will indicated no life support. Patient's family were comfortable to transition patient to comfort care and symptomatic management. Patient was noted by RN to be in asystolic rhythm on the monitor and ICU team pronounce patient to have on 04/11/22 at 0516. Date of Service April 11, 2022 Pronouncement Note Admission Date Admission Date: April 06, 2022 PRONOUNCEMENT NOTE - Date: 04/11/2022 Time: 05 I was contacted by nursing staff regarding the patients declining status and concerns for imminent demise. In short, patient was admitted to the ICU following cardiac arrest and underwent therapeutic hypothermia. Patient suffered extensive anoxic injury during cardiac arrest and following completion of therapeutic hypothermia, decision was made to transition patient to comfort care. I was notified by primary nurse that the patient was in asystolic rhythm on the monitor. Assessment: I presented to the patients room for evaluation. Upon assessment, the patient was found to be in a terminal state. No palpable pulses appreciated. No spontaneous breaths noted. Heart sounds were absent. Time of : 515 as pronounced by myself. Family present at bedside. Appropriate response to grief appreciated. Condolences provided. Questions were addressed and emotional support was provided. Patients primary service was contacted and made aware of patient demise. Pronouncement section of the Certificate was filled out and signed by myself. Cause of : Primary -anoxic brain injury Secondary -cardiac arrest Please feel free to contact me with any questions regarding the above-mentioned course. Contributing Factors (1) Anoxic brain injury: (2) Cardiac arrest: (3) Palliative care encounter: Additional Data Attending physician: Jose Chang MD Coding Level of Care Code None Diagnoses Anoxic brain injury G93.1 Cardiac arrest I46.9 Palliative care encounter Z51.5 Total Time Total Time Spent Total Time Spent (In Minutes): 49 minutes Discharge Plan Discharge Items Patient Disposition: Discharge Diagnosis: Anoxic brain injury Cardiac arrest Acute Kidney Injury Atrial fibrillation RVR Ventricular Tachycardia Aspiration pneumonia Acute nondisplaced sternal fracture Other Date/Time: 04/11/22 05:16
== END 2022-04-11 06:00 | disposition expired | DRG 286 ==
LOC: ED 17:18 → CC 18:15 → 1E 20:11